=== PATIENT | male | born 1960 | race Caucasian/White ===

== ENCOUNTER 2019-09-02 08:45 | Outpatient (RCR) | payer MEDICAID, SELFPAY ==
[2019-08-18 11:56] LABS: Basophils # 0.1 10^3/uL (0.0-0.1); Basophils % 1.1 %; Eosinophils # 0.3 10^3/uL (0.0-0.8); Eosinophils % 5.2 %; Hematocrit 36.4 % (42.0-52.0); Hemoglobin 12.5 g/dL (11.7-16.6); Lymphocytes # 1.3 10^3/uL (0.8-4.8); Lymphocytes % 20.5 %; Mean Corpuscular HGB Conc 34.3 g/dL (30.0-36.0); Mean Corpuscular Hemoglobin 31.7 pg (28.0-34.0); Mean Corpuscular Volume 92.4 fL (80-94); Monocytes % 15.3 %; Neutrophils # 3.6 10^3/uL (1.8-7.7); Nucleated Red Blood Cells % 0 %; Platelet Count 346 10^3/cmm (130-400); Red Blood Count 3.94 10^6/uL (4.1-5.3); Red Cell Distribution Width 13.8 % (12.1-15.1); White Blood Count 6.3 10^3/uL (4.0-10.0)
[2019-08-18 12:18] LABS: Alanine Aminotransferase 11 U/L (0-41); Albumin Level 3.9 g/dL (3.5-5.2); Alkaline Phosphatase 66 IU/L (40-130); Anion Gap 16.5 (5-19); Aspartate Amino Transferase 13 U/L (0-40); Blood Urea Nitrogen 8 mg/dL (8-23); Calcium 9.7 mg/dL (8.5-10.5); Carbon Dioxide 25 mmol/L (22-29); Chloride 91 mmol/L (98-107); Chol HDL Ratio 3.34 mg/dL (1.0-5.00); Cholesterol 177 mg/dL (0-200); Globulin 3.1 g/dL (1.3-4.6); Glomerular Filtration Rate 137.4 mL/min (90-130); Glucose 114 mg/dL (65-115); HDL Cholesterol 53 mg/dL (60-100); LDL Cholesterol Calculated 108 mg/dL (50-129); LDL HDL Ratio 2.04 RATIO (0.00-3.22); Osmolality Calculated 263 mOsm/kg (285-295); Potassium 4.5 mmol/L (3.5-5.1); Sodium 128 mmol/L (136-145); Total Bilirubin 0.2 mg/dL (0.15-1.2); Triglycerides 78 mg/dL (0-150)
[2019-08-18 12:33] LABS: Vitamin B12 1678 pg/mL (232-1245)
[2019-08-18 14:47] LABS: 25 Hydroxy Vitamin D 45 ng/mL (30-100)
[2019-09-02 08:58] LABS: Basophils # 0.1 10^3/uL (0.0-0.1); Basophils % 0.7 %; Eosinophils # 0.3 10^3/uL (0.0-0.8); Eosinophils % 3.7 %; Hematocrit 35.3 % (42.0-52.0); Hemoglobin 11.9 g/dL (11.7-16.6); Lymphocytes # 0.8 10^3/uL (0.8-4.8); Lymphocytes % 8.6 %; Mean Corpuscular HGB Conc 33.7 g/dL (30.0-36.0); Mean Corpuscular Hemoglobin 31.1 pg (28.0-34.0); Mean Corpuscular Volume 92.2 fL (80-94); Mean Platelet Volume 8.7 fL (7.4-10.4); Monocytes # 1.2 10^3/uL (0.2-0.9); Monocytes % 13.2 %; Neutrophils # 6.5 10^3/uL (1.8-7.7); Neutrophils % 73.3 %; Nucleated Red Blood Cells % 0 %; Platelet Count 349 10^3/cmm (130-400); Red Blood Count 3.83 10^6/uL (4.1-5.3); Red Cell Distribution Width 13.6 % (12.1-15.1); White Blood Count 8.9 10^3/uL (4.0-10.0)
[2019-09-02 09:17] LABS: Estmated Average Glucose 160; Hemoglobin A1C 7.2 % (4.0-6.0)
[2019-09-02 09:20] LABS: Alanine Aminotransferase 9 U/L (0-41); Albumin Level 3.7 g/dL (3.5-5.2); Alkaline Phosphatase 70 IU/L (40-130); Anion Gap 17.4 (5-19); Aspartate Amino Transferase 10 U/L (0-40); Blood Urea Nitrogen 6 mg/dL (8-23); Calcium 9.5 mg/dL (8.5-10.5); Carbon Dioxide 26 mmol/L (22-29); Chloride 93 mmol/L (98-107); Chol HDL Ratio 3.44 mg/dL (1.0-5.00); Cholesterol 155 mg/dL (0-200); Globulin 3.5 g/dL (1.3-4.6); Glomerular Filtration Rate 169.6 mL/min (90-130); Glucose 135 mg/dL (65-115); HDL Cholesterol 45 mg/dL (60-100); LDL Cholesterol Calculated 98 mg/dL (50-129); LDL HDL Ratio 2.18 RATIO (0.00-3.22); Osmolality Calculated 272 mOsm/kg (285-295); Potassium 4.4 mmol/L (3.5-5.1); Sodium 132 mmol/L (136-145); Total Bilirubin 0.3 mg/dL (0.15-1.2); Total Protein 7.2 g/dL (6.6-8.7); Triglycerides 62 mg/dL (0-150)
[2019-09-02 10:05] LABS: Folate Level 8.2 ng/mL (4.5-32.2)
[2019-09-06 08:35] LABS: Vit D 1,25 (Oh)2, Total 25 pg/mL (18-72); Vit D2 1,25 (Oh)2 <8 pg/mL; Vit D3 1,25 (Oh)2 25 pg/mL
[2019-09-07 04:16] LABS: Vitamin B12 > 2000 pg/mL (232-1245)
== END 2019-09-15 23:59 | disposition home or self-care (01) ==
LOC: LAB 08:45
PROVIDERS: Family Provider Internal Medicine; PCP Internal Medicine; Visit Provider Internal Medicine
DX: E11.9 Type 2 diabetes mellitus without complications (principal)
CPT/HCPCS: 80053; 80061; 82306; 82607; 82652; 82746; 83036; 85025

== ENCOUNTER 2019-09-09 10:58 | Emergency (ER) | payer MEDICAID, SELFPAY ==
[2019-09-09 11:03] VITALS: BP 147/79; PULSE 63; RESP 17; TEMP 37.1; O2SAT 100; BMI 21.4
--- NOTE | 2019-09-09 11:24 | ED_ITS ---
HPI - Abdominal Pain General: Chief Complaint: Abdominal Pain Stated Complaint: possible UTI/ fever/ n/v Time Seen by Provider: 09/09/19 11:05 History of Present Illness: HPI narrative: 59-year-old male presents with complaint of bladder infection. He is a partial quadriplegic he had a C-spine fracture 12 years ago while working outside resulted in loss of function of everything below the neck he has partial movement but does have some contractures in the upper extremities not able to accomplish many tasks he has an indwelling suprapubic catheter. He was recently dislodged and currently has a Miranda in place he has a fever at home he also has dysuria and urgency. He still is able to sense things below the neck just not able to move very well. He says the symptoms been going on for 4 days. He has vomited x1 denies any diarrhea. He was supposed to have a colonoscopy and have the suprapubic catheter replaced but due to the recent pandemic this has not been done. He denies any respiratory symptoms. MD elicited complaint: abdominal pain Pertinent past history: past UTI and other (Partial quadriplegia, indwelling Miranda.) Onset (ago): day(s) (4) Pain Consistency: intermittent Location: Suprapubic Quality: cramping and burning Radiation: none Migration to: no migration Exacerbating factors: nothing Relieving factors: nothing Context: other (History of recurrent UTIs, history of indwelling Miranda, history of cervical spine injury resulting in partial paraplegia) Associated Symptoms: Reports chills, dysuria, fever(s), nausea and poor appetite; Denies change in stool character, coffee ground emesis, constipation, diarrhea, dyspepsia, heartburn, hematochezia, hematuria, hematemesis and vomiting Review of Systems Const: Reports: fever and chills ENMT: Denies: throat pain, ear pain, nasal discharge or nasal congestion Card: Denies: chest pain, edema, shortness of breath on exertion or shortness of breath when lying down Resp: Denies: shortness of breath, productive cough or non-productive cough GI: Reports: nausea; Denies: vomiting, vomiting blood, coffee grounds in vomit, heartburn/indigestion, diarrhea, constipation, change in stool character or blood in stool : Reports: painful urination; Denies: blood in urine Skin/Breast: Denies: rash or itching PFSH ED PFSH: Social History Smoking and tobacco status: current every day smoker cigarettes Quit status (tobacco): not considering quitting Second hand smoke exposure: No Smoking risk assessment/counseling performed?: Yes Alcohol intake: never Desire information about alcohol rehabilitation?: No Counseling given: No Desire information about substance/drug rehabilitation?: No Counseling given: No Adopted: No Caregiver/support person: Yes Lives independently: No Household members: caregiver Housing: Manufactured/Mobile home Marital status: Legally Number of children: 5 service: No Current occupational status: disabled History of recent travel: No Current gender identity: Male Physical Exam Const: COMMON NORMALS: average body habitus, oriented x3 and alert GENERAL APPEARANCE: cooperative, comfortable and well developed NUTRITIONAL APPEARANCE: obese ORIENTATION/CONSCIOUSNESS: Yes awake, Yes oriented to person and Yes oriented to place HENMT: COMMON NORMALS: normocephalic, head/scalp atraumatic, EAC's normal, TM's normal bilaterally, external nose normal, moist oral mucous membranes and oropharynx normal HEAD & SCALP: normocephalic and atraumatic NOSE: external nose normal EXTERNAL AUDITORY CANAL: EAC's normal TYMPANIC MEMBRANE: TM's normal bilaterally MOUTH: oral and palatal mucosa normal, lip normal and tongue normal THROAT: posterior oropharynx normal and tonsils normal Eye: COMMON NORMALS: PERRL, EOMs intact bilaterally, conjunctivae normal and no scleral icterus CONJUNCTIVA: Yes conjunctivae normal PUPIL: Yes PERRL Neck/C-Spine: COMMON NORMALS: full ROM, no lymphadenopathy, supple and thyroid normal THYROID: thyroid normal and asymmetrical Lymph: LYMPHATIC: no lymphadenopathy noted Resp: COMMON NORMALS: normal respiratory effort, no retractions, no use of accessory muscles and clear to auscultation bilaterally AUSCULTATION: clear to auscultation bilaterally Cardio: COMMON NORMALS: regular rate and regular rhythm RATE: regular rate RHYTHM: regular rhythm HEART SOUNDS: no murmurs GI: COMMON NORMALS: normal to inspection, nondistended, normoactive bowel sounds, soft to palpation and no hepatosplenomegaly PALPATION: Yes soft and Yes no hepatosplenomegaly : COMMON NORMALS: Yes no CVA tenderness BLADDER/KIDNEY EXAM: Yes no CVA tenderness Back/Pelvis: COMMON NORMALS: no CVA tenderness Extremity: OTHER: Contractures bilaterally of the upper extremities Neuro: COMMON NORMALS: oriented x3 SENSORIUM/ORIENTATION: Yes alert, Yes oriented to person and Yes oriented to place Skin: COMMON NORMALS: no rashes or lesions noted and skin turgor normal GENERAL SKIN EXAM: no rashes or lesions noted and turgor normal Course Vital Signs: Vital signs: Vital Signs Temperature 98.8 F 09/09/19 11:03 Pulse Rate 69 09/09/19 14:17 Respiratory Rate 18 09/09/19 14:17 Blood Pressure 166/81 09/09/19 14:17 Pulse Oximetry 95 09/09/19 14:17 MDM - Abdominal Pain MDM Narrative: Medical decision making narrative: Miranda replaced discharge rosalia e treat for cystitis cultures pending follow-up with his primary care doctor or urologist. Lab Data: Labs: Lab Results 09/09/19 09/09/19 09/09/19 Range/Units 11:43 11:43 12:22 WBC 9.8 (4.0-10.0) 10^3/ uL RBC 3.55 L (4.1-5.3) 10^6/u L Hgb 10.9 L (11.7-16.6) g/dL Hct 31.9 L (42.0-52.0) % MCV 89.9 (80-94) fL MCH 30.7 (28.0-34.0) pg MCHC 34.2 (30.0-36.0) g/dL RDW 13.2 (12.1-15.1) % Plt Count 301 (130-400) 10^3/c mm MPV 8.6 (7.4-10.4) fL Neut % (Auto) 80.4 % Lymph % (Auto) 5.7 % [place] % (Auto) 12.5 % Eos % (Auto) 0.7 % Baso % (Auto) 0.2 % Neut # (Auto) 7.9 H (1.8-7.7) 10^3/u L Lymph # (Auto) 0.6 L (0.8-4.8) 10^3/u L [place] # (Auto) 1.2 H (0.2-0.9) 10^3/u L Eos # (Auto) 0.1 (0.0-0.8) 10^3/u L Baso # (Auto) 0.0 (0.0-0.1) 10^3/u L Nucleated RBC % (a uto) 0 % Nucleated RBCs # 0.0 /100WBC Sodium 123 L (136-145) mmol/L Potassium 4.2 (3.5-5.1) mmol/L Chloride 84 L (98-107) mmol/L Carbon Dioxide 28 (22-29) mmol/L Anion Gap 15.2 (5-19) BUN 10 (8-23) mg/dL Creatinine 0.8 (0.7-1.2) mg/dL GFR Calculation 98.6 (90-130) mL/min Glucose 203 H (65-115) mg/dL Calculated Osmolal ity 258 L (285-295) mOsm/k g Calcium 9.5 (8.5-10.5) mg/dL Total Bilirubin 0.3 (0.15-1.2) mg/dL AST 15 (0-40) U/L ALT 20 (0-41) U/L Alkaline Phosphata se 95 (40-130) IU/L Total Protein 7.3 (6.6-8.7) g/dL Albumin 3.6 (3.5-5.2) g/dL Globulin 3.7 (1.3-4.6) g/dL Urine Color Yellow (Yellow) Urine Appearance Turbid (CLEAR) Urine pH 9 H (5-7) Ur Specific Gravit y 1.010 (1.005-1.030) Urine Protein Neg (Negative) Urine Glucose (UA) Norm (Normal) Urine Ketones Negative (Negative) Urine Blood 3+ H (Negative) Urine Nitrate Positive H (Negative) Urine Bilirubin Neg (NEGATIVE) Prot Sulfosalicyli c Acd Negative (Negative) Urine Urobilinogen Norm (Negative) mg/dL Ur Leukocyte Kaylan ase 2+ H (Negative) Urine RBC 15-25 H (0-2) /hpf Urine WBC 25-40 H (0-5) /hpf Ur Squamous Epith Cells 0-4 H (0-5) Triple Phos Tasha ls 5-10 H /hpf Amorphous Sediment 2+ Urine Bacteria 1+ H (NONE) Discharge Plan Discharge Patient Disposition: Home, Self-Care Clinical Impression: Cystitis Condition: Stable Prescriptions: New Cipro 500 mg tablet 500 mg PO BID Qty: 14 RF: 0 No Action ibuprofen-diphenhydramine cit [Advil PM] 200-38 mg tablet 1 cap PO PRN PRN (Reason: Pain) RF: 0 aspirin [Adult Aspirin Regimen] 81 mg tablet,delayed release (DR/EC) 81 mg PO DAILY RF: 0 baclofen 20 mg tablet 20 mg PO QID RF: 0 bisacodyl 10 mg suppository 10 mg IA PRN PRN (Reason: Constipation) RF: 0 carbamazepine 200 mg tablet 200 mg PO BID RF: 0 cranberry 500 mg capsule 500 mg PO DAILY RF: 0 escitalopram oxalate 10 mg tablet 10 mg PO DAILY RF: 0 gabapentin 100 mg capsule 100 mg PO TID RF: 0 loperamide 2 mg capsule 2 mg PO Q4H RF: 0 melatonin 10 mg capsule 30 mg PO BEDTIME RF: 0 meloxicam 15 mg tablet 15 mg PO DAILY RF: 0 pravastatin 40 mg tablet 40 mg PO DAILY RF: 0 promethazine 25 mg tablet 25 mg PO Q6H PRN (Reason: Nausea) RF: 0 trazodone 50 mg tablet 100 mg PO BEDTIME RF: 0 ascorbic acid (vitamin C) 500 mg capsule 500 mg PO DAILY RF: 0 ergocalciferol (vitamin D2) 400 unit tablet 50,000 unit PO Q7D RF: 0 Discharge Orders: Discharge Order (Routine); Ordered 09/09/19 Ordered By: Panda Garcia Referrals: AKBAR PATEL DO [Primary Care Provider] - Malka Owens MD [Family Provider] - Discharge Date/Time: 09/09/19 15:06 Coding Level of Care Code ED Spiral Tube Winder Helper for Chg Fwd Exam Comprehensive
[2019-09-09 11:34] VITALS: O2SAT 94
[2019-09-09 12:01] LABS: Basophils % 0.2 %; Eosinophils # 0.1 10^3/uL (0.0-0.8); Eosinophils % 0.7 %; Hematocrit 31.9 % (42.0-52.0); Hemoglobin 10.9 g/dL (11.7-16.6); Lymphocytes # 0.6 10^3/uL (0.8-4.8); Lymphocytes % 5.7 %; Mean Corpuscular HGB Conc 34.2 g/dL (30.0-36.0); Mean Corpuscular Hemoglobin 30.7 pg (28.0-34.0); Mean Corpuscular Volume 89.9 fL (80-94); Mean Platelet Volume 8.6 fL (7.4-10.4); Monocytes # 1.2 10^3/uL (0.2-0.9); Monocytes % 12.5 %; Neutrophils # 7.9 10^3/uL (1.8-7.7); Neutrophils % 80.4 %; Nucleated Red Blood Cells % 0 %; Platelet Count 301 10^3/cmm (130-400); Red Blood Count 3.55 10^6/uL (4.1-5.3); Red Cell Distribution Width 13.2 % (12.1-15.1); White Blood Count 9.8 10^3/uL (4.0-10.0)
[2019-09-09 12:24] VITALS: BP 150/75; PULSE 58; RESP 18; O2SAT 99
[2019-09-09 12:31] LABS: Alanine Aminotransferase 20 U/L (0-41); Albumin Level 3.6 g/dL (3.5-5.2); Alkaline Phosphatase 95 IU/L (40-130); Anion Gap 15.2 (5-19); Aspartate Amino Transferase 15 U/L (0-40); Blood Urea Nitrogen 10 mg/dL (8-23); Calcium 9.5 mg/dL (8.5-10.5); Carbon Dioxide 28 mmol/L (22-29); Chloride 84 mmol/L (98-107); Globulin 3.7 g/dL (1.3-4.6); Glomerular Filtration Rate 98.6 mL/min (90-130); Glucose 203 mg/dL (65-115); Osmolality Calculated 258 mOsm/kg (285-295); Potassium 4.2 mmol/L (3.5-5.1); Sodium 123 mmol/L (136-145); Total Bilirubin 0.3 mg/dL (0.15-1.2); Total Protein 7.3 g/dL (6.6-8.7)
[2019-09-09 13:14] LABS: Urine Appearance Turbid (CLEAR); Urine Color Yellow (Yellow); pH Urine 9 (5-7)
[2019-09-09 13:15] LABS: Add Urine Microscopic? YES; Bilirubin Urine Neg (NEGATIVE); Blood Urine 3+ (Negative); Glucose Urine UA Norm (Normal); Ketones Urine Negative (Negative); Leukocyte Esterase Urine 2+ (Negative); Nitrate Urine Positive (Negative); Protein Urine Neg (Negative); Sulfosalicylic Acid Urine Negative (Negative); Urobilinogen Urine Norm (Negative)
[2019-09-09 13:16] LABS: Add Urine Culture? Yes; Amorphous Sediment Urine 2+; Bacteria Urine 1+; RBC Urine 15-25 /hpf (0-2); Squamous Epithelial Cell Urine 0-4 (0-5); WBC Urine 25-40 /hpf (0-5)
[2019-09-09] MEDS: sodium chloride 0.9% 1,000 ML 999 ML IV (13:30)
[2019-09-09 14:17] VITALS: BP 166/81; PULSE 69; RESP 18; O2SAT 95
== END 2019-09-09 15:06 | disposition home or self-care (01) ==
PROVIDERS: Emergency Provider Family Medicine; Family Provider Internal Medicine; PCP Internal Medicine
DX: N30.90 Cystitis, unspecified without hematuria (principal); Z79.82 Long term (current) use of aspirin; F17.210 Nicotine dependence, cigarettes, uncomplicated
CPT/HCPCS: 12345; 36415; 51702; 80053; 81001; 85025; 87040; 87077; 87086; 87186; 96360; 96361; 99283; J7030

== ENCOUNTER 2019-10-04 09:05 | Day surgery (SDC) | payer MEDICAID, SELFPAY ==
[2019-09-30 10:01] VITALS: BMI 21.4
[2019-10-04 09:27] VITALS: BP 154/87; PULSE 58; RESP 18; TEMP 36.8; O2SAT 98
[2019-10-04] MEDS: sodium chloride 0.9% 1,000 ML 30 ML IV (09:58)
--- NOTE | 2019-10-04 10:15 | W.PM.OPSFHP ---
Same Day Surgery H&P Indication for Procedure/HPI DATE OF PROCEDURE: October 04, 2019 CHIEF COMPLAINT/INDICATIONFOR SURGICAL PROCEDURE: FOBT + PREOP DIAGNOSIS: FOBT positive PLANNED PROCEDRUE: Operation Date: 10/04/19 10:10 Proposed Procedures p Colonoscopy 66676 R19.5(Not Applicable) - Blanco Godwin MD Medications/Allergies* Home Medications Medication Instructions Recorded Confirmed Type ascorbic acid (vitamin C) 500 mg 500 mg PO DAILY 05/24/19 10/04/19 History capsule aspirin 81 mg tablet,delayed 81 mg PO DAILY 05/24/19 10/04/19 History release baclofen 20 mg tablet 20 mg PO QID 05/24/19 10/04/19 History bisacodyl 10 mg rectal suppository 10 mg NV PRN PRN 05/24/19 10/04/19 History carbamazepine 200 mg tablet 200 mg PO BID 05/24/19 10/04/19 History cranberry 500 mg capsule 500 mg PO DAILY 05/24/19 10/04/19 History ergocalciferol (vitamin D2) 10 mcg 50,000 unit PO Q7D 05/24/19 10/04/19 History (400 unit) tablet escitalopram oxalate 10 mg tablet 10 mg PO DAILY 05/24/19 10/04/19 History gabapentin 100 mg capsule 100 mg PO TID 05/24/19 10/04/19 History ibuprofen-diphenhydramine citrate 1 cap PO PRN PRN 05/24/19 10/04/19 History 200 mg-38 mg tablet loperamide 2 mg capsule 2 mg PO Q4H 05/24/19 10/04/19 History melatonin 10 mg capsule 30 mg PO BEDTIME 05/24/19 10/04/19 History meloxicam 15 mg tablet 15 mg PO DAILY 05/24/19 10/04/19 History pravastatin 40 mg tablet 40 mg PO DAILY 05/24/19 09/30/19 History promethazine 25 mg tablet 25 mg PO Q6H PRN 05/24/19 10/04/19 History trazodone 50 mg tablet 100 mg PO BEDTIME 05/24/19 10/04/19 History pyridoxine (vitamin B6) [Vitamin 100 mg PO DAILY 09/30/19 10/04/19 History B-6] vitamin E 1,000 unit PO DAILY 09/30/19 10/04/19 History Allergies/Adverse Reactions Allergy/AdvReac Type Severity Reaction Status Date / Time penicillin G Allergy Mild ALGY-Rash Verified 09/30/19 09:57 Current Medications: Generic Name Dose Route Start Last Admin Trade Name Satnam PRN Reason Stop Dose Admin Sodium Chloride 1,000 mls @ 30 mls/hr 10/04/19 09:30 10/04/19 09:58 Sodium Chloride 0.9% IV 10/05/19 09:29 30 mls/hr .Q24H SHANTEL Administration Pertinent History/Comorbid Conditions* Medical History (Updated 09/17/19 @ 00:00 by ) Diabetes mellitus Quadriplegia Surgical History (Updated 07/18/19 @ 13:30 by Blanco Godwin MD) History of appendectomy History of back surgery History of colon resection History of neck surgery History of suprapubic catheter Family History (Updated 05/24/19 @ 09:52 by Crystal Torres LPN) Lung disease Father Brother Cancer Father Mother Brother Denies family history of Diabetes CAD (coronary artery disease) Clotting disorder Dementia Hyperlipidemia Psychiatric illness Chronic kidney disease (CKD) Suicide Anesthesia complication Bleeding disorder Family history of premature coronary artery disease Hypertension Stroke Social History Smoking and tobacco status: current every day smoker cigarettes Quit status (tobacco): not considering quitting Second hand smoke exposure: No Smoking risk assessment/counseling performed?: Yes Alcohol intake: never Desire information about alcohol rehabilitation?: No Counseling given: No Desire information about substance/drug rehabilitation?: No Counseling given: No Adopted: No Caregiver/support person: Yes Lives independently: No Household members: caregiver Housing: Manufactured/Mobile home Marital status: Legally Number of children: 5 service: No Current occupational status: disabled History of recent travel: No Current gender identity: Male Pertinent Exam Findings alert, oriented x 3 and regular rate & rhythm Recommendations Surgery/Procedure today Coding Level of Care Code Acute Home [employer] Service Supervisor for Cj Webster
--- NOTE | 2019-10-04 10:15 | ANES.PREANE2 ---
Pre-Anesthetic Assessment Pre-Anesthetic Assessment: Height/Weight: Height 1.75 m Weight 65.771 kg Temp Pulse Resp BP Pulse Ox 98.2 F 58 L 18 154/87 98 10/04/19 09:27 10/04/19 09:27 10/04/19 09:27 10/04/19 09:27 10/04/19 09:27 Preop Diagnosis: FOBT positive Proposed Procedure: Operation Date: 10/04/19 10:10 Proposed Procedures p Colonoscopy 74653 R19.5(Not Applicable) - Blanco Godwin MD Familial anesthetic complications: None Was Beta Jose taken within 24 hours: N/A Last intake: Intake NPO > 8 hrs Last Liquid Date 10/03/19 Last Solid Date 10/03/19 Social: Social History: Tobacco Exam: Pre-Anes Outpt Exam: alert, oriented x 3, clear to auscultation bilaterally and regular rate & rhythm Airway: Cervical ROM: WNL MP: 4 Dentition: False Pulmonary: Pulmonary: None reported CV/HEM: CV/HEM: None reported : : UTI Hepatic: Hepatic: None reported GI: GI: GERD Metabolic: Metabolic: DM and Hyperlipidemia Musc/skel: Comments: cervical spine fx - quadriplegia w/ UE contractures - takes baclofen Neuropsych: Neuropsych: None reported Anesthetic Plan: ASA status: 3 Anesthesia: MAC Risk of > 500 ml blood loss (7ml/kg in children): No Meds/Allergies Current Medications: Current Medications Generic Name Dose Route Start Last Admin Trade Name Freq PRN Reason Stop Dose Admin Sodium Chloride 1,000 mls @ 30 ml s/hr 10/04/19 09:30 10/04/19 09:58 Sodium Chloride 0.9% IV 10/05/19 09:29 30 mls/hr .Q24H SHANTEL Administration PFSH Anesthesia PFSH: Medical History (Updated 09/26/19 @ 09:53 by Maya Herrera LPN) Diabetes mellitus Quadriplegia Surgical History History of appendectomy History of back surgery History of colon resection History of neck surgery History of suprapubic catheter Family History Father Cancer Lung disease Mother Cancer Brother Cancer Lung disease Denies family history of Diabetes CAD (coronary artery disease) Clotting disorder Dementia Hyperlipidemia Psychiatric illness Chronic kidney disease (CKD) Suicide Anesthesia complication Bleeding disorder Family history of premature coronary artery disease Hypertension Stroke Social History Smoking and tobacco status: current every day smoker cigarettes Quit status (tobacco): not considering quitting Second hand smoke exposure: No Smoking risk assessment/counseling performed?: Yes Alcohol intake: never Desire information about alcohol rehabilitation?: No Counseling given: No Desire information about substance/drug rehabilitation?: No Counseling given: No Adopted: No Caregiver/support person: Yes Lives independently: No Household members: caregiver Housing: Manufactured/Mobile home Marital status: Legally Number of children: 5 service: No Current occupational status: disabled History of recent travel: No Current gender identity: Male Data Anesthesia Cardiac Studies: No Data to Display
[2019-10-04 10:25] LABS: Glucose Point of Care 116 mg/dL (70-110)
[2019-10-04 11:16] VITALS: BP 103/65; PULSE 58; RESP 16; TEMP 36.2
[2019-10-04 11:31] VITALS: BP 158/79; PULSE 54; RESP 16; TEMP 36.3; O2SAT 100
== END 2019-10-04 13:20 | disposition home or self-care (01) ==
PROVIDERS: PCP Internal Medicine; Visit Provider Surgery
PROC: 0DJD8ZZ Inspection of Lower Intestinal Tract, Via Natural or Artificial Opening Endoscopic (ICD-10-PCS; CPT 45378; principal; 2019-10-04 10:05)
DX: R19.5 Other fecal abnormalities (principal); Z53.8 Procedure and treatment not carried out for other reasons; K21.9 Gastro-esophageal reflux disease without esophagitis; E11.9 Type 2 diabetes mellitus without complications; E78.5 Hyperlipidemia, unspecified; F17.210 Nicotine dependence, cigarettes, uncomplicated
CPT/HCPCS: 12345; 36416; 45378; 82962; J2704; J7030

== ENCOUNTER 2019-10-27 16:05 | Observation (INO) | payer MEDICAID, SELFPAY ==
[2019-10-26 14:09] VITALS: BMI 20.7
[2019-10-27] VITALS (14 sets, daily range): BP systolic 162–196; BP diastolic 71–91; PULSE 56–67; RESP 12–19; TEMP 36.2–36.6; O2SAT 99–100
--- NOTE | 2019-10-27 12:40 | P.ANESASSM_ITS ---
Pre-Anesthetic Assessment Pre-Anesthetic Assessment: Height/Weight: Height 1.75 m Weight 63.503 kg Preop Diagnosis: Bladder stones, chronic urinary retention associated with quadriplegia Proposed Procedure: Operation Date: 10/27/19 13:00 Proposed Procedures p Cystolitholapaxy 77221 [id number] G82.50 Z96.0 Z87.448(Not Applicable) - Oni Saucedo MD s Suprapubic Catheter Placement poss percutaneous versus open(Not Applicable) - Oni Saucedo MD Familial anesthetic complications: None Was Beta Jose taken within 24 ella rs: N/A Last intake: Intake Last Liquid Date 10/26/19 Last Liquid Time 20:30 Last Solid Date 10/26/19 Last Solid Time 18:00 Social: Social History: Tobacco and No alcohol Exam: Pre-Anes Outpt Exam: alert, oriented x 3, clear to auscultation bilaterally and regular rate & rhythm Airway: Cervical ROM: WNL MP: 3 Dentition: Full Pulmonary: Pulmonary: None reported CV/HEM: CV/HEM: None reported : : None reported Hepatic: Hepatic: None reported GI: GI: GERD Metabolic: Metabolic: DM and None reported Musc/skel: Comments: quadriplegia [id number] - phrenic nerve ok Neuropsych: Neuropsych: None reported Anesthetic Plan: ASA status: 3 Anesthesia: General Other: watch out for potential dysautonomic hyperreflexia Risk of > 500 ml blood loss (7ml/kg in children): No PFSH Anesthesia PFSH: Medical History (Updated 10/11/19 @ 16:50 by Oni Saucedo MD) Chronic indwelling Miranda catheter Diabetes mellitus Quadriplegia Surgical History History of appendectomy History of back surgery History of colon resection History of neck surgery History of suprapubic catheter Family History (Updated 10/11/19 @ 13:36 by Maya Herrera LPN) Father , at age 49 Cancer Lung disease Mother Cancer bone Brother Cancer Lung disease Denies family history of Diabetes CAD (coronary artery disease) Clotting disorder Dementia Hyperlipidemia Psychiatric illness Chronic kidney disease (CKD) Suicide Anesthesia complication Bleeding disorder Family history of premature coronary artery disease Hypertension Stroke Social History Smoking and tobacco status: current every day smoker cigarettes Quit status (tobacco): not considering quitting Second hand smoke exposure: No Smoking risk assessment/counseling performed?: Yes Alcohol intake: never Desire information about alcohol rehabilitation?: No Counseling given: No Desire information about substance/drug rehabilitation?: No Counseling given: No Adopted: No Caregiver/support person: Yes Lives independently: No Household members: caregiver Housing: Manufactured/Mobile home Marital status: Legally Number of children: 5 service: No Current occupational status: disabled History of recent travel: No Current gender identity: Male Data Anesthesia Cardiac Studies: No Data to Display
[2019-10-27 12:50] LABS: Glucose Point of Care 118 mg/dL (70-110)
--- NOTE | 2019-10-27 12:54 | P.HPUD_ITS ---
Surgery/Procedure H&P Update DATE OF PROCEDURE: October 27, 2019 DATE H&P PERFORMED: 10/11/19 H&P UPDATE INFORMATION: I have reviewed H&P completed within last 30 days, I have examined patient prior to procedure, No changes to prior documentation and H&P is in [facility] [place] on date indicated CHANGES TO PREVIOUS DOCUMENTATION: Reviewed again with him the options for approach to the bladder for suprapubic tube placement. May require open surgery if the bladder does not distend significantly from chronic scarring related to chronic indwelling catheter. PREOP DIAGNOSIS: Bladder stones, chronic urinary retention associated with quadriplegia PLANNED PROCEDURE: Operation Date: 10/27/19 13:00 Proposed Procedures p Cystolitholapaxy 20284 [id number] G82.50 Z96.0 Z87.448(Not Applicable) - Oni Saucedo MD s Suprapubic Catheter Placement poss percutaneous versus open(Not Applicable) - Oni Saucedo MD
[2019-10-27] MEDS: levofloxacin-dextrose 5 % 500 MG/100 ML PREMIX 100 MG IV (13:20)
--- NOTE | 2019-10-27 15:28 | PM.OP ---
Operative Report Date of procedure: October 27, 2019 Pre-op Diagnosis: Bladder stones, chronic urinary retention associated with quadriplegia Post-op diagnosis: same Procedure Done: 1. Cystolitholapaxy >2.5 cm 2. Cystostomy with suprapubic tube placement Specimens removed/disposition: Bladder stones Pathology: Bladder stones Surgeon: Sheryl Anesthesia: General Estimated blood loss: Less than 50 cc Complications: None Condition: stable Disposition: PACU Brief History: Timur is a very pleasant 59-year-old white male chronic quadriplegia with neurogenic bladder and chronic urinary retention. Initially he was managed with a suprapubic tube for years but then at some point lost access and has been utilizing an indwelling urethral catheter with a desire to switch back to a suprapubic catheter. Complicated by having had a bowel obstruction surgery with extension of the incision down to the previous suprapubic tube site and on CT scan what appears to be a small contracted bladder with minimal space between the symphysis pubis and peritoneum. Was known to have multiple bladder stones on the same CT scan and was admitted for cystolitholapaxy and suprapubic tube placement. Percutaneous placement was preferred if it bladder could be distended enough to safely do so percutaneously. If not then he would be opened for tube placement. Procedure: After routine preoperative evaluation examination and obtaining of informed consent he was taken to the operating suite on 10/27/2019 where general anesthesia was administered without difficulty after appropriate timeout was performed, SCDs confirmed to be functioning, preoperative antibiotics administered, beta-tiff protocol confirmed. Positioned in dorsolithotomy position pain careful attention to avoiding pressure points. He did have some significant lower extremity contractures associate with quadriplegia. 21 [place]er cystoscope with 30 degree lens was introduced into the urethral meatus and advanced into the bladder under videoscopy. Multiple stones were identified in the bladder the largest greater than 2.5 cm. A 550 ?m holmium laser fiber was then utilized to fragment all the stones into small enough pieces that were removed with an PlayWith evacuator. Final inspection revealed no additional stones. The bladder was then slowly distended through the cystoscope but could not be easily palpated suprapubically. A spinal needle was passed through the skin near his previous suprapubic site directing toward the bladder but it appeared that the bladder was not distended enough to make that an easy direct pass. For that reason it was then decided to proceed to open cystostomy and suprapubic tube placement. A Pfannenstiel incision was made about 2 fingerbreadths above the symphysis pubis also above his previous site for the suprapubic tube. Incision was taken down to the rectus fascia and then the fascia was incised down to the rectus abdominis muscles. A distal flap was formed down to the symphysis pubis and then the linea alba was from upper and lower flaps. The retrovesical space was entered distally by the rectus abdominis muscles and dissecting into the retrovesical space. The bladder was filled with about 180 cc and was easily palpable. Allis clamps were used to secure the bladder wall at the site of preferred tube placement in the bladder was opened between the clamps. Confirmation of drainage of the fluid was made. Allis clamps were repositioned on the edges of the cystostomy. A puncture incision was then made through his old tract with the right angle from inside out the 20 [place]er catheter was grasped at the distal aspect and pulled through the skin incision and then a second tract was made just below that through the fascia with similar technique of passage. And then the tube was passed into the bladder and the balloon inflated. A pursestring suture was placed around the catheter pain careful attention to avoiding sticking the tube and the suture was tied with 3-0 Vicryl. The wound was then copiously irrigated. Hemostasis was confirmed. The rectus fascia was closed with a running heavy PDS. Several interrupted 3-0 Vicryl sutures were placed in the subcutaneous tissue and then tammy were used after irrigation to close the skin. The suprapubic catheter was secured to the skin with heavy silk sutures x2. Cystoscopy confirmed good positioning of the tube and balloon and then the bladder was drained also from the urethra with a 16 [place] Miranda catheter. Both catheters were confirmed to be functioning and the procedure completed. Tolerated the procedure well without complications and was awakened in the operating room and returned to cover him in stable condition. PLANS: 1. Admit to observation status with anticipation of discharge tomorrow. 2. Maintain new suprapubic tube for least 1 month. Can remove the Miranda catheter after a couple days.
[2019-10-27] MEDS: neomycin-poly-bacitracin oint 28 gm 1 APPLIC TOPICAL (15:30)
[2019-10-27] MEDS: dextrose 5%-ns + KCl 20 20 MEQ/1,000 ML BAG 100 MEQ IV (16:37)
[2019-10-27] MEDS: baclofen 10 mg Tablet 30 MG PO ×2 (17:12→21:59)
[2019-10-27] MEDS: meloxicam 7.5 mg tablet PO (17:12)
[2019-10-27] MEDS: ciprofloxacin 500 mg Tablet PO (17:12)
[2019-10-27] MEDS: carBAMazepine 200 mg Tablet PO (17:12)
[2019-10-27] MEDS: HYDROcodone-acetaminophen 5-325 mg Tablet 1 TAB PO (20:08)
[2019-10-27] MEDS: trazodone 100 mg Tablet PO (21:59)
[2019-10-27] MEDS: gabapentin 100 mg Capsule PO (21:59)
[2019-10-28] VITALS: BP 160/78; PULSE 62; RESP 18; TEMP 36.4; O2SAT 96
[2019-10-28] MEDS: dextrose 5%-ns + KCl 20 20 MEQ/1,000 ML BAG 100 MEQ IV (02:26)
[2019-10-28] MEDS: HYDROcodone-acetaminophen 5-325 mg Tablet 1 TAB PO ×2 (02:30→08:48)
--- NOTE | 2019-10-28 06:39 | PC.NURSE ---
Shift Summary Pt was awake all night. pt stated he was a night owl. pt had c/o of pain in his hamstring and was relieved with oral medications and repositioning. pt had good oral intake and urinary output. pt repositioned every two hours or at request.
--- NOTE | 2019-10-28 07:42 | PM.DCS ---
Discharge Providers Date of Admission: 10/27/19 16:05 Date of Discharge: October 28, 2019 Attending Provider at Admission: Oni Saucedo MD Attending Provider at Discharge: Oni Saucedo MD Primary Care Provider: AKBAR PATEL DO Reason for Visit Reason for Visit: cystolitholapaxy Hospital Course Hospital Course: He was admitted through outpatient surgery for cystolitholapaxy and suprapubic tube placement. He had multiple bladder stones that were fragmented with laser lithotripsy and removed entirely. Localization of the bladder was felt to be too close to the peritoneal reflection and for that reason an open suprapubic tube was placed. Both procedures went very well. He was observed overnight and was felt to be a good candidate for further convalescence at home with usual care. He is quadriplegic and has essentially 24-hour nurses aide help. On the day of discharge the urethral Miranda catheter was left in place and was draining well. The suprapubic tube was plugged. The wound looked healthy. Suprapubic tube was secured with a StatLock to the abdominal wall. We will plan on reevaluating him in about a week for staple removal and removal of urethral catheter in place suprapubic tube to dependent drainage. Physical Exam Const: COMMON NORMALS: no acute distress, alert and well nourished GENERAL APPEARANCE: well kempt and well developed ORIENTATION/CONSCIOUSNESS: not confused Resp: COMMON NORMALS: normal respiratory effort EFFORT & INSPECTION: No labored and No Actively coughing Neuro: SENSORIUM/ORIENTATION: Yes alert Psych: COMMON NORMALS: mental status grossly normal APPEARANCE: Yes grossly normal and Yes well kempt ATTITUDE: Yes calm and Yes engaged Skin: COMMON NORMALS: no rashes or lesions noted and no jaundice GENERAL SKIN EXAM: no rashes or lesions noted Urinary Catheter Management^: Suprapubic: Cath Placed During This Visit: yes Urinary Catheter Date of Insertion: 10/27/19 Urinary Catheter Time of Insertion: 15:03 F: Cath Placed During This Visit: yes, but has since been removed by the nurse Date Urinary Catheter Removed: 10/27/19 Time Urinary Catheter Discontinued: 13:25 Discharge Data Data Completed and Pending: Pending at discharge Category Date Time Status Stone Analysis Ro utine Lab 10/27/19 14:23 Ordered Pathology: Surgic al [PTH] Routine Pth 10/27/19 15:40 Ordered Labs from last 24 hours 10/27/19 12:47 POC Glucose 118 Vitals: Last Vital Signs Temp 97.5 F L 10/28/19 00:00 Pulse 62 10/28/19 00:00 Resp 18 10/28/19 00:00 BP 160/78 10/28/19 00:00 Pulse Ox 96 10/28/19 00:00 Discharge Plan Discharge Patient Disposition: Home, Self-Care Condition: Stable Prescriptions: Continued aspirin [Adult Aspirin Regimen] 81 mg tablet,delayed release (DR/EC) 81 mg PO DAILY RF: 0 bisacodyl 10 mg suppository 10 mg DC PRN PRN (Reason: Constipation) RF: 0 carbamazepine 200 mg tablet 200 mg PO BID RF: 0 cranberry 500 mg capsule 500 mg PO DAILY RF: 0 escitalopram oxalate 10 mg tablet 10 mg PO DAILY RF: 0 gabapentin 100 mg capsule 100 mg PO TID RF: 0 pravastatin 40 mg tablet 40 mg PO DAILY RF: 0 promethazine 25 mg tablet 25 mg PO Q6H PRN (Reason: Nausea) RF: 0 trazodone 50 mg tablet 100 mg PO BEDTIME RF: 0 ascorbic acid (vitamin C) 500 mg capsule 500 mg PO DAILY RF: 0 baclofen 20 mg tablet 30 mg PO QID RF: 0 melatonin 10 mg capsule 5 mg PO .COMPLEX RF: 0 meloxicam 15 mg tablet 7.5 mg PO BID RF: 0 loperamide 2 mg capsule 2 mg PO BID RF: 0 ergocalciferol (vitamin D2) 10 mcg (400 unit) tablet 50,000 unit PO Q7D RF: 0 ondansetron 4 mg tablet,disintegrating 4 mg PO Q8H RF: 0 diphenhydramine HCl [Benadryl] 25 mg capsule 25 mg PO DAILY PRN (Reason: Sleep) RF: 0 diphenhydramine-acetaminophen [Tylenol PM Extra Strength] 25-500 mg tablet 2 tab PO .at bedtime PRN (Reason: Sleep) RF: 0 mecobalamin (vitamin B12) 1,000 mcg tablet,chewable 2,500 mcg PO DAILY RF: 0 leg cramps PO DAILY RF: 0 ciprofloxacin HCl [Cipro] 500 mg tablet 500 mg PO BID Qty: 14 RF: 0 vitamin E 1,000 unit Capsule 1,000 unit PO DAILY RF: 0 pyridoxine (vitamin B6) [Vitamin B-6] 100 mg Tablet 100 mg PO DAILY RF: 0 Discharge Orders: Discharge Order (Routine); Ordered 10/28/19 Ordered By: Oni aSucedo Referrals: Oni Saucedo MD [Physician] - 1 week (Staple removal, removal of urethral catheter, placement of suprapubic tube to dependent drainage.) Discharge Diet: Usual diet Discharge Activity: Resume usual activity Activity Restrictions/Additional Instructions: 1. Suprapubic tube and urethral catheter will be left in until follow-up visit in my office in approximately 1 week for staple removal. 2. Keep the suprapubic tube plugged. 3. If the urethral catheter fails to drain you can unplug the suprapubic tube. Discharge Attestations Time Spent in Discharge Care*: less than 30 min Quality Metrics Clinical Quality Measures During this hospital stay, did patient experience: None Coding Level of Care Code Acute Cemetery Vault Installer for Cj Webster
[2019-10-28 08:00] VITALS: BP 146/66; PULSE 60; RESP 16; TEMP 37; O2SAT 97
--- NOTE | 2019-10-28 09:48 | PC.CHAP ---
Pastoral Care Encounter/Spiritual Assessment Type of Contact [] Declined air crew officer visit [] Patient/Family/Request visit [] Outpatient visit [] Follow-up visit [] Physician referral [] Code/Alert [x] Routine visit [] Staff referral [] Actively dying [] Patient sleeping [] Family support [] [] Out of room [] Palliative care [] [] Receiving care in room [] Pre-surgical visit [] Trauma [] Long length of stay [] ICU visit [] Other: Relational/Emotional Strength [] Patient feels connected with others/family/visitors/staff [] Distress [] Loneliness/isolation [] Abandonment Spirituality of Patient [] Person of Lillie [] Attends Confucianist of their Lillie [x] Believes in Prayer [] Reads Bible or Protestant materials [] There are Spiritual issues to be addressed Infantry Unit Leader Interventions [x] Prayer [] Active listening [] Non-anxious presence [] Spiritual/emotional support [] Crisis/trauma care [] Spiritual counseling [] Bereavement support [] Provided bereavement packet [] Provided Bible/devotional materials [] Provided toy/stuffed animal, coloring book to patient or family member [] Provided Communion [] Anointing/[place] [] Salvation [x] Completed spiritual assessment [] Other: Impact on Illness or Injury [] Angry [] Fearful [] Anxious [] Often cries [] Exhaustion [] Unable to work [] Unable to attend hindu [] Unable to walk/stand [] Unable to read [] Unable to drive [] Unable to eat/drink [] Unable to sleep [] Unable to be with family [] Patient intubated [] Other: Summary Patient preparing to be discharged. Comes from a praying family, and ready to go home. Time spent with patient 10 min
[2019-10-28 10:42] VITALS: BP 146/66; PULSE 60; RESP 16; TEMP 37; O2SAT 97
[2019-11-03 02:25] LABS: Stone Source BLADDER STONE
== END 2019-10-28 10:43 | disposition home or self-care (01) ==
LOC: MEDSURG 16:06
PROVIDERS: Admitting Provider Urology; PCP Internal Medicine; Visit Provider Urology
PROC: 0TCB8ZZ Extirpation of Matter from Bladder, Via Natural or Artificial Opening Endoscopic (ICD-10-PCS; CPT 51705; principal; 2019-10-27 13:00)
PROC: (CPT 51102; 2019-10-27 13:00)
PROC: (CPT 51705; 2019-10-27 13:00)
DX: N21.0 Calculus in bladder (principal); R33.9 Retention of urine, unspecified; G82.50 Quadriplegia, unspecified; K21.9 Gastro-esophageal reflux disease without esophagitis; E11.9 Type 2 diabetes mellitus without complications; F17.210 Nicotine dependence, cigarettes, uncomplicated; Z79.82 Long term (current) use of aspirin
CPT/HCPCS: 51705; 52318; 12345; 36416; 82365; 82962; 88300; G0378; J1956; J2704; J3010; J3490

== ENCOUNTER → 2019-12-06 12:30 | Outpatient (BNVA) | payer MEDICAID, SELFPAY | PROVIDERS: PCP Internal Medicine; Referring Provider Internal Medicine; Visit Provider Specialist | DX: S34.109A Unspecified injury to unspecified level of lumbar spinal cord, initial encounter (principal); G82.50 Quadriplegia, unspecified; G95.9 Disease of spinal cord, unspecified | CPT/HCPCS: 99204 ==

== ENCOUNTER 2019-12-24 13:57 | Inpatient (IN) | payer MEDICAID, SELFPAY ==
[2019-12-24 13:58] VITALS: BMI 21.4
[2019-12-24 14:03] VITALS: BP 147/71; PULSE 94; RESP 18; TEMP 39.6; O2SAT 95
--- NOTE | 2019-12-24 14:15 | XRR_ITS ---
PROCEDURE INFORMATION: Exam: XR Chest, 1 View Exam date and time: 12/24/2019 2:16 PM Age: 59 years old Clinical indication: Fever TECHNIQUE: Imaging protocol: XR of the chest Views: 1 view. COMPARISON: CR Chest 1 [place] [id number] 02/27/2019 9:53 AM FINDINGS: Lungs: There is unchanged hyperinflation with unchanged apical fibrosis and apical pleural thickening. The lungs are hyperinflated but otherwise clear. No lobar consolidation. Pleural space: Unremarkable. No pleural effusion. No pneumothorax. Heart/Mediastinum: Unremarkable. No cardiomegaly. Bones/joints: No acute abnormality. Other findings: The vascularity is within normal limits. XR/XR chest 1V portable [id number] IMPRESSION: No active pulmonary disease. Unchanged apical fibrosis/scarring. Probable underlying COPD.
--- NOTE | 2019-12-24 14:38 | W.ED.FEVER ---
HPI - Fever General: Chief Complaint: Fever Stated Complaint: FEVER / RUNNY NOSE Time Seen by Provider: 12/24/19 14:00 History of Present Illness: HPI Narrative: Patient is a 59-year-old male comes to the ED for fever. Patient has a past medical history of quadriplegia, diabetes and suprapubic catheter. Fever symptoms started today and he said his temperature was 102 this morning. He denies any other symptoms. Denies bladder pain, abdominal pain, shortness of breath, chest pain, diarrhea or constipation. Patient's only complaint besides the fever is a sunburn from being out in the sun yesterday. Associated symptoms: Deny abdominal pain, flank pain, chills, chest pain, diarrhea, dysuria, headache(s), nasal congestion, nausea or vomiting Review of Systems Const: Reports: fever(s); Denies: chills or fatigue Eyes: Denies: change in vision or eye discomfort ENMT: Denies: throat pain, odynophagia, nasal discharge or nasal congestion Card: Denies: chest pain, palpitations, edema, swelling of feet/ankles, dyspnea on exertion or orthopnea Resp: Denies: dyspnea, productive cough or non-productive cough GI: Denies: abdominal pain, nausea, vomiting, diarrhea, constipation or hematochezia : Denies: flank pain, difficulty urinating, dysuria or hematuria Musc: Denies: neck pain, back pain or extremity swelling Skin/Breast: Denies: rash or new lesions Neuro: Denies: headache(s), numbness in extremities or weakness in extremities PFS ED PFSH: Medical History Chronic indwelling Miranda catheter Diabetes mellitus Quadriplegia S/P extracorporeal shock wave therapy Surgical History History of appendectomy History of back surgery History of colon resection History of neck surgery History of suprapubic catheter Open placement October 2019. Family History Father , at age 49 Cancer Lung disease Mother Cancer bone Brother Cancer Lung disease Denies family history of Diabetes CAD (coronary artery disease) Clotting disorder Dementia Hyperlipidemia Psychiatric illness Chronic kidney disease (CKD) Suicide Anesthesia complication Bleeding disorder Family history of premature coronary artery disease Hypertension Stroke Social History Smoking and tobacco status: current every day smoker cigarettes Quit status (tobacco): not considering quitting Alcohol intake: former Former alcohol use details: quit due to medications Marital status: Legally Number of children: 5 History of recent travel: No Current gender identity: Male Physical Exam Const: COMMON NORMALS: no acute distress, patient oriented x3 and alert EXAM LIMITATIONS: physical limitations (Patient is a quadriplegic.) GENERAL APPEARANCE: cooperative HENMT: COMMON NORMALS: normocephalic HEAD & SCALP: normocephalic MOUTH: Normal oral and palatal mucosa present THROAT: posterior oropharynx normal and uvula midline Eye: COMMON NORMALS: Equal, round and reactive pupils present PUPIL: Yes Equal, round and reactive pupils present Neck/C-Spine: COMMON NORMALS: supple GENERAL: Yes normal visual inspection Resp: COMMON NORMALS: normal respiratory effort, No retractions, No use of accessory muscles and clear to auscultation bilaterally AUSCULTATION: clear to auscultation bilaterally Cardio: COMMON NORMALS: regular rate, regular rhythm, S1 normal heart sound present, S2 normal heart sound present, No gallops present (Cardio), No clicks present (Cardio), No murmurs present (Cardio) and Peripheral pulses 2+ throughout RATE: regular rate RHYTHM: regular rhythm HEART SOUNDS: S1 normal heart sound present and S2 normal heart sound present PERIPHERAL PULSES: Peripheral pulses 2+ throughout GI: COMMON NORMALS: Normal to inspection, nondistended, normoactive bowel sounds present, Soft to palpation, non-tender and no masses PALPATION: Yes Soft to palpation : COMMON NORMALS: Yes no CVA tenderness BLADDER/KIDNEY EXAM: Yes no CVA tenderness Back/Pelvis: COMMON NORMALS: no CVA tenderness Extremity: COMMON NORMALS: no pedal edema NARRATIVE EXTREMITY EXAM: Patient is a quadriplegic. Neuro: COMMON NORMALS: patient oriented x3 SENSORIUM/ORIENTATION: Yes alert Skin: NARRATIVE SKIN EXAM: Patient appears to have sunburn on both forearms and face. Erythema that blanches on both right and left forearms and face. GENERAL SKIN EXAM: dry skin Course Vital Signs: Vital signs: Vital Signs Temperature 103.2 F H 12/24/19 14:03 Pulse Rate 84 08/08/20 16:45 Respiratory Rate 14 12/24/19 16:45 Blood Pressure 108/59 12/24/19 16:45 Pulse Oximetry 96 12/24/19 16:45 MDM - Fever MDM Narrative: Medical decision making narrative: I discussed patient's case and lab findings with Dr. Lovell and Care of patient transferred to Dr. Lovell at 5pm. Lab Data: Attestation: I reviewed the patient's lab results. Labs: Lab Results 12/24/19 12/24/19 12/24/19 Range/Units 14:25 14:50 14:50 WBC 12.8 H (4.0-10.0) 10^3/ uL RBC 3.64 L (4.1-5.3) 10^6/u L Hgb 11.2 L (11.7-16.6) g/dL Hct 33.3 L (42.0-52.0) % MCV 91.5 (80-94) fL MCH 30.8 (28.0-34.0) pg MCHC 33.6 (30.0-36.0) g/dL RDW 13.8 (12.1-15.1) % Plt Count 261 (130-400) 10^3/c mm MPV 8.3 (7.4-10.4) fL Neut % (Auto) 90.3 % Lymph % (Auto) 1.7 % [place] % (Auto) 7.3 % Eos % (Auto) 0.0 % Baso % (Auto) 0.2 % Neut # (Auto) 11.59 H (1.8-7.7) 10^3/u L Lymph # (Auto) 0.2 L (0.8-4.8) 10^3/u L [place] # (Auto) 0.9 (0.2-0.9) 10^3/u L Eos # (Auto) 0.0 (0.0-0.8) 10^3/u L Baso # (Auto) 0.0 (0.0-0.1) 10^3/u L Nucleated RBC % (a uto) 0 % Nucleated RBCs # 0.0 /100WBC Sodium 123 L (136-145) mmol/L Potassium 4.7 (3.5-5.1) mmol/L Chloride 88 L (98-107) mmol/L Carbon Dioxide 25 (22-29) mmol/L Anion Gap 14.7 (5-19) BUN 9 (8-23) mg/dL Creatinine 0.8 (0.7-1.2) mg/dL GFR Calculation 98.6 (90-130) mL/min Glucose 155 H (65-115) mg/dL Calculated Osmolal ity 255 L (285-295) mOsm/k g Calcium 9.2 (8.5-10.5) mg/dL Total Bilirubin 0.6 (0.15-1.2) mg/dL AST 20 (0-40) U/L ALT 32 (0-41) U/L Alkaline Phosphata se 90 (40-130) IU/L C-Reactive Protein (0.0-4.9) mg/L Total Protein 7.1 (6.6-8.7) g/dL Albumin 3.8 (3.5-5.2) g/dL Globulin 3.3 (1.3-4.6) g/dL Urine Color Yellow (Yellow) Urine Appearance Hazy A (CLEAR) Urine pH 8 H (5-7) Ur Specific Gravit y 1.010 (1.005-1.030) Urine Protein Neg (Negative) Urine Glucose (UA) Norm (Normal) Urine Ketones Negative (Negative) Urine Blood 2+ H (Negative) Urine Nitrate Positive H (Negative) Urine Bilirubin Neg (NEGATIVE) Prot Sulfosalicyli c Acd Negative (Negative) Urine Urobilinogen Norm (Negative) mg/dL Ur Leukocyte Kaylan ase 2+ H (Negative) Urine RBC 5-10 H (0-2) /hpf Urine WBC 10-15 H (0-5) /hpf Ur Squamous Epith Cells None (0-5) Amorphous Sediment Not Reportable Urine Bacteria 2+ H (NONE) 12/24/19 Range/Units 14:50 WBC (4.0-10.0) 10^3/ uL RBC (4.1-5.3) 10^6/u L Hgb (11.7-16.6) g/dL Hct (42.0-52.0) % MCV (80-94) fL MCH (28.0-34.0) pg MCHC (30.0-36.0) g/dL RDW (12.1-15.1) % Plt Count (130-400) 10^3/c mm MPV (7.4-10.4) fL Neut % (Auto) % Lymph % (Auto) % [place] % (Auto) % Eos % (Auto) % Baso % (Auto) % Neut # (Auto) (1.8-7.7) 10^3/u L Lymph # (Auto) (0.8-4.8) 10^3/u L [place] # (Auto) (0.2-0.9) 10^3/u L Eos # (Auto) (0.0-0.8) 10^3/u L Baso # (Auto) (0.0-0.1) 10^3/u L Nucleated RBC % (a uto) % Nucleated RBCs # /100WBC Sodium (136-145) mmol/L Potassium (3.5-5.1) mmol/L Chloride (98-107) mmol/L Carbon Dioxide (22-29) mmol/L Anion Gap (5-19) BUN (8-23) mg/dL Creatinine (0.7-1.2) mg/dL GFR Calculation (90-130) mL/min Glucose (65-115) mg/dL Calculated Osmolal ity (285-295) mOsm/k g Calcium (8.5-10.5) mg/dL Total Bilirubin (0.15-1.2) mg/dL AST (0-40) U/L ALT (0-41) U/L Alkaline Phosphata se (40-130) IU/L C-Reactive Protein 201.4 H (0.0-4.9) mg/L Total Protein (6.6-8.7) g/dL Albumin (3.5-5.2) g/dL Globulin (1.3-4.6) g/dL Urine Color (Yellow) Urine Appearance (CLEAR) Urine pH (5-7) Ur Specific Gravit y (1.005-1.030) Urine Protein (Negative) Urine Glucose (UA) (Normal) Urine Ketones (Negative) Urine Blood (Negative) Urine Nitrate (Negative) Urine Bilirubin (NEGATIVE) Prot Sulfosalicyli c Acd (Negative) Urine Urobilinogen (Negative) mg/dL Ur Leukocyte Kaylan ase (Negative) Urine RBC (0-2) /hpf Urine WBC (0-5) /hpf Ur Squamous Epith Cells (0-5) Amorphous Sediment Urine Bacteria (NONE) Discharge Plan Discharge Condition: Stable Prescriptions: No Action tizanidine [Zanaflex] 2 mg capsule 2 mg PO TID Qty: 90 RF: 2 aspirin [Adult Aspirin Regimen] 81 mg tablet,delayed release (DR/EC) 81 mg PO DAILY RF: 0 carbamazepine 200 mg tablet 200 mg PO BID RF: 0 cranberry 500 mg capsule 500 mg PO DAILY RF: 0 escitalopram oxalate 10 mg tablet 10 mg PO DAILY RF: 0 gabapentin 100 mg capsule 100 mg PO TID RF: 0 pravastatin 40 mg tablet 40 mg PO DAILY RF: 0 promethazine 25 mg tablet 25 mg PO Q6H PRN (Reason: Nausea) RF: 0 trazodone 50 mg tablet 100 mg PO BEDTIME RF: 0 ascorbic acid (vitamin C) 500 mg capsule 500 mg PO DAILY RF: 0 meloxicam 15 mg tablet 7.5 mg PO BID RF: 0 loperamide 2 mg capsule 2 mg PO BID RF: 0 ergocalciferol (vitamin D2) 10 mcg (400 unit) tablet 50,000 unit PO Q7D RF: 0 baclofen 20 mg tablet 20 mg PO QID RF: 0 melatonin 10 mg capsule 10 mg PO .COMPLEX RF: 0 diphenhydramine-acetaminophen [Tylenol PM Extra Strength] 25-500 mg tablet 2 tab PO .at bedtime PRN (Reason: Sleep) RF: 0 leg cramps 2 mg PO DAILY RF: 0 vitamin E 1,000 unit Capsule 1,000 unit PO DAILY RF: 0 pyridoxine (vitamin B6) [Vitamin B-6] 100 mg Tablet 100 mg PO DAILY RF: 0 clindamycin HCl 300 mg capsule 300 mg PO TID RF: 0 cholecalciferol (vitamin D3) 1,250 mcg (50,000 unit) capsule 1,250 mcg PO Q7D RF: 0 Referrals: AKBAR PATEL DO [Primary Care Provider] - Coding Level of Care Code ED Radiotelephone Technical Operator for Chg Fwd Exam Comprehensive
[2019-12-24 15:05] LABS: Basophils % 0.2 %; Hematocrit 33.3 % (42.0-52.0); Hemoglobin 11.2 g/dL (11.7-16.6); Lymphocytes # 0.2 10^3/uL (0.8-4.8); Lymphocytes % 1.7 %; Mean Corpuscular HGB Conc 33.6 g/dL (30.0-36.0); Mean Corpuscular Hemoglobin 30.8 pg (28.0-34.0); Mean Corpuscular Volume 91.5 fL (80-94); Mean Platelet Volume 8.3 fL (7.4-10.4); Monocytes # 0.9 10^3/uL (0.2-0.9); Monocytes % 7.3 %; Neutrophils # 11.59 10^3/uL (1.8-7.7); Neutrophils % 90.3 %; Nucleated Red Blood Cells % 0 %; Platelet Count 261 10^3/cmm (130-400); Red Blood Count 3.64 10^6/uL (4.1-5.3); Red Cell Distribution Width 13.8 % (12.1-15.1); White Blood Count 12.8 10^3/uL (4.0-10.0)
[2019-12-24] MEDS: acetaminophen 500 mg Tablet 1000 MG PO (15:10)
[2019-12-24 15:11] VITALS: BP 118/68; PULSE 84; RESP 14; O2SAT 95
[2019-12-24 15:19] LABS: Add Urine Culture? Yes; Bacteria Urine 2+; Bilirubin Urine Neg (NEGATIVE); Blood Urine 2+ (Negative); Glucose Urine UA Norm (Normal); Ketones Urine Negative (Negative); Leukocyte Esterase Urine 2+ (Negative); Nitrate Urine Positive (Negative); Protein Urine Neg (Negative); Sulfosalicylic Acid Urine Negative (Negative); Urine Appearance Hazy (CLEAR); Urine Color Yellow (Yellow); Urobilinogen Urine Norm (Negative); pH Urine 8 (5-7)
[2019-12-24 15:30] LABS: Alanine Aminotransferase 32 U/L (0-41); Albumin Level 3.8 g/dL (3.5-5.2); Alkaline Phosphatase 90 IU/L (40-130); Anion Gap 14.7 (5-19); Aspartate Amino Transferase 20 U/L (0-40); Blood Urea Nitrogen 9 mg/dL (8-23); Calcium 9.2 mg/dL (8.5-10.5); Carbon Dioxide 25 mmol/L (22-29); Chloride 88 mmol/L (98-107); Globulin 3.3 g/dL (1.3-4.6); Glomerular Filtration Rate 98.6 mL/min (90-130); Glucose 155 mg/dL (65-115); Osmolality Calculated 255 mOsm/kg (285-295); Potassium 4.7 mmol/L (3.5-5.1); Sodium 123 mmol/L (136-145); Total Bilirubin 0.6 mg/dL (0.15-1.2); Total Protein 7.1 g/dL (6.6-8.7)
[2019-12-24 15:47] LABS: C Reactive Protein 201.4 mg/L (0.0-4.9)
[2019-12-24] MEDS: cefTRIAXone 2,000 MG in sodium chloride 0.9% (plus) 50 ML 100 MG IV (16:40)
[2019-12-24] MEDS: sodium chloride 0.9% 1,000 ML 999 ML IV (16:40)
[2019-12-24 16:45] VITALS: BP 108/59; PULSE 84; RESP 14; O2SAT 96
--- NOTE | 2019-12-24 17:40 | P.HP_ITS ---
Providers/Chief Complaint Admitting Physician: Madyson Burk MD Primary Care Provider: AKBAR PATEL DO Chief Complaint: FEVER / RUNNY NOSE History of Present Illness Timur Valdovinos is a 59 year old male with PMHx noted below presents via ambulance for evaluation of fever, nasal congestion and constipation for the past 4 days. He lives at home with his mother who is his primary caregiver as he is quadriplegic and completely dependent in his ADLs. He has a suprapubic catheter that was placed by Dr. Saucedo in October due to small bladder capacity, catheter was changed on 12/[address] Cerda's instructions should only be changed by him, on a monthly basis. Patient states that he has not noted any decrease in his urinary output, denies any discomfort, hematuria. In addition to the fever, T-max of 102.2 F earlier today, he has had some diaphoresis. He was started on oral clindamycin approximately 1 week ago presumably due to UTI. He is diaphoretic and febrile during my assessment in the ER, with an initial temperature of 103.2F. Work-up so far indicates leukocytosis with a white count of 12.8, normal hemoglobin, hyponatremia with a sodium of 123, normal renal fu nction, blood glucose of 155, CRP of 201. Urinalysis strongly indicative of infection. Chest x-ray is unremarkable. So far he has received a dose of ceftriaxone. Labs reviewed prior urine cultures which have grown pseudomonas aeruginosa, Enterococcus faecalis, and Proteus mirabilis. Based on this I will treat him with Zosyn and ciprofloxacin. He will require admission to the hospital for further treatment of complicated UTI with associated sepsis as evidenced by fever and leukocytosis. Review of Systems Const: Reports: fever(s) and diaphoresis; Denies: chills or change in appetite Eyes: Denies: change in vision ENMT: Reports: dry mouth Card: Denies: chest pain, swelling of feet/ankles or lightheadedness Resp: Denies: dyspnea, productive cough or non-productive cough GI: Reports: heartburn; Denies: nausea, vomiting, hematemesis or hematochezia : Denies: dysuria, oliguria or hematuria Musc: Denies: back pain Skin/Breast: Denies: rash Neuro: Reports: other (quadriplegic); Denies: numbness in extremities Psych: Denies: anxiety Medications/Allergies Home Medications Medication Instructions Recorded Confirmed Last Taken Type ascorbic acid (vitamin C) 500 mg 500 mg PO DAILY 05/24/19 12/24/19 12/24/19 History capsule aspirin 81 mg tablet,delayed 81 mg PO DAILY 05/24/19 12/24/19 12/24/19 History release carbamazepine 200 mg tablet 200 mg PO BID 05/24/19 12/24/19 12/24/19 History cranberry 500 mg capsule 500 mg PO DAILY 05/24/19 12/24/19 12/24/19 History escitalopram oxalate 10 mg tablet 10 mg PO DAILY 05/24/19 12/24/19 12/24/19 History gabapentin 100 mg capsule 100 mg PO TID 05/24/19 12/24/19 12/24/19 History pravastatin 40 mg tablet 40 mg PO DAILY 05/24/19 12/24/19 12/24/19 History promethazine 25 mg tablet 25 mg PO Q6H PRN 05/24/19 12/24/19 12/24/19 History trazodone 50 mg tablet 100 mg PO BEDTIME 05/24/19 12/24/19 12/23/19 History pyridoxine (vitamin B6) [Vitamin 100 mg PO DAILY 09/30/19 12/24/19 12/24/19 History B-6] vitamin E 1,000 unit PO DAILY 09/30/19 12/24/19 12/24/19 History diphenhydramine 25 2 tab PO .at bedtime PRN tab 10/11/19 12/24/19 Unknown History mg-acetaminophen 500 mg tablet ergocalciferol (vitamin D2) 10 mcg 50,000 unit PO Q7D 10/11/19 12/24/19 12/21/19 History (400 unit) tablet loperamide 2 mg capsule 2 mg PO BID cap 10/11/19 12/24/19 10/27/19 08:00 History meloxicam 15 mg tablet 7.5 mg PO BID tab 10/11/19 12/24/19 12/24/19 History baclofen 20 mg tablet 20 mg PO QID tab 12/06/19 12/24/19 12/24/19 History leg cramps 2 mg PO DAILY 12/06/19 12/24/19 12/24/19 History melatonin 10 mg capsule 10 mg PO .COMPLEX cap 12/06/19 12/24/19 12/23/19 History tizanidine 2 mg capsule 2 mg PO TID #90 cap 12/06/19 12/24/19 12/24/19 Rx cholecalciferol (vitamin D3) 1,250 mcg PO Q7D 12/24/19 12/24/19 Unknown History clindamycin HCl 300 mg PO TID 12/24/19 12/24/19 12/24/19 History Allergies Allergy/AdvReac Type Severity Reaction Status Date / Time penicillin G Allergy Mild ALGY-Rash Verified 12/24/19 15:56 PFSH Acute PFSH: Medical History Chronic indwelling Miranda catheter Diabetes mellitus Quadriplegia S/P extracorporeal shock wave therapy Surgical History History of appendectomy History of back surgery History of colon resection History of neck surgery History of suprapubic catheter Open placement October 2019. Family History Father , at age 49 Cancer Lung disease Mother Cancer bone Brother Cancer Lung disease Denies family history of Diabetes CAD (coronary artery disease) Clotting disorder Dementia Hyperlipidemia Psychiatric illness Chronic kidney disease (CKD) Suicide Anesthesia complication Bleeding disorder Family history of premature coronary artery disease Hypertension Stroke Social History (Updated 12/24/19 @ 19:02 by Madyson Burk MD) Smoking and tobacco status: current every day smoker cigarettes Packs smoked per day: 0.5 Quit status (tobacco): not considering quitting Alcohol intake: former Former alcohol use details: quit due to medications Substance/Drug Use: never Household members: other Details: lives with mother Marital status: Legally Number of children: 5 History of recent travel: No Current gender identity: Male Vitals/I&O/Wt Last Vital Signs Temp 103.2 F H 12/24/19 14:03 Pulse 84 12/24/19 16:45 Resp 14 12/24/19 16:45 BP 108/59 12/24/19 16:45 Pulse Ox 96 12/24/19 16:45 Weight last 48 hrs Weight 65.771 kg Physical Exam Const: COMMON NORMALS: no acute distress, patient oriented x3 and alert GENERAL APPEARANCE: cooperative, comfortable, frail appearing and diaphoretic NUTRITIONAL APPEARANCE: thin ORIENTATION/CONSCIOUSNESS: Yes awake HENMT: COMMON NORMALS: normocephalic, atraumatic, hearing grossly normal bilaterally and moist oral mucous membranes HEAD & SCALP: normocephalic and atraumatic TEETH & GINGIVA: Yes edentulous Eye: COMMON NORMALS: Equal, round and reactive pupils present, EOMs intact bilaterally and conjunctivae normal CONJUNCTIVA: Yes conjunctivae normal PUPIL: Yes Equal, round and reactive pupils present Neck/C-Spine: GENERAL: Yes normal visual inspection and Yes trachea midline Resp: COMMON NORMALS: normal respiratory effort, No retractions, No use of accessory muscles and clear to auscultation bilaterally EFFORT & INSPECTION: Yes able to speak in complete sentences, Yes symmetric chest movement and No tachypneic AUSCULTATION: clear to auscultation bilaterally OTHER: -on RA Cardio: COMMON NORMALS: regular rate, regular rhythm, S1 normal heart sound present, S2 normal heart sound present and No murmurs present (Cardio) RATE: regular rate RHYTHM: regular rhythm HEART SOUNDS: S1 normal heart sound present and S2 normal heart sound present GI: COMMON NORMALS: Normal to inspection, nondistended, normoactive bowel sounds present, Soft to palpation and non-tender PALPATION: Yes Soft to palpation : BLADDER/KIDNEY EXAM: Yes catheter in place Catheter type (Male): suprapubic Extremity: NARRATIVE EXTREMITY EXAM: -contracted extremities, non-pitting bilateral ankle edema Neuro: COMMON NORMALS: patient oriented x3 and moves all extremities SENSORIUM/ORIENTATION: Yes alert SPEECH: speech normal GAIT: Yes Other gait observations present (quadriplegic) Psych: COMMON NORMALS: mental status grossly normal, Normal thought process present, cooperative, normal affect and speech normal SPEECH: Yes normal speech THOUGHT PROCESS: Normal thought process present Skin: COMMON NORMALS: no jaundice, no petechiae and no mottling NARRATIVE SKIN EXAM: -seborrheic dermatitis lesions on face, neck, elbows Data : 12/24/19 14:50 12/24/19 14:50 Micro: Microbiology 12/24/19 14:50 Blood Culture - Preliminary Blood SPECIMEN COLLECTED A&P Assessment and plan (1) Complicated UTI (urinary tract infection): -has suprapubic catheter, initially placed by Dr. Saucedo on 10/27/19 due to small capacity bladder and overlying bowel -suprapubic catheter tube changed on 12/05/19; to be changed in [address] Saucedo specifically -monitor urine output -UA strongly indicative of infection -f/u urine and blood cx -associated sepsis as indicated by high grade fever, leukocytosis, noted CRP elevation; check lactic acid and pro-calcitonin -trend WBC -close monitoring of vital signs -telemetry monitoring -grew Proteus mirabilis, Enterococcus faecalis, Pseudomonas aeruginosa on most recent urine cultures so we will cover with ciprofloxacin and Zosyn. Received dose of ceftriaxone in ER -IV fluid hydration Status: Acute (2) Quadriplegia: -strict fall precautions -frequent repositioning, q2h -WC-/bed-bound at baseline -resume pain meds, muscle relaxants -has been following up with Dr. Estrella for consideration of Botox treatments for spasticity Status: Chronic (3) Diabetes mellitus: -NIDDM type II, A1c-7.2 (08/2019) -Accuchecks, hypoglycemia precautions, ISS -consistent carb diet Status: Chronic Qualifiers: Diabetes mellitus type: type 2 Diabetes mellitus lobsterman insulin use: without penitentiary use Diabetes mellitus complication status: without c omplication Qualified Code(s): E11.9 - Type 2 diabetes mellitus without co mplications Additional A&P Information -resume home meds -Dyspepsia; Tums PRN -Hyponatremia; acute on chronic, prior levels have been in the 130s; likely secondary to hypovolemia; on IVF hydration, trend Na -GI ppx with PPI -DVT ppx with Lovenox. SCDs -Dispo: home, lives with mother -Code status: FULL code Attestations Medical Necessity Statement*: Timur Valdovinos's hospital stay will require greater than 2 midnights for treatment of complicated UTI with associated sepsis, on IVF hydration, IV antibiotics. Time Spent in Patient Care: Greater than 35 minutes (>than 50% of time spent in counselling and/or direct pt care on unit) . Coding Level of Care Code Acute Home Teaching Grades 9 Thru 12 Teacher for [facility] Fwd Diagnoses Complicated UTI (urinary tract infection) N39.0 Quadriplegia G82.50 Diabetes mellitus E11.9 Diabetes mellitus type: type 2 Diabetes mellitus penitentiary insulin use: without penitentiary use Diabetes mellitus complication status: without complication
[2019-12-24] MEDS: ondansetron 2 mg/ML SDV 2 mL 4 MG IVP (17:52)
[2019-12-24] MEDS: HYDROcodone-acetaminophen 5-325 mg Tablet 1 TAB PO (17:53)
[2019-12-24 17:56] VITALS: BP 106/63; PULSE 89; RESP 14; TEMP 38.1; O2SAT 98
[2019-12-24] MEDS: calcium carbonate 500 mg Chew Tablet PO (19:36)
[2019-12-24] MEDS: ciprofloxacin 400 MG/200 ML PREMIX 200 MG IV (19:37)
[2019-12-24] MEDS: enoxaparin 40 mg/0.4 mL Syringe SUBCUT (19:37)
[2019-12-24] MEDS: carBAMazepine 200 mg Tablet PO (19:37)
[2019-12-24] MEDS: sodium chloride 0.9% 1,000 ML 100 ML IV (19:38)
[2019-12-24 19:54] VITALS: BP 115/59; PULSE 67; RESP 16; TEMP 37.2; O2SAT 93
[2019-12-24 21:08] LABS: Glucose Point of Care 200 mg/dL (70-110)
[2019-12-24 21:09] VITALS: RESP 18
[2019-12-24] MEDS: morphine 4 mg/mL SDV 1 mL 2 MG IVP (21:09)
--- NOTE | 2019-12-24 21:11 | PC.NURSE ---
Nurse went in to roll patient and torres catheter was found to be unhooked from tube and patient was covered in urine. Bed changed, patient changed and catheter hooked back into the tube. Charge nurse notified of this finding.
[2019-12-24] MEDS: piperacillin-tazobactam 3.375 GM in sodium chloride 0.9% (plus) 50 ML IV (21:13)
[2019-12-24] MEDS: tizanidine 4 mg Tablet 2 MG PO (21:16)
[2019-12-24] MEDS: baclofen 10 mg Tablet 20 MG PO (21:16)
[2019-12-24] MEDS: trazodone 50 mg Tablet 100 MG PO (21:16)
[2019-12-24] MEDS: gabapentin 100 mg Capsule PO (21:17)
[2019-12-24 22:06] LABS: Procalcitonin 0.42 ng/mL (0-0.5)
[2019-12-25] VITALS (7 sets, daily range): BP systolic 104–154; BP diastolic 59–80; PULSE 53–75; RESP 18–22; TEMP 36.7–38.4; O2SAT 93–97
[2019-12-25] MEDS: morphine 4 mg/mL SDV 1 mL 2 MG IVP (01:10)
[2019-12-25] MEDS: acetaminophen 325 mg Tablet 650 MG PO ×2 (01:10→08:57)
[2019-12-25] MEDS: ondansetron 2 mg/ML SDV 2 mL 4 MG IVP (01:16)
[2019-12-25 04:23] LABS: Basophils % 0.1 %; Eosinophils % 0.1 %; Hematocrit 29.2 % (42.0-52.0); Hemoglobin 9.6 g/dL (11.7-16.6); Lymphocytes # 0.3 10^3/uL (0.8-4.8); Lymphocytes % 2.4 %; Mean Corpuscular HGB Conc 32.9 g/dL (30.0-36.0); Mean Corpuscular Hemoglobin 30.8 pg (28.0-34.0); Mean Corpuscular Volume 93.6 fL (80-94); Mean Platelet Volume 8.8 fL (7.4-10.4); Monocytes # 0.9 10^3/uL (0.2-0.9); Monocytes % 8.4 %; Neutrophils # 9.25 10^3/uL (1.8-7.7); Neutrophils % 88.5 %; Nucleated Red Blood Cells % 0 %; Platelet Count 189 10^3/cmm (130-400); Red Blood Count 3.12 10^6/uL (4.1-5.3); Red Cell Distribution Width 14.3 % (12.1-15.1); White Blood Count 10.5 10^3/uL (4.0-10.0)
[2019-12-25] MEDS: sodium chloride 0.9% 1,000 ML 100 ML IV ×2 (04:49→15:54)
[2019-12-25] MEDS: piperacillin-tazobactam 3.375 GM in sodium chloride 0.9% (plus) 50 ML IV ×3 (04:49→21:37)
[2019-12-25 05:04] LABS: Anion Gap 13.1 (5-19); Blood Urea Nitrogen 12 mg/dL (8-23); Calcium 8.7 mg/dL (8.5-10.5); Carbon Dioxide 20 mmol/L (22-29); Chloride 92 mmol/L (98-107); Glomerular Filtration Rate 86.1 mL/min (90-130); Glucose 124 mg/dL (65-115); Osmolality Calculated 250 mOsm/kg (285-295); Potassium 4.1 mmol/L (3.5-5.1); Sodium 121 mmol/L (136-145)
[2019-12-25 07:17] LABS: Glucose Point of Care 155 mg/dL (70-110)
[2019-12-25] MEDS: baclofen 10 mg Tablet 20 MG PO ×4 (09:00→21:38)
[2019-12-25] MEDS: carBAMazepine 200 mg Tablet PO ×2 (09:00→17:20)
[2019-12-25] MEDS: atorvastatin 40 mg Tablet 20 MG PO (09:00)
[2019-12-25] MEDS: escitalopram 10 mg Tablet PO (09:01)
[2019-12-25] MEDS: gabapentin 100 mg Capsule PO ×3 (09:01→21:39)
[2019-12-25] MEDS: tizanidine 4 mg Tablet 2 MG PO ×3 (09:02→21:39)
[2019-12-25] MEDS: pyridoxine 50 mg Tablet 100 MG PO (09:03)
[2019-12-25] MEDS: ascorbic acid 500 mg Tablet PO (09:03)
[2019-12-25] MEDS: aspirin 81 mg EC Tablet PO (09:03)
[2019-12-25 10:37] LABS: Glucose Point of Care 124 mg/dL (70-110)
[2019-12-25] MEDS: HYDROcodone-acetaminophen 5-325 mg Tablet 1 TAB PO (13:52)
--- NOTE | 2019-12-25 14:34 | PM.PN ---
Subjective Subjective: Interval history: Had 1400 mL urine output overnight, febrile overnight with Tmax-101.2 F around midnight, has been afebrile since, otherwise hemodynamically stable. Decreased leukocytosis, noted drop in Hg which is likely dilutional, continued hyponatremia. Urine culture growing 2 types of GNRs, and 1 out of 2 bottles from blood culture positive for gram-negative rods; order repeat set. He inquires about going home today though explained need for continued treatment particularly in light of possible bacteremia, hyponatremia. Medications: Reviewed: Yes Medication Review Details: Active Medications Generic Name Dose Route Start Last Admin Trade Name Freq PRN Reason Stop Dose Admin Acetaminophen 650 mg 12/24/19 18:51 12/25/19 08:57 Tylenol PO 650 mg Q6H PRN Administration Mild/Mod Pain Or Temp >/= 101 Hydrocodone Bitart /Acetaminophen 1 tab 12/24/19 18:51 12/25/19 13:52 [place] 5-325 Mg PO 1 tab Q4H PRN Administration MODERATE TO SEVER E PAIN Ascorbic Acid 500 mg 12/25/19 09:00 12/25/19 09:03 Vitamin C PO 500 mg DAILY SHANTEL Administration Aspirin 81 mg 12/25/19 09:00 12/25/19 09:03 Aspirin Ec PO 81 mg DAILY SHANTEL Administration Atorvastatin Calci um 20 mg 12/25/19 09:00 12/25/19 09:00 Lipitor PO 20 mg DAILY SHANTEL Administration Baclofen 20 mg 12/24/19 21:00 12/25/19 13:29 Lioresal PO 20 mg QID SHANTEL Administration Bisacodyl 10 mg 12/25/19 09:00 12/25/19 09:10 Bisac-Evac IA Not Given DAILY SHANTEL Calcium Carbonate 500 mg 12/24/19 18:51 Tums PO Q4H PRN DYSPEPSI Carbamazepine 200 mg 12/24/19 18:32 12/25/19 09:00 Tegretol PO 200 mg BID SHANTEL Administration Dextrose 25 ml 12/24/19 19:17 D50w IVP ONCE PRN hypoglycemia prot ocol Protocol Dextrose 50 ml 12/24/19 19:17 D50w IVP PRN PRN hypoglycemia prot ocol Protocol Enoxaparin Sodium 40 mg 12/24/19 19:00 12/24/19 19:37 Lovenox SUBCUT 40 mg Q24H SHANTEL Administration Escitalopram Oxala te 10 mg 12/25/19 09:00 12/25/19 09:01 Lexapro PO 10 mg DAILY SHANTEL Administration Gabapentin 100 mg 12/24/19 21:00 12/25/19 09:01 Neurontin PO 100 mg TID SHANTEL Administration Glucagon 1 mg 12/24/19 19:17 Glucagen IM ONCE PRN Adult Acute Hypog lycemia Prot. Protocol Sodium Chloride 1,000 mls @ 100 m ls/hr 12/24/19 19:00 12/25/19 04:49 Sodium Chloride 0.9% IV 100 mls/hr .Q10H SHANTEL Administration Piperacillin Sod/T azobactam 50 mls @ 12.5 mls /hr 12/24/19 19:00 12/25/19 13:29 Sod 3.375 gm/ So dium Chloride IV 12.5 mls/hr Q8H SHANTEL Administration Protocol As Directed Dextrose 500 mls @ 100 mls /hr 12/24/19 19:17 D5w IV ONCE PRN Adult Acute Hypog lycemia Prot Protocol Insulin Aspart 0 unit 12/24/19 21:00 12/25/19 12:09 Novolog SUBCUT Not Given WM&BEDTIME [facility] Protocol Loperamide HCl 2 mg 12/24/19 18:32 Imodium Capsule PO BID PRN DIARRHEA Morphine Sulfate 2 mg 12/24/19 18:51 12/25/19 01:10 Morphine IVP 2 mg Q4H PRN Administration SEVERE PAIN Non-Formulary Medi cation 1,250 mcg 12/24/19 18:32 12/24/19 20:31 Cholecalciferol (Vitamin D3) PO Not Given Q7D [facility] Ondansetron HCl 4 mg 12/24/19 18:51 12/25/19 01:16 Zofran IVP 4 mg Q6H PRN Administration vomiting, or N/V if npo Polyethylene Glyco l 17 gm 12/25/19 09:00 12/25/19 09:03 Miralax PO Not Given DAILY [facility] Pyridoxine HCl 100 mg 12/25/19 09:00 12/25/19 09:03 Vitamin B-6 PO 100 mg DAILY SHANTEL Administration Tizanidine HCl 2 mg 12/24/19 21:00 12/25/19 09:02 Zanaflex PO 2 mg TID SHANTEL Administration Trazodone HCl 100 mg 12/24/19 21:00 12/24/19 21:16 Desyrel PO 100 mg BEDTIME SHANTEL Administration penicillin G Allergy (Mild, Verified 12/24/19 15:56) ALGY-Rash Vitals/I&O/Wt Last Vital Signs Temp 98.3 F 12/25/19 11:36 Pulse 66 12/25/19 11:36 Resp 18 12/25/19 11:36 BP 122/70 12/25/19 11:36 Pulse Ox 95 12/25/19 11:36 12/24/19 12/25/19 12/25/19 22:59 06:59 14:59 Intake Total 1050 / 1050 1448.333 / 2498.333 470 / 470 Output Total 1400 / 1400 900 / 900 Balance 1050 / 1050 48.333 / 1098.333 -430 / -430 Weight last 48 hrs Weight 65.856 kg Weight 65.771 kg Physical Exam Const: COMMON NORMALS: no acute distress, patient oriented x3 and alert GENERAL APPEARANCE: cooperative, comfortable and frail appearing NUTRITIONAL APPEARANCE: thin ORIENTATION/CONSCIOUSNESS: Yes awake HENMT: COMMON NORMALS: normocephalic, atraumatic, hearing grossly normal bilaterally and moist oral mucous membranes HEAD & SCALP: normocephalic and atraumatic TEETH & GINGIVA: Yes edentulous Eye: COMMON NORMALS: Equal, round and reactive pupils present, EOMs intact bilaterally and conjunctivae normal CONJUNCTIVA: Yes conjunctivae normal PUPIL: Yes Equal, round and reactive pupils present Neck/C-Spine: GENERAL: Yes normal visual inspection and Yes trachea midline Resp: COMMON NORMALS: normal respiratory effort, No retractions, No use of accessory muscles and clear to auscultation bilaterally EFFORT & INSPECTION: Yes able to speak in complete sentences, Yes symmetric chest movement and No tachypneic AUSCULTATION: clear to auscultation bilaterally OTHER: -on RA Cardio: COMMON NORMALS: regular rate, regular rhythm, S1 normal heart sound present, S2 normal heart sound present and No murmurs present (Cardio) RATE: regular rate RHYTHM: regular rhythm HEART SOUNDS: S1 normal heart sound present and S2 normal heart sound present GI: COMMON NORMALS: Normal to inspection, nondistended, normoactive bowel sounds present, Soft to palpation and non-tender PALPATION: Yes Soft to palpation : BLADDER/KIDNEY EXAM: Yes catheter in place Extremity: NARRATIVE EXTREMITY EXAM: -contracted extremities, non-pitting bilateral ankle edema Neuro: COMMON NORMALS: patient oriented x3 SENSORIUM/ORIENTATION: Yes alert SPEECH: speech normal GAIT: Yes Other gait observations present (quadriplegic) Psych: COMMON NORMALS: mental status grossly normal, Normal thought process present, cooperative, normal affect and speech normal SPEECH: Yes normal speech THOUGHT PROCESS: Normal thought process present Skin: COMMON NORMALS: no jaundice, no petechiae and no mottling NARRATIVE SKIN EXAM: -seborrheic dermatitis lesions on face, neck, elbows Data : 12/25/19 03:57 12/25/19 03:57 Micro: Microbiology 12/24/19 14:25 Urine Culture - Preliminary Urine,Clean Catch Gram Negative Rods Gram Negative Rods#2 12/24/19 14:50 Blood Culture - Preliminary Blood SPECIMEN COLLECTED A&P Assessment and plan (1) Complicated UTI (urinary tract infection): -has suprapubic catheter, initially placed by Dr. Saucedo on 10/27/19 due to small capacity bladder and overlying bowel -suprapubic catheter tube changed on 12/05/19; to be changed in [address] Saucedo specifically -continue to monitor urine output -UA strongly indicative of infection -urine cx: GNRs, pending ID & sensitivity -f/u blood cx: 1/2 bottles positive for GNRs; repeat set ordered -associated sepsis as indicated by high grade fever, leukocytosis, noted CRP elevation; lactic acid and pro-calcitonin wnl -decreasing leukocytosis, continue to trend WBC -close monitoring of vital signs; afebrile currently, hemodynamically stable -telemetry monitoring -grew Proteus mirabilis, Enterococcus faecalis, Pseudomonas aeruginosa on most recent urine cultures so we will cover with ciprofloxacin and Zosyn. Received dose of ceftriaxone in ER -IV fluid hydration Status: Acute (2) Quadriplegia: -strict fall precautions -frequent repositioning, q2h -WC-/bed-bound at baseline -continue pain meds, muscle relaxants -has been following up with Dr. Estrella for consideration of Botox treatments for spasticity Status: Chronic (3) Diabetes mellitus: -NIDDM type II, A1c-7.2 (08/2019) -Accuchecks, hypoglycemia precautions, ISS -consistent carb diet Status: Chronic Qualifiers: Diabetes mellitus complication status: without complication Diabetes mellitus long chain quiller tender insulin use: without long chain quiller tender use Diabetes mellitus type: type 2 Qualified Code(s): E11.9 - Type 2 diabetes mellitus without complications Additional A&P Information -continue meds -Dyspepsia; Tums PRN -Hyponatremia; acute on chronic, prior levels have been in the 130s; likely secondary to hypovolemia; on IVF hydration, continue to trend Na -Chronic normocytic anemia; baseline Hg is 11-12; drop today likely dilutional, continue to monitor H/H -Gram negative bacteremia; as noted above -GI ppx with PPI -DVT ppx with Lovenox. SCDs -Dispo: home, lives with mother -Code status: FULL code Attestations Medical Necessity Statement*: Patient requires hospitalization for continued treatment of complicated UTI with associated sepsis and bacteremia, hyponatremia, on IV antibiotics, IVF hydration. Time Spent in Patient Care: 16 - 35 minutes (>than 50% of time spent in counselling and/or direct pt care on unit). Coding Level of Care Code Acute [employer] Specialist for [facility] Fwd Exam Comprehensive Diagnoses Complicated UTI (urinary tract infection) N39.0 Quadriplegia G82.50 Diabetes mellitus E11.9 Diabetes mellitus complication status: without complication Diabetes mellitus long chain quiller tender insulin use: without long chain quiller tender use Diabetes mellitus type: type 2
--- NOTE | 2019-12-25 14:38 | ECG_ITS ---
[facility] Test Date: 2019-12-25 Pat Name: Timur Valdovinos Department: Room: 255 Gender: Male Historic Preservationist: : 1960 Requested By: Madyson Burk Order Number: [id number] Matthieu MD: Ana Chaudhry M.D. Measurements Intervals [place] Rate: 57 P: 57 MT: 187 QRS: 21 QRSD: 101 T: 58 QT: 437 QTc: 429 Interpretive Statements SINUS BRADYCARDIA POSSIBLE LEFT VENTRICULAR HYPERTROPHY [VOLTAGE CRITERIA PLUS LAE OR QRS WIDENING] Compared to ECG 02/27/2019 12:34:50 No significant changes Electronically Signed On 12-26-2019 15:51:55 CDT by Ana Chaudhry M.D. [id number]
[2019-12-25 16:23] LABS: Glucose Point of Care 109 mg/dL (70-110)
[2019-12-25] MEDS: ciprofloxacin 500 mg Tablet PO (17:20)
[2019-12-25 21:22] LABS: Glucose Point of Care 138 mg/dL (70-110)
[2019-12-25] MEDS: enoxaparin 40 mg/0.4 mL Syringe SUBCUT (21:38)
[2019-12-25] MEDS: trazodone 50 mg Tablet 100 MG PO (21:38)
[2019-12-26] VITALS: BP 114/64; PULSE 92; RESP 16; TEMP 37.2; O2SAT 90
[2019-12-26] MEDS: acetaminophen 325 mg Tablet 650 MG PO ×3 (01:13→21:30)
[2019-12-26 04:00] VITALS: BP 117/57; PULSE 64; RESP 17; TEMP 37.3; O2SAT 91
[2019-12-26] MEDS: sodium chloride 0.9% 1,000 ML 100 ML IV ×2 (04:07→14:09)
[2019-12-26] MEDS: ondansetron 2 mg/ML SDV 2 mL 4 MG IVP (05:11)
[2019-12-26] MEDS: calcium carbonate 500 mg Chew Tablet PO (05:11)
[2019-12-26] MEDS: piperacillin-tazobactam 3.375 GM in sodium chloride 0.9% (plus) 50 ML IV ×3 (05:11→21:28)
[2019-12-26 05:41] VITALS: BMI 21.4
[2019-12-26 05:54] LABS: Basophils % 0.4 %; Eosinophils # 0.1 10^3/uL (0.0-0.8); Eosinophils % 1.5 %; Hematocrit 26.7 % (42.0-52.0); Lymphocytes # 0.5 10^3/uL (0.8-4.8); Lymphocytes % 7.2 %; Mean Corpuscular HGB Conc 33.7 g/dL (30.0-36.0); Mean Corpuscular Hemoglobin 31.7 pg (28.0-34.0); Mean Platelet Volume 9.4 fL (7.4-10.4); Monocytes # 0.7 10^3/uL (0.2-0.9); Monocytes % 9.1 %; Neutrophils # 5.89 10^3/uL (1.8-7.7); Neutrophils % 81.2 %; Nucleated Red Blood Cells % 0 %; Platelet Count 209 10^3/cmm (130-400); Red Blood Count 2.84 10^6/uL (4.1-5.3); Red Cell Distribution Width 14.5 % (12.1-15.1); White Blood Count 7.3 10^3/uL (4.0-10.0)
[2019-12-26 06:14] LABS: Anion Gap 14.9 (5-19); Blood Urea Nitrogen 10 mg/dL (8-23); Calcium 8.7 mg/dL (8.5-10.5); Carbon Dioxide 20 mmol/L (22-29); Chloride 95 mmol/L (98-107); Glomerular Filtration Rate 98.6 mL/min (90-130); Glucose 83 mg/dL (65-115); Osmolality Calculated 257 mOsm/kg (285-295); Potassium 3.9 mmol/L (3.5-5.1); Sodium 126 mmol/L (136-145)
[2019-12-26 07:48] VITALS: BP 121/58; PULSE 66; RESP 18; TEMP 37.2; O2SAT 92
[2019-12-26] MEDS: atorvastatin 40 mg Tablet 20 MG PO (09:04)
[2019-12-26] MEDS: ciprofloxacin 500 mg Tablet PO ×2 (09:04→18:30)
[2019-12-26] MEDS: pyridoxine 50 mg Tablet 100 MG PO (09:06)
[2019-12-26] MEDS: tizanidine 4 mg Tablet 2 MG PO ×3 (09:06→21:31)
[2019-12-26] MEDS: baclofen 10 mg Tablet 20 MG PO ×4 (09:06→21:31)
[2019-12-26] MEDS: aspirin 81 mg EC Tablet PO (09:06)
[2019-12-26] MEDS: escitalopram 10 mg Tablet PO (09:06)
[2019-12-26] MEDS: gabapentin 100 mg Capsule PO ×3 (09:06→21:30)
[2019-12-26] MEDS: carBAMazepine 200 mg Tablet PO ×2 (09:06→18:30)
[2019-12-26] MEDS: ascorbic acid 500 mg Tablet PO (09:19)
[2019-12-26 11:46] VITALS: BP 118/58; PULSE 68; RESP 18; TEMP 37.2; O2SAT 91
[2019-12-26 12:05] LABS: Glucose Point of Care 110 mg/dL (70-110)
--- NOTE | 2019-12-26 14:49 | P.PN_ITS ---
Subjective Subjective: Interval history: Had 1800 mL urine output overnight, resolved leukocytosis, afebrile, hemodynamically stable, improved sodium to 126. Urine culture in process, so far growing Proteus mirabilis and 2 other types of gram- negative rods, repeat set of blood cultures pending. No apparent distress, disappointed that he can go home today but understands need for continued miki atment pending culture results. Medications: Reviewed: Yes Medication Review Details: Active Medications Generic Name Dose Route Start Last Admin Trade Name Freq PRN Reason Stop Dose Admin Acetaminophen 650 mg 12/24/19 18:51 12/26/19 09:05 Tylenol PO 650 mg Q6H PRN Administration Mild/Mod Pain Or Temp >/= 101 Hydrocodone Bitart /Acetaminophen 1 tab 12/24/19 18:51 12/25/19 13:52 [place] 5-325 Mg PO 1 tab Q4H PRN Administration MODERATE TO SEVER E PAIN Ascorbic Acid 500 mg 12/25/19 09:00 12/26/19 09:19 Vitamin C PO 500 mg DAILY SHANTEL Administration Aspirin 81 mg 12/25/19 09:00 12/26/19 09:06 Aspirin Ec PO 81 mg DAILY SHANTEL Administration Atorvastatin Calci um 20 mg 12/25/19 09:00 12/26/19 09:04 Lipitor PO 20 mg DAILY SHANTEL Administration Baclofen 20 mg 12/24/19 21:00 12/26/19 14:03 Lioresal PO 20 mg QID SHANTEL Administration Bisacodyl 10 mg 12/25/19 09:00 12/26/19 09:07 Bisac-Evac NM Not Given DAILY [facility] Calcium Carbonate 500 mg 12/24/19 18:51 12/26/19 05:11 Tums PO 500 mg Q4H PRN Administration DYSPEPSI Carbamazepine 200 mg 12/24/19 18:32 12/26/19 09:06 Tegretol PO 200 mg BID SHANTEL Administration Ciprofloxacin HCl 500 mg 12/25/19 18:00 12/26/19 09:04 Cipro PO 500 mg BID SHANTEL Administration Protocol Dextrose 25 ml 12/24/19 19:17 D50w IVP ONCE PRN hypoglycemia prot ocol Protocol Dextrose 50 ml 12/24/19 19:17 D50w IVP PRN PRN hypoglycemia prot ocol Protocol Enoxaparin Sodium 40 mg 12/24/19 19:00 12/25/19 21:38 Lovenox SUBCUT 40 mg Q24H SHANTEL Administration Escitalopram Oxala te 10 mg 12/25/19 09:00 12/26/19 09:06 Lexapro PO 10 mg DAILY SHANTEL Administration Gabapentin 100 mg 12/24/19 21:00 12/26/19 09:06 Neurontin PO 100 mg TID SHANTEL Administration Glucagon 1 mg 12/24/19 19:17 Glucagen IM ONCE PRN Adult Acute Hypog lycemia Prot. Protocol Sodium Chloride 1,000 mls @ 100 m ls/hr 12/24/19 19:00 12/26/19 14:09 Sodium Chloride 0.9% IV 100 mls/hr .Q10H SHANTEL Administration Piperacillin Sod/T azobactam 50 mls @ 12.5 mls /hr 12/24/19 19:00 12/26/19 14:03 Sod 3.375 gm/ So dium Chloride IV 12.5 mls/hr Q8H SHANTEL Administration Protocol As Directed Dextrose 500 mls @ 100 mls /hr 12/24/19 19:17 D5w IV ONCE PRN Adult Acute Hypog lycemia Prot Protocol Insulin Aspart 0 unit 12/24/19 21:00 12/26/19 12:42 Novolog SUBCUT Not Given WM&BEDTIME [facility] Protocol Loperamide HCl 2 mg 12/24/19 18:32 Imodium Capsule PO BID PRN DIARRHEA Morphine Sulfate 2 mg 12/24/19 18:51 12/25/19 01:10 Morphine IVP 2 mg Q4H PRN Administration SEVERE PAIN Non-Formulary Medi cation 1,250 mcg 12/24/19 18:32 12/24/19 20:31 Cholecalciferol (Vitamin D3) PO Not Given Q7D [facility] Ondansetron HCl 4 mg 12/24/19 18:51 12/26/19 05:11 Zofran IVP 4 mg Q6H PRN Administration vomiting, or N/V if npo Polyethylene Glyco l 17 gm 12/25/19 09:00 12/26/19 09:07 Miralax PO Not Given DAILY [facility] Pyridoxine HCl 100 mg 12/25/19 09:00 12/26/19 09:06 Vitamin B-6 PO 100 mg DAILY SHANTEL Administration Tizanidine HCl 2 mg 12/24/19 21:00 12/26/19 09:06 Zanaflex PO 2 mg TID SHANTEL Administration Trazodone HCl 100 mg 12/24/19 21:00 12/25/19 21:38 Desyrel PO 100 mg BEDTIME SHANTEL Administration penicillin G Allergy (Mild, Verified 12/24/19 15:56) ALGY-Rash Vitals/I&O/Wt Last Vital Signs Temp 99 F 12/26/19 11:46 Pulse 68 12/26/19 11:46 Resp 18 12/26/19 11:46 BP 118/58 12/26/19 11:46 Pulse Ox 91 12/26/19 11:46 12/25/19 12/26/19 12/26/19 22:59 06:59 14:59 Intake Total 410 / 1880 1050 / 2930 1570 / 1570 Output Total 800 / 1700 1800 / 3500 Balance -390 / 180 -750 / -570 1570 / 1570 Weight last 48 hrs Weight 65.856 kg Weight 65.856 kg Physical Exam Const: COMMON NORMALS: no acute distress, patient oriented x3 and alert GENERAL APPEARANCE: cooperative, comfortable and frail appearing NUTRITIONAL APPEARANCE: thin ORIENTATION/CONSCIOUSNESS: Yes awake HENMT: COMMON NORMALS: normocephalic, atraumatic, hearing grossly normal bilaterally and moist oral mucous membranes HEAD & SCALP: normocephalic and atraumatic TEETH & GINGIVA: Yes edentulous Eye: COMMON NORMALS: Equal, round and reactive pupils present, EOMs intact bilaterally and conjunctivae normal CONJUNCTIVA: Yes conjunctivae normal PUPIL: Yes Equal, round and reactive pupils present Neck/C-Spine: GENERAL: Yes normal visual inspection and Yes trachea midline Resp: COMMON NORMALS: normal respiratory effort, No retractions, No use of accessory muscles and clear to auscultation bilaterally EFFORT & INSPECTION: Yes able to speak in complete sentences, Yes symmetric chest movement and No tachypneic AUSCULTATION: clear to auscultation bilaterally OTHER: -on RA Cardio: COMMON NORMALS: regular rate, regular rhythm, S1 normal heart sound present, S2 normal heart sound present and No murmurs present (Cardio) RATE: regular rate RHYTHM: regular rhythm HEART SOUNDS: S1 normal heart sound present and S2 normal heart sound present GI: COMMON NORMALS: Normal to inspection, nondistended, normoactive bowel sounds present, Soft to palpation and non-tender PALPATION: Yes Soft to palpation : BLADDER/KIDNEY EXAM: Yes catheter in place Catheter type (Male): suprapubic Extremity: NARRATIVE EXTREMITY EXAM: -contracted extremities, non-pitting bilateral ankle edema Neuro: COMMON NORMALS: patient oriented x3 SENSORIUM/ORIENTATION: Yes alert SPEECH: speech normal GAIT: Yes Other gait observations present (quadriplegic) Psych: COMMON NORMALS: mental status grossly normal, Normal thought process present, cooperative, normal affect and speech normal SPEECH: Yes normal speech THOUGHT PROCESS: Normal thought process present Skin: COMMON NORMALS: no jaundice, no petechiae and no mottling NARRATIVE SKIN EXAM: -seborrheic dermatitis lesions on face, neck, elbows Data : 12/26/19 04:37 12/26/19 04:37 Micro: Microbiology 12/24/19 14:25 Urine Culture - Preliminary Urine,Clean Catch Proteus mirabilis Gram Negative Rods#2 12/25/19 16:12 Blood Culture - Preliminary Blood SPECIMEN COLLECTED 12/25/19 16:12 Blood Culture - Preliminary Blood SPECIMEN COLLECTED 12/24/19 14:50 Blood Culture - Preliminary Blood Gram Negative Rods A&P Assessment and plan (1) Complicated UTI (urinary tract infection): -has suprapubic catheter, initially placed by Dr. Saucedo on 10/27/19 due to small capacity bladder and overlying bowel -suprapubic catheter tube changed on 12/05/19; to be changed in [address] Saucedo specifically -continue to monitor urine output -UA strongly indicative of infection -urine cx: Proteus mirabilis, GNRs x 2, pending ID & sensitivity -f/u blood cx: 1/2 bottles positive for GNRs; repeat set pending -associated sepsis as indicated by high grade fever, leukocytosis, noted CRP elevation; lactic acid and pro-calcitonin wnl -Resolved leukocytosis -close monitoring of vital signs; afebrile currently, hemodynamically stable -telemetry monitoring -grew Proteus mirabilis, Enterococcus faecalis, Pseudomonas aeruginosa on most recent urine cultures so we will cover with ciprofloxacin and Zosyn. Received dose of ceftriaxone in ER -IV fluid hydration; encourage oral hydration Status: Acute (2) Quadriplegia: -strict fall precautions -frequent repositioning, q2h -WC-/bed-bound at baseline -continue pain meds, muscle relaxants -has been following up with Dr. Estrella for consideration of Botox treatments for spasticity Status: Chronic (3) Diabetes mellitus: -NIDDM type II, A1c-7.2 (08/2019) -Accuchecks, hypoglycemia precautions, ISS -consistent carb diet Status: Chronic Qualifiers: Diabetes mellitus complication status: without complication Diabetes mellitus long-term insulin use: without intermediate frame tender use Diabetes mellitus type: type 2 Qualified Code(s): E11.9 - Type 2 diabetes mellitus without complications Additional A&P Information -continue meds -Dyspepsia; Tums PRN -Hyponatremia; acute on chronic, prior levels have been in the 130s; likely secondary to hypovolemia; on IVF hydration, continue to trend Na; add salt tablets -Chronic normocytic anemia; baseline Hg is 11-12; noted drop likely dilutional, continue to monitor H/H -Gram negative bacteremia; as noted above -GI ppx with PPI -DVT ppx with Lovenox. SCDs -Dispo: home, lives with mother -Code status: FULL code Attestations Medical Necessity Statement*: Patient requires hospitalization for continued treatment of complicated UTI with associated bacteremia pending urine culture and blood culture results, on IV antibiotics in addition to management of hyponatremia on IV fluid hydration. Time Spent in Patient Care: 16 - 35 minutes (>than 50% of time spent in counselling and/or direct pt care on unit) . 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
[2019-12-26 15:40] VITALS: BP 140/53; PULSE 59; RESP 18; TEMP 36.9; O2SAT 91
[2019-12-26 15:43] LABS: Glucose Point of Care 188 mg/dL (70-110)
[2019-12-26] MEDS: sodium chloride 1 gm Tablet PO (18:30)
[2019-12-26] MEDS: HYDROcodone-acetaminophen 5-325 mg Tablet 1 TAB PO (18:35)
[2019-12-26 19:36] LABS: Glucose Point of Care 117 mg/dL (70-110)
[2019-12-26 20:00] VITALS: BP 135/69; PULSE 68; RESP 16; TEMP 38.2; O2SAT 90
[2019-12-26] MEDS: trazodone 50 mg Tablet 100 MG PO (21:31)
[2019-12-26] MEDS: enoxaparin 40 mg/0.4 mL Syringe SUBCUT (21:33)
[2019-12-27] VITALS: BP 143/70; PULSE 56; RESP 16; TEMP 37; O2SAT 90
[2019-12-27 04:00] VITALS: BP 157/65; PULSE 59; RESP 20; TEMP 37.1; O2SAT 93
[2019-12-27] MEDS: piperacillin-tazobactam 3.375 GM in sodium chloride 0.9% (plus) 50 ML IV (04:34)
[2019-12-27] MEDS: ondansetron 2 mg/ML SDV 2 mL 4 MG IVP (04:34)
[2019-12-27] MEDS: calcium carbonate 500 mg Chew Tablet PO (04:34)
[2019-12-27] MEDS: sodium chloride 0.9% 1,000 ML 100 ML IV (04:35)
[2019-12-27] MEDS: HYDROcodone-acetaminophen 5-325 mg Tablet 1 TAB PO (04:36)
[2019-12-27 05:20] VITALS: BMI 21.4
[2019-12-27 05:52] LABS: Basophils % 0.3 %; Eosinophils # 0.1 10^3/uL (0.0-0.8); Eosinophils % 0.7 %; Hematocrit 29.5 % (42.0-52.0); Hemoglobin 9.7 g/dL (11.7-16.6); Lymphocytes # 0.5 10^3/uL (0.8-4.8); Lymphocytes % 5.3 %; Mean Corpuscular HGB Conc 32.9 g/dL (30.0-36.0); Mean Corpuscular Hemoglobin 31.5 pg (28.0-34.0); Mean Corpuscular Volume 95.8 fL (80-94); Mean Platelet Volume 8.8 fL (7.4-10.4); Monocytes # 0.8 10^3/uL (0.2-0.9); Monocytes % 9.1 %; Neutrophils # 7.23 10^3/uL (1.8-7.7); Nucleated Red Blood Cells % 0 %; Platelet Count 226 10^3/cmm (130-400); Red Blood Count 3.08 10^6/uL (4.1-5.3); Red Cell Distribution Width 14.6 % (12.1-15.1); White Blood Count 8.6 10^3/uL (4.0-10.0)
[2019-12-27 06:01] LABS: Anion Gap 20.8 (5-19); Blood Urea Nitrogen 6 mg/dL (8-23); Carbon Dioxide 17 mmol/L (22-29); Chloride 92 mmol/L (98-107); Glomerular Filtration Rate 137.4 mL/min (90-130); Glucose 106 mg/dL (65-115); Osmolality Calculated 258 mOsm/kg (285-295); Potassium 3.8 mmol/L (3.5-5.1); Sodium 126 mmol/L (136-145)
[2019-12-27 07:36] LABS: Glucose Point of Care 103 mg/dL (70-110)
[2019-12-27 08:00] VITALS: BP 152/73; PULSE 86; RESP 17; TEMP 37.1; O2SAT 93
[2019-12-27] MEDS: sodium chloride 1 gm Tablet PO (08:59)
[2019-12-27] MEDS: acetaminophen 325 mg Tablet 650 MG PO (09:24)
[2019-12-27] MEDS: gabapentin 100 mg Capsule PO (09:24)
[2019-12-27] MEDS: pyridoxine 50 mg Tablet 100 MG PO (09:25)
[2019-12-27] MEDS: atorvastatin 40 mg Tablet 20 MG PO (09:25)
[2019-12-27] MEDS: escitalopram 10 mg Tablet PO (09:25)
[2019-12-27] MEDS: carBAMazepine 200 mg Tablet PO (09:25)
[2019-12-27] MEDS: aspirin 81 mg EC Tablet PO (09:26)
[2019-12-27] MEDS: ciprofloxacin 500 mg Tablet PO (09:26)
[2019-12-27] MEDS: baclofen 10 mg Tablet 20 MG PO ×2 (09:26→13:35)
[2019-12-27] MEDS: tizanidine 4 mg Tablet 2 MG PO (09:26)
[2019-12-27] MEDS: ascorbic acid 500 mg Tablet PO (09:26)
[2019-12-27 11:14] LABS: Glucose Point of Care 140 mg/dL (70-110)
[2019-12-27 11:39] VITALS: BP 138/74; PULSE 56; RESP 17; TEMP 37.1; O2SAT 93
--- NOTE | 2019-12-27 14:35 | PM.DCS ---
Discharge Providers Date of Admission: 12/24/19 17:06 Date of Discharge: December 27, 2019 Attending Provider at Admission: Madyson Burk MD Attending Provider at Discharge: Madyson Burk MD Consults: None Primary Care Provider: AKBAR PATEL DO Diagnoses at Discharge Discharge Diagnosis (1) Complicated UTI (urinary tract infection): Status: Acute Problem details: -has suprapubic catheter, initially placed by Dr. Saucedo on 10/27/19 due to small capacity bladder and overlying bowel -suprapubic catheter tube changed on 12/05/19; to be changed in [address] Saucedo specifically -good urine output -UA strongly indicative of infection -urine cx: Proteus mirabilis, E.coli; sensitivity noted -blood cx: 1/2 bottles positive for GNRs; repeat set prelim negative -associated sepsis as indicated by high grade fever, leukocytosis, noted CRP elevation; lactic acid and pro-calcitonin wnl. -Resolved leukocytosis -close monitoring of vital signs; afebrile currently, hemodynamically stable -telemetry monitoring -grew Proteus mirabilis, Enterococcus faecalis, Pseudomonas aeruginosa on most recent urine cultures so we will cover with ciprofloxacin and Zosyn. Received dose of ceftriaxone in ER -IV fluid hydration; encourage oral hydration (2) Quadriplegia: Status: Chronic Problem details: -strict fall precautions -frequent repositioning, q2h -WC-/bed-bound at baseline -continue pain meds, muscle relaxants -has been following up with Dr. Estrella for consideration of Botox treatments for spasticity (3) Diabetes mellitus: Status: Chronic Problem details: -NIDDM type II, A1c-7.2 (08/2019) -Accuchecks, hypoglycemia precautions, ISS -consistent carb diet Qualifiers: Diabetes mellitus type: type 2 Diabetes mellitus keno terminal operator insulin use: without group home use Diabetes mellitus complication status: without complication Qualified Code(s): E11.9 - Type 2 diabetes mellitus without complications Other Information Additional DC diagnoses/information: -Dyspepsia; Tums PRN -Hyponatremia; acute on chronic, prior levels have been in the 130s; likely secondary to hypovolemia; on IVF hydration, continue to trend Na; on salt tablets -Chronic normocytic anemia; baseline Hg is 11-12; noted drop likely dilutional, continue to monitor H/H -Gram negative bacteremia; as noted above Reason for Visit Reason for Visit: FEVER / RUNNY NOSE Hospital Course Hospital Course: Patient was admitted to the medical surgical floor and started on broad-spectrum IV antibiotics secondary to evidence of complicated UTI with associated sepsis as evidenced by high-grade fever, leukocytosis, CRP elevation. He was also started on IV fluid hydration secondary to noted clinical evidence of dehydration and hyponatremia. Initial set of blood cultures grew gram-negative rods in 1 out of 2 bottles and gram-positive cocci in 1 out of 2 bottles. Repeat set is negative so far. Urine culture has grown E. coli and Proteus mirabilis. Patient had already been on IV Zosyn and oral ciprofloxacin and per sensitivity profile will be discharged on cefuroxime. He is to continue to follow-up with Dr. Saucedo due to suprapubic catheter and required maintenance, as well as follow-up with Dr. Estrella. He will need close follow-up with his primary care provider who will need to continue to monitor his sodium levels. His sodium level is up to 126 today and I have added salt tablets to continue to maintain this. He will likely continue to have some degree of chronic hyponatremia. Patient is a quadriplegic and bed-bound so requires ambulance transportation to return home. He reports feeling well today and would really like to be discharged home. Last low grade temp was around 2000 yesterday, leukocytosis has resolved, he is hemodynamically stable and has consistently been on RA. Discharge Summary: -Patient to follow-up with primary care provider within 1 week -Patient to continue to follow-up with Dr. Saucedo and Dr. Estrella Physical Exam Const: COMMON NORMALS: no acute distress, patient oriented x3 and alert GENERAL APPEARANCE: cooperative, comfortable and frail appearing NUTRITIONAL APPEARANCE: thin ORIENTATION/CONSCIOUSNESS: Yes awake HENMT: COMMON NORMALS: normocephalic, atraumatic, hearing grossly normal bilaterally and moist oral mucous membranes HEAD & SCALP: normocephalic and atraumatic TEETH & GINGIVA: Yes edentulous Eye: COMMON NORMALS: Equal, round and reactive pupils present, EOMs intact bilaterally and conjunctivae normal CONJUNCTIVA: Yes conjunctivae normal PUPIL: Yes Equal, round and reactive pupils present Neck/C-Spine: GENERAL: Yes normal visual inspection and Yes trachea midline Resp: COMMON NORMALS: normal respiratory effort, No retractions, No use of accessory muscles and clear to auscultation bilaterally EFFORT & INSPECTION: Yes able to speak in complete sentences, Yes symmetric chest movement and No tachypneic AUSCULTATION: clear to auscultation bilaterally OTHER: -on RA Cardio: COMMON NORMALS: regular rate, regular rhythm, S1 normal heart sound present, S2 normal heart sound present and No murmurs present (Cardio) RATE: regular rate RHYTHM: regular rhythm HEART SOUNDS: S1 normal heart sound present and S2 normal heart sound present GI: COMMON NORMALS: Normal to inspection, nondistended, normoactive bowel sounds present, Soft to palpation and non-tender PALPATION: Yes Soft to palpation : BLADDER/KIDNEY EXAM: Yes catheter in place Extremity: NARRATIVE EXTREMITY EXAM: -contracted extremities, non-pitting bilateral ankle edema minimal Neuro: COMMON NORMALS: patient oriented x3 SENSORIUM/ORIENTATION: Yes alert SPEECH: speech normal GAIT: Yes Other gait observations present (quadriplegic) Psych: COMMON NORMALS: mental status grossly normal, Normal thought process present, cooperative, normal affect and speech normal SPEECH: Yes normal speech THOUGHT PROCESS: Normal thought process present Skin: COMMON NORMALS: no jaundice, no petechiae and no mottling NARRATIVE SKIN EXAM: -seborrheic dermatitis lesions on face, neck, elbows Discharge Data Data Completed and Pending: Completed Studies During Hospitalization Category Date Time Status XR chest 1V lyndsay ble [id number] Stat Exams 12/24/19 14:15 Completed Pending at discharge Category Date Time Status Blood Culture Sta t Lab 12/24/19 14:50 Results Blood Culture Sta t Lab 12/25/19 16:12 Results Labs from last 24 hours 12/27/19 12/27/19 12/27/19 10:51 06:54 05:30 WBC RBC Hgb Hct MCV MCH MCHC RDW Plt Count MPV Neut % (Auto) Lymph % (Auto) [place] % (Auto) Eos % (Auto) Baso % (Auto) Neut # (Auto) Lymph # (Auto) [place] # (Auto) Eos # (Auto) Baso # (Auto) Nucleated RBC % (a uto) Nucleated RBCs # Sodium 126 L Potassium 3.8 Chloride 92 L Carbon Dioxide 17 L Anion Gap 20.8 H BUN 6 L Creatinine 0.6 L GFR Calculation 137.4 H Glucose 106 POC Glucose 140 103 Calculated Osmolal ity 258 L Calcium 9.0 12/27/19 12/26/19 12/26/19 05:30 19:32 15:38 WBC 8.6 RBC 3.08 L Hgb 9.7 L Hct 29.5 L MCV 95.8 H MCH 31.5 MCHC 32.9 RDW 14.6 Plt Count 226 MPV 8.8 Neut % (Auto) 84.0 Lymph % (Auto) 5.3 [place] % (Auto) 9.1 Eos % (Auto) 0.7 Baso % (Auto) 0.3 Neut # (Auto) 7.23 Lymph # (Auto) 0.5 L [place] # (Auto) 0.8 Eos # (Auto) 0.1 Baso # (Auto) 0.0 Nucleated RBC % (a uto) 0 Nucleated RBCs # 0.0 Sodium Potassium Chloride Carbon Dioxide Anion Gap BUN Creatinine GFR Calculation Glucose POC Glucose 117 188 Calculated Osmolal ity Calcium Vitals: Last Vital Signs Temp 98.8 F 12/27/19 11:39 Pulse 56 L 12/27/19 11:39 Resp 17 12/27/19 11:39 BP 138/74 12/27/19 11:39 Pulse Ox 93 12/27/19 11:39 Discharge Plan Discharge Patient Disposition: Home Condition: Stable Prescriptions: New sodium chloride 1 gram Tablet 1 g PO BID Qty: 60 RF: 0 cefuroxime axetil 500 mg tablet 500 mg PO BID 10 Days Qty: 20 RF: 0 Continued tizanidine [Zanaflex] 2 mg capsule 2 mg PO TID Qty: 90 RF: 2 aspirin [Adult Aspirin Regimen] 81 mg tablet,delayed release (DR/EC) 81 mg PO DAILY RF: 0 carbamazepine 200 mg tablet 200 mg PO BID RF: 0 cranberry 500 mg capsule 500 mg PO DAILY RF: 0 escitalopram oxalate 10 mg tablet 10 mg PO DAILY RF: 0 gabapentin 100 mg capsule 100 mg PO TID RF: 0 pravastatin 40 mg tablet 40 mg PO DAILY RF: 0 promethazine 25 mg tablet 25 mg PO Q6H PRN (Reason: Nausea) RF: 0 trazodone 50 mg tablet 100 mg PO BEDTIME RF: 0 ascorbic acid (vitamin C) 500 mg capsule 500 mg PO DAILY RF: 0 meloxicam 15 mg tablet 7.5 mg PO BID RF: 0 loperamide 2 mg capsule 2 mg PO BID RF: 0 ergocalciferol (vitamin D2) 10 mcg (400 unit) tablet 50,000 unit PO Q7D RF: 0 baclofen 20 mg tablet 20 mg PO QID RF: 0 melatonin 10 mg capsule 10 mg PO .COMPLEX RF: 0 diphenhydramine-acetaminophen [Tylenol PM Extra Strength] 25-500 mg tablet 2 tab PO .at bedtime PRN (Reason: Sleep) RF: 0 leg cramps 2 mg PO DAILY RF: 0 vitamin E 1,000 unit Capsule 1,000 unit PO DAILY RF: 0 pyridoxine (vitamin B6) [Vitamin B-6] 100 mg Tablet 100 mg PO DAILY RF: 0 cholecalciferol (vitamin D3) 1,250 mcg (50,000 unit) capsule 1,250 mcg PO Q7D RF: 0 Discontinued clindamycin HCl 300 mg capsule 300 mg PO TID RF: 0 Discharge Orders: Discharge Order (Routine); Ordered 12/27/19 Ordered By: Madyson Burk Referrals: [facility] [Outside] AKBAR PATEL DO [Primary Care Provider] - 01/10/20 9:00 am (Post hospital discharge follow up) Discharge Diet: Usual diet Discharge Activity: Resume usual activity Patient Instructions: Type 2 Diabetes, Diabetes and Diet, Cefuroxime (By mouth), Electrolyte/Mineral Supplement (By mouth), Urinary Tract Infection in Men (DC) Discharge Attestations Time Spent in Discharge Care*: greater than 30 min Specific Discharge Activities: Specific discharge activities: educating patient, discussing with correctional casework specialist/social workers/dc planners, documenting/other paperwork and evaluating patient/reviewing data Status at Discharge: Cognitive status at discharge: cognitively intact, Behavioral status at discharge: dependent in ADL's, Functional status at discharge: wheelchair bound Overall status at discharge: patient is progressing back to baseline Quality Metrics Clinical Quality Measures During this hospital stay, did patient experience: None Coding Level of Care Code Acute Professor Of Industrial 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
[2019-12-27 16:00] VITALS: BP 181/76; PULSE 72; RESP 18; TEMP 37.1; O2SAT 98
--- NOTE | 2019-12-27 17:09 | PC.NURSE ---
PT WAS UNABLE TO SIGN DISCHARGE PAPERWORK VERBAL CONSENT RECEIVED, ALDO AUGUSTIN WITNESSED VERBAL CONSENT TO DISCHARGE PAPERWORK.
[2019-12-27 17:12] VITALS: BP 181/76; PULSE 72; RESP 18; TEMP 37.1; O2SAT 98
--- NOTE | 2019-12-28 12:15 | PC.RESP ---
Smoking Cessation information sent to patient.
== END 2019-12-27 16:45 | disposition home or self-care (01) | DRG 698 ==
LOC: ER 17:05 → MEDSURG 17:31
PROVIDERS: Physician Assistant; Admitting Provider Family Medicine; PCP Internal Medicine; Visit Provider Family Medicine
DX: T83.518A Infection and inflammatory reaction due to other urinary catheter, initial encounter (principal); A41.9 Sepsis, unspecified organism; G82.50 Quadriplegia, unspecified; E87.1 Hypo-osmolality and hyponatremia; Y73.1 Therapeutic (nonsurgical) and rehabilitative gastroenterology and urology devices associated with adverse incidents; Z93.6 Other artificial openings of urinary tract status; E11.9 Type 2 diabetes mellitus without complications; F17.210 Nicotine dependence, cigarettes, uncomplicated; F10.21 Alcohol dependence, in remission; B95.2 Enterococcus as the cause of diseases classified elsewhere; B96.4 Proteus (mirabilis) (morganii) as the cause of diseases classified elsewhere; B96.5 Pseudomonas (aeruginosa) (mallei) (pseudomallei) as the cause of diseases classified elsewhere; Z79.82 Long term (current) use of aspirin; E86.0 Dehydration
CPT/HCPCS: 12345; 36415; 36416; 71045; 80048; 80053; 81001; 82962; 83605; 84145; 85025; 86140; 87040; 87077; 87086; 87186; 87205; 93005; 96372; 96375; 99282; J0696; J0744; J1650; J1815; J2270; J2405; J2543; J7030

== ENCOUNTER → 2020-01-19 15:21 | Outpatient (BNVA) | payer MEDICAID, SELFPAY | PROVIDERS: PCP Internal Medicine; Visit Provider Specialist | DX: R25.2 Cramp and spasm (principal); G82.50 Quadriplegia, unspecified; G81.14 Spastic hemiplegia affecting left nondominant side; F17.210 Nicotine dependence, cigarettes, uncomplicated | CPT/HCPCS: 64644; 99213; J0585 ==

== ENCOUNTER → 2020-04-03 11:23 | Outpatient (BNVA) | payer MEDICAID, SELFPAY | PROVIDERS: PCP Internal Medicine; Visit Provider Podiatrist Foot & Ankle Surgery | DX: S92.254A Nondisplaced fracture of navicular [scaphoid] of right foot, initial encounter for closed fracture (principal); W23.0XXA Caught, crushed, jammed, or pinched between moving objects, initial encounter | CPT/HCPCS: 73630 ==

== ENCOUNTER → 2020-04-19 14:35 | Outpatient (BNVA) | payer MEDICAID, SELFPAY | PROVIDERS: PCP Internal Medicine; Visit Provider Specialist | DX: G82.50 Quadriplegia, unspecified (principal); G81.10 Spastic hemiplegia affecting unspecified side; G81.14 Spastic hemiplegia affecting left nondominant side; F17.210 Nicotine dependence, cigarettes, uncomplicated | CPT/HCPCS: 64644; 99213; J0585 ==

== ENCOUNTER 2020-05-12 20:46 | Inpatient (IN) | payer MEDICAID, SELFPAY ==
[2020-05-12] VITALS (7 sets, daily range): BP systolic 169–180; BP diastolic 69–81; PULSE 88–94; RESP 18–24; TEMP 39.6; O2SAT 91–96; BMI 21.4
--- NOTE | 2020-05-12 21:08 | XRR_ITS ---
PROCEDURE INFORMATION: Exam: XR Chest, 1 View Exam date and time: 05/12/2020 9:50 PM Age: 60 years old Clinical indication: Fever TECHNIQUE: Imaging protocol: XR of the chest Views: 1 view. COMPARISON: CR XR chest 1V portable [id number] 12/24/2019 2:17 PM FINDINGS: Lungs: Unremarkable. No consolidation. Pleural space: Unremarkable. No pleural effusion. No pneumothorax. Heart/Mediastinum: Unremarkable. No cardiomegaly. Bones/joints: Old right rib fractures. XR/XR chest 1V portable [id number] IMPRESSION: No acute findings.
[2020-05-12] MEDS: ondansetron 2 mg/ML SDV 2 mL 4 MG IVP (21:26)
[2020-05-12 21:40] LABS: Alanine Aminotransferase 11 U/L (0-41); Albumin Level 3.1 g/dL (3.5-5.2); Alkaline Phosphatase 129 IU/L (40-130); Aspartate Amino Transferase 13 U/L (0-40); Blood Urea Nitrogen 7 mg/dL (8-23); Calcium 9.6 mg/dL (8.5-10.5); Carbon Dioxide 24 mmol/L (22-29); Chloride 78 mmol/L (98-107); Globulin 4.2 g/dL (1.3-4.6); Glucose 149 mg/dL (65-115); Lipase 19 U/L (13-60); Magnesium 1.5 mg/dL (1.7-2.3); Osmolality Calculated 241 mOsm/kg (285-295); Total Bilirubin 0.4 mg/dL (0.15-1.2); Total Protein 7.3 g/dL (6.6-8.7)
--- NOTE | 2020-05-12 21:43 | XRR_ITS ---
PROCEDURE INFORMATION: Exam: XR Right Foot Complete Exam date and time: 05/12/2020 10:14 PM Age: 60 years old Clinical indication: Injury or trauma; Other: Laceration; Foot; Right; Without foreign body TECHNIQUE: Imaging protocol: XR Right foot. Views: 3 or more views. COMPARISON: CR XR foot RT min 3V* [id number] 04/03/2020 11:30 AM FINDINGS: Bones/joints: Diffuse demineralization of the bones. Severe degenerative changes in the 1st metatarsophalangeal joint. Degenerative changes of the intertarsal joints with stable lucency in the anterior navicular, most likely an intraosseous cyst. The bones are intact and in normal alignment. Soft tissues: Normal. No foreign body visualized. XR/XR foot RT min 3V* [id number] IMPRESSION: 1. No acute abnormality.
[2020-05-12 21:44] LABS: Anion Gap 17.7 (5-19); Potassium 4.7 mmol/L (3.5-5.1)
--- NOTE | 2020-05-12 21:44 | CTR_ITS ---
PROCEDURE INFORMATION: Exam: CT Abdomen And Pelvis With Contrast Exam date and time: 05/12/2020 10:33 PM Age: 60 years old Clinical indication: Fever and nausea and vomiting; Prior surgery; Surgery date: 6+ months; Surgery type: Appy, colon, back, suprapubic cath; Patient HX: C/O n/v x 1 week now w fever; Additional info: Abdominal pain TECHNIQUE: Imaging protocol: Computed tomography of the abdomen and pelvis with intravenous contrast. Radiation optimization: All CT scans at this facility use at least one of these dose optimization techniques: automated exposure control; mA and/or kV adjustment per patient size (includes targeted exams where dose is matched to clinical indication); or iterative reconstruction. Contrast material: OMNI 300; Contrast volume: 95 ml; Contrast route: INTRAVENOUS (IV); COMPARISON: CT abdomen pelvis wo con [id number] 02/27/2019 1:42 PM RADIATION DOSE METRICS: Total DLP (mGy-cm): 556.06 FINDINGS: Liver: Normal. No mass. Gallbladder and bile ducts: Normal. No calcified stones. No ductal dilation. Pancreas: Normal. No ductal dilation. Spleen: Normal. No splenomegaly. Adrenal glands: Stable 3.2 cm left adrenal adenoma. The right is normal. Kidneys and ureters: Severe right hydronephrosis has developed with renal cortical thinning and mild perinephric stranding. 1.6 cm obstructing calculus in the proximal right ureter. Multiple right renal calculi measuring up to 1.7 cm. Multiple left renal calculi measuring up to 10 mm. No left ureteral calculus or hydronephrosis. Stomach and bowel: Large amount stool in the proximal, transverse, and descending colon with distention. The distal sigmoid colon and rectum are relatively decompressed. The stomach and small bowel are unremarkable. Appendix: The appendix is absent. Intraperitoneal space: Unremarkable. No free air. No significant fluid collection. Vasculature: Unremarkable. No abdominal aortic aneurysm. Lymph nodes: Prominent inguinal lymph nodes are most likely reactive. Urinary bladder: Suprapubic catheter within a decompressed urinary bladder. Reproductive: Unremarkable as visualized. Bones/joints: Unremarkable. No acute fracture. Soft tissues: Unremarkable. CT/CT abdomen pelvis w con* [id number] IMPRESSION: 1. 1.6 cm obstructing calculus in the proximal right ureter with severe right hydronephrosis. Right renal cortical thinning suggests that this is a chronic process but is new since 02/27/2019. Superimposed pyelonephritis cannot be excluded. 2. Bilateral renal calculi. 3. Suprapubic catheter within a decompressed urinary bladder. 4. Large amount of stool in the colon, consistent with constipation. Radiation Dose CTDIVOL = (mGy): DLP = 556.06 (mGy-cm)
[2020-05-12 21:47] LABS: Sodium 115 mmol/L (136-145)
[2020-05-12 21:50] LABS: Basophils % 0.1 %; Hematocrit 23.6 % (42.0-52.0); Lymphocytes # 0.2 10^3/uL (0.8-4.8); Lymphocytes % 1.8 %; Mean Corpuscular HGB Conc 33.9 g/dL (30.0-36.0); Mean Corpuscular Hemoglobin 26.6 pg (28.0-34.0); Mean Corpuscular Volume 78.4 fL (80-94); Mean Platelet Volume 7.9 fL (7.4-10.4); Monocytes % 0.2 %; Neutrophils % 97.6 %; Nucleated Red Blood Cells % 0 %; Platelet Count 386 10^3/cmm (130-400); Red Blood Count 3.01 10^6/uL (4.1-5.3); Red Cell Distribution Width 14.9 % (12.1-15.1); White Blood Count 10.1 10^3/uL (4.0-10.0)
--- NOTE | 2020-05-12 21:59 | W.ED.FEVER ---
HPI - Fever General: Chief Complaint: Fever Stated Complaint: N/V, FEVER Time Seen by Provider: 05/12/20 21:04 Source: patient Mode of arrival: ambulatory Limitations: no limitations History of Present Illness: HPI Narrative: Timur is a 60-year-old male who comes in with report of fever. Is also had nausea and vomiting for the past 3 days. Is a chronic superpubic catheter which appears infected. 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 Patient states his catheter was changed recently. He states his primary problem is that of vomiting. Denies cough or congestion or any respiratory symptoms. States there is nothing makes his symptoms better and nothing makes them worse. Associated symptoms: Reports abdominal pain, chills, nausea and vomiting; Deny flank pain, chest pain, confusion, diarrhea, dysuria, extremity pain or headache(s) Review of Systems Const: Reports: fever(s) and chills; Denies: body aches, fatigue, malaise or diaphoresis Eyes: Denies: change in vision, blurry vision, photophobia, eye discomfort, eye discharge, eye redness or yellow eyes ENMT: Denies: throat pain, odynophagia, hoarseness, swelling of lips/tongue, ear or mastoid pain, ear discharge, change in hearing or nasal discharge Card: Denies: chest pain, palpitations, irregular heart rhythm, edema, lightheadedness, syncope, pre-syncope, dyspnea on exertion or orthopnea Resp: Denies: dyspnea, productive cough, non-productive cough, wheezing, hemoptysis or chest congestion GI: Reports: abdominal pain, nausea and vomiting; Denies: hematemesis, coffee ground emesis, heartburn, diarrhea, constipation, GI cramping, hematochezia or melena : Denies: flank pain, dysuria, urinary frequency, urinary urgency or hematuria Musc: Denies: neck pain, back pain, extremity pain, extremity swelling, joint pain, joint swelling, joint redness, joint warmth or joint stiffness Skin/Breast: Denies: rash, pruritus, erythema, skin pain or skin tenderness Neuro: Denies: headache(s), numbness in extremities, weakness in extremities, sensory changes, lack of coordination, difficulty walking, dizziness, vertigo, confusion, Slurred speech present or seizure-like activity Lane/Lymph: Denies: easy bruising, easy bleeding, petechiae, purpura or enlarged lymph nodes All/Imm: Denies: urticaria, throat swelling, tongue swelling, facial swelling or acute wheezing PFSH ED PFSH: Medical History (Updated 05/13/20 @ 05:43 by Joya Luo) Chronic indwelling Miranda catheter Diabetes mellitus -NIDDM type II, A1c-7.2 (08/2019) -Accuchecks, hypoglycemia precautions, ISS -consistent carb diet Quadriplegia -strict fall precautions -frequent repositioning, q2h -WC-/bed-bound at baseline -continue pain meds, muscle relaxants -has been following up with Dr. Estrella for consideration of Botox treatments for spasticity S/P extracorporeal shock wave therapy Surgical History History of appendectomy History of back surgery History of colon resection History of neck surgery History of suprapubic catheter Open placement October 2019. Family History Father , at age 49 Cancer Lung disease Mother Cancer bone Brother Cancer Lung disease Denies family history of Diabetes CAD (coronary artery disease) Clotting disorder Dementia Hyperlipidemia Psychiatric illness Chronic kidney disease (CKD) Suicide Anesthesia complication Bleeding disorder Family history of premature coronary artery disease Hypertension Stroke Social History Smoking and tobacco status: current every day smoker cigarettes Packs smoked per day: 0.5 Quit status (tobacco): not considering quitting Alcohol intake: former Former alcohol use details: quit due to medications Household members: other Details: lives with mother Marital status: Legally Number of children: 5 History of recent travel: No Physical Exam Const: COMMON NORMALS: no acute distress, patient oriented x3, no limitations and alert GENERAL APPEARANCE: cooperative HENMT: COMMON NORMALS: normocephalic, atraumatic, external ears normal, EAC's normal and Normal external nose present HEAD & SCALP: normal to inspection, normocephalic and atraumatic FACE & SINUS: normal facial exam and face symmetric NOSE: Normal external nose present and Normal nares present EXTERNAL EAR: Yes external ears normal EXTERNAL AUDITORY CANAL: EAC's normal MOUTH: Normal oral and palatal mucosa present, lip normal and tongue normal Eye: COMMON NORMALS: Equal, round and reactive pupils present and conjunctivae normal GENERAL EYE: appearance normal, both eyes and all related structures ALIGNMENT: Yes alignment normal PERIORBITAL: periorbital findings normal EYELID: eyelids normal CONJUNCTIVA: Yes conjunctivae normal SCLERA: sclerae normal PUPIL: Yes Equal, round and reactive pupils present Neck/C-Spine: COMMON NORMALS: full ROM, no lymphadenopathy, supple, no meningeal signs and no JVD GENERAL: Yes normal visual inspection and Yes trachea midline Chest: COMMONS NORMALS: normal inspection of the chest and normal palpation of entire chest wall Resp: COMMON NORMALS: normal respiratory effort, No retractions, No use of accessory muscles and clear to auscultation bilaterally EFFORT & INSPECTION: Yes able to speak in complete sentences and Yes symmetric chest movement AUSCULTATION: clear to auscultation bilaterally, no crackles, no rales, no rhonchi and no wheezes Cardio: COMMON NORMALS: no JVD, regular rate, regular rhythm, S1 normal heart sound present and S2 normal heart sound present RATE: regular rate RHYTHM: regular rhythm HEART SOUNDS: S1 normal heart sound present, S2 normal heart sound present, no click, no gallops, no murmurs and no rubs GI: COMMON NORMALS: Soft to palpation and No hepatosplenomegaly present PALPATION: Yes Soft to palpation, No Tenderness to palpation present (GI), No Guarding due to palpation present (GI), No Rigid due to palpation, Yes No hepatosplenomegaly present, No Hernia present, No Palpable mass present and No Pulsatile mass present : COMMON NORMALS: Yes no CVA tenderness BLADDER/KIDNEY EXAM: Yes no CVA tenderness Back/Pelvis: COMMON NORMALS: no CVA tenderness, thoracic and lumbar spine normal to inspection, no thoracic nor lumbar tenderness and thoraco-lumbar ROM normal Extremity: COMMON NORMALS: normal to inspection, full ROM, capillary refill normal, no joint enlargement, no clubbing, cyanosis or edema and no calf tenderness Neuro: COMMON NORMALS: patient oriented x3 SENSORIUM/ORIENTATION: Yes alert MENINGEAL SIGNS: Yes no meningeal signs Skin: COMMON NORMALS: no rashes or lesions noted, turgor normal, no jaundice, no petechiae and no mottling GENERAL SKIN EXAM: no rashes or lesions noted and turgor normal Course Vital Signs: Vital signs: Vital Signs Temperature 100 F H 12/27/20 00:12 Pulse Rate 77 05/13/20 04:21 Respiratory Rate 16 05/13/20 02:29 Blood Pressure 84/49 05/13/20 02:49 Pulse Oximetry 94 05/13/20 04:21 MDM - Fever MDM Narrative: Medical decision making narrative: Case endorsed to Dr. Saucedo he will take the patient to surgery. Dr. Watson will admit for evaluation and care of his hyponatremia. Lab Data: Attestation: I reviewed the patient's lab results. Labs: Lab Results 05/12/20 05/12/20 05/12/20 Range/Units 21:18 21:18 21:31 WBC Cancelled Corrected WBC Cancelled RBC Cancelled Hgb Cancelled Hct Cancelled MCV Cancelled MCH Cancelled MCHC Cancelled RDW Cancelled Plt Count Cancelled MPV Cancelled Gran % Cancelled Neut % (Auto) Cancelled Lymph % (Auto) Cancelled [place] % (Auto) Cancelled Eos % (Auto) Cancelled Baso % (Auto) Cancelled Neut # (Auto) Cancelled Lymph # (Auto) Cancelled [place] # (Auto) Cancelled Eos # (Auto) Cancelled Baso # (Auto) Cancelled Absolute Gran (aut o) Cancelled Nucleated RBC % (a uto) Cancelled Nucleated RBCs # Cancelled Sodium 115 L* (136-145) mmol/L Potassium 4.7 (3.5-5.1) mmol/L Chloride 78 L (98-107) mmol/L Carbon Dioxide 24 (22-29) mmol/L Anion Gap 17.7 (5-19) BUN 7 L (8-23) mg/dL Creatinine 0.6 L (0.7-1.2) mg/dL GFR Calculation 137.0 H (90-130) mL/min Glucose 149 H (65-115) mg/dL Calculated Osmolal ity 241 L (285-295) mOsm/k g Lactic Acid (0.5-2.2) mmol/L Calcium 9.6 (8.5-10.5) mg/dL Magnesium 1.5 L (1.7-2.3) mg/dL Total Bilirubin 0.4 (0.15-1.2) mg/dL AST 13 (0-40) U/L ALT 11 (0-41) U/L Alkaline Phosphata se 129 (40-130) IU/L Total Protein 7.3 (6.6-8.7) g/dL Albumin 3.1 L (3.5-5.2) g/dL Globulin 4.2 (1.3-4.6) g/dL Lipase 19 (13-60) U/L Urine Color (Yellow) Urine Appearance (CLEAR) Urine pH (5-7) Ur Specific Gravit y (1.005-1.030) Urine Protein (Negative) Urine Glucose (UA) (Normal) Urine Ketones (Negative) Urine Blood (Negative) Urine Nitrate (Negative) Urine Bilirubin (Negative) Urine Urobilinogen (Negative) mg/dL Ur Leukocyte Kaylan ase (Negative) Urine RBC (0-2) /hpf Urine WBC (0-5) /hpf Ur Squamous Epith Cells (0-5) /hpf Amorphous Sediment /hpf Urine Bacteria (NONE) /hpf Hyaline Casts /lpf Influenza Type A A g Negative (Negative) Influenza Type B A g Negative (Negative) SARS-CoV-2 Ag (Rap id) (Negative) 05/12/20 05/12/20 05/12/20 Range/Units 21:31 21:39 21:39 WBC 10.1 H Corrected WBC RBC 3.01 L Hgb 8.0 L Hct 23.6 L MCV 78.4 L MCH 26.6 L MCHC 33.9 RDW 14.9 Plt Count 386 MPV 7.9 Gran % Neut % (Auto) 97.6 Lymph % (Auto) 1.8 [place] % (Auto) 0.2 Eos % (Auto) 0.0 Baso % (Auto) 0.1 Neut # (Auto) 9.90 H Lymph # (Auto) 0.2 L [place] # (Auto) 0.0 L Eos # (Auto) 0.0 Baso # (Auto) 0.0 Absolute Gran (aut o) Nucleated RBC % (a uto) 0 Nucleated RBCs # 0.0 Sodium (136-145) mmol/L Potassium (3.5-5.1) mmol/L Chloride (98-107) mmol/L Carbon Dioxide (22-29) mmol/L Anion Gap (5-19) BUN (8-23) mg/dL Creatinine (0.7-1.2) mg/dL GFR Calculation (90-130) mL/min Glucose (65-115) mg/dL Calculated Osmolal ity (285-295) mOsm/k g Lactic Acid 1.8 (0.5-2.2) mmol/L Calcium (8.5-10.5) mg/dL Magnesium (1.7-2.3) mg/dL Total Bilirubin (0.15-1.2) mg/dL AST (0-40) U/L ALT (0-41) U/L Alkaline Phosphata se (40-130) IU/L Total Protein (6.6-8.7) g/dL Albumin (3.5-5.2) g/dL Globulin (1.3-4.6) g/dL Lipase (13-60) U/L Urine Color (Yellow) Urine Appearance (CLEAR) Urine pH (5-7) Ur Specific Gravit y (1.005-1.030) Urine Protein (Negative) Urine Glucose (UA) (Normal) Urine Ketones (Negative) Urine Blood (Negative) Urine Nitrate (Negative) Urine Bilirubin (Negative) Urine Urobilinogen (Negative) mg/dL Ur Leukocyte Kaylan ase (Negative) Urine RBC (0-2) /hpf Urine WBC (0-5) /hpf Ur Squamous Epith Cells (0-5) /hpf Amorphous Sediment /hpf Urine Bacteria (NONE) /hpf Hyaline Casts /lpf Influenza Type A A g (Negative) Influenza Type B A g (Negative) SARS-CoV-2 Ag (Rap id) Negative (Negative) 05/12/20 Range/Units 23:20 WBC Corrected WBC RBC Hgb Hct MCV MCH MCHC RDW Plt Count MPV Gran % Neut % (Auto) Lymph % (Auto) [place] % (Auto) Eos % (Auto) Baso % (Auto) Neut # (Auto) Lymph # (Auto) [place] # (Auto) Eos # (Auto) Baso # (Auto) Absolute Gran (aut o) Nucleated RBC % (a uto) Nucleated RBCs # Sodium (136-145) mmol/L Potassium (3.5-5.1) mmol/L Chloride (98-107) mmol/L Carbon Dioxide (22-29) mmol/L Anion Gap (5-19) BUN (8-23) mg/dL Creatinine (0.7-1.2) mg/dL GFR Calculation (90-130) mL/min Glucose (65-115) mg/dL Calculated Osmolal ity (285-295) mOsm/k g Lactic Acid (0.5-2.2) mmol/L Calcium (8.5-10.5) mg/dL Magnesium (1.7-2.3) mg/dL Total Bilirubin (0.15-1.2) mg/dL AST (0-40) U/L ALT (0-41) U/L Alkaline Phosphata se (40-130) IU/L Total Protein (6.6-8.7) g/dL Albumin (3.5-5.2) g/dL Globulin (1.3-4.6) g/dL Lipase (13-60) U/L Urine Color Yellow (Yellow) Urine Appearance Turbid (CLEAR) Urine pH 6.5 (5-7) Ur Specific Gravit y 1.005 (1.005-1.030) Urine Protein Trace (Negative) Urine Glucose (UA) Norm (Normal) Urine Ketones Negative (Negative) Urine Blood 3+ H (Negative) Urine Nitrate Negative (Negative) Urine Bilirubin Neg (Negative) Urine Urobilinogen Norm (Negative) mg/dL Ur Leukocyte Kaylan ase 2+ H (Negative) Urine RBC >100 H (0-2) /hpf Urine WBC >100 H (0-5) /hpf Ur Squamous Epith Cells 0-4 H (0-5) /hpf Amorphous Sediment 1+ /hpf Urine Bacteria 3+ H (NONE) /hpf Hyaline Casts 0-4 H /lpf Influenza Type A A g (Negative) Influenza Type B A g (Negative) SARS-CoV-2 Ag (Rap id) (Negative) Imaging Data^: CXR: Attestation: I personally reviewed and interpreted this imaging study as follows: My impression: No acute findings. XR Right Foot: My impression: No acute signs of osteomyelitis CT Abd/Pel: Radiologist's impression: [address] [address] [address] Scan Report Signed Patient: Norberto Valdovinos #: [id number] : 9Acct#:[id number] Age/Sex: 60 / MADM Date: 05/12/20 Loc: ERRoom/Bed: Attending Dr: Ordering Provider/Ordering MD: Joya Luo DO Date of Service: 05/12/20 Procedure(s): CT abdomen pelvis w con* [id number] Accession Number(s): [id number] Report Number: [id number] PROCEDURE INFORMATION: Exam: CT Abdomen And Pelvis With Contrast Exam date and time: 05/12/2020 10:33 PM Age: 60 years old Clinical indication: Fever and nausea and vomiting; Prior surgery; Surgery date: 6+ months; Surgery type: Appy, colon, back, suprapubic cath; Patient HX: C/O n/v x 1 week now w fever; Additional info: Abdominal pain TECHNIQUE: Imaging protocol: Computed tomography of the abdomen and pelvis with intravenous contrast. Radiation optimization: All CT scans at this facility use at least one of these dose optimization techniques: automated exposure control; mA and/or kV adjustment per patient size (includes targeted exams where dose is matched to clinical indication); or iterative reconstruction. Contrast material: OMNI 300; Contrast volume: 95 ml; Contrast route: INTRAVENOUS (IV); COMPARISON: CT abdomen pelvis wo con [id number] 02/27/2019 1:42 PM RADIATION DOSE METRICS: Total DLP (mGy-cm): 556.06 FINDINGS: Liver: Normal. No mass. Gallbladder and bile ducts: Normal. No calcified stones. No ductal dilation. Pancreas: Normal. No ductal dilation. Spleen: Normal. No splenomegaly. Adrenal glands: Stable 3.2 cm left adrenal adenoma. The right is normal. Kidneys and ureters: Severe right hydronephrosis has developed with renal cortical thinning and mild perinephric stranding. 1.6 cm obstructing calculus in the proximal right ureter. Multiple right renal calculi measuring up to 1.7 cm. Multiple left renal calculi measuring up to 10 mm. No left ureteral calculus or hydronephrosis. Stomach and bowel: Large amount stool in the proximal, transverse, and descending colon with distention. The distal sigmoid colon and rectum are relatively decompressed. The stomach and small bowel are unremarkable. Appendix: The appendix is absent. Intraperitoneal space: Unremarkable. No free air. No significant fluid collection. Vasculature: Unremarkable. No abdominal aortic aneurysm. Lymph nodes: Prominent inguinal lymph nodes are most likely reactive. Urinary bladder: Suprapubic catheter within a decompressed urinary bladder. Reproductive: Unremarkable as visualized. Bones/joints: Unremarkable. No acute fracture. Soft tissues: Unremarkable. CT/CT abdomen pelvis w con* [id number] IMPRESSION: 1. 1.6 cm obstructing calculus in the proximal right ureter with severe right hydronephrosis. Right renal cortical thinning suggests that this is a chronic process but is new since 02/27/2019. Superimposed pyelonephritis cannot be excluded. 2. Bilateral renal calculi. 3. Suprapubic catheter within a decompressed urinary bladder. 4. Large amount of stool in the colon, consistent with constipation. Radiation Dose CTDIVOL = (mGy): DLP = 556.06 (mGy-cm) Dictated By:Andres Stokes Signed By:Andres StokesSigned Date/Time:05/12/20 643 DD/ 7702 Discharge Plan Discharge Patient Disposition: Admitted As Inpatient Admit Provider: Oni Saucedo Clinical Impression: Calculus, ureteral, Acute pyelonephritis, Acute hyponatremia Condition: Stable Coding Level of Care Code ED Diagnostics Sales Developer for Chg Fwd Exam Comprehensive
[2020-05-12 22:05] LABS: Lactic Sepsis W/Reflex 1.8 mmol/L (0.5-2.2)
[2020-05-12 22:09] LABS: Influenza A by IFA Negative (Negative); Influenza B by IFA Negative (Negative); SARS Covid-2 Antigen Negative (Negative)
[2020-05-12] MEDS: levofloxacin-dextrose 5 % 750 MG/150 ML PREMIX 150 MG IV (22:19)
[2020-05-12] MEDS: sodium chloride 0.9% 1,000 ML 125 ML IV (22:19)
[2020-05-12] MEDS: iohexol 300 mg/mL 100 mL Btl IV (23:23)
[2020-05-12 23:44] LABS: Bilirubin Urine Neg (Negative); Blood Urine 3+ (Negative); Glucose Urine UA Norm (Normal); Ketones Urine Negative (Negative); Leukocyte Esterase Urine 2+ (Negative); Nitrate Urine Negative (Negative); Protein Urine Trace (Negative); Specific Gravity, Urine 1.005 (1.005-1.030); Urine Appearance Turbid (CLEAR); Urine Color Yellow (Yellow); Urobilinogen Urine Norm (Negative); pH Urine 6.5 (5-7)
[2020-05-12 23:49] LABS: RBC Urine >100 /hpf (0-2); Squamous Epithelial Cell Urine 0-4 /hpf (0-5)
[2020-05-12 23:50] LABS: WBC Urine >100 /hpf (0-5)
[2020-05-12 23:51] LABS: Add Urine Culture? Yes; Amorphous Sediment Urine 1+ /hpf; Bacteria Urine 3+ /hpf; Hyaline Casts Urine 0-4 /lpf
[2020-05-13] VITALS (22 sets, daily range): BP systolic 84–156; BP diastolic 49–82; PULSE 68–88; RESP 12–22; TEMP 36.1–37.7; O2SAT 84–100
[2020-05-13] MEDS: magnesium sulfate premix 2 GM/50 ML PIGGYBACK IV (00:13)
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
--- NOTE | 2020-05-13 01:16 | PM.CONSULT ---
Providers/Reason For Consult Consulting Physican/Specialty*: Urology/Saucedo Reason for Consult*: Urinary tract infection and obstructing right proximal ureteral stone Attending Physician: Hospitalist service Primary Care Provider: Becka Villa DO History of Present Illness History of Present Illness Timur Valdovinos is a 60 year old male quadriplegic well-known to me for history of neurogenic bladder with open placement of suprapubic tube in September of this year for chronic bladder management. He also has been known to have cystolithiasis as well as upper urinary tract stones. CT scan done last year showed right renal calculi that appear to be infection related without evidence of obstruction. Had done well since his suprapubic tube was placed with home health changing the catheter on a routine basis with no reported problems. Presented to the emergency department tonight with complaints of fever nausea and vomiting as well as generalized malaise. Work-up in the emergency department included a CT scan that demonstrated a large right proximal ureteral stone with severe hydroureteronephrosis that appeared to be chronic and new since 2018 when he had his last CT scan. There was significant renal atrophy from obstructive uropathy. No acute findings related to the bladder. Urinalysis was grossly infected. Additional findings included HYPONATREMIA. Patient has been admitted to the hospitalist service and I have been consulted for evaluation. Additional information: Was hospitalized in December 2019 for several days for urinary tract infection. Culture grew Proteus mirabilis and E. coli resistant to Levaquin. Initial antibiotic here was Levaquin with addition of VANCOMYCIN RECOMMENDATIONS: 1. To the operating room emergently for cystoscopy and stent placement on the right side. Consider ureteroscopy if access is difficult because of stone impaction. Given the degree of longstanding hydronephrosis as manifested by severe atrophy of the right kidney there is a reasonable chance that the stone will be difficult to pass with a wire. Review of Systems Const: Reports: fever(s) and chills Eyes: Denies: change in vision or blurry vision ENMT: Denies: throat pain Card: Denies: chest pain or palpitations Resp: Denies: dyspnea or productive cough GI: Reports: abdominal pain (Not lateralizing.), nausea and vomiting : Reports: other (Chronic urinary retention with suprapubic tube.) Musc: Reports: deformity (Severe contractions from quadriplegia) Skin/Breast: Reports: other (Has a right foot anterior wound from recent trauma from wheelchair. ) Neuro: Reports: other (Quadriplegia) Psych: Reports: depression; Denies: memory loss Endo: Denies: flushing Lane/Lymph: Denies: easy bruising or easy bleeding All/Imm: Denies: urticaria or acute wheezing Meds/Allergies Home Medications and Allergies Home Medications Medication Instructions Recorded Confirmed Last Taken Type ascorbic acid (vitamin C) 500 mg 500 mg PO DAILY 05/24/19 04/19/20 12/24/19 History capsule aspirin 81 mg tablet,delayed 81 mg PO DAILY 05/24/19 04/19/20 12/24/19 History release carbamazepine 200 mg tablet 200 mg PO BID 05/24/19 04/19/20 12/24/19 History cranberry 500 mg capsule 500 mg PO DAILY 05/24/19 04/19/20 12/24/19 History escitalopram oxalate 10 mg tablet 10 mg PO DAILY 05/24/19 04/19/20 12/24/19 History gabapentin 100 mg capsule 100 mg PO TID 05/24/19 04/19/20 12/24/19 History pravastatin 40 mg tablet 40 mg PO DAILY 05/24/19 04/19/20 12/24/19 History promethazine 25 mg tablet 25 mg PO Q6H PRN 05/24/19 04/19/20 12/24/19 History trazodone 50 mg tablet 100 mg PO BEDTIME 05/24/19 04/19/20 12/23/19 History pyridoxine (vitamin B6) [Vitamin 100 mg PO DAILY 09/30/19 04/19/20 12/24/19 History B-6] vitamin E 1,000 unit PO DAILY 09/30/19 04/19/20 12/24/19 History diphenhydramine 25 2 tab PO .at bedtime PRN tab 10/11/19 04/19/20 Unknown History mg-acetaminophen 500 mg tablet ergocalciferol (vitamin D2) 10 mcg 50,000 unit PO Q7D 10/11/19 04/19/20 12/21/19 History (400 unit) tablet loperamide 2 mg capsule 2 mg PO BID cap 10/11/19 04/19/20 10/27/19 08:00 History meloxicam 15 mg tablet 7.5 mg PO BID tab 10/11/19 04/19/20 12/24/19 History baclofen 20 mg tablet 20 mg PO QID tab 12/06/19 04/19/20 12/24/19 History leg cramps 2 mg PO DAILY 12/06/19 04/19/20 12/24/19 History melatonin 10 mg capsule 10 mg PO .COMPLEX cap 12/06/19 04/19/20 12/23/19 History cholecalciferol (vitamin D3) 1,250 mcg PO Q7D 12/24/19 04/19/20 Unknown History sodium chloride 1 g PO BID #60 tab 12/27/19 04/19/20 Unknown Rx mupirocin 2 % topical ointment 1 applic TOPICAL BID #30 gm 01/10/20 04/19/20 Unknown Rx tizanidine 2 mg capsule 2 mg PO TID #90 cap 03/21/20 04/19/20 Unknown Rx hydrocodone 5 mg-acetaminophen 325 1 tab PO Q8H PRN 7 Days #21 tab 04/03/20 04/19/20 Unknown Rx mg tablet Allergies Allergy/AdvReac Type Severity Reaction Status Date / Time penicillin G Allergy Mild ALGY-Rash Verified 04/19/20 15:37 Current Medications Current Medications Generic Name Dose Route Start Last Admin Trade Name Freq PRN Reason Stop Dose Admin Sodium Chloride 1,000 mls @ 125 mls/hr 05/12/20 22:00 05/12/20 22:19 Sodium Chloride 0.9% IV 125 mls/hr .Q8H SHANTEL Administration PFSH Acute PFSH: Medical History (Updated 05/13/20 @ 02:48 by Oni Saucedo MD) Chronic indwelling Miranda catheter Diabetes mellitus -NIDDM type II, A1c-7.2 (08/2019) -Accuchecks, hypoglycemia precautions, ISS -consistent carb diet Quadriplegia -strict fall precautions -frequent repositioning, q2h -WC-/bed-bound at baseline -continue pain meds, muscle relaxants -has been following up with Dr. Estrella for consideration of Botox treatments for spasticity S/P extracorporeal shock wave therapy Surgical History History of appendectomy History of back surgery History of colon resection History of neck surgery History of suprapubic catheter Open placement October 2019. Family History Father , at age 49 Cancer Lung disease Mother Cancer bone Brother Cancer Lung disease Denies family history of Diabetes CAD (coronary artery disease) Clotting disorder Dementia Hyperlipidemia Psychiatric illness Chronic kidney disease (CKD) Suicide Anesthesia complication Bleeding disorder Family history of premature coronary artery disease Hypertension Stroke Social History Smoking and tobacco status: current every day smoker cigarettes Packs smoked per day: 0.5 Quit status (tobacco): not considering quitting Alcohol intake: former Former alcohol use details: quit due to medications Household members: other Details: lives with mother Marital status: Legally Number of children: 5 History of recent travel: No Vitals/I&O/Wt Last Vital Signs Temp 100 F H 05/13/20 00:12 Pulse 81 05/13/20 01:00 Resp 16 05/13/20 01:00 BP 99/68 05/13/20 01:00 Pulse Ox 96 05/13/20 01:00 Weight last 48 hrs Weight 145 lb Physical Exam Const: COMMON NORMALS: no acute distress and patient oriented x3 GENERAL APPEARANCE: cooperative and well kempt; not lethargic NUTRITIONAL APPEARANCE: underweight ORIENTATION/CONSCIOUSNESS: Yes awake; not lethargic HENMT: COMMON NORMALS: normocephalic, atraumatic and hearing grossly normal bilaterally HEAD & SCALP: normocephalic and atraumatic Eye: COMMON NORMALS: conjunctivae normal and no scleral icterus CONJUNCTIVA: Yes conjunctivae normal Neck/C-Spine: COMMON NORMALS: no lymphadenopathy Lymph: LYMPHATIC: No no lymphadenopathy noted and No no lymphedema noted Resp: COMMON NORMALS: normal respiratory effort and clear to auscultation bilaterally EFFORT & INSPECTION: No tachypneic and No respiratory distress AUSCULTATION: clear to auscultation bilaterally Cardio: COMMON NORMALS: regular rate and regular rhythm RATE: regular rate RHYTHM: regular rhythm GI: COMMON NORMALS: Soft to palpation PALPATION: Yes Soft to palpation and Yes Tenderness to palpation present (GI) OTHER: Cystostomy site healthy : PENIS: normal penis SCROTUM: No erythematous and No edematous TESTES: No Enlarged testicle(s) present and Yes epididymides normal OTHER: Suprapubic catheter in place. Extremity: COMMON NORMALS: no clubbing, cyanosis or edema NARRATIVE EXTREMITY EXAM: Contractions in all extremities. Neuro: COMMON NORMALS: patient oriented x3 SENSORIUM/ORIENTATION: No lethargic Psych: COMMON NORMALS: mental status grossly normal and cooperative APPEARANCE: Yes well kempt ATTITUDE: Yes engaged Skin: COMMON NORMALS: no jaundice WOUNDS: Yes wounds noted (Right anterior foot) no drainage and not malodorous Urinary Catheter Management^: Miranda: Cath Placed During This Visit: yes Urinary Catheter Date of Insertion: 05/12/20 Urinary Catheter Time of Insertion: 21:09 Suprapubic: Cath Placed During This Visit: yes Urinary Catheter Date of Insertion: 05/12/20 Urinary Catheter Time of Insertion: 21:09 Data Micro: Micro: Microbiology 05/12/20 21:39 Blood Culture - Pr eliminary Blood SPECIMEN COLLE 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 Complicated by evidence of severe UTI with history of multi resistant organisms. Status: Acute (2) Complicated UTI (urinary tract infection): Status: Acute (3) Hydronephrosis of right kidney: Status: Acute (4) Chronic indwelling Miranda catheter: Status: Acute (5) Neurogenic bladder: Status: Acute (6) Right renal stone: Status: Acute Consult Attestations Medical Necessity Statement: Obstructing right proximal ureteral stone with UTI, fever and concern for impending sepsis. 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
--- NOTE | 2020-05-13 01:40 | P.ANESASSM_ITS ---
Pre-Anesthetic Assessment Pre-Anesthetic Assessment: Height/Weight: Height 1.75 m Weight 65.771 kg Temp Pulse Resp BP Pulse Ox 100 F H 81 16 99/68 96 05/13/20 00:12 05/13/20 01:00 05/13/20 01:00 05/13/20 01:00 05/13/20 01:00 Preop Diagnosis: Bladder stones, chronic urinary retention associated with quadriplegia Proposed Procedure: Operation Date: 05/13/20 02:00 Proposed Procedures p Cystoscopy(Not Applicable) - Oni Saucedo MD s Ureteral Stent Placement(Not Applicable) - Oni Saucedo MD Was Beta Jose taken within 24 hours: N/A Last Intake: 18:00 (05/12) Social: Social History: Tobacco and No alcohol Exam: Pre-Anes Outpt Exam: alert, oriented x 3 and regular rate & rhythm Additional Exam Findings (including area of procedure): Rhonchi bilateral Airway: Submandibular: WNL Cervical ROM: WNL MP: 2 Dentition: False Pulmonary: Pulmonary: COPD CV/HEM: CV/HEM: Anemia : : UTI Comments: Suprapubic catheter, chronic stones Hepatic: Hepatic: None reported GI: GI: GERD Metabolic: Metabolic: DM Musc/skel: Comments: Quadraplegia, spasticity Neuropsych: Neuropsych: Deficit Anesthetic Plan: ASA status: 3E Anesthesia: Choice Other: MAC v GETA Risk of > 500 ml blood loss (7ml/kg in children): No Meds/Allergies Current Medications: Current Medications Generic Name Dose Route Start Last Admin Trade Name Freq PRN Reason Stop Dose Admin Sodium Chloride 1,000 mls @ 125 m ls/hr 05/12/20 22:00 05/12/20 22:19 Sodium Chloride 0.9% IV 125 mls/hr .Q8H SHANTEL Administration PFSH Anesthesia PFSH: Medical History (Updated 05/13/20 @ 01:31 by Oni Saucedo MD) Chronic indwelling Miranda catheter Diabetes mellitus -NIDDM type II, A1c-7.2 (08/2019) -Accuchecks, hypoglycemia precautions, ISS -consistent carb diet Quadriplegia -strict fall precautions -frequent repositioning, q2h -WC-/bed-bound at baseline -continue pain meds, muscle relaxants -has been following up with Dr. Sameer for consideration of Botox treatments for spasticity S/P extracorporeal shock wave therapy Surgical History History of appendectomy History of back surgery History of colon resection History of neck surgery History of suprapubic catheter Open placement October 2019. Family History Father , at age 49 Cancer Lung disease Mother Cancer bone Brother Cancer Lung disease Denies family history of Diabetes CAD (coronary artery disease) Clotting disorder Dementia Hyperlipidemia Psychiatric illness Chronic kidney disease (CKD) Suicide Anesthesia complication Bleeding disorder Family history of premature coronary artery disease Hypertension Stroke Social History Smoking and tobacco status: current every day smoker cigarettes Packs smoked per day: 0.5 Quit status (tobacco): not considering quitting Alcohol intake: former Former alcohol use details: quit due to medications Household members: other Details: lives with mother Marital status: Legally Number of children: 5 History of recent travel: No Data Anesthesia CBC & Chem 7: 05/12/20 21:39 05/12/20 21:18 Other Labs: Laboratory Results - last 48 hr 05/12/20 05/12/20 05/12/20 21:18 21:18 21:31 WBC Cancelled Corrected WBC Cancelled RBC Cancelled Hgb Cancelled Hct Cancelled MCV Cancelled MCH Cancelled MCHC Cancelled RDW Cancelled Plt Count Cancelled MPV Cancelled Gran % Cancelled Neut % (Auto) Cancelled Lymph % (Auto) Cancelled [place] % (Auto) Cancelled Eos % (Auto) Cancelled Baso % (Auto) Cancelled Neut # (Auto) Cancelled Lymph # (Auto) Cancelled [place] # (Auto) Cancelled Eos # (Auto) Cancelled Baso # (Auto) Cancelled Absolute Gran (auto) Cancelled Nucleated RBC % (auto) Cancelled Nucleated RBCs # Cancelled Sodium 115 L* Potassium 4.7 Chloride 78 L Carbon Dioxide 24 Anion Gap 17.7 BUN 7 L Creatinine 0.6 L GFR Calculation 137.0 H Glucose 149 H Calculated Osmolality 241 L Lactic Acid Calcium 9.6 Magnesium 1.5 L Total Bilirubin 0.4 AST 13 ALT 11 Alkaline Phosphatase 129 Total Protein 7.3 Albumin 3.1 L Globulin 4.2 Lipase 19 Urine Color Urine Appearance Urine pH Ur Specific [place] Urine Protein Urine Glucose (UA) Urine Ketones Urine Blood Urine Nitrate Urine Bilirubin Urine Urobilinogen Ur Leukocyte Esterase Urine RBC Urine WBC Ur Squamous Epith Cells Amorphous Sediment Urine Bacteria Hyaline Casts Influenza Type A Ag Negative Influenza Type B Ag Negative SARS-CoV-2 Ag (Rapid) 05/12/20 05/12/20 05/12/20 21:31 21:39 21:39 WBC 10.1 H Corrected WBC RBC 3.01 L Hgb 8.0 L Hct 23.6 L MCV 78.4 L MCH 26.6 L MCHC 33.9 RDW 14.9 Plt Count 386 MPV 7.9 Gran % Neut % (Auto) 97.6 Lymph % (Auto) 1.8 [place] % (Auto) 0.2 Eos % (Auto) 0.0 Baso % (Auto) 0.1 Neut # (Auto) 9.90 H Lymph # (Auto) 0.2 L [place] # (Auto) 0.0 L Eos # (Auto) 0.0 Baso # (Auto) 0.0 Absolute Gran (auto) Nucleated RBC % (auto) 0 Nucleated RBCs # 0.0 Sodium Potassium Chloride Carbon Dioxide Anion Gap BUN Creatinine GFR Calculation Glucose Calculated Osmolality Lactic Acid 1.8 Calcium Magnesium Total Bilirubin AST ALT Alkaline Phosphatase Total Protein Albumin Globulin Lipase Urine Color Urine Appearance Urine pH Ur Specific [place] Urine Protein Urine Glucose (UA) Urine Ketones Urine Blood Urine Nitrate Urine Bilirubin Urine Urobilinogen Ur Leukocyte Esterase Urine RBC Urine WBC Ur Squamous Epith Cells Amorphous Sediment Urine Bacteria Hyaline Casts Influenza Type A Ag Influenza Type B Ag SARS-CoV-2 Ag (Rapid) Negative 05/12/20 23:20 WBC Corrected WBC RBC Hgb Hct MCV MCH MCHC RDW Plt Count MPV Gran % Neut % (Auto) Lymph % (Auto) [place] % (Auto) Eos % (Auto) Baso % (Auto) Neut # (Auto) Lymph # (Auto) [place] # (Auto) Eos # (Auto) Baso # (Auto) Absolute Gran (auto) Nucleated RBC % (auto) Nucleated RBCs # Sodium Potassium Chloride Carbon Dioxide Anion Gap BUN Creatinine GFR Calculation Glucose Calculated Osmolality Lactic Acid Calcium Magnesium Total Bilirubin AST ALT Alkaline Phosphatase Total Protein Albumin Globulin Lipase Urine Color Yellow Urine Appearance Turbid Urine pH 6.5 Ur Specific [place] 1.005 Urine Protein Trace Urine Glucose (UA) Norm Urine Ketones Negative Urine Blood 3+ H Urine Nitrate Negative Urine Bilirubin Neg Urine Urobilinogen Norm Ur Leukocyte Esterase 2+ H Urine RBC >100 H Urine WBC >100 H Ur Squamous Epith Cells 0-4 H Amorphous Sediment 1+ Urine Bacteria 3+ H Hyaline Casts 0-4 H Influenza Type A Ag Influenza Type B Ag SARS-CoV-2 Ag (Rapid) Micro: Microbiology 05/12/20 21:39 Blood Culture - Preliminary Blood SPECIMEN COLLECTED Cardiac Studies: No Data to Display
--- NOTE | 2020-05-13 01:46 | SC_ITS ---
WS: [id number] A limited AP C-arm image of the right abdomen is submitted for evaluation. There appears to be a righ t renal stent in place. A guidewire is noted in the stent. There are several radiographic contrast co llections in the right abdomen. Exact location is undetermined. The right kidney itself is difficult to visualize. No obvious contrast can be identified in the proximal right ureter.
[2020-05-13] MEDS: sodium chloride 0.9% 1,000 ML 30 ML IV (01:50)
--- NOTE | 2020-05-13 02:01 | PM.OP ---
Operative Report Date of procedure: May 13, 2020 Pre-op Diagnosis: Right proximal ureteral stone with obstruction and urinary tract infection Post-op diagnosis: same Procedure Done: Cystoscopy, RIGHT ureteral stent placement Surgeon: Sheryl Anesthesia: MAC Estimated blood loss: Minimal Condition: stable Disposition: ICU Brief History: Timur is a 60-year-old white male quadriplegic who has neurogenic bladder with urinary retention and chronic indwelling Miranda catheter. Known history of stones likely infection related. Presented to the emergency department with fever of 103, malaise, and CT scan demonstrating a large right proximal ureteral stone with severe obstructive changes that appear to be chronic with severe renal atrophy new since 2019 CT scan. Because of the concern for potential sepsis related to complicated urinary tract infection with obstruction it was recommended that he go to the operating room emergently for cystoscopy right ureteral stent placement. CT scan findings make it likely that the stone has been there for a extended period of time increasing the risk of impaction making routine ureteral stent placement difficult or impossible and therefore if that occurs antegrade drainage via percutaneous nephrostomy with interventional radiology where available. Procedure: After emergent evaluation examination and obtaining of informed consent he was taken to the operating suite on 05/13/2020 where general anesthesia was administered without difficulty. Appropriate timeout was performed, SCDs confirmed to be functioning, preoperative antibiotics administered, beta-tiff protocol confirmed. Prepped and draped in the usual sterile fashion in dorsolithotomy position paying careful attention to avoiding pressure points. 21 Tajik cystoscope with 30 degree lens was introduced to the urethral meatus and advanced into the bladder under videoscopy. Suprapubic tube was confirmed to be in appropriate position. Right ureteral orifice was identified and a flexible tip guidewire was advanced up the right ureter.
[2020-05-13] MEDS: iohexol 300 mg/mL 50 mL Btl XX (02:41)
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
--- NOTE | 2020-05-13 03:10 | PM.PACU ---
PACU note PACU note: Pt admitted to ICU for recovery in stable condition with VSS and good respiratory effort Post-Anesthesia Exam: awake and vital signs stable Disposition: admitted (ICU)
[2020-05-13] MEDS: sodium chloride 0.9% 1,000 ML 75 ML IV (03:24)
[2020-05-13] MEDS: aztreonam 2,000 MG in sodium chloride 0.9% (plus) 100 ML 200 MG IV (04:05)
[2020-05-13] MEDS: lidocaine 2% viscous 15 ML, aluminum-mag hydrox-simethicon 30 ML, sucralfate oral liq 1 GM PO (04:15)
[2020-05-13 04:16] LABS: Basophils % 0.1 %; Eosinophils % 0.1 %; Hemoglobin 7.1 g/dL (11.7-16.6); Lymphocytes # 0.2 10^3/uL (0.8-4.8); Lymphocytes % 0.9 %; Mean Corpuscular HGB Conc 33.8 g/dL (30.0-36.0); Mean Corpuscular Hemoglobin 26.7 pg (28.0-34.0); Mean Corpuscular Volume 78.9 fL (80-94); Monocytes # 0.8 10^3/uL (0.2-0.9); Monocytes % 4.2 %; Neutrophils # 17.78 10^3/uL (1.8-7.7); Neutrophils % 94.1 %; Nucleated Red Blood Cells % 0 %; Platelet Count 317 10^3/cmm (130-400); Red Blood Count 2.66 10^6/uL (4.1-5.3); Red Cell Distribution Width 14.9 % (12.1-15.1); White Blood Count 18.9 10^3/uL (4.0-10.0)
[2020-05-13 04:36] LABS: Anion Gap 12.9 (5-19); Blood Urea Nitrogen 8 mg/dL (8-23); Calcium 8.5 mg/dL (8.5-10.5); Carbon Dioxide 24 mmol/L (22-29); Chloride 83 mmol/L (98-107); Glomerular Filtration Rate 114.6 mL/min (90-130); Glucose 174 mg/dL (65-115); Osmolality Calculated 245 mOsm/kg (285-295); Potassium 3.9 mmol/L (3.5-5.1)
[2020-05-13 04:51] LABS: Sodium 116 mmol/L (136-145)
[2020-05-13] MEDS: vancomycin 1,500 MG/300 ML PIGGYBACK 150 MG IV ×2 (05:39→17:10)
[2020-05-13] MEDS: sodium chloride 1 gm Tablet PO ×2 (05:51→17:10)
--- NOTE | 2020-05-13 08:00 | P.CONIM_ITS ---
Providers/Reason For Consult Consulting Physican/Specialty*: mikey ji md / telenephrology Reason for Consult*: acute on chronic hyponatremia Attending Physician: Alexis Hyde MD Primary Care Provider: Becka Villa DO History of Present Illness History of Present Illness Timur Valdovinos is a 60 year old male s/p rt ureter stent for pyelonphritis and rt hydroureter- nephrosis. Pt has h/o quadrapalegia, bacteremia, uti, suprapubic catheter. Pt presented w/ fevers, chills, and uti.- given vanco/ azacatam and ureteral stent- now w/ pus- white urine in suprapubic catheter. na was 115- now 116 and renal asked to see pt. pt has h/o hyponatremia since August 2019- na approx 128-132, dropped in december 2019- 121- 126 Review of Systems General: Reports: 10 or more systems reviewed and unremarkable except in HPI and below Narrative: weak, drinks lots of fluids, nausea, emesis, weak, fevrs, chills, urinary complaints in suprapubic catheter. quadrapalegic Meds/Allergies Home Medications and Allergies Home Medications Medication Instructions Recorded Confirmed Last Taken Type ascorbic acid (vitamin C) 500 mg 500 mg PO DAILY 05/24/19 04/19/20 12/24/19 History capsule aspirin 81 mg tablet,delayed 81 mg PO DAILY 05/24/19 04/19/20 12/24/19 History release carbamazepine 200 mg tablet 200 mg PO BID 05/24/19 04/19/20 12/24/19 History cranberry 500 mg capsule 500 mg PO DAILY 05/24/19 04/19/20 12/24/19 History escitalopram oxalate 10 mg tablet 10 mg PO DAILY 05/24/19 04/19/20 12/24/19 History gabapentin 100 mg capsule 100 mg PO TID 05/24/19 04/19/20 12/24/19 History pravastatin 40 mg tablet 40 mg PO DAILY 05/24/19 04/19/20 12/24/19 History promethazine 25 mg tablet 25 mg PO Q6H PRN 05/24/19 04/19/20 12/24/19 History trazodone 50 mg tablet 100 mg PO BEDTIME 05/24/19 04/19/20 12/23/19 History pyridoxine (vitamin B6) [Vitamin 100 mg PO DAILY 09/30/19 04/19/20 12/24/19 History B-6] vitamin E 1,000 unit PO DAILY 09/30/19 04/19/20 12/24/19 History diphenhydramine 25 2 tab PO .at bedtime PRN tab 10/11/19 04/19/20 Unknown History mg-acetaminophen 500 mg tablet ergocalciferol (vitamin D2) 10 mcg 50,000 unit PO Q7D 10/11/19 04/19/20 12/21/19 History (400 unit) tablet loperamide 2 mg capsule 2 mg PO BID cap 10/11/19 04/19/20 10/27/19 08:00 History meloxicam 15 mg tablet 7.5 mg PO BID tab 10/11/19 04/19/20 12/24/19 History baclofen 20 mg tablet 20 mg PO QID tab 12/06/19 04/19/20 12/24/19 History leg cramps 2 mg PO DAILY 12/06/19 04/19/20 12/24/19 History melatonin 10 mg capsule 10 mg PO .COMPLEX cap 12/06/19 04/19/20 12/23/19 History cholecalciferol (vitamin D3) 1,250 mcg PO Q7D 12/24/19 04/19/20 Unknown History sodium chloride 1 g PO BID #60 tab 12/27/19 04/19/20 Unknown Rx mupirocin 2 % topical ointment 1 applic TOPICAL BID #30 gm 01/10/20 04/19/20 Unknown Rx tizanidine 2 mg capsule 2 mg PO TID #90 cap 03/21/20 04/19/20 Unknown Rx hydrocodone 5 mg-acetaminophen 325 1 tab PO Q8H PRN 7 Days #21 tab 04/03/20 04/19/20 Unknown Rx mg tablet Allergies Allergy/AdvReac Type Severity Reaction Status Date / Time penicillin G Allergy Mild ALGY-Rash Verified 04/19/20 15:37 Current Medications Current Medications Generic Name Dose Route Start Last Admin Trade Name Freq PRN Reason Stop Dose Admin Sodium Chloride 1,000 mls @ 75 mls/hr 05/13/20 03:24 05/13/20 04:35 Sodium Chloride 0.9% IV 75 mls/hr .[id number] SHANTEL Infusion Vancomycin/PEG/NADA/Lysine/Water 1,500 mg in 300 mls @ 150 mls/hr 05/13/20 05:00 05/13/20 05:39 Vancocin IV 150 mls/hr Q12H SHANTEL Administration Sodium Chloride 1 gm 05/13/20 05:27 05/13/20 05:51 Sodium Chloride 1 Gm Tablet PO 1 gm BID SHANTEL Administration PFSH Acute PFSH: Medical History (Updated 05/13/20 @ 05:43 by Joya Luo) Chronic indwelling Miranda catheter Diabetes mellitus -NIDDM type II, A1c-7.2 (08/2019) -Accuchecks, hypoglycemia precautions, ISS -consistent carb diet Quadriplegia -strict fall precautions -frequent repositioning, q2h -WC-/bed-bound at baseline -continue pain meds, muscle relaxants -has been following up with Dr. Estrella for consideration of Botox treatments for spasticity S/P extracorporeal shock wave therapy Surgical History History of appendectomy History of back surgery History of colon resection History of neck surgery History of suprapubic catheter Open placement October 2019. Family History Father , at age 49 Cancer Lung disease Mother Cancer bone Brother Cancer Lung disease Denies family history of Diabetes CAD (coronary artery disease) Clotting disorder Dementia Hyperlipidemia Psychiatric illness Chronic kidney disease (CKD) Suicide Anesthesia complication Bleeding disorder Family history of premature coronary artery disease Hypertension Stroke Social History Smoking and tobacco status: current every day smoker cigarettes Packs smoked per day: 0.5 Quit status (tobacco): not considering quitting Alcohol intake: former Former alcohol use details: quit due to medications Household members: other Details: lives with mother Marital status: Legally Number of children: 5 History of recent travel: No Vitals/I&O/Wt Last Vital Signs Temp 100 F H 05/13/20 00:12 Pulse 77 05/13/20 04:21 Resp 16 05/13/20 02:29 BP 84/49 05/13/20 02:49 Pulse Ox 94 05/13/20 04:21 05/12/20 05/13/20 05/13/20 22:59 06:59 14:59 Intake Total 100 / 100 451.25 / 551.25 Output Total 850 / 850 Balance 100 / 100 -398.75 / -298.75 Weight last 48 hrs Weight 65.771 kg Physical Exam Narrative: EXAM NARRATIVE: comfortable in bed, NARD- BP low, still low grade temops heent- nc/at, eomi, anicteric neck no jvp lung cta b/l heart-reg abd soft, nt, nd, +BS + suprapubic cath w/ pus- white urine ext no edema neuro- a,a, ox 2+, quadrapalegic Urinary Catheter Management^: Miranda: Cath Placed During This Visit: yes Urinary Catheter Date of Insertion: 05/12/20 Urinary Catheter Time of Insertion: 21:09 Suprapubic: Cath Placed During This Visit: yes Reason for Continuing Indwelling Catheter: Accurate Measurement of Urinary Output in Critically Ill Patients Urinary Catheter Date of Insertion: 05/12/20 Urinary Catheter Time of Insertion: 21:09 Data Micro: Micro: Microbiology 05/12/20 21:39 Blood Culture - Pr eliminary Blood SPECIMEN COLLEC HEATHER A&P Additional A&P Information 1. s/p cysto and rt ureteral stent placement 2. hyponatemia- check tsh, am cortisol level. ur electriolytes -monitor chem7 q 6 hrs- try to get to 121 by tomorrow -pt drinks a lot of water- limit -psych meds can cause thirst and SIADH -on nacl tabs and 75 ml/ hr ns ivf -on salt tabs 3. meds reviewed 4. replace mag if under 2 5. UTI/ pyelonephritis- send stone for analysis- if we have it. if not will need a stone eval as outpt Consult Attestations Medical Necessity Statement: hyponatremia, uti, - per hospitalist Time Spent in Patient Care: 16 - 35 minutes Coding Level of Care Code Acute Bone Plant Supervisor for Cj Webster
[2020-05-13] MEDS: morphine 4 mg/mL SDV 1 mL 1 MG IVP (08:10)
[2020-05-13] MEDS: ondansetron 2 mg/ML SDV 2 mL 4 MG IVP (08:29)
[2020-05-13 08:48] LABS: Cortisol Random 28.68 ug/mL (2.47-19.5)
[2020-05-13 09:03] LABS: Alanine Aminotransferase 10 U/L (0-41); Albumin Level 2.6 g/dL (3.5-5.2); Alkaline Phosphatase 108 IU/L (40-130); Aspartate Amino Transferase 15 U/L (0-40); Blood Urea Nitrogen 8 mg/dL (8-23); Calcium 8.4 mg/dL (8.5-10.5); Carbon Dioxide 23 mmol/L (22-29); Chloride 86 mmol/L (98-107); Globulin 3.5 g/dL (1.3-4.6); Glomerular Filtration Rate 98.3 mL/min (90-130); Glucose 125 mg/dL (65-115); Magnesium 1.9 mg/dL (1.7-2.3); Osmolality Calculated 250 mOsm/kg (285-295); Sodium 120 mmol/L (136-145); Thyroid Stimulating Hormone 1.31 uIU/mL (0.27-4.20); Total Bilirubin 0.3 mg/dL (0.15-1.2); Total Protein 6.1 g/dL (6.6-8.7); Uric Acid 2.4 mg/dL (3.4-7.0)
[2020-05-13] MEDS: pantoprazole DR 40 mg Tablet PO (09:20)
[2020-05-13] MEDS: gabapentin 100 mg Capsule PO ×3 (09:20→21:37)
[2020-05-13] MEDS: escitalopram 10 mg Tablet PO (09:21)
[2020-05-13] MEDS: tizanidine 4 mg Tablet 2 MG PO ×3 (09:21→21:37)
[2020-05-13] MEDS: carBAMazepine 200 mg Tablet PO ×2 (09:21→17:28)
[2020-05-13] MEDS: baclofen 10 mg Tablet 20 MG PO ×4 (09:21→21:37)
[2020-05-13 10:10] LABS: Potassium, Radom Urine 19 mmol/L; Urine Creatinine 27 mg/dL (39-259); Urine Random Sodium 33 mmol/L
[2020-05-13 10:13] LABS: Urine Random Chloride 18 mmol/L
--- NOTE | 2020-05-13 10:32 | ANE.PACU2 ---
Inpatient post-anesthesia follow up: Airway intact: Yes Vital signs: Temperature 100 F Pulse Rate [Monito r] 89 Pulse Rate 77 Respiratory Rate 16 Blood Pressure [Ri ght Arm] 172/77 Blood Pressure 84/49 Pulse Oximetry 94 Oxygen Delivery Me thod [ Room Air Current Rate & Del jones] Oxygen Delivery Me thod Room Air Oxygen Flow Rate 6 Fraction of Inspir ed Oxygen Hydration adequate: Yes Nausea and vomiting: No Pain level: 1 Mental status: Baseline
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
[2020-05-13] MEDS: sodium chloride 0.9% (100 ml) 100 ML (12:39)
--- NOTE | 2020-05-13 12:41 | PC.NURSE ---
pt request that scds off taken off ... prbc started at this time
[2020-05-13 12:58] LABS: Sodium 121 mmol/L (136-145)
[2020-05-13 14:22] LABS: Ferritin 139 ng/mL (30-400); Iron 7 ug/dL (59-158)
[2020-05-13 14:36] LABS: Vitamin B12 904 pg/mL (232-1245)
--- NOTE | 2020-05-13 15:35 | PM.PN ---
Subjective Subjective: Interval history: Postop check, urology: Temperature max has been 100 degrees preoperatively and since surgery has been afebrile. Vital signs are stable otherwise. He states that he feels better . Catheter still draining purulent urine. No downturn in hemodynamic status since surgery. Reviewed intraoperative findings with the patient. Discussed perioperative expectations and more definitive planning after antibiotic therapy. We will consider ESWL/laser lithotripsy after he recovers from the infectious complication. Vitals/I&O/Wt Last Vital Signs Temp 98 F 05/13/20 12:50 Pulse 82 05/13/20 12:50 Resp 22 H 05/13/20 12:50 BP 122/54 05/13/20 12:50 Pulse Ox 94 05/13/20 04:21 05/13/20 05/13/20 05/13/20 06:59 14:59 22:59 Intake Total 451.25 / 551.25 300 / 300 Output Total 850 / 850 850 / 850 Balance -398.75 / -298.75 -550 / -550 Weight last 48 hrs Weight 145 lb Physical Exam Narrative: EXAM NARRATIVE: Alert and oriented no acute distress Baseline quadriplegia with chronic extremity contractures. Unlabored respiration Suprapubic tube working well. Still draining cloudy purulent fluid. No additional changes. Urinary Catheter Management^: Miranda: Cath Placed During This Visit: yes Urinary Catheter Date of Insertion: 05/12/20 Urinary Catheter Time of Insertion: 21:09 Suprapubic: Cath Placed During This Visit: yes Reason for Continuing Indwelling Catheter: Accurate Measurement of Urinary Output in Critically Ill Patients Urinary Catheter Date of Insertion: 05/12/20 Urinary Catheter Time of Insertion: 21:09 Data : 05/13/20 04:05 05/13/20 12:15 Micro: Microbiology 05/13/20 12:15 Blood Culture - Preliminary Blood SPECIMEN COLLECTED 05/12/20 21:39 Blood Culture - Preliminary Blood SPECIMEN COLLECTED A&P Assessment and plan (1) Sepsis: Status: Acute (2) Pyelonephritis: Pyonephrosis identified intraoperatively. Continue indwelling ureteral stent, IV antibiotics. Status: Acute (3) Right ureteral calculus: Status post emergency stenting with effective drainage of upper urinary tract. Obstruction relieved with ureteral stent. We will plan on treating the stones more definitively after infectious picture has cleared Complicated by multiple stones. Status: Acute (4) Chronic indwelling Miranda catheter: Status: Acute (5) Pyonephrosis: Status: Acute Attestations Medical Necessity Statement*: Sepsis, obstructive pyelonephritis, pyonephrosis. 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
[2020-05-13] MEDS: aztreonam 1,000 MG in sodium chloride 0.9% (plus) 50 ML 100 MG IV (16:14)
[2020-05-13 17:23] LABS: Sodium 123 mmol/L (136-145)
[2020-05-13 17:44] LABS: Glucose Point of Care 99 mg/dL (70-110)
[2020-05-13 20:22] LABS: Sodium 121 mmol/L (136-145)
[2020-05-13] MEDS: ibuprofen 200 mg Tablet 400 MG PO (23:06)
[2020-05-13] MEDS: diphenhydrAMINE 50 mg Capsule PO (23:06)
[2020-05-13 23:32] LABS: Glucose Point of Care 103 mg/dL (70-110)
[2020-05-14] VITALS (53 sets, daily range): BP systolic 127–217; BP diastolic 58–130; PULSE 60–118; RESP 8–38; TEMP 36.6–38.1; O2SAT 78–98
[2020-05-14 00:42] LABS: Sodium 121 mmol/L (136-145)
[2020-05-14] MEDS: sodium chloride 0.9% 1,000 ML 75 ML IV ×2 (00:42→18:49)
[2020-05-14] MEDS: aztreonam 1,000 MG in sodium chloride 0.9% (plus) 50 ML 100 MG IV ×2 (04:04→19:11)
[2020-05-14] MEDS: vancomycin 1,500 MG/300 ML PIGGYBACK 150 MG IV (05:23)
--- NOTE | 2020-05-14 07:00 | XR_ITS ---
WS: [id number] Exam: XR chest 1V portable [id number] Date/Time of Exam: 05/14/2020 7:00 AM Reason For Exam: sob Comparison 05/12/2020. The lungs are hyperinflated and clear. Unremarkable cardiomediastinal structures. Fibrous scarring in the bilateral upper lobes with bilateral apical pleural thickening. Bony structures are intact. No c hange. XR/XR chest 1V portable [id number] IMPRESSION: 1. Pulmonary hyperinflation with chronic pulmonary parenchymal and pleural narvaez ges. 2. No acute process.
--- NOTE | 2020-05-14 07:00 | PM.PN ---
Subjective Subjective: Interval history: feels better. no n/v/f/c/el/d/itching.. is urinating Medications: Reviewed: Yes Medication Review Details: Current Medications Baclofen (Baclofen 10 Mg Tablet) 20 mg PO QID [facility] Last Admin: 05/13/20 21:37 Dose: 20 mg Documented by: Carbamazepine (Carbamazepine 200 Mg Tablet) 200 mg PO BID [facility] Last Admin: 05/13/20 17:28 Dose: 200 mg Documented by: Dextrose (Dextrose 50% Syringe 50 Ml) 25 ml IVP ONCE PRN; Protocol PRN Reason: hypoglycemia protocol Dextrose (Dextrose 50% Syringe 50 Ml) 50 ml IVP PRN PRN; Protocol PRN Reason: hypoglycemia protocol Diphenhydramine HCl (Diphenhydramine 50 Mg Capsule) 50 mg PO BEDTIME PRN PRN Reason: SLEEP Last Admin: 05/13/20 23:06 Dose: 50 mg Documented by: Escitalopram Oxalate (Escitalopram 10 Mg Tablet) 10 mg PO DAILY [facility] Last Admin: 05/13/20 09:21 Dose: 10 mg Documented by: Gabapentin (Gabapentin 100 Mg Capsule) 100 mg PO TID [facility] Last Admin: 05/13/20 21:37 Dose: 100 mg Documented by: Glucagon (Glucagon 1 Mg/Ml Inj 1 Ml) 1 mg IM ONCE PRN; Protocol PRN Reason: Adult Acute Hypoglycemia Prot. Sodium Chloride (Sodium Chloride 0.9%) 1,000 mls @ 75 mls/hr IV .[id number] [facility] Last Admin: 05/14/20 00:42 Dose: 75 mls/hr Documented by: Vancomycin/PEG/NADA/Lysine/Water (Vancocin) 1,500 mg in 300 mls @ 150 mls/hr IV Q12H [facility] Last Admin: 05/14/20 05:23 Dose: 150 mls/hr Documented by: Imipenem/Cilastatin Sodium 500 (mg/ Sodium Chloride) 100 mls @ 200 mls/hr IV Q6H [facility]; Protocol Last Infusion: 05/14/20 02:57 Dose: Infused Documented by: Dextrose (D5w) 500 mls @ 100 mls/hr IV ONCE PRN; Protocol PRN Reason: Adult Acute Hypoglycemia Prot Aztreonam 1,000 mg/ Sodium (Chloride) 50 mls @ 100 mls/hr IV Q12H [facility]; Protocol Last Infusion: 05/14/20 04:34 Dose: Infused Documented by: Ibuprofen (Ibuprofen 200 Mg Tablet) 400 mg PO BEDTIME PRN PRN Reason: SLEEP Last Admin: 05/13/20 23:06 Dose: 400 mg Documented by: Morphine Sulfate (Morphine 4 Mg/Ml Sdv 1 Ml) 1 mg IVP Q4H PRN PRN Reason: SEVERE PAIN Last Admin: 05/13/20 08:10 Dose: 1 mg Documented by: Ondansetron HCl (Ondansetron 2 Mg/Ml Sdv 2 Ml) 4 mg IVP Q4H PRN PRN Reason: NAUSEA AND VOMITING Last Admin: 05/13/20 08:29 Dose: 4 mg Documented by: Pantoprazole Sodium (Pantoprazole Dr 40 Mg Tablet) 40 mg PO DAILY [facility] Last Admin: 05/13/20 09:20 Dose: 40 mg Documented by: Sodium Chloride (Sodium Chloride 1 Gm Tablet) 1 gm PO BID [facility] Last Admin: 05/13/20 17:10 Dose: 1 gm Documented by: Tizanidine HCl (Tizanidine 4 Mg Tablet) 2 mg PO TID [facility] Last Admin: 05/13/20 21:37 Dose: 2 mg Documented by: Vitals/I&O/Wt Last Vital Signs Temp 98.7 F 05/13/20 19:00 Pulse 71 05/14/20 06:00 Resp 14 05/14/20 06:00 BP 161/71 05/14/20 06:00 Pulse Ox 89 L 05/14/20 06:00 05/13/20 05/14/20 05/14/20 22:59 06:59 14:59 Intake Total 1848.75 / 2448.75 150 / 2598.75 Output Total 800 / 1650 Balance 1048.75 / 798.75 150 / 948.75 Weight last 48 hrs Weight 65.771 kg Physical Exam Narrative: EXAM NARRATIVE: comfortable in bed, NARD- BP now high, fevers resolved. hypoxemic heent- nc/at, eomi, anicteric neck no jvp lung cta b/l heart-reg abd soft, nt, nd, +BS + suprapubic cath w/ pus- white urine ext no edema neuro- a,a, ox 2+, quadrapalegic Urinary Catheter Management^: Miranda: Cath Placed During This Visit: yes Urinary Catheter Date of Insertion: 05/12/20 Urinary Catheter Time of Insertion: 21:09 Suprapubic: Cath Placed During This Visit: yes Reason for Continuing Indwelling Catheter: Accurate Measurement of Urinary Output in Critically Ill Patients Urinary Catheter Date of Insertion: 05/12/20 Urinary Catheter Time of Insertion: 21:09 Data : 05/13/20 04:05 05/13/20 23:24 Micro: Microbiology 05/12/20 21:39 Blood Culture - Preliminary Blood NEGATIVE TO DATE 05/13/20 12:15 Blood Culture - Preliminary Blood SPECIMEN COLLECTED A&P Additional A&P Information 1. s/p cysto and rt ureteral stent placement 2. hyponatemia- likely prerenal. 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 -ur electriolytes noted- cont ns ivf and monitor chemistries q 8 hrs -monitor chem7 q 6 hrs- try to get to 121 by tomorrow -pt drinks a lot of water- limit -psych meds can cause thirst and SIADH -on nacl tabs and 75 ml/ hr ns ivf -d/c salt tabs -low uric acid 3. meds reviewed 4. replace mag if under 2 5. UTI/ pyelonephritis- appreciate urology- will get definitive treatment when infectious process improves 6. anemia- hgb down to 7.1 Attestations Medical Necessity Statement*: uti, pyelonephritis, hyponatremia Time Spent in Patient Care: 16 - 35 minutes Coding Level of Care Code Acute Nurse Technician for [facility]
[2020-05-14 08:25] LABS: Basophils # 0.1 10^3/uL (0.0-0.1); Basophils % 0.4 %; Eosinophils # 0.2 10^3/uL (0.0-0.8); Eosinophils % 1.3 %; Hematocrit 24.4 % (42.0-52.0); Hemoglobin 8.2 g/dL (11.7-16.6); Lymphocytes # 0.4 10^3/uL (0.8-4.8); Lymphocytes % 3.5 %; Mean Corpuscular HGB Conc 33.6 g/dL (30.0-36.0); Mean Corpuscular Hemoglobin 27.3 pg (28.0-34.0); Mean Corpuscular Volume 81.3 fL (80-94); Mean Platelet Volume 8.2 fL (7.4-10.4); Monocytes # 0.9 10^3/uL (0.2-0.9); Monocytes % 8.1 %; Neutrophils # 9.71 10^3/uL (1.8-7.7); Neutrophils % 86.2 %; Nucleated Red Blood Cells % 0 %; Platelet Count 338 10^3/cmm (130-400); Red Cell Distribution Width 15.3 % (12.1-15.1); White Blood Count 11.3 10^3/uL (4.0-10.0)
[2020-05-14 08:46] LABS: Glucose Point of Care 86 mg/dL (70-110)
[2020-05-14 08:50] LABS: Lactate (Lactic Acid level) 0.6 mmol/L (0.5-2.2)
[2020-05-14 08:53] LABS: Vancomycin Trough 55.7 ug/mL (10-15)
[2020-05-14 08:57] LABS: Procalcitonin 6.41 ng/mL (0-0.5)
[2020-05-14 08:59] LABS: INR 1.24 (0.8-1.2)
--- NOTE | 2020-05-14 09:07 | PC.NURSE ---
vanc. trough drawn after a 0400 dose. will redraw before 4 pm dose. fed pt. cream of wheat. no choking, but note audible rattles. pt. states its phlegm draining down, not food causing rattles. Its stuck in back of my throat. good cough effort did not become productive.
[2020-05-14 09:09] LABS: Alanine Aminotransferase 11 U/L (0-41); Albumin Level 2.7 g/dL (3.5-5.2); Alkaline Phosphatase 121 IU/L (40-130); Anion Gap 18.9 (5-19); Aspartate Amino Transferase 18 U/L (0-40); Blood Urea Nitrogen 12 mg/dL (8-23); C Reactive Protein 239.4 mg/L (0.0-4.9); Calcium 8.4 mg/dL (8.5-10.5); Carbon Dioxide 19 mmol/L (22-29); Chloride 90 mmol/L (98-107); Globulin 3.3 g/dL (1.3-4.6); Glomerular Filtration Rate 114.6 mL/min (90-130); Glucose 73 mg/dL (65-115); Magnesium 1.8 mg/dL (1.7-2.3); Osmolality Calculated 256 mOsm/kg (285-295); Phosphorus 2.5 mg/dL (2.5-4.5); Potassium 3.9 mmol/L (3.5-5.1); Sodium 124 mmol/L (136-145); Total Bilirubin 0.3 mg/dL (0.15-1.2)
[2020-05-14 09:10] LABS: Cortisol Random 29.19 ug/mL (2.47-19.5)
[2020-05-14] MEDS: tizanidine 4 mg Tablet 2 MG PO ×2 (09:34→23:48)
[2020-05-14] MEDS: baclofen 10 mg Tablet 20 MG PO ×4 (09:34→20:50)
[2020-05-14] MEDS: gabapentin 100 mg Capsule PO ×2 (09:34→20:52)
[2020-05-14] MEDS: escitalopram 10 mg Tablet PO (09:34)
--- NOTE | 2020-05-14 09:36 | PC.CHAP ---
Pastoral Care Encounter/Spiritual Assessment Type of Contact [] Declined major account manager visit [] Patient/Family/Request visit [] Outpatient visit [] Follow-up visit [] Physician referral [] Code/Alert [] Routine visit [] Staff referral [] Actively dying [] Patient sleeping [] Family support [] [] Out of room [] Palliative care [] [] Receiving care in room [] Pre-surgical visit [] Trauma [] Long length of stay [x] ICU visit [] Other: Relational/Emotional Strength [] Patient feels connected with others/family/visitors/staff [] Distress [] Loneliness/isolation [] Abandonment Spirituality of Patient [] Person of Lillie [] Attends Synagogue of their Lillie [] Believes in Prayer [] Reads Bible or Caodaism materials [] There are Spiritual issues to be addressed Client Care Manager Interventions [x] Prayer [] Active listening [] Non-anxious presence [] Spiritual/emotional support [] Crisis/trauma care [] Spiritual counseling [] Bereavement support [] Provided bereavement packet [] Provided Bible/devotional materials [] Provided toy/stuffed animal, coloring book to patient or family member [] Provided Communion [] Anointing/[place] [] Salvation [x] Completed spiritual assessment [] Other: Impact on Illness or Injury [] Angry [] Fearful [] Anxious [] Often cries [] Exhaustion [] Unable to work [] Unable to attend jewish [] Unable to walk/stand [] Unable to read [] Unable to drive [] Unable to eat/drink [] Unable to sleep [] Unable to be with family [] Patient intubated [] Other: Summary Time spent with patient
[2020-05-14] MEDS: carBAMazepine 200 mg Tablet PO ×2 (10:07→19:02)
[2020-05-14] MEDS: pantoprazole DR 40 mg Tablet PO (10:09)
--- NOTE | 2020-05-14 11:17 | PC.NURSE ---
10:00 moist rattle conts. pt. states he takes mucinex at home. repositioned to left.
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
--- NOTE | 2020-05-14 11:19 | PC.NURSE ---
1030: call light on. 02 off sat 81 02 replaced c/o not being able to breathe. moist upper airway rattles.
[2020-05-14] MEDS: guaiFENesin 600 mg Tablet PO ×2 (11:56→18:50)
--- NOTE | 2020-05-14 14:59 | PC.NURSE ---
c/o more of shortness of breath this afternoon and late morning. req. o2 be changed to mask because he couldnt breathe thru his nose. coughing more after mucinex
--- NOTE | 2020-05-14 16:58 | PC.RESP ---
Smoking Cessation information sent to patient.
--- NOTE | 2020-05-14 17:02 | PC.PT ---
PT reviewed chart and had discussion about pt's needs. Pt presents supine in bed. Pt stated he is currently at baseline and declined further skilled PT intervention. Time in: 16:18 Time out: 16:20
[2020-05-14 17:15] LABS: Anion Gap 18.8 (5-19); Blood Urea Nitrogen 11 mg/dL (8-23); Calcium 8.4 mg/dL (8.5-10.5); Carbon Dioxide 17 mmol/L (22-29); Chloride 90 mmol/L (98-107); Glomerular Filtration Rate 114.6 mL/min (90-130); Glucose 104 mg/dL (65-115); Magnesium 1.6 mg/dL (1.7-2.3); Osmolality Calculated 254 mOsm/kg (285-295); Potassium 3.8 mmol/L (3.5-5.1); Sodium 122 mmol/L (136-145)
[2020-05-14 17:45] LABS: Glucose Point of Care 159 mg/dL (70-110)
[2020-05-14 17:59] LABS: Vancomycin Trough 26.1 ug/mL (10-15)
--- NOTE | 2020-05-14 18:34 | PC.NURSE ---
0700. recd with supra pubic catheter in place
[2020-05-14 19:01] LABS: Glucose Point of Care 116 mg/dL (70-110)
--- NOTE | 2020-05-14 19:24 | PC.NURSE ---
dr. hinson notified of 122 sodium.
[2020-05-14] MEDS: ondansetron 2 mg/ML SDV 2 mL 4 MG IVP (22:29)
[2020-05-14] MEDS: morphine 4 mg/mL SDV 1 mL 1 MG IVP (22:41)
--- NOTE | 2020-05-14 22:47 | XR_ITS ---
WS: [id number] Exam: XR chest 1V portable [id number] Date/Time of Exam: 05/14/2020 10:58 PM Reason For Exam: hypoxia, dyspnea Comparison 05/14/2020 at 0443 hours Diffuse interstitial infiltrate has developed in the left lung since the previous study. There is als o new airspace infiltrate in the right upper lobe. Cardiomediastinal structures are unremarkable for technique. No pleural effusions or pneumothorax. Monitoring leads superimpose the chest. XR/XR chest 1V portable [id number] IMPRESSION: 1. Development of bilateral pneumonia since prior study.
--- NOTE | 2020-05-14 22:53 | PC.NURSE ---
2219 O2 sat dropped into the 70's C/O sob, dry heaved x1 C/O nausea, O2 increased to 10L oxy mask 2224, PRN Zofran administered 2227, BP 190/92 C/O back pain PRN Morphine administered 2227. 2229 BP 217/[address] Stahl x2. 0 placed on NRB 15L O2 sat 75%, placed on Bipap per RT 100% fio2 O2 sat 89-90, patient refused Bipap, placed on HHF NC per RT 91% Fio2 o2 sat 92% at this time, lungs diminished and coarse at this time, Dr. Stahl ordered Stat CXR 2246. BP currently 174/113 2300
[2020-05-14 22:54] LABS: Glucose Point of Care 165 mg/dL (70-110)
[2020-05-15] VITALS (47 sets, daily range): BP systolic 100–157; BP diastolic 62–96; PULSE 63–102; RESP 10–21; TEMP 37.3–37.4; O2SAT 91–100
--- NOTE | 2020-05-15 00:18 | PC.NURSE ---
patient reports multiple times not wanting to keep HHFNC in, patient educated each time of importance that NC stays in to maintain oxygenation
[2020-05-15] MEDS: vancomycin 1,000 MG in sodium chloride 0.9% 250 ML 250 MG IV ×2 (02:25→13:30)
[2020-05-15] MEDS: morphine 4 mg/mL SDV 1 mL 1 MG IVP ×4 (04:19→20:20)
[2020-05-15] MEDS: aztreonam 1,000 MG in sodium chloride 0.9% (plus) 50 ML 100 MG IV ×2 (04:26→15:59)
[2020-05-15] MEDS: sodium chloride 0.9% 1,000 ML 75 ML IV (05:16)
[2020-05-15 05:54] LABS: Basophils % 0.3 %; Eosinophils % 0.1 %; Hematocrit 24.7 % (42.0-52.0); Hemoglobin 8.4 g/dL (11.7-16.6); Lymphocytes # 0.5 10^3/uL (0.8-4.8); Lymphocytes % 3.9 %; Mean Corpuscular Hemoglobin 27.4 pg (28.0-34.0); Mean Corpuscular Volume 80.5 fL (80-94); Mean Platelet Volume 8.6 fL (7.4-10.4); Monocytes # 1.2 10^3/uL (0.2-0.9); Monocytes % 9.4 %; Neutrophils # 11.29 10^3/uL (1.8-7.7); Neutrophils % 85.5 %; Nucleated Red Blood Cells % 0 %; Platelet Count 314 10^3/cmm (130-400); Red Blood Count 3.07 10^6/uL (4.1-5.3); Red Cell Distribution Width 15.6 % (12.1-15.1); White Blood Count 13.2 10^3/uL (4.0-10.0)
[2020-05-15 06:12] LABS: Anion Gap 18.5 (5-19); Blood Urea Nitrogen 9 mg/dL (8-23); Calcium 7.9 mg/dL (8.5-10.5); Carbon Dioxide 16 mmol/L (22-29); Chloride 91 mmol/L (98-107); Glomerular Filtration Rate 114.6 mL/min (90-130); Glucose 135 mg/dL (65-115); Osmolality Calculated 255 mOsm/kg (285-295); Potassium 3.5 mmol/L (3.5-5.1); Sodium 122 mmol/L (136-145)
[2020-05-15 06:22] LABS: Alanine Aminotransferase 11 U/L (0-41); Albumin Level 2.5 g/dL (3.5-5.2); Alkaline Phosphatase 134 IU/L (40-130); Anion Gap 20.6 (5-19); Aspartate Amino Transferase 21 U/L (0-40); Blood Urea Nitrogen 9 mg/dL (8-23); C Reactive Protein 209.7 mg/L (0.0-4.9); Calcium 7.9 mg/dL (8.5-10.5); Carbon Dioxide 16 mmol/L (22-29); Chloride 92 mmol/L (98-107); Globulin 3.6 g/dL (1.3-4.6); Glomerular Filtration Rate 114.6 mL/min (90-130); Glucose 137 mg/dL (65-115); Magnesium 1.6 mg/dL (1.7-2.3); Osmolality Calculated 261 mOsm/kg (285-295); Potassium 3.6 mmol/L (3.5-5.1); Procalcitonin 2.67 ng/mL (0-0.5); Sodium 125 mmol/L (136-145); Total Bilirubin 0.4 mg/dL (0.15-1.2); Total Protein 6.1 g/dL (6.6-8.7)
[2020-05-15 06:23] LABS: Lactate (Lactic Acid level) 1.2 mmol/L (0.5-2.2)
[2020-05-15 06:33] LABS: Phosphorus 2.6 mg/dL (2.5-4.5)
[2020-05-15] MEDS: FUROsemide 10 mg/mL SDV 2mL 20 MG IVP (07:23)
[2020-05-15 07:32] LABS: Glucose Point of Care 156 mg/dL (70-110)
--- NOTE | 2020-05-15 07:44 | XR_ITS ---
WS: [id number] Exam: XR chest 1V portable [id number] Date/Time of Exam: 05/15/2020 8:09 AM Reason For Exam: sob Comparison 05/14/2020. Diffuse infiltrate in the left lung unchanged. Worsening infiltrates noted in the right upper lobe an d now the right lower lobe. The lungs remain fully expanded. Normal cardiomediastinal structures and bony elements. Bilateral apical pleural thickening. XR/XR chest 1V portable [id number] IMPRESSION: 1. Bilateral pulmonary infiltrates. Infiltrates on the right have increased sin ce previous exam. No other change.
--- NOTE | 2020-05-15 08:02 | P.PN_ITS ---
Subjective Subjective: Interval history: overnight had episode of SOB and v tach 15 beats and spontaneously converted back. not wearing o2 well- less sob Medications: Reviewed: Yes Medication Review Details: Current Medications Albuterol/Ipratropium (Ipratropium-Albuterol 4 Gm Mdi) 1 puff INHALATION QID.RESPIRATORY SHANTEL Baclofen (Baclofen 10 Mg Tablet) 20 mg PO QID [facility] Last Admin: 05/14/20 20:50 Dose: 20 mg Documented by: Carbamazepine (Carbamazepine 200 Mg Tablet) 200 mg PO BID [facility] Last Admin: 05/14/20 19:02 Dose: 200 mg Documented by: Dextrose (Dextrose 50% Syringe 50 Ml) 25 ml IVP ONCE PRN; Protocol PRN Reason: hypoglycemia protocol Dextrose (Dextrose 50% Syringe 50 Ml) 50 ml IVP PRN PRN; Protocol PRN Reason: hypoglycemia protocol Diphenhydramine HCl (Diphenhydramine 50 Mg Capsule) 50 mg PO BEDTIME PRN PRN Reason: SLEEP Last Admin: 05/13/20 23:06 Dose: 50 mg Documented by: Escitalopram Oxalate (Escitalopram 10 Mg Tablet) 10 mg PO DAILY [facility] Last Admin: 05/14/20 09:34 Dose: 10 mg Documented by: Gabapentin (Gabapentin 100 Mg Capsule) 100 mg PO TID [facility] Last Admin: 05/14/20 20:52 Dose: 100 mg Documented by: Glucagon (Glucagon 1 Mg/Ml Inj 1 Ml) 1 mg IM ONCE PRN; Protocol PRN Reason: Adult Acute Hypoglycemia Prot. Guaifenesin (Guaifenesin 600 Mg Tablet) 600 mg PO BID [facility] Last Admin: 05/14/20 18:50 Dose: 600 mg Documented by: Imipenem/Cilastatin Sodium 500 (mg/ Sodium Chloride) 100 mls @ 200 mls/hr IV Q6H SHANTEL; Protocol Last Admin: 05/15/20 03:19 Dose: 200 mls/hr Documented by: Dextrose (D5w) 500 mls @ 100 mls/hr IV ONCE PRN; Protocol PRN Reason: Adult Acute Hypoglycemia Prot Aztreonam 1,000 mg/ Sodium (Chloride) 50 mls @ 100 mls/hr IV Q12H SHANTEL; Protocol Last Admin: 05/15/20 04:26 Dose: 100 mls/hr Documented by: Vancomycin HCl 1,000 mg/ (Sodium Chloride) 250 mls @ 250 mls/hr IV Q12H SHANTEL Last Admin: 05/15/20 02:25 Dose: 250 mls/hr Documented by: Ibuprofen (Ibuprofen 200 Mg Tablet) 400 mg PO BEDTIME PRN PRN Reason: SLEEP Last Admin: 05/13/20 23:06 Dose: 400 mg Documented by: Morphine Sulfate (Morphine 4 Mg/Ml Sdv 1 Ml) 1 mg IVP Q4H PRN PRN Reason: SEVERE PAIN Last Admin: 05/15/20 04:19 Dose: 1 mg Documented by: Ondansetron HCl (Ondansetron 2 Mg/Ml Sdv 2 Ml) 4 mg IVP Q4H PRN PRN Reason: NAUSEA AND VOMITING Last Admin: 05/14/20 22:29 Dose: 4 mg Documented by: Pantoprazole Sodium (Pantoprazole Dr 40 Mg Tablet) 40 mg PO DAILY [facility] Last Admin: 05/14/20 10:09 Dose: 40 mg Documented by: Tizanidine HCl (Tizanidine 4 Mg Tablet) 2 mg PO TID [facility] Last Admin: 05/14/20 23:48 Dose: 2 mg Documented by: Vitals/I&O/Wt Last Vital Signs Temp 100.6 F H 05/14/20 18:41 Pulse 82 05/15/20 07:35 Resp 15 05/15/20 07:00 BP 151/96 05/15/20 07:00 Pulse Ox 97 05/15/20 07:00 05/14/20 05/15/20 05/15/20 22:59 06:59 14:59 Intake Total 430 / 1830 900 / 2730 Output Total 1050 / 1050 1050 / 2100 Balance -620 / 780 -150 / 630 Physical Exam Narrative: EXAM NARRATIVE: fever curve improving, but still w/ low grade temp 100.6f mild SOB in bed, NARD- BP now high, hypoxemic heent- nc/at, eomi, anicteric neck no jvp lung cta b/l heart-reg abd soft, nt, nd, +BS + suprapubic cath w/ pus- white urine ext 1+ leg edema neuro- a,a, ox 2+, quadrapalegic Urinary Catheter Management^: Miranda: Cath Placed During This Visit: yes Urinary Catheter Date of Insertion: 05/12/20 Urinary Catheter Time of Insertion: 21:09 Suprapubic: Cath Placed During This Visit: yes Reason for Continuing Indwelling Catheter: Accurate Measurement of Urinary Output in Critically Ill Patients Urinary Catheter Date of Insertion: 05/12/20 Urinary Catheter Time of Insertion: 21:09 Data : 05/15/20 04:41 05/15/20 04:41 Micro: Microbiology 05/13/20 12:15 Blood Culture - Preliminary Blood NEGATIVE TO DATE 05/12/20 21:39 Blood Culture - Preliminary Blood 05/12/20 23:20 Urine Culture - Preliminary Urine Suprapubic Gram Negative Rods A&P Additional A&P Information 1. s/p cysto and rt ureteral stent placement -still w/ low grade temps ur cx 50-60,000 g neg rods 1/2 blood cx gram neg and gram + . cont vanco and aztroneam -keep vanco trough under 19 -leukocytosis 2. hyponatemia- likely prerenal. 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 high 2 x- 29 and 28- not adrenal insufficiency -ur electriolytes noted- cont ns ivf and monitor chemistries q 8 hrs -monitor chem7 q bid -as sob- d/c ivf, give lasix and salt tabs -pt drinks a lot of water- limit -psych meds can cause thirst and SIADH -low uric acid 3. meds reviewed 4. replace mag if under 2 5. UTI/ pyelonephritis- appreciate urology- will get definitive treatment when infectious process improves 6. anemia- hgb 8.4 per medicine 7. met acidosis- na bicarb pills Attestations Medical Necessity Statement*: uti, hyponatremia, v tach- now nsr, hypoxemia Time Spent in Patient Care: Greater than 35 minutes Coding Level of Care Code Acute Medical Technologist Clinical for g Eleanor
[2020-05-15 09:36] LABS: ABG PCO2 30.2 mmHg (35-45); ABG PH Result 7.42 (7.35-7.45); Arterial Blood Gas Hematocrit 29.3 % (42-52); Blood Gas Allen Test Pos; Blood Gas Operator Identificat GD; Blood Gas Sample Site Radial, right; Blood Gas Sample Type Arterial; HCO3 ABG 19.7 mmol/L (22-26)
[2020-05-15] MEDS: gabapentin 100 mg Capsule PO ×3 (09:50→20:17)
[2020-05-15] MEDS: escitalopram 10 mg Tablet PO (09:50)
[2020-05-15] MEDS: pantoprazole DR 40 mg Tablet PO (09:50)
[2020-05-15] MEDS: carBAMazepine 200 mg Tablet PO ×2 (09:50→17:49)
[2020-05-15] MEDS: baclofen 10 mg Tablet 20 MG PO ×4 (09:50→20:18)
[2020-05-15] MEDS: guaiFENesin 600 mg Tablet PO ×2 (09:50→17:49)
[2020-05-15] MEDS: tizanidine 4 mg Tablet 2 MG PO ×3 (09:50→20:20)
[2020-05-15] MEDS: sodium bicarbonate 650 mg Tablet PO ×3 (09:50→20:19)
[2020-05-15 11:08] LABS: Glucose Point of Care 144 mg/dL (70-110)
--- NOTE | 2020-05-15 12:47 | P.PN_ITS ---
Subjective Subjective: Interval history: He feels that he is continuing to improve. Apparently did have a run of V. tach last night that spontaneously resolved and he had some shortness of breath during that time but overall his strength is returning. No spiking temperatures. White count today is up somewhat to 13.2. No change in physical exam. Urine is still somewhat cloudy. If he has progressive infectious picture with elevating white count, spiking temps or other signs of infection may need reimaging. He is at risk for forming a renal abscess but given the degree of drainage that has had I think that that is probably not a high chance. Close observation Vitals/I&O/Wt Last Vital Signs Temp 99.3 F 05/15/20 11:00 Pulse 71 05/15/20 12:02 Resp 18 05/15/20 12:02 BP 143/82 05/15/20 09:00 Pulse Ox 99 05/15/20 12:02 05/14/20 05/15/20 05/15/20 22:59 06:59 14:59 Intake Total 430 / 1830 1000 / 2830 Output Total 1050 / 1050 1050 / 2100 1949 Balance -620 / 780 -50 / 730 -1949 Physical Exam Const: COMMON NORMALS: no acute distress; negative for healthy appearing EXAM LIMITATIONS: no altered mental status GENERAL APPEARANCE: cooperative Resp: EFFORT & INSPECTION: No tachypneic and No respiratory distress : OTHER: Miranda catheter in place. Urinary Catheter Management^: Miranda: Cath Placed During This Visit: yes Urinary Catheter Date of Insertion: 05/12/20 Urinary Catheter Time of Insertion: 21:09 Suprapubic: Cath Placed During This Visit: yes Reason for Continuing Indwelling Catheter: Accurate Measurement of Urinary Output in Critically Ill Patients Urinary Catheter Date of Insertion: 05/12/20 Urinary Catheter Time of Insertion: 21:09 Data : 05/15/20 04:41 05/15/20 04:41 Micro: Microbiology 05/12/20 21:39 Blood Culture - Preliminary Blood Gram Negative Rods 05/15/20 10:48 Blood Culture - Preliminary Blood SPECIMEN COLLECTED 05/15/20 10:48 Blood Culture - Preliminary Blood SPECIMEN COLLECTED 05/12/20 23:20 Urine Culture - Final Urine Suprapubic Escherichia coli 05/13/20 12:15 Blood Culture - Preliminary Blood NEGATIVE TO DATE A&P Assessment and plan (1) Pyonephrosis: Status post drainage. Still with elevated white blood cell count. Status: Acute (2) Acute pyelonephritis: Status: Acute (3) Right ureteral calculus: We will treat after infection has cleared. Status: Acute (4) Neurogenic bladder: Managed with chronic indwelling suprapubic tube. 

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
[2020-05-15 16:12] LABS: Glucose Point of Care 157 mg/dL (70-110)
[2020-05-15 17:34] LABS: Anion Gap 14.1 (5-19); Blood Urea Nitrogen 9 mg/dL (8-23); Carbon Dioxide 22 mmol/L (22-29); Chloride 91 mmol/L (98-107); Glucose 145 mg/dL (65-115); Osmolality Calculated 259 mOsm/kg (285-295); Potassium 3.1 mmol/L (3.5-5.1); Sodium 124 mmol/L (136-145)
[2020-05-15 17:36] LABS: Oxygen Device NC
--- NOTE | 2020-05-15 20:49 | PC.NURSE ---
Primaxin rescheduled due to last day shift dose not completing until 2001
[2020-05-16] VITALS (33 sets, daily range): BP systolic 94–177; BP diastolic 55–101; PULSE 63–93; RESP 10–23; TEMP 36.8–38.3; O2SAT 93–100
[2020-05-16] MEDS: morphine 4 mg/mL SDV 1 mL 1 MG IVP ×4 (00:45→21:35)
[2020-05-16] MEDS: diphenhydrAMINE 50 mg Capsule PO (01:45)
[2020-05-16] MEDS: vancomycin 1,000 MG in sodium chloride 0.9% 250 ML 250 MG IV ×2 (01:45→14:22)
[2020-05-16 04:17] LABS: Basophils % 0.5 %; Eosinophils # 0.1 10^3/uL (0.0-0.8); Eosinophils % 1.5 %; Hematocrit 24.5 % (42.0-52.0); Hemoglobin 8.2 g/dL (11.7-16.6); Lymphocytes # 0.7 10^3/uL (0.8-4.8); Lymphocytes % 7.9 %; Mean Corpuscular HGB Conc 33.5 g/dL (30.0-36.0); Mean Corpuscular Hemoglobin 26.5 pg (28.0-34.0); Mean Corpuscular Volume 79.3 fL (80-94); Mean Platelet Volume 8.7 fL (7.4-10.4); Monocytes # 0.9 10^3/uL (0.2-0.9); Monocytes % 10.5 %; Neutrophils # 6.76 10^3/uL (1.8-7.7); Neutrophils % 78.7 %; Nucleated Red Blood Cells % 0 %; Platelet Count 308 10^3/cmm (130-400); Red Blood Count 3.09 10^6/uL (4.1-5.3); Red Cell Distribution Width 15.8 % (12.1-15.1); White Blood Count 8.6 10^3/uL (4.0-10.0)
[2020-05-16] MEDS: aztreonam 1,000 MG in sodium chloride 0.9% (plus) 50 ML 100 MG IV ×2 (04:22→16:37)
[2020-05-16 04:49] LABS: ABG PCO2 37.3 mmHg (35-45); ABG PH Result 7.43 (7.35-7.45); Arterial Blood Gas Hematocrit 27.1 % (42-52); Base Excess ABG 0.2 mmol/L (-2.0-2.0); Blood Gas Allen Test Pos; Blood Gas Operator Identificat CAK; Blood Gas Sample Site Radial, right; Blood Gas Sample Type Arterial; HCO3 ABG 24.5 mmol/L (22-26); Oxygen Device HAG; PO2 ABG 97.5 mmHg (80.0-100.0)
[2020-05-16 04:52] LABS: Alanine Aminotransferase 8 U/L (0-41); Albumin Level 2.3 g/dL (3.5-5.2); Alkaline Phosphatase 105 IU/L (40-130); Anion Gap 16.1 (5-19); Aspartate Amino Transferase 12 U/L (0-40); Blood Urea Nitrogen 8 mg/dL (8-23); Carbon Dioxide 22 mmol/L (22-29); Chloride 91 mmol/L (98-107); Globulin 3.7 g/dL (1.3-4.6); Glucose 109 mg/dL (65-115); Magnesium 1.7 mg/dL (1.7-2.3); Osmolality Calculated 261 mOsm/kg (285-295); Potassium 3.1 mmol/L (3.5-5.1); Sodium 126 mmol/L (136-145); Total Bilirubin 0.4 mg/dL (0.15-1.2)
[2020-05-16 04:53] LABS: NT Pro B Type Natriuretic Pept 7694 pg/mL (0-125); Procalcitonin 1.55 ng/mL (0-0.5)
[2020-05-16 05:05] LABS: Creatine Phosphokinase 42 U/L (39-308)
--- NOTE | 2020-05-16 07:00 | XR_ITS ---
WS: [id number] Exam: XR chest 1V portable [id number] Date/Time of Exam: 05/16/2020 7:00 AM Reason For Exam: sob Comparison 05/15/2020. Bilateral pulmonary infiltrates noted without change. The lungs are fully inflated. Unremarkable card iomediastinal structures and bony elements. No pleural effusions. Monitoring leads superimpose the ch est. XR/XR chest 1V portable 01101 IMPRESSION: 1. Bilateral pulmonary infiltrates unchanged since previous exam.
--- NOTE | 2020-05-16 07:23 | P.PN_ITS ---
Subjective Subjective: Interval history: feels better. fevers improving. no n/v/f/cp/el/d Medications: Reviewed: Yes Medication Review Details: Current Medications Albuterol/Ipratropium (Ipratropium-Albuterol 4 Gm Mdi) 1 puff INHALATION QID.RESPIRATORY SHANTEL Last Admin: 05/15/20 15:49 Dose: 1 puff Documented by: Baclofen (Baclofen 10 Mg Tablet) 20 mg PO QID [facility] Last Admin: 05/15/20 20:18 Dose: 20 mg Documented by: Carbamazepine (Carbamazepine 200 Mg Tablet) 200 mg PO BID [facility] Last Admin: 05/15/20 17:49 Dose: 200 mg Documented by: Dextrose (Dextrose 50% Syringe 50 Ml) 25 ml IVP ONCE PRN; Protocol PRN Reason: hypoglycemia protocol Dextrose (Dextrose 50% Syringe 50 Ml) 50 ml IVP PRN PRN; Protocol PRN Reason: hypoglycemia protocol Diphenhydramine HCl (Diphenhydramine 50 Mg Capsule) 50 mg PO BEDTIME PRN PRN Reason: SLEEP Last Admin: 05/16/20 01:45 Dose: 50 mg Documented by: Escitalopram Oxalate (Escitalopram 10 Mg Tablet) 10 mg PO DAILY [facility] Last Admin: 05/15/20 09:50 Dose: 10 mg Documented by: Gabapentin (Gabapentin 100 Mg Capsule) 100 mg PO TID [facility] Last Admin: 05/15/20 20:17 Dose: 100 mg Documented by: Glucagon (Glucagon 1 Mg/Ml Inj 1 Ml) 1 mg IM ONCE PRN; Protocol PRN Reason: Adult Acute Hypoglycemia Prot. Guaifenesin (Guaifenesin 600 Mg Tablet) 600 mg PO BID [facility] Last Admin: 05/15/20 17:49 Dose: 600 mg Documented by: Imipenem/Cilastatin Sodium 500 (mg/ Sodium Chloride) 100 mls @ 200 mls/hr IV Q6H SHANTEL; Protocol Last Infusion: 05/16/20 05:51 Dose: Infused Documented by: Dextrose (D5w) 500 mls @ 100 mls/hr IV ONCE PRN; Protocol PRN Reason: Adult Acute Hypoglycemia Prot Aztreonam 1,000 mg/ Sodium (Chloride) 50 mls @ 100 mls/hr IV Q12H [facility]; Protocol Last Admin: 05/16/20 04:22 Dose: 100 mls/hr Documented by: Vancomycin HCl 1,000 mg/ (Sodium Chloride) 250 mls @ 250 mls/hr IV Q12H [facility] Last Infusion: 05/16/20 04:33 Dose: Infused Documented by: Ibuprofen (Ibuprofen 200 Mg Tablet) 400 mg PO BEDTIME PRN PRN Reason: SLEEP Last Admin: 05/13/20 23:06 Dose: 400 mg Documented by: Morphine Sulfate (Morphine 4 Mg/Ml Sdv 1 Ml) 1 mg IVP Q4H PRN PRN Reason: SEVERE PAIN Last Admin: 05/16/20 00:45 Dose: 1 mg Documented by: Ondansetron HCl (Ondansetron 2 Mg/Ml Sdv 2 Ml) 4 mg IVP Q4H PRN PRN Reason: NAUSEA AND VOMITING Last Admin: 05/14/20 22:29 Dose: 4 mg Documented by: Pantoprazole Sodium (Pantoprazole Dr 40 Mg Tablet) 40 mg PO DAILY [facility] Last Admin: 05/15/20 09:50 Dose: 40 mg Documented by: Sodium Bicarbonate (Sodium Bicarbonate 650 Mg Tablet) 650 mg PO TID [facility] Last Admin: 05/15/20 20:19 Dose: 650 mg Documented by: Tizanidine HCl (Tizanidine 4 Mg Tablet) 2 mg PO TID [facility] Last Admin: 05/15/20 20:20 Dose: 2 mg Documented by: Vitals/I&O/Wt Last Vital Signs Temp 99.2 F 05/15/20 20:00 Pulse 78 05/16/20 06:10 Resp 18 05/16/20 06:10 BP 139/85 05/16/20 06:00 Pulse Ox 98 05/16/20 06:10 05/15/20 05/16/20 05/16/20 22:59 06:59 14:59 Intake Total 150 / 500 350 / 850 Output Total 500 / 2450 475 / 2925 Balance -350 / -1950 -125 / -5 Physical Exam Narrative: EXAM NARRATIVE: fever curve improving, comfortable in bed, NARD- BP stable heent- nc/at, eomi, anicteric neck no jvp lung cta b/l heart-reg abd soft, nt, nd, +BS + suprapubic cath w/ clean urine ext decb/l leg edema neuro- a,a, ox 2+, quadrapalegic Urinary Catheter Management^: Miranda: Cath Placed During This Visit: yes Urinary Catheter Date of Insertion: 05/12/20 Urinary Catheter Time of Insertion: 21:09 Suprapubic: Cath Placed During This Visit: yes Reason for Continuing Indwelling Catheter: Accurate Measurement of Urinary Output in Critically Ill Patients Urinary Catheter Date of Insertion: 05/12/20 Urinary Catheter Time of Insertion: 21:09 Data : 05/16/20 03:40 05/16/20 03:40 Micro: Microbiology 05/12/20 21:39 Blood Culture - Preliminary Blood Gram Negative Rods 05/15/20 10:48 Blood Culture - Preliminary Blood SPECIMEN COLLECTED 05/15/20 10:48 Blood Culture - Preliminary Blood SPECIMEN COLLECTED 05/12/20 23:20 Urine Culture - Final Urine Suprapubic Escherichia coli A&P Additional A&P Information 1. s/p cysto and rt ureteral stent placement -still w/ low grade temps ur cx -e.coli, and proteus blood cx achromobacter xylosoxidans and e faecalis - cont vanco and aztroneam -keep vanco trough under 19 -leukocytosis -sepsis secondary to obstructive pyelonephritis, Status post cystoscopy and right retrograde pyelogram, purulent material, right ureteral stent placement On broad-spectrum antibiotics vancomycin, aztreonam, primaxin - Dr. Saucedo appreciated- will need surgery when infection improved 2. hyponatemia- likely prerenal. 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 high 2 x- 29 and 28- not adrenal insufficiency -ur electriolytes noted- cont ns ivf and monitor chemistries q 8 hrs -monitor chem7 q bid -cont salt tabs -pt drinks a lot of water- limit -psych meds can cause thirst and SIADH -low uric acid 3. give k-phis andmagnesium 4. anemia- hgb 8.2 per medicine 7. 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
--- NOTE | 2020-05-16 08:06 | PC.NURSE ---
dr. thomas at bedside. verbal order to discontinue accu checks.
--- NOTE | 2020-05-16 08:30 | PC.NURSE ---
patient sat up to eat breakfast. nurse assisted patient to eat. he ate about 25% and drank his orange juice. patient then requested to be turned to his left side. patient states that he is comfortable with call light in reach.
[2020-05-16] MEDS: tizanidine 4 mg Tablet 2 MG PO ×3 (08:38→21:13)
[2020-05-16] MEDS: carBAMazepine 200 mg Tablet PO ×2 (08:38→17:13)
[2020-05-16] MEDS: escitalopram 10 mg Tablet PO (08:38)
[2020-05-16] MEDS: guaiFENesin 600 mg Tablet PO ×2 (08:38→17:13)
[2020-05-16] MEDS: pantoprazole DR 40 mg Tablet PO (08:38)
[2020-05-16] MEDS: sodium bicarbonate 650 mg Tablet PO ×3 (08:38→21:13)
[2020-05-16] MEDS: gabapentin 100 mg Capsule PO ×3 (08:39→21:13)
[2020-05-16] MEDS: baclofen 10 mg Tablet 20 MG PO ×4 (09:27→21:13)
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
[2020-05-16 14:15] LABS: Vancomycin Trough 19.3 ug/mL (10-15)
--- NOTE | 2020-05-16 16:29 | PC.NURSE ---
patient has been turned when requested throughout the shift. patient refused to be turned Q1h or Q2h but has turned when he was uncomfortable. patient did not eat much lunch or breakfast due to Just not being hungry call light within reach.
[2020-05-16] MEDS: ondansetron 2 mg/ML SDV 2 mL 4 MG IVP (21:17)
[2020-05-17] VITALS (36 sets, daily range): BP systolic 82–175; BP diastolic 44–92; PULSE 58–87; RESP 10–22; TEMP 36.6–38.1; O2SAT 91–100
[2020-05-17] MEDS: vancomycin 1,000 MG in sodium chloride 0.9% 250 ML 250 MG IV ×2 (00:30→15:04)
[2020-05-17] MEDS: acetaminophen 325 mg Tablet 650 MG PO ×2 (00:30→06:40)
--- NOTE | 2020-05-17 02:53 | PC.NURSE ---
ASSUMING CARE Patient resting in bed watching tv. Patient on heated high flow at 35% and oxygen at 99%. Patient alert and oriented and has no complaints of pain at this time but is requesting to be repositioned. Heel protectors placed on patient due to redness on heels.
--- NOTE | 2020-05-17 02:58 | PC.NURSE ---
HHFNC-NC Patient transitioned from HHFNC at 35% to nasal cannula. Patients oxygen saturations have been upper 90s since unless oxygen falls off patients face, then he decreases to mid 90s.
[2020-05-17 04:50] LABS: Basophils % 0.5 %; Eosinophils # 0.1 10^3/uL (0.0-0.8); Eosinophils % 0.9 %; Hematocrit 23.1 % (42.0-52.0); Hemoglobin 7.9 g/dL (11.7-16.6); Lymphocytes # 0.4 10^3/uL (0.8-4.8); Lymphocytes % 7.4 %; Mean Corpuscular HGB Conc 34.2 g/dL (30.0-36.0); Mean Corpuscular Hemoglobin 26.5 pg (28.0-34.0); Mean Corpuscular Volume 77.5 fL (80-94); Mean Platelet Volume 8.9 fL (7.4-10.4); Monocytes # 0.6 10^3/uL (0.2-0.9); Monocytes % 10.8 %; Neutrophils # 4.49 10^3/uL (1.8-7.7); Neutrophils % 79.2 %; Nucleated Red Blood Cells % 0 %; Platelet Count 297 10^3/cmm (130-400); Red Blood Count 2.98 10^6/uL (4.1-5.3); Red Cell Distribution Width 15.7 % (12.1-15.1); White Blood Count 5.7 10^3/uL (4.0-10.0)
[2020-05-17 05:15] LABS: INR 1.16 (0.8-1.2)
[2020-05-17 05:29] LABS: Alanine Aminotransferase 9 U/L (0-41); Albumin Level 2.4 g/dL (3.5-5.2); Alkaline Phosphatase 117 IU/L (40-130); Anion Gap 11.1 (5-19); Aspartate Amino Transferase 14 U/L (0-40); Blood Urea Nitrogen 6 mg/dL (8-23); C Reactive Protein 183.6 mg/L (0.0-4.9); Calcium 8.1 mg/dL (8.5-10.5); Carbon Dioxide 27 mmol/L (22-29); Chloride 88 mmol/L (98-107); Creatinine Clr Calc Pharmacy 150.8207; Globulin 3.3 g/dL (1.3-4.6); Glucose 136 mg/dL (65-115); Magnesium 1.6 mg/dL (1.7-2.3); Osmolality Calculated 256 mOsm/kg (285-295); Potassium 3.1 mmol/L (3.5-5.1); Sodium 123 mmol/L (136-145); Total Bilirubin 0.4 mg/dL (0.15-1.2); Total Protein 5.7 g/dL (6.6-8.7)
[2020-05-17 05:34] LABS: NT Pro B Type Natriuretic Pept 8550 pg/mL (0-125); Procalcitonin 0.85 ng/mL (0-0.5)
[2020-05-17] MEDS: aztreonam 1,000 MG in sodium chloride 0.9% (plus) 50 ML 100 MG IV ×2 (05:42→16:36)
[2020-05-17 05:45] LABS: Creatine Phosphokinase 28 U/L (39-308)
--- NOTE | 2020-05-17 06:20 | PC.NURSE ---
SHIFT SUMMARY Patient has been on 6L nasal cannula this shift. Patient has had minor complaints of pain. Highest temperature at 100.9. Tylenol and morphine given twice. 1150 mL urine output this shift. 2 dressings on right anterior foot and right heel changed and new optifoams placed. Suprapubic catheter cleaned and new drain sponges placed. Patient stated that he has had a good night and has been laughing and joking with the nurse.
[2020-05-17] MEDS: morphine 4 mg/mL SDV 1 mL 1 MG IVP ×3 (06:40→21:09)
--- NOTE | 2020-05-17 07:00 | XR_ITS ---
WS: [id number] Exam: XR chest 1V portable [id number] Date/Time of Exam: 05/17/2020 7:00 AM Reason For Exam: sob Comparison 05/16/2020. Bilateral pulmonary infiltrates are unchanged. The lungs are hyperinflated. No pneumothorax. No pleur al effusion. Cardiomediastinal structures are unremarkable for technique. Monitoring leads superimpos e the chest. XR/XR chest 1V portable [id number] IMPRESSION: 1. Bilateral pulmonary infiltrates showing no significant change.
--- NOTE | 2020-05-17 07:17 | P.PN_ITS ---
Subjective Subjective: Interval history: spiking temps. k and na are low. pt dtates he feels fine. denies complaints Medications: Reviewed: Yes Medication Review Details: Current Medications Acetaminophen (Acetaminophen 325 Mg Tablet) 650 mg PO Q6H PRN PRN Reason: FEVER >100.4 Last Admin: 05/17/20 06:40 Dose: 650 mg Documented by: Albuterol/Ipratropium (Ipratropium-Albuterol 4 Gm Mdi) 1 puff INHALATION QID.RESPIRATORY [facility] Last Admin: 05/16/20 19:46 Dose: 1 puff Documented by: Baclofen (Baclofen 10 Mg Tablet) 20 mg PO QID [facility] Last Admin: 05/16/20 21:13 Dose: 20 mg Documented by: Carbamazepine (Carbamazepine 200 Mg Tablet) 200 mg PO BID [facility] Last Admin: 05/16/20 17:13 Dose: 200 mg Documented by: Dextrose (Dextrose 50% Syringe 50 Ml) 25 ml IVP ONCE PRN; Protocol PRN Reason: hypoglycemia protocol Dextrose (Dextrose 50% Syringe 50 Ml) 50 ml IVP PRN PRN; Protocol PRN Reason: hypoglycemia protocol Diphenhydramine HCl (Diphenhydramine 50 Mg Capsule) 50 mg PO BEDTIME PRN PRN Reason: SLEEP Last Admin: 05/16/20 01:45 Dose: 50 mg Documented by: Escitalopram Oxalate (Escitalopram 10 Mg Tablet) 10 mg PO DAILY [facility] Last Admin: 05/16/20 08:38 Dose: 10 mg Documented by: Gabapentin (Gabapentin 100 Mg Capsule) 100 mg PO TID [facility] Last Admin: 05/16/20 21:13 Dose: 100 mg Documented by: Glucagon (Glucagon 1 Mg/Ml Inj 1 Ml) 1 mg IM ONCE PRN; Protocol PRN Reason: Adult Acute Hypoglycemia Prot. Guaifenesin (Guaifenesin 600 Mg Tablet) 600 mg PO BID [facility] Last Admin: 05/16/20 17:13 Dose: 600 mg Documented by: Imipenem/Cilastatin Sodium 500 (mg/ Sodium Chloride) 100 mls @ 200 mls/hr IV Q6H [facility]; Protocol Last Infusion: 05/17/20 05:42 Dose: Infused Documented by: Dextrose (D5w) 500 mls @ 100 mls/hr IV ONCE PRN; Protocol PRN Reason: Adult Acute Hypoglycemia Prot Aztreonam 1,000 mg/ Sodium (Chloride) 50 mls @ 100 mls/hr IV Q12H [facility]; Protocol Last Infusion: 05/17/20 06:12 Dose: Infused Documented by: Vancomycin HCl 1,000 mg/ (Sodium Chloride) 250 mls @ 250 mls/hr IV Q12H [facility] Last Infusion: 05/17/20 01:30 Dose: Infused Documented by: Magnesium Sulfate 1 gm/ Sodium (Chloride) 52 mls @ 104 mls/hr IV ONCE ONE Stop: 05/17/20 07:59 Sodium Chloride (Sodium Chloride 0.9%) 1,000 mls @ 100 mls/hr IV .Q10H [facility] Ibuprofen (Ibuprofen 200 Mg Tablet) 400 mg PO BEDTIME PRN PRN Reason: SLEEP Last Admin: 05/13/20 23:06 Dose: 400 mg Documented by: Morphine Sulfate (Morphine 4 Mg/Ml Sdv 1 Ml) 1 mg IVP Q4H PRN PRN Reason: SEVERE PAIN Last Admin: 05/17/20 06:40 Dose: 1 mg Documented by: Ondansetron HCl (Ondansetron 2 Mg/Ml Sdv 2 Ml) 4 mg IVP Q4H PRN PRN Reason: NAUSEA AND VOMITING Last Admin: 05/16/20 21:17 Dose: 4 mg Documented by: Pantoprazole Sodium (Pantoprazole Dr 40 Mg Tablet) 40 mg PO DAILY [facility] Last Admin: 05/16/20 08:38 Dose: 40 mg Documented by: Potassium Chloride (Potassium Chloride Er 20 Meq Tablet) 40 meq PO Q4H.RESPIRATORY [facility] Stop: 05/17/20 08:01 Tizanidine HCl (Tizanidine 4 Mg Tablet) 2 mg PO TID [facility] Last Admin: 05/16/20 21:13 Dose: 2 mg Documented by: Vitals/I&O/Wt Last Vital Signs Temp 100.5 F H 05/17/20 05:49 Pulse 86 05/17/20 06:00 Resp 14 05/17/20 06:40 BP 174/91 05/17/20 05:00 Pulse Ox 97 05/17/20 06:40 05/16/20 05/17/20 05/17/20 22:59 06:59 14:59 Intake Total 1740 / 2477 640 / 3117 Output Total 1750 / 1750 400 / 2150 Balance - 240 / 967 Weight last 48 hrs Weight 63.276 kg Physical Exam Narrative: EXAM NARRATIVE: continues to spoke temps comfortable in bed, NARD- BP stable heent- nc/at, eomi, anicteric neck no jvp lung cta b/l heart-reg abd soft, nt, nd, +BS + suprapubic cath w/ sedimen in urine ext -no leg edema neuro- a,a, ox 2+, quadrapalegic Urinary Catheter Management^: Miranda: Cath Placed During This Visit: yes Urinary Catheter Date of Insertion: 05/12/20 Urinary Catheter Time of Insertion: 21:09 Suprapubic: Cath Placed During This Visit: yes Reason for Continuing Indwelling Catheter: Chronic Indwelling Urinary Catheter on Admission Urinary Catheter Date of Insertion: 05/12/20 Urinary Catheter Time of Insertion: 21:09 Data : 05/17/20 03:54 05/17/20 03:54 Micro: Microbiology 05/12/20 21:39 Blood Culture - Preliminary Blood Proteus mirabilis 05/15/20 10:48 Blood Culture - Preliminary Blood NEGATIVE TO DATE 05/15/20 10:48 Blood Culture - Preliminary Blood NEGATIVE TO DATE A&P Additional A&P Information 1. s/p cysto and rt ureteral stent placement -still w/ low grade temps ur cx -e.coli, and proteus blood cx achromobacter xylosoxidans and e faecalis - cont vanco and aztroneam -keep vanco trough under 19 -leukocytosis -sepsis secondary to obstructive pyelonephritis, Status post cystoscopy and right retrograde pyelogram, purulent material, right ureteral stent placement On broad-spectrum antibiotics vancomycin, aztreonam, primaxin - Dr. Saucedo appreciated- with persistent temps- consider more defenitive syrgery sooner 2. hyponatemia- likely prerenal. 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 high 2 x- 29 and 28- not adrenal insufficiency -ur electriolytes noted- cont ns ivf and monitor chemistries q 8 hrs -monitor chem7 q bid -cont salt tabs -pt drinks a lot of water- limit -psych meds can cause thirst and SIADH -low uric acid 3. give k-phos and magnesium 4. anemia- hgb 7.9 per medicine 7. met acidosis- improved- d/c na bicarb pills Attestations Medical Necessity Statement*: fevrs, pyelonephritis, hyponatremia, hypokalemia Time Spent in Patient Care: 16 - 35 minutes Coding Level of Care Code Acute Die Maintenance for C[facility]
--- NOTE | 2020-05-17 07:29 | PC.NURSE ---
PHYSICIAN NOTIFIED Dr. Stahl notified of imbalanced electrolytes and increased BP, no new orders at this time. Dr. Garcia called via telenephrology and put in orders for potassium, magnesium, NS at 100 mL/hour, vanc trough, and gave orders to call him with results to day shift nurse.
--- NOTE | 2020-05-17 08:08 | CT_ITS ---
WS: [id number] CTA OF THE CHEST WITH PULMONARY EMBOLISM PROTOCOL TECHNIQUE: High-resolution contrast enhanced CTA of the chest with coronal and sagittal reformatted i mages with pulmonary embolism protocol. MIP images are also reviewed. CLINICAL INFORMATION: shortness of breath COMPARISON: None. DLP: 653.[address] scans at [facility] use at least one of these dose optimization techniques: automat ed exposure control; mA and/or kV adjustment per patient size (includes targeted exams where dose is matched to clinical indication); or iterative reconstruction. FINDINGS: Proximal main pulmonary arteries are normal. Segmental and subsegmental pulmonary arteries are normal . No evidence of pulmonary embolus. No filling defects. Moderate to advanced chronic emphysematous changes. Small bilateral pleural effusions right greater t weathers left. Compressive atelectasis in the right greater than left lung base. Hazy groundglass infiltra arsen with interstitial thickening in the perihilar regions and right greater than left upper lobe. Rec ommend correlation for pneumonitis. Partially visualized right ureteral stent. Adrenal glands are normal. Partially visualized left adren al lesion measuring 2.[address]/CT angio chest PE protcl [id number] IMPRESSION: 1. No evidence of pulmonary embolus. 2. Small right greater than left pleural effusions with bibasilar atelectasis in the lung bases. 3. Hazy ground glass infiltrates with interstitial thickening involving the pe rihilar regions and right greater than left upper lobe. Recommend correlation f or Covid 19 pneumonitis. 4. Small pericardial effusion.
--- NOTE | 2020-05-17 08:08 | USCV_ITS ---
Timur Valdovinos Age: 60 Gender: M : 1960 Exam Date: 05/17/2020 09:01 Ordering Phys: Alexis Hyde MD Technologist: Rupali Rodríguez [place] [facility] [place]: [place] HISTORY: FEVER PROCEDURES: Venous duplex imaging was performed in bilateral lower extremities. The following venous structures were evaluated: common femoral vein, profunda vein, proximal portion of the greater saphenous vein, superficial femoral vein, and the popliteal vein. In addition, the posterior tibial veins were evaluated. In addition, the posterior tibial and peroneal trunk were evaluated. FINDINGS: No evidence of DVT seen in any vessel visualized at this time. CONCLUSIONS No evidence of right lower extremity DVT. No evidence of left lower extremity DVT. Viktor Chavez MD (Electronically Signed) Final Date: 17 May 2020 14:23 S
--- NOTE | 2020-05-17 08:11 | US_ITS ---
WS: [id number] ULTRASOUND RENAL TECHNIQUE: Ultrasound examination of both kidneys. CLINICAL INFORMATION: stent placement, recurrent fevrs COMPARISON: None. FINDINGS: Limited examination due to bowel gas. RIGHT: Right kidney hydronephrosis has essentially resolved compared to the prior studies. Bilateral renal c alculi. Echogenic lesion mid right kidney measuring 2.0 x 3.3 x 2.1 cm suspicious for angiomyolipoma. This has a solid appearance with vascularity. Recommend interval follow-up with CT or MRI. This was not definitely visualized on prior CT abdomen pelvis. Echogenicity: Normal. Cortical thickness: 1.0 cm; Normal. Hydronephrosis: None. Perinephric fluid: None. Right kidney measures: 9.7 cm x 5.0 cm x 3.8 cm. LEFT: Left kidney is normal in size and appearance. Echogenicity: Normal. Cortical thickness: 1.9 cm; Normal. Hydronephrosis: None. Perinephric fluid: None. Left kidney measures: 11.3 cm x 4.8 cm x 4.1 cm. Normal visualized aorta. Bladder not visualized. US/US renal BI* [id number] IMPRESSION:Limited examination due to bowel gas. 1. No hydronephrosis in either kidney.Right kidney hydronephrosis has essentia lly resolved compared to the prior CT. 2. Miranda catheter. 3. Echogenic solid lesion mid pole right kidney described above suspicious for angiomyolipoma. Recommend interval follow-up with CT or MRI after stent remova l for confirmation.
[2020-05-17] MEDS: potassium chloride ER 20 mEq Tablet 40 MEQ PO ×2 (08:35→13:33)
[2020-05-17] MEDS: sodium chloride 0.9% 1,000 ML 100 ML IV ×2 (08:36→21:03)
[2020-05-17] MEDS: baclofen 10 mg Tablet 20 MG PO ×4 (08:38→21:04)
[2020-05-17] MEDS: carBAMazepine 200 mg Tablet PO ×2 (08:38→17:21)
[2020-05-17] MEDS: escitalopram 10 mg Tablet PO (08:38)
[2020-05-17] MEDS: phosphorus 250 mg Tablet PO ×4 (08:39→21:04)
[2020-05-17] MEDS: gabapentin 100 mg Capsule PO ×3 (08:39→21:04)
[2020-05-17] MEDS: guaiFENesin 600 mg Tablet PO ×2 (08:39→17:21)
[2020-05-17] MEDS: pantoprazole DR 40 mg Tablet PO ×2 (08:39→17:21)
[2020-05-17] MEDS: tizanidine 4 mg Tablet 2 MG PO ×3 (08:39→21:08)
[2020-05-17] MEDS: iohexol 350 mg/mL 100 mL Btl IV (10:18)
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
--- NOTE | 2020-05-17 11:25 | P.PN_ITS ---
Subjective Subjective: Interval history: Urology follow-up: Doing well. He feels stronger with more energy. Still spiking low-grade temperatures. Good response to Tylenol. No chills. Catheter working well. Urine has cleared substantially. Reviewed with him the importance of sequencing treatment with antibiotics first until resolution of the action and follow-up with stone treatment. I also reviewed with him that I will be out of town until the today. At this point I do not think there is any other urologic intervention is required he is at risk of having upper urinary tract further infectious complications such as abscess but clinically that does not appear to be the case. Progression of infectious concerns would require repeat imaging and drainage if occured. I will plan on seeing him back the week of the further evaluation and probable scheduling ESWL versus endoscopy. Recommendations: 1. Maintain Vitals/I&O/Wt Last Vital Signs Temp 99.9 F H 05/17/20 07:00 Pulse 58 L 05/17/20 11:00 Resp 12 05/17/20 11:00 BP 96/56 05/17/20 11:00 Pulse Ox 96 05/17/20 11:00 05/16/20 05/17/20 05/17/20 22:59 06:59 14:59 Intake Total 1740 / 2477 640 / 3117 300 / 300 Output Total 1750 / 1750 400 / 2150 Balance -7 240 / 967 300 / 300 Weight last 48 hrs Weight 139 lb 8 oz Physical Exam Const: COMMON NORMALS: no acute distress and patient oriented x3 GENERAL APPEARANCE: frail appearing Resp: EFFORT & INSPECTION: No tachypneic and No respiratory distress GI: COMMON NORMALS: Soft to palpation and no masses PALPATION: Yes Soft to palpation : BLADDER/KIDNEY EXAM: Yes catheter in place Catheter type (Male): suprapubic Neuro: COMMON NORMALS: patient oriented x3 OTHER: Quadriplegia with severe contractions Psych: COMMON NORMALS: mental status grossly normal and cooperative THOUGHT CONTENT: Yes Normal thought content present Urinary Catheter Management^: Miranda: Cath Placed During This Visit: yes Urinary Catheter Date of Insertion: 05/12/20 Urinary Catheter Time of Insertion: 21:09 Suprapubic: Cath Placed During This Visit: yes Reason for Continuing Indwelling Catheter: Chronic Indwelling Urinary Catheter on Admission Urinary Catheter Date of Insertion: 05/12/20 Urinary Catheter Time of Insertion: 21:09 Data : 05/17/20 03:54 05/17/20 03:54 Micro: Microbiology 05/12/20 21:39 Blood Culture - Preliminary Blood Proteus mirabilis 05/15/20 10:48 Blood Culture - Preliminary Blood NEGATIVE TO DATE 05/15/20 10:48 Blood Culture - Preliminary Blood NEGATIVE TO DATE A&P Assessment and plan (1) Pyonephrosis: Significant clinical improvement over the last 2 days. Normalization of white count. Continue IV antibiotics and discharged on oral antibiotics to continue through definitive treatment of the stones. He will need an extended course due to the foreign body aspect of this infection complicating the risks. Status: Acute (2) Acute pyelonephritis: Status: Acute (3) Right ureteral calculus: We will treat after infection has cleared. Status: Acute (4) Neurogenic bladder: Managed with chronic indwelling suprapubic tube. 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
[2020-05-17] MEDS: sucralfate 1 gm Tablet PO ×3 (12:35→21:04)
[2020-05-17 13:44] LABS: Blood Urea Nitrogen 6 mg/dL (8-23); Calcium 8.3 mg/dL (8.5-10.5); Carbon Dioxide 25 mmol/L (22-29); Chloride 87 mmol/L (98-107); Glomerular Filtration Rate 218.7 mL/min (90-130); Glucose 107 mg/dL (65-115); Osmolality Calculated 252 mOsm/kg (285-295); Sodium 122 mmol/L (136-145)
[2020-05-17 13:50] LABS: Vancomycin Trough 16.8 ug/mL (10-15)
[2020-05-17 13:53] LABS: Anion Gap 13.7 (5-19); Potassium 3.7 mmol/L (3.5-5.1)
[2020-05-17] MEDS: ondansetron 2 mg/ML SDV 2 mL 4 MG IVP (14:23)
[2020-05-17] MEDS: sodium chloride 3% 500 ML 50 ML IV (15:05)
[2020-05-17 20:52] LABS: Anion Gap 11.1 (5-19); Blood Urea Nitrogen 7 mg/dL (8-23); Calcium 7.6 mg/dL (8.5-10.5); Carbon Dioxide 25 mmol/L (22-29); Chloride 94 mmol/L (98-107); Glomerular Filtration Rate 218.7 mL/min (90-130); Glucose 189 mg/dL (65-115); Osmolality Calculated 265 mOsm/kg (285-295); Potassium 4.1 mmol/L (3.5-5.1); Sodium 126 mmol/L (136-145)
[2020-05-18] VITALS (44 sets, daily range): BP systolic 89–177; BP diastolic 47–110; PULSE 58–94; RESP 8–22; TEMP 36.8–37.1; O2SAT 89–100
[2020-05-18] MEDS: sodium chloride 0.9% 250 ML IV (01:26)
[2020-05-18] MEDS: vancomycin 1,000 MG in sodium chloride 0.9% 250 ML 250 MG IV (01:36)
[2020-05-18] MEDS: aztreonam 1,000 MG in sodium chloride 0.9% (plus) 50 ML 100 MG IV (03:38)
[2020-05-18 03:39] LABS: Basophils % 0.4 %; Eosinophils % 0.7 %; Hematocrit 26.4 % (42.0-52.0); Hemoglobin 8.6 g/dL (11.7-16.6); Lymphocytes # 0.4 10^3/uL (0.8-4.8); Lymphocytes % 7.7 %; Mean Corpuscular HGB Conc 32.6 g/dL (30.0-36.0); Mean Corpuscular Volume 82.8 fL (80-94); Mean Platelet Volume 9.5 fL (7.4-10.4); Monocytes # 0.5 10^3/uL (0.2-0.9); Monocytes % 9.3 %; Neutrophils # 4.41 10^3/uL (1.8-7.7); Neutrophils % 80.6 %; Nucleated Red Blood Cells % 0 %; Platelet Count 220 10^3/cmm (130-400); Red Blood Count 3.19 10^6/uL (4.1-5.3); Red Cell Distribution Width 16.1 % (12.1-15.1); White Blood Count 5.5 10^3/uL (4.0-10.0)
[2020-05-18 03:52] LABS: INR 1.17 (0.8-1.2)
[2020-05-18 04:12] LABS: Albumin Level 2.1 g/dL (3.5-5.2); Alkaline Phosphatase 104 IU/L (40-130); Blood Urea Nitrogen 7 mg/dL (8-23); C Reactive Protein 157.2 mg/L (0.0-4.9); Calcium 7.8 mg/dL (8.5-10.5); Carbon Dioxide 24 mmol/L (22-29); Chloride 92 mmol/L (98-107); Globulin 3.5 g/dL (1.3-4.6); Glomerular Filtration Rate 218.7 mL/min (90-130); Glucose 120 mg/dL (65-115); Magnesium 1.7 mg/dL (1.7-2.3); Osmolality Calculated 257 mOsm/kg (285-295); Phosphorus 2.7 mg/dL (2.5-4.5); Sodium 124 mmol/L (136-145); Total Bilirubin 0.6 mg/dL (0.15-1.2); Total Protein 5.6 g/dL (6.6-8.7)
[2020-05-18 04:16] LABS: NT Pro B Type Natriuretic Pept 6028 pg/mL (0-125); Procalcitonin 1.03 ng/mL (0-0.5)
[2020-05-18 04:18] LABS: Lactate (Lactic Acid level) 0.9 mmol/L (0.5-2.2)
[2020-05-18 04:22] LABS: ABG PCO2 39.9 mmHg (35-45); ABG PH Result 7.43 (7.35-7.45); Arterial Blood Gas Hematocrit 26.9 % (42-52); Base Excess ABG 2.2 mmol/L (-2.0-2.0); Blood Gas Allen Test Pos; Blood Gas Operator Identificat HARKR; Blood Gas Sample Site Radial, right; Blood Gas Sample Type Arterial; HCO3 ABG 26.6 mmol/L (22-26); Oxygen Device NC; PO2 ABG 55.9 mmHg (80.0-100.0)
[2020-05-18 04:28] LABS: Creatine Phosphokinase 21 U/L (39-308)
[2020-05-18 04:35] LABS: Alanine Aminotransferase 10 U/L (0-41); Anion Gap 12.4 (5-19); Aspartate Amino Transferase 19 U/L (0-40); Potassium 4.4 mmol/L (3.5-5.1)
[2020-05-18] MEDS: sucralfate 1 gm Tablet PO ×4 (08:13→20:43)
--- NOTE | 2020-05-18 09:06 | USCV_ITS ---
Timur Valdovinos Age: 60 Gender: M : 1960 Exam Date: 05/18/2020 09:27 Ordering Phys: Alexis Hyde MD Technologist: Dominga Salgado Exam Location: [facility] [place] Indication: CHF BP: 180 / 95 HR: 85 Rhythm: Sinus Technical Quality: Adequate MEASUREMENTS (Male / Female) Normal Values 2D ECHO LV Diastolic Diameter PLAX 4.4 cm 4.2 - 5.9 / 3.9 - 5.3 cm LV Systolic Diameter PLAX 3.2 cm LV Chamber Size 2.6 cm IVS Diastolic Thickness 1.2 cm 0.6 - 1.0 / 0.6 - 0.9 cm IVS Systolic Thickness 1.3 cm LVPW Diastolic Thickness 1.8 cm 0.6 - 1.0 / 0.6 - 0.9 cm LVPW Systolic Thickness 2.2 cm RV Chamber Size 1.9 cm LVOT Diameter 2.0 cm LV Ejection Fraction 2D Teich 51.5 % LV Ejection Fraction MOD 2C 24.4 % LV Ejection Fraction 2C AL 22.9 % LA Diameter 3.7 cm LA Width 2.3 cm LA Height 4.2 cm RA Width 2.9 cm RA Height 3.4 cm Aorta at Sinotubular Diameter 2.5 cm M-MODE LV Diastolic Diameter MM 5.3 cm 4.2 - 5.9 / 3.9 - 5.3 cm LV Systolic Diameter MM 3.9 cm LV Ejection Fraction MM Teich 49.7 % IVS Diastolic Thickness MM 0.8 cm 0.6 - 1.0 / 0.6 - 0.9 cm IVS Systolic Thickness MM 0.9 cm LVPW Diastolic Thickness MM 0.9 cm 0.6 - 1.0 / 0.6 - 0.9 cm LVPW Systolic Thickness MM 1.1 cm Aortic Annulus Diameter 3.2 cm LA Ao Ratio MM 1.3 MV E Point Septal Separation 1.1 cm DOPPLER AV Peak Velocity 173.0 cm/s LVOT Peak Velocity 137.0 cm/s AV Area Cont Eq vti 2.6 cm squared AV Area Cont Eq pk 2.6 cm squared MV Area PHT 6.5 cm squared Mitral E to A Ratio 1.2 MV E' Velocity 63.5 cm/s Mitral E to MV E' Ratio 11.2 Mitral E to LV E' Lateral Ratio 11.6 Mitral E to LV E' Septal Ratio 11.0 TR Peak Velocity 348.9 cm/s TR Peak Gradient 48.7 mmHg TR Mean Velocity 229.6 cm/s TR Mean Gradient 24.3 mmHg TR Velocity Time Integral 101.4 cm TV Peak E Velocity 64.0 cm/s Right Atrial Pressure 3.0 mmHg Pulmonary Artery Systolic Pressu 51.7 mmHg PV Peak Velocity 74.0 cm/s RV Acceleration Time 0.1 s RV Ejection Time 0.3 s RV AcT/ET 0.4 FINDINGS Left Ventricle Normal left ventricular size. LV systolic function is mildly reduced with EF of 45 to 50%. Mild hypokinesis of anteroseptal, inferoseptal and anterior wall is noted.. Diastolic function is normal. Right Ventricle The right ventricle is normal in size and function. Right Atrium The right atrium is normal in size. Left Atrium The left atrium is normal in size. Mitral Valve Structurally normal mitral valve without significant stenosis or prolapse. There is mild mitral regurgitation. Aortic Valve Structurally normal aortic valve without significant sclerosis or stenosis. There is mild aortic regurgitation. Tricuspid Valve Structurally normal tricuspid valve without significant stenosis. There is mild tricuspid regurgitation. RVSP is 50 to 55 mmHg. This is consistent with moderate pulmonary hypertension. Pulmonic Valve Structurally normal pulmonic valve without significant stenosis. There is no pulmonic regurgitation. Pericardium Normal pericardium without effusion. Aorta Normal ascending aorta dimension. CONCLUSIONS LV systolic function is borderline reduced with EF of 45 to 50%. Diastolic function is normal. There is mild mitral regurgitation. There is mild aortic regurgitation. Mild tricuspid regurgitation is noted. Moderate pulmonary hypertension is present. No comparison studies are available. Haseeb Kapadia MD (Electronically Signed) Final Date: 18 May 2020 16:36 S
[2020-05-18] MEDS: ondansetron 2 mg/ML SDV 2 mL 4 MG IVP (09:17)
[2020-05-18] MEDS: guaiFENesin 600 mg Tablet PO ×2 (09:18→17:37)
[2020-05-18] MEDS: tizanidine 4 mg Tablet 2 MG PO ×3 (09:18→20:44)
[2020-05-18] MEDS: phosphorus 250 mg Tablet PO ×4 (09:18→20:44)
[2020-05-18] MEDS: escitalopram 10 mg Tablet PO (09:18)
[2020-05-18] MEDS: pantoprazole DR 40 mg Tablet PO ×2 (09:18→17:38)
[2020-05-18] MEDS: amlodipine 10 mg Tablet PO (09:19)
[2020-05-18] MEDS: carBAMazepine 200 mg Tablet PO ×2 (09:19→17:51)
[2020-05-18] MEDS: gabapentin 100 mg Capsule PO ×3 (09:19→20:43)
[2020-05-18] MEDS: spironolactone 25 mg Tablet 12.5 MG PO (09:20)
[2020-05-18] MEDS: baclofen 10 mg Tablet 20 MG PO ×4 (09:20→20:43)
--- NOTE | 2020-05-18 10:30 | PC.NURSE ---
Nephrology holds IVF.
--- NOTE | 2020-05-18 11:46 | PM.PN ---
Subjective Subjective: Interval history: No new issues today. He actually feels quite well. He denies abdominal pain, denies fevers and chills. Denies extremity edema, shortness of breath or other high-volume associated symptoms. Vitals/I&O/Wt Last Vital Signs Temp 99.0 F 05/17/20 17:27 Pulse 85 05/18/20 11:00 Resp 16 05/18/20 11:00 BP 160/88 05/18/20 11:00 Pulse Ox 92 05/18/20 11:00 05/17/20 05/18/20 05/18/20 22:59 06:59 14:59 Intake Total 2843.333 / 3643.333 750 / 4393.333 710.833 / 710.833 Output Total 1200 / 1200 800 / 800 Balance 1643.333 / 2443.333 750 / 3193.333 -89.167 / -89.167 Weight last 48 hrs Weight 63.276 kg Physical Exam Narrative: EXAM NARRATIVE: Constitutional: Awake, conversant, jovial HEENT: Wet mucosa, no jvp, non icteric Lungs: Bilaterally clear without discernible wheeze or rales in all lung zones CVS: S1 S2, no murmurs Abdo: Soft, BS ok Ext 4: Minimal edema, peripheral perfusion with no cyanosis Neurological: Grossly non-focal Urinary Catheter Management^: Miranda: Cath Placed During This Visit: yes Urinary Catheter Date of Insertion: 05/12/20 Urinary Catheter Time of Insertion: 21:09 Suprapubic: Cath Placed During This Visit: yes Reason for Continuing Indwelling Catheter: Acute Urinary Retention or Obstruction Urinary Catheter Date of Insertion: 05/12/20 Urinary Catheter Time of Insertion: 21:09 Data : 05/18/20 03:05 05/18/20 03:05 Micro: Microbiology 05/17/20 11:30 Blood Culture - Preliminary Blood NEGATIVE TO DATE 05/17/20 11:30 Blood Culture - Preliminary Blood NEGATIVE TO DATE 05/17/20 12:35 Urine Culture - Preliminary Urine Suprapubic Bacterial Antigens - Final 05/12/20 21:39 Blood Culture - Preliminary Blood Proteus mirabilis A&P Additional A&P Information 1. Euvolemic Hyponatremia - low urine Sp Gr and dilute chemistry more consistent with high water, low solute picture - Some evidence of mild hypervolemia; will DC salt tabs and ivf - defer diuretics for now - am labs - sodium in mid 120 range can be associated with falling and dysequilibrium ie it is quite safe as he not mobile - fluid restrict to < 1.5L - oral intake of protein is encouraged 2. Pyelonephritis - s/p ureteric stent exchange - on combo Abx 3. 

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
[2020-05-18 14:58] LABS: Quest SARS-CoV-2 RNA DETECTED (NOT DETECTED)
[2020-05-18] MEDS: cefepime 1,000 MG in sodium chloride 0.9% (plus) 50 ML 100 MG IV (16:33)
[2020-05-18] MEDS: remdesivir 200 MG in sodium chloride 0.9% (100 ml) 100 ML 100 MG IV (17:37)
[2020-05-18] MEDS: dexamethasone 4 mg/mL INJ 6 MG IVP (17:38)
[2020-05-18] MEDS: morphine 4 mg/mL SDV 1 mL 1 MG IVP (20:41)
[2020-05-18] MEDS: diphenhydrAMINE 50 mg Capsule PO (20:43)
--- NOTE | 2020-05-18 21:56 | PC.NURSE ---
Received report from off going nurse. Pt's plan of care reviewed. Pt resting in bed watching tv. Respirations are even and unlabored. No s/sx of distress noted. Pt c/o pain in his bilateral lower legs. Pt rates pain 6/7 out of 10. Pt has prn pain medication for pain management. Pt denies any other pains or concerns at this time. Bed in lowest and locked position, call light within reach, x's 3 rails up. Bed alarm on. Will continue to monitor pt.
[2020-05-19] VITALS (46 sets, daily range): BP systolic 103–158; BP diastolic 54–83; PULSE 56–82; RESP 4–25; TEMP 36.4–36.6; O2SAT 92–100
[2020-05-19] MEDS: cefepime 1,000 MG in sodium chloride 0.9% (plus) 50 ML 100 MG IV ×2 (03:29→16:05)
[2020-05-19 03:34] LABS: Hematocrit 24.7 % (42.0-52.0); Hemoglobin 8.5 g/dL (11.7-16.6); Lymphocytes # 0.4 10^3/uL (0.8-4.8); Lymphocytes % 16.9 %; Mean Corpuscular HGB Conc 34.4 g/dL (30.0-36.0); Mean Corpuscular Hemoglobin 26.8 pg (28.0-34.0); Mean Corpuscular Volume 77.9 fL (80-94); Mean Platelet Volume 9.5 fL (7.4-10.4); Monocytes # 0.3 10^3/uL (0.2-0.9); Monocytes % 11.9 %; Neutrophils # 1.61 10^3/uL (1.8-7.7); Neutrophils % 68.2 %; Nucleated Red Blood Cells % 0 %; Platelet Count 273 10^3/cmm (130-400); Red Blood Count 3.17 10^6/uL (4.1-5.3); Red Cell Distribution Width 15.9 % (12.1-15.1); White Blood Count 2.4 10^3/uL (4.0-10.0)
[2020-05-19 04:16] LABS: INR 1.18 (0.8-1.2)
[2020-05-19 04:27] LABS: Lactate (Lactic Acid level) 0.8 mmol/L (0.5-2.2)
[2020-05-19 04:37] LABS: Alanine Aminotransferase 8 U/L (0-41); Albumin Level 2.2 g/dL (3.5-5.2); Alkaline Phosphatase 101 IU/L (40-130); Anion Gap 10.5 (5-19); Aspartate Amino Transferase 12 U/L (0-40); Blood Urea Nitrogen 7 mg/dL (8-23); C Reactive Protein 131.3 mg/L (0.0-4.9); Calcium 8.2 mg/dL (8.5-10.5); Carbon Dioxide 30 mmol/L (22-29); Chloride 88 mmol/L (98-107); Globulin 3.2 g/dL (1.3-4.6); Glomerular Filtration Rate 218.7 mL/min (90-130); Glucose 132 mg/dL (65-115); Magnesium 1.7 mg/dL (1.7-2.3); Osmolality Calculated 260 mOsm/kg (285-295); Phosphorus 3.4 mg/dL (2.5-4.5); Potassium 3.5 mmol/L (3.5-5.1); Sodium 125 mmol/L (136-145); Total Bilirubin 0.2 mg/dL (0.15-1.2); Total Protein 5.4 g/dL (6.6-8.7)
[2020-05-19] MEDS: morphine 4 mg/mL SDV 1 mL 1 MG IVP (04:45)
[2020-05-19 04:51] LABS: NT Pro B Type Natriuretic Pept 9295 pg/mL (0-125); Procalcitonin 0.67 ng/mL (0-0.5)
--- NOTE | 2020-05-19 07:00 | XRR_ITS ---
PROCEDURE INFORMATION: Exam: XR Chest, 1 View Exam date and time: 05/19/2020 5:58 AM Age: 60 years old Clinical indication: Shortness of breath; Patient HX: SOB. Covid + TECHNIQUE: Imaging protocol: XR of the chest Views: 1 view. COMPARISON: CR XR chest 1V portable [id number] 05/17/2020 8:08 AM FINDINGS: Lungs: Extensive bilateral interstitial pulmonary infiltrates are present especially in the upper lobes. These infiltrates have worsened when compared to the previous study from 05/17/2020. Pleural space: Unremarkable. No pleural effusion. No pneumothorax. Heart/Mediastinum: Unremarkable. No cardiomegaly. Bones/joints: Unremarkable. XR/XR chest 1V portable [id number] IMPRESSION: Diffuse bilateral interstitial pulmonary infiltrates especially in the upper lobes which have become more prominent than previous study.
[2020-05-19] MEDS: guaiFENesin 600 mg Tablet PO ×2 (08:31→17:49)
[2020-05-19] MEDS: potassium chloride ER 20 mEq Tablet 40 MEQ PO (08:31)
[2020-05-19] MEDS: aspirin 81 mg EC Tablet PO (08:31)
[2020-05-19] MEDS: pyridoxine 50 mg Tablet 100 MG PO (08:32)
[2020-05-19] MEDS: ascorbic acid 500 mg Tablet PO (08:32)
[2020-05-19] MEDS: FUROsemide 10 mg/mL SDV 4mL 40 MG IVP (08:32)
[2020-05-19] MEDS: amlodipine 10 mg Tablet PO (08:32)
[2020-05-19] MEDS: pantoprazole DR 40 mg Tablet PO ×2 (08:32→17:49)
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
--- NOTE | 2020-05-19 11:50 | P.PN_ITS ---
Subjective Subjective: Interval history: Transferred to Covid unit noted. He actually feels quite well, denying fever, chills, cough, sputum production. No more pain in his right lower back. Eating and drinking normally. Medications: Reviewed: Yes Medication Review Details: Current Medications Acetaminophen (Acetaminophen 325 Mg Tablet) 650 mg PO Q6H PRN PRN Reason: FEVER >100.4 Last Admin: 05/17/20 06:40 Dose: 650 mg Documented by: Albuterol/Ipratropium (Ipratropium-Albuterol 4 Gm Mdi) 1 puff INHALATION QID.RESPIRATORY [facility] Last Admin: 05/16/20 19:46 Dose: 1 puff Documented by: Baclofen (Baclofen 10 Mg Tablet) 20 mg PO QID [facility] Last Admin: 05/16/20 21:13 Dose: 20 mg Documented by: Carbamazepine (Carbamazepine 200 Mg Tablet) 200 mg PO BID [facility] Last Admin: 05/16/20 17:13 Dose: 200 mg Documented by: Dextrose (Dextrose 50% Syringe 50 Ml) 25 ml IVP ONCE PRN; Protocol PRN Reason: hypoglycemia protocol Dextrose (Dextrose 50% Syringe 50 Ml) 50 ml IVP PRN PRN; Protocol PRN Reason: hypoglycemia protocol Diphenhydramine HCl (Diphenhydramine 50 Mg Capsule) 50 mg PO BEDTIME PRN PRN Reason: SLEEP Last Admin: 05/16/20 01:45 Dose: 50 mg Documented by: Escitalopram Oxalate (Escitalopram 10 Mg Tablet) 10 mg PO DAILY [facility] Last Admin: 05/16/20 08:38 Dose: 10 mg Documented by: Gabapentin (Gabapentin 100 Mg Capsule) 100 mg PO TID [facility] Last Admin: 05/16/20 21:13 Dose: 100 mg Documented by: Glucagon (Glucagon 1 Mg/Ml Inj 1 Ml) 1 mg IM ONCE PRN; Protocol PRN Reason: Adult Acute Hypoglycemia Prot. Guaifenesin (Guaifenesin 600 Mg Tablet) 600 mg PO BID [facility] Last Admin: 05/16/20 17:13 Dose: 600 mg Documented by: Imipenem/Cilastatin Sodium 500 (mg/ Sodium Chloride) 100 mls @ 200 mls/hr IV Q6H [facility]; Protocol Last Infusion: 05/17/20 05:42 Dose: Infused Documented by: Dextrose (D5w) 500 mls @ 100 mls/hr IV ONCE PRN; Protocol PRN Reason: Adult Acute Hypoglycemia Prot Aztreonam 1,000 mg/ Sodium (Chloride) 50 mls @ 100 mls/hr IV Q12H [facility]; Protocol Last Infusion: 05/17/20 06:12 Dose: Infused Documented by: Vancomycin HCl 1,000 mg/ (Sodium Chloride) 250 mls @ 250 mls/hr IV Q12H [facility] Last Infusion: 05/17/20 01:30 Dose: Infused Documented by: Magnesium Sulfate 1 gm/ Sodium (Chloride) 52 mls @ 104 mls/hr IV ONCE ONE Stop: 05/17/20 07:59 Sodium Chloride (Sodium Chloride 0.9%) 1,000 mls @ 100 mls/hr IV .Q10H [facility] Ibuprofen (Ibuprofen 200 Mg Tablet) 400 mg PO BEDTIME PRN PRN Reason: SLEEP Last Admin: 05/13/20 23:06 Dose: 400 mg Documented by: Morphine Sulfate (Morphine 4 Mg/Ml Sdv 1 Ml) 1 mg IVP Q4H PRN PRN Reason: SEVERE PAIN Last Admin: 05/17/20 06:40 Dose: 1 mg Documented by: Ondansetron HCl (Ondansetron 2 Mg/Ml Sdv 2 Ml) 4 mg IVP Q4H PRN PRN Reason: NAUSEA AND VOMITING Last Admin: 05/16/20 21:17 Dose: 4 mg Documented by: Pantoprazole Sodium (Pantoprazole Dr 40 Mg Tablet) 40 mg PO DAILY [facility] Last Admin: 05/16/20 08:38 Dose: 40 mg Documented by: Potassium Chloride (Potassium Chloride Er 20 Meq Tablet) 40 meq PO Q4H.RESPIRATORY [facility] Stop: 05/17/20 08:01 Tizanidine HCl (Tizanidine 4 Mg Tablet) 2 mg PO TID [facility] Last Admin: 05/16/20 21:13 Dose: 2 mg Documented by: Vitals/I&O/Wt Last Vital Signs Temp 97.9 F 05/19/20 07:00 Pulse 67 05/19/20 11:36 Resp 16 05/19/20 11:36 BP 158/80 05/19/20 08:00 Pulse Ox 97 05/19/20 11:36 05/18/20 05/19/20 05/19/20 22:59 06:59 14:59 Intake Total 830 / 1660.833 300 / 1960.833 Output Total 575 / 2225 3300 / 3300 Balance 255 / -564.167 300 / -264.167 -3300 / -3300 Physical Exam Narrative: EXAM NARRATIVE: Constitutional: Awake, conversant, jovial HEENT: Wet mucosa, no jvp, non icteric Lungs: Bilaterally clear without discernible wheeze or rales in all lung zones CVS: S1 S2, no murmurs Abdo: Soft, BS ok Ext 4: Minimal edema, peripheral perfusion with no cyanosis Neurological: Grossly non-focal Urinary Catheter Management^: Miranda: Cath Placed During This Visit: yes Urinary Catheter Date of Insertion: 05/12/20 Urinary Catheter Time of Insertion: 21:09 Suprapubic: Cath Placed During This Visit: yes Reason for Continuing Indwelling Catheter: Chronic Indwelling Urinary Catheter on Admission Urinary Catheter Date of Insertion: 05/12/20 Urinary Catheter Time of Insertion: 21:09 Data : 05/19/20 03:00 05/19/20 03:00 Micro: Microbiology 05/18/20 08:16 Gram Stain - Final Sputum - Expectorated Sputum Sputum Culture - Preliminary 05/12/20 21:39 Blood Culture - Final Blood Proteus mirabilis 05/17/20 12:35 Urine Culture - Final Urine Suprapubic Bacterial Antigens - Final 05/13/20 12:15 Blood Culture - Final Blood NO GROWTH AFTER 5 DAYS 05/17/20 11:30 Blood Culture - Preliminary Blood NEGATIVE TO DATE 05/17/20 11:30 Blood Culture - Preliminary Blood NEGATIVE TO DATE A&P Additional A&P Information 1. Euvolemic Hyponatremia - low urine Sp Gr and dilute chemistry more consistent with high water, low solute picture - Some evidence of mild hypervolemia; will DC salt tabs and ivf - lasix given today - am labs - sodium in mid 120 range can be associated with falling and dysequilibrium ie it is quite safe as he not mobile - fluid restrict to < 1.5L - oral intake of protein is encouraged 2. Pyelonephritis - s/p ureteric stent exchange - on combo Abx 3. Hemodynamics - Bp coming down; DC ivf and salt tabs - meds titrated 4. Covid pneumonitis Thank you for consultation, it is a pleasure to follow these cases with you Exam and interview performed with aid of bedside RN using telemedicine Time spent 20 min inc > 50% of time in face to face counseling Abhinav Rodriguez MD [facility] Renal [facility], [place] [phone] Attestations Medical Necessity Statement*: eval for hyponatremia Coding Level of Care Code Acute Development Mechanic for [facility]
[2020-05-19] MEDS: folic acid 1 mg Tablet PO (11:57)
[2020-05-19] MEDS: cyanocobalamin 1,000 mcg Tablet 1000 MCG PO (11:57)
[2020-05-19] MEDS: thiamine 100 mg Tablet PO (11:57)
[2020-05-19] MEDS: sucralfate 1 gm Tablet PO ×2 (11:59→21:26)
[2020-05-19] MEDS: gabapentin 100 mg Capsule PO ×3 (11:59→21:25)
[2020-05-19] MEDS: spironolactone 25 mg Tablet 12.5 MG PO (11:59)
[2020-05-19] MEDS: tizanidine 4 mg Tablet 2 MG PO ×3 (12:00→21:26)
[2020-05-19] MEDS: carBAMazepine 200 mg Tablet PO ×2 (12:01→17:50)
[2020-05-19] MEDS: escitalopram 10 mg Tablet PO (12:01)
[2020-05-19] MEDS: baclofen 10 mg Tablet 20 MG PO ×3 (12:01→21:26)
[2020-05-19] MEDS: phosphorus 250 mg Tablet PO ×3 (12:01→21:26)
[2020-05-19] MEDS: HYDROcodone-acetaminophen 5-325 mg Tablet 1 TAB PO (16:06)
[2020-05-19] MEDS: dexamethasone 4 mg/mL INJ 6 MG IVP (17:49)
[2020-05-19] MEDS: remdesivir 100 MG in sodium chloride 0.9% (100 ml) 100 ML IV (17:57)
[2020-05-20] VITALS (15 sets, daily range): BP systolic 122–159; BP diastolic 65–90; PULSE 51–78; RESP 16–20; TEMP 36.4–37; O2SAT 93–100
[2020-05-20] MEDS: cefepime 1,000 MG in sodium chloride 0.9% (plus) 50 ML 100 MG IV ×2 (02:13→16:29)
[2020-05-20 02:54] LABS: Basophils % 0.4 %; Hematocrit 28.7 % (42.0-52.0); Hemoglobin 9.9 g/dL (11.7-16.6); Lymphocytes # 0.5 10^3/uL (0.8-4.8); Lymphocytes % 19.2 %; Mean Corpuscular HGB Conc 34.5 g/dL (30.0-36.0); Mean Corpuscular Hemoglobin 26.9 pg (28.0-34.0); Mean Platelet Volume 9.5 fL (7.4-10.4); Monocytes # 0.3 10^3/uL (0.2-0.9); Monocytes % 12.9 %; Neutrophils # 1.64 10^3/uL (1.8-7.7); Neutrophils % 64.4 %; Nucleated Red Blood Cells % 0 %; Platelet Count 304 10^3/cmm (130-400); Red Blood Count 3.68 10^6/uL (4.1-5.3); Red Cell Distribution Width 16.2 % (12.1-15.1); White Blood Count 2.6 10^3/uL (4.0-10.0)
[2020-05-20 03:01] LABS: INR 1.18 (0.8-1.2)
[2020-05-20 03:09] LABS: Lactate (Lactic Acid level) 0.8 mmol/L (0.5-2.2)
[2020-05-20 03:15] LABS: NT Pro B Type Natriuretic Pept 3746 pg/mL (0-125); Procalcitonin 0.45 ng/mL (0-0.5)
[2020-05-20 03:26] LABS: Alanine Aminotransferase 9 U/L (0-41); Albumin Level 2.6 g/dL (3.5-5.2); Alkaline Phosphatase 111 IU/L (40-130); Anion Gap 12.4 (5-19); Aspartate Amino Transferase 20 U/L (0-40); Blood Urea Nitrogen 11 mg/dL (8-23); C Reactive Protein 106.5 mg/L (0.0-4.9); Calcium 8.4 mg/dL (8.5-10.5); Carbon Dioxide 31 mmol/L (22-29); Chloride 87 mmol/L (98-107); Globulin 3.5 g/dL (1.3-4.6); Glomerular Filtration Rate 114.6 mL/min (90-130); Glucose 163 mg/dL (65-115); Magnesium 1.6 mg/dL (1.7-2.3); Osmolality Calculated 267 mOsm/kg (285-295); Phosphorus 3.3 mg/dL (2.5-4.5); Potassium 3.4 mmol/L (3.5-5.1); Sodium 127 mmol/L (136-145); Total Bilirubin 0.2 mg/dL (0.15-1.2); Total Protein 6.1 g/dL (6.6-8.7)
[2020-05-20] MEDS: sucralfate 1 gm Tablet PO ×4 (06:35→23:03)
--- NOTE | 2020-05-20 07:00 | XRR_ITS ---
PROCEDURE INFORMATION: Exam: XR Chest, 1 View Exam date and time: 05/19/2020 11:59 PM Age: 60 years old Clinical indication: Dyspnea; Additional info: SOB TECHNIQUE: Imaging protocol: XR of the chest Views: 1 view. COMPARISON: CR XR chest 1V portable [id number] 05/19/2020 5:41 AM FINDINGS: Lungs: There are diffuse bilateral interstitial pulmonary infiltrates most prominently in the upper lobes. These infiltrates have improved in decreased in prominence when compared to the previous chest x-ray from 05/19/2020. No new pulmonary consolidation is seen. Pleural space: Unremarkable. No pleural effusion. No pneumothorax. Heart/Mediastinum: Unremarkable. No cardiomegaly. Bones/joints: Unremarkable. XR/XR chest 1V portable [id number] IMPRESSION: Bilateral interstitial pulmonary infiltrates have improved.
--- NOTE | 2020-05-20 08:04 | PM.PN ---
Subjective Subjective: Interval history: feels better. no n/v/f/cp/el. dec sob. less o2 use Medications: Reviewed: Yes Medication Review Details: Current Medications Acetaminophen (Acetaminophen 325 Mg Tablet) 650 mg PO Q6H PRN PRN Reason: FEVER >100.4 Last Admin: 05/17/20 06:40 Dose: 650 mg Documented by: Hydrocodone Bitart/Acetaminophen (Hydrocodone-Acetaminophen 5-325 Mg Tablet) 1 tab PO Q8H PRN PRN Reason: pain Last Admin: 05/19/20 16:06 Dose: 1 tab Documented by: Albuterol/Ipratropium (Ipratropium-Albuterol 4 Gm Mdi) 1 puff INHALATION QID.RESPIRATORY [facility] Last Admin: 05/19/20 22:15 Dose: Not Given Documented by: Amlodipine Besylate (Amlodipine 10 Mg Tablet) 10 mg PO DAILY [facility] Last Admin: 05/19/20 08:32 Dose: 10 mg Documented by: Ascorbic Acid (Ascorbic Acid 500 Mg Tablet) 500 mg PO DAILY@09 [facility] Last Admin: 05/19/20 08:32 Dose: 500 mg Documented by: Aspirin (Aspirin 81 Mg Ec Tablet) 81 mg PO DAILY@09 [facility] Last Admin: 05/19/20 08:31 Dose: 81 mg Documented by: Baclofen (Baclofen 10 Mg Tablet) 20 mg PO QID [facility] Last Admin: 05/19/20 21:26 Dose: 20 mg Documented by: Carbamazepine (Carbamazepine 200 Mg Tablet) 200 mg PO BID [facility] Last Admin: 05/19/20 17:50 Dose: 200 mg Documented by: Cyanocobalamin (Cyanocobalamin 1,000 Mcg Tablet) 1,000 mcg PO DAILY [facility] Last Admin: 05/19/20 11:57 Dose: 1,000 mcg Documented by: Dexamethasone (Dexamethasone 4 Mg/Ml Inj) 6 mg IVP Q24H [facility] Last Admin: 05/19/20 17:49 Dose: 6 mg Documented by: Dextrose (Dextrose 50% Syringe 50 Ml) 25 ml IVP ONCE PRN; Protocol PRN Reason: hypoglycemia protocol Dextrose (Dextrose 50% Syringe 50 Ml) 50 ml IVP PRN PRN; Protocol PRN Reason: hypoglycemia protocol Diphenhydramine HCl (Diphenhydramine 50 Mg Capsule) 50 mg PO BEDTIME PRN PRN Reason: SLEEP Last Admin: 05/18/20 20:43 Dose: 50 mg Documented by: Escitalopram Oxalate (Escitalopram 10 Mg Tablet) 10 mg PO DAILY [facility] Last Admin: 05/19/20 12:01 Dose: 10 mg Documented by: Folic Acid (Folic Acid 1 Mg Tablet) 1 mg PO DAILY [facility] Last Admin: 05/19/20 11:57 Dose: 1 mg Documented by: Gabapentin (Gabapentin 100 Mg Capsule) 100 mg PO TID [facility] Last Admin: 05/19/20 21:25 Dose: 100 mg Documented by: Glucagon (Glucagon 1 Mg/Ml Inj 1 Ml) 1 mg IM ONCE PRN; Protocol PRN Reason: Adult Acute Hypoglycemia Prot. Guaifenesin (Guaifenesin 600 Mg Tablet) 600 mg PO BID [facility] Last Admin: 05/19/20 17:49 Dose: 600 mg Documented by: Dextrose (D5w) 500 mls @ 100 mls/hr IV ONCE PRN; Protocol PRN Reason: Adult Acute Hypoglycemia Prot Cefepime HCl 1,000 mg/ Sodium (Chloride) 50 mls @ 100 mls/hr IV Q12H [facility]; Protocol Last Admin: 05/20/20 02:13 Dose: 100 mls/hr Documented by: Remdesivir 100 mg/ Sodium (Chloride) 100 mls @ 100 mls/hr IV Q24H [facility] Stop: 05/22/20 18:59 Last Admin: 05/19/20 17:57 Dose: 100 mls/hr Documented by: Ibuprofen (Ibuprofen 200 Mg Tablet) 400 mg PO BEDTIME PRN PRN Reason: SLEEP Last Admin: 05/13/20 23:06 Dose: 400 mg Documented by: Labetalol HCl (Labetalol 5 Mg/Ml Sdv 20ml) 10 mg IVP Q4H PRN PRN Reason: FOR SBP>180 or DBP>100 hold if HR<60 Morphine Sulfate (Morphine 4 Mg/Ml Sdv 1 Ml) 1 mg IVP Q4H PRN PRN Reason: SEVERE PAIN Last Admin: 05/19/20 04:45 Dose: 1 mg Documented by: Non-Formulary Medication (Melatonin) 15 mg PO BEDTIME@22 [facility] Last Admin: 05/19/20 21:22 Dose: Not Given Documented by: Ondansetron HCl (Ondansetron 2 Mg/Ml Sdv 2 Ml) 4 mg IVP Q4H PRN PRN Reason: NAUSEA AND VOMITING Last Admin: 05/18/20 09:17 Dose: 4 mg Documented by: Pantoprazole Sodium (Pantoprazole Dr 40 Mg Tablet) 40 mg PO BID [facility] Last Admin: 05/19/20 17:49 Dose: 40 mg Documented by: Potassium Phosphate (Phosphorus 250 Mg Tablet) 250 mg PO QID [facility] Last Admin: 05/19/20 21:26 Dose: 250 mg Documented by: Pyridoxine HCl (Pyridoxine 50 Mg Tablet) 100 mg PO DAILY@09 [facility] Last Admin: 05/19/20 08:32 Dose: 100 mg Documented by: Fluticasone/Salmeterol (Fluticasone-Salmeterol 100-50 Diskus) 1 puff INHALATION BID.RESPIRATORY [facility] Last Admin: 05/19/20 22:15 Dose: Not Given Documented by: Spironolactone (Spironolactone 25 Mg Tablet) 12.5 mg PO DAILY [facility] Last Admin: 05/19/20 11:59 Dose: 12.5 mg Documented by: Sucralfate (Sucralfate 1 Gm Tablet) 1 gm PO AC&BEDTIME [facility] Last Admin: 05/20/20 06:35 Dose: 1 gm Documented by: Thiamine Mononitrate (Thiamine 100 Mg Tablet) 100 mg PO DAILY [facility] Last Admin: 05/19/20 11:57 Dose: 100 mg Documented by: Tizanidine HCl (Tizanidine 4 Mg Tablet) 2 mg PO TID [facility] Last Admin: 05/19/20 21:26 Dose: 2 mg Documented by: Vitals/I&O/Wt Last Vital Signs Temp 98.3 F 05/20/20 04:00 Pulse 51 L 05/20/20 06:00 Resp 17 05/20/20 04:00 BP 141/65 05/20/20 04:00 Pulse Ox 93 05/20/20 04:00 05/19/20 05/20/20 05/20/20 22:59 06:59 14:59 Intake Total 290 / 530 300 / 830 Output Total 1200 / 4500 900 / 5400 Balance -910 / -3970 -600 / -4570 Weight last 48 hrs Weight 60.192 kg Physical Exam Narrative: EXAM NARRATIVE: afebrile comfortable in bed, NARD- BP stable heent- nc/at, eomi, anicteric neck no jvp lung cta b/l heart-reg abd soft, nt, nd, +BS + suprapubic cath w/ sedimen in urine ext -no leg edema neuro- a,a, ox 3, quadrapalegic Urinary Catheter Management^: Miranda: Cath Placed During This Visit: yes Urinary Catheter Date of Insertion: 05/12/20 Urinary Catheter Time of Insertion: 21:09 Suprapubic: Cath Placed During This Visit: yes Reason for Continuing Indwelling Catheter: Chronic Indwelling Urinary Catheter on Admission Urinary Catheter Date of Insertion: 05/12/20 Urinary Catheter Time of Insertion: 21:09 Data : 05/20/20 02:46 05/20/20 02:46 Micro: Microbiology 05/18/20 08:16 Gram Stain - Final Sputum - Expectorated Sputum Sputum Culture - Preliminary 05/12/20 21:39 Blood Culture - Final Blood Proteus mirabilis 05/17/20 12:35 Urine Culture - Final Urine Suprapubic Bacterial Antigens - Final A&P Additional A&P Information 1. Euvolemic Hyponatremia - na improved w/ lasix and off ivf -cont salt tabs 2. Pyelonephritis - s/p ureteric stent exchange - on combo Abx 3. Covid pneumonitis and PNA 4. wbc decreasing 5. replace k and mag- low from improving kathryn and lasix 6. bnp improved 7. replace vit d monitor electrokytes Exam and interview performed with aid of bedside RN using telemedicine Time spent 30 min inc > 50% of time in face to face counseling Attestations Medical Necessity Statement*: hyponatremia, pna, covid, pyelonephritis Time Spent in Patient Care: 16 - 35 minutes Coding Level of Care Code Acute Quality Improvement Specialist for [facility]
[2020-05-20] MEDS: cyanocobalamin 1,000 mcg Tablet 1000 MCG PO (09:08)
[2020-05-20] MEDS: thiamine 100 mg Tablet PO (09:08)
[2020-05-20] MEDS: phosphorus 250 mg Tablet PO ×4 (09:08→23:03)
[2020-05-20] MEDS: carBAMazepine 200 mg Tablet PO ×2 (09:08→18:17)
[2020-05-20] MEDS: spironolactone 25 mg Tablet 12.5 MG PO (09:08)
[2020-05-20] MEDS: ascorbic acid 500 mg Tablet PO (09:09)
[2020-05-20] MEDS: escitalopram 10 mg Tablet PO (09:09)
[2020-05-20] MEDS: gabapentin 100 mg Capsule PO ×3 (09:09→23:03)
[2020-05-20] MEDS: aspirin 81 mg EC Tablet PO (09:09)
[2020-05-20] MEDS: folic acid 1 mg Tablet PO (09:09)
[2020-05-20] MEDS: baclofen 10 mg Tablet 20 MG PO ×4 (09:09→23:03)
[2020-05-20] MEDS: guaiFENesin 600 mg Tablet PO ×2 (09:09→18:17)
[2020-05-20] MEDS: tizanidine 4 mg Tablet 2 MG PO ×3 (09:10→23:03)
[2020-05-20] MEDS: pantoprazole DR 40 mg Tablet PO ×2 (09:10→18:17)
[2020-05-20] MEDS: sodium chloride 1 gm Tablet PO ×2 (09:18→18:17)
[2020-05-20] MEDS: magnesium oxide 400 mg tablet PO ×2 (09:18→18:17)
[2020-05-20] MEDS: potassium chloride ER 20 mEq Tablet 40 MEQ PO (09:19)
[2020-05-20] MEDS: amlodipine 5 mg Tablet PO (09:19)
[2020-05-20] MEDS: pyridoxine 50 mg Tablet 100 MG PO (09:23)
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
[2020-05-20] MEDS: remdesivir 100 MG in sodium chloride 0.9% (100 ml) 100 ML IV (18:17)
[2020-05-20] MEDS: dexamethasone 4 mg/mL INJ 6 MG IVP (18:17)
[2020-05-20] MEDS: HYDROcodone-acetaminophen 5-325 mg Tablet 1 TAB PO (23:05)
[2020-05-21] VITALS (11 sets, daily range): BP systolic 127–177; BP diastolic 78–89; PULSE 64–79; RESP 16–18; TEMP 36.4–36.8; O2SAT 92–96
[2020-05-21] MEDS: cefepime 1,000 MG in sodium chloride 0.9% (plus) 50 ML 100 MG IV (03:29)
[2020-05-21 05:44] LABS: Eosinophils % 0.4 %; Hematocrit 29.6 % (42.0-52.0); Hemoglobin 9.9 g/dL (11.7-16.6); Lymphocytes # 0.7 10^3/uL (0.8-4.8); Lymphocytes % 30.7 %; Mean Corpuscular HGB Conc 33.4 g/dL (30.0-36.0); Mean Corpuscular Hemoglobin 26.8 pg (28.0-34.0); Mean Corpuscular Volume 80.2 fL (80-94); Monocytes # 0.3 10^3/uL (0.2-0.9); Monocytes % 12.7 %; Neutrophils # 1.17 10^3/uL (1.8-7.7); Neutrophils % 51.4 %; Nucleated Red Blood Cells % 0 %; Platelet Count 331 10^3/cmm (130-400); Red Blood Count 3.69 10^6/uL (4.1-5.3); Red Cell Distribution Width 17.2 % (12.1-15.1); White Blood Count 2.3 10^3/uL (4.0-10.0)
[2020-05-21 05:49] LABS: INR 1.07 (0.8-1.2)
[2020-05-21 05:53] LABS: Lactate (Lactic Acid level) 0.7 mmol/L (0.5-2.2)
[2020-05-21 07:22] LABS: Alanine Aminotransferase 12 U/L (0-41); Albumin Level 2.6 g/dL (3.5-5.2); Alkaline Phosphatase 106 IU/L (40-130); Blood Urea Nitrogen 10 mg/dL (8-23); C Reactive Protein 69.6 mg/L (0.0-4.9); Calcium 8.2 mg/dL (8.5-10.5); Carbon Dioxide 27 mmol/L (22-29); Chloride 89 mmol/L (98-107); Globulin 3.6 g/dL (1.3-4.6); Glucose 153 mg/dL (65-115); Magnesium 1.7 mg/dL (1.7-2.3); NT Pro B Type Natriuretic Pept 4151 pg/mL (0-125); Osmolality Calculated 268 mOsm/kg (285-295); Phosphorus 3.2 mg/dL (2.5-4.5); Sodium 128 mmol/L (136-145); Total Bilirubin 0.2 mg/dL (0.15-1.2); Total Protein 6.2 g/dL (6.6-8.7)
[2020-05-21 07:23] LABS: Anion Gap 16.5 (5-19); Aspartate Amino Transferase 25 U/L (0-40); Potassium 4.5 mmol/L (3.5-5.1)
[2020-05-21 07:49] LABS: Procalcitonin 0.26 ng/mL (0-0.5)
--- NOTE | 2020-05-21 08:35 | PM.PN ---
Subjective Subjective: Interval history: feels well. no n/v/f/c/el/d/sob. eating Medications: Reviewed: Yes Medication Review Details: Current Medications Acetaminophen (Acetaminophen 325 Mg Tablet) 650 mg PO Q6H PRN PRN Reason: FEVER >100.4 Last Admin: 05/17/20 06:40 Dose: 650 mg Documented by: Hydrocodone Bitart/Acetaminophen (Hydrocodone-Acetaminophen 5-325 Mg Tablet) 1 tab PO Q8H PRN PRN Reason: pain Last Admin: 05/20/20 23:05 Dose: 1 tab Documented by: Albuterol/Ipratropium (Ipratropium-Albuterol 4 Gm Mdi) 1 puff INHALATION QID.RESPIRATORY [facility] Last Admin: 05/21/20 09:01 Dose: 1 puff Documented by: Amlodipine Besylate (Amlodipine 5 Mg Tablet) 5 mg PO DAILY [facility] Last Admin: 05/20/20 09:19 Dose: 5 mg Documented by: Ascorbic Acid (Ascorbic Acid 500 Mg Tablet) 500 mg PO DAILY@09 [facility] Last Admin: 05/20/20 09:09 Dose: 500 mg Documented by: Aspirin (Aspirin 81 Mg Ec Tablet) 81 mg PO DAILY@09 [facility] Last Admin: 05/20/20 09:09 Dose: 81 mg Documented by: Baclofen (Baclofen 10 Mg Tablet) 20 mg PO QID [facility] Last Admin: 05/20/20 23:03 Dose: 20 mg Documented by: Carbamazepine (Carbamazepine 200 Mg Tablet) 200 mg PO BID [facility] Last Admin: 05/20/20 18:17 Dose: 200 mg Documented by: Cyanocobalamin (Cyanocobalamin 1,000 Mcg Tablet) 1,000 mcg PO DAILY [facility] Last Admin: 05/20/20 09:08 Dose: 1,000 mcg Documented by: Dexamethasone (Dexamethasone 4 Mg/Ml Inj) 6 mg IVP Q24H [facility] Last Admin: 05/20/20 18:17 Dose: 6 mg Documented by: Dextrose (Dextrose 50% Syringe 50 Ml) 25 ml IVP ONCE PRN; Protocol PRN Reason: hypoglycemia protocol Dextrose (Dextrose 50% Syringe 50 Ml) 50 ml IVP PRN PRN; Protocol PRN Reason: hypoglycemia protocol Diphenhydramine HCl (Diphenhydramine 50 Mg Capsule) 50 mg PO BEDTIME PRN PRN Reason: SLEEP Last Admin: 05/18/20 20:43 Dose: 50 mg Documented by: Escitalopram Oxalate (Escitalopram 10 Mg Tablet) 10 mg PO DAILY [facility] Last Admin: 05/20/20 09:09 Dose: 10 mg Documented by: Folic Acid (Folic Acid 1 Mg Tablet) 1 mg PO DAILY [facility] Last Admin: 05/20/20 09:09 Dose: 1 mg Documented by: Gabapentin (Gabapentin 100 Mg Capsule) 100 mg PO TID [facility] Last Admin: 05/20/20 23:03 Dose: 100 mg Documented by: Glucagon (Glucagon 1 Mg/Ml Inj 1 Ml) 1 mg IM ONCE PRN; Protocol PRN Reason: Adult Acute Hypoglycemia Prot. Guaifenesin (Guaifenesin 600 Mg Tablet) 600 mg PO BID [facility] Last Admin: 05/20/20 18:17 Dose: 600 mg Documented by: Dextrose (D5w) 500 mls @ 100 mls/hr IV ONCE PRN; Protocol PRN Reason: Adult Acute Hypoglycemia Prot Cefepime HCl 1,000 mg/ Sodium (Chloride) 50 mls @ 100 mls/hr IV Q12H [facility]; Protocol Last Admin: 05/21/20 03:29 Dose: 100 mls/hr Documented by: Remdesivir 100 mg/ Sodium (Chloride) 100 mls @ 100 mls/hr IV Q24H [facility] Stop: 05/22/20 18:59 Last Admin: 05/20/20 18:17 Dose: 100 mls/hr Documented by: Ibuprofen (Ibuprofen 200 Mg Tablet) 400 mg PO BEDTIME PRN PRN Reason: SLEEP Last Admin: 05/13/20 23:06 Dose: 400 mg Documented by: Labetalol HCl (Labetalol 5 Mg/Ml Sdv 20ml) 10 mg IVP Q4H PRN PRN Reason: FOR SBP>180 or DBP>100 hold if HR<60 Magnesium Oxide (Magnesium Oxide 400 Mg Tablet) 400 mg PO BID [facility] Last Admin: 05/20/20 18:17 Dose: 400 mg Documented by: Non-Formulary Medication (Melatonin) 15 mg PO BEDTIME@22 [facility] Last Admin: 05/20/20 23:08 Dose: Not Given Documented by: Ondansetron HCl (Ondansetron 2 Mg/Ml Sdv 2 Ml) 4 mg IVP Q4H PRN PRN Reason: NAUSEA AND VOMITING Last Admin: 05/18/20 09:17 Dose: 4 mg Documented by: Pantoprazole Sodium (Pantoprazole Dr 40 Mg Tablet) 40 mg PO BID [facility] Last Admin: 05/20/20 18:17 Dose: 40 mg Documented by: Potassium Phosphate (Phosphorus 250 Mg Tablet) 250 mg PO QID [facility] Last Admin: 05/20/20 23:03 Dose: 250 mg Documented by: Pyridoxine HCl (Pyridoxine 50 Mg Tablet) 100 mg PO DAILY@09 [facility] Last Admin: 05/20/20 09:23 Dose: 100 mg Documented by: Fluticasone/Salmeterol (Fluticasone-Salmeterol 100-50 Diskus) 1 puff INHALATION BID.RESPIRATORY [facility] Last Admin: 05/21/20 09:01 Dose: 1 puff Documented by: Sodium Chloride (Sodium Chloride 1 Gm Tablet) 1 gm PO BID [facility] Last Admin: 05/20/20 18:17 Dose: 1 gm Documented by: Spironolactone (Spironolactone 25 Mg Tablet) 12.5 mg PO DAILY [facility] Last Admin: 05/20/20 09:08 Dose: 12.5 mg Documented by: Sucralfate (Sucralfate 1 Gm Tablet) 1 gm PO AC&BEDTIME [facility] Last Admin: 05/21/20 06:32 Dose: Not Given Documented by: Thiamine Mononitrate (Thiamine 100 Mg Tablet) 100 mg PO DAILY [facility] Last Admin: 05/20/20 09:08 Dose: 100 mg Documented by: Tizanidine HCl (Tizanidine 4 Mg Tablet) 2 mg PO TID [facility] Last Admin: 05/20/20 23:03 Dose: 2 mg Documented by: Vitals/I&O/Wt Last Vital Signs Temp 97.6 F 05/21/20 07:10 Pulse 67 05/21/20 07:10 Resp 18 05/21/20 07:10 BP 177/89 05/21/20 07:10 Pulse Ox 96 05/21/20 07:10 05/20/20 05/21/20 05/21/20 22:59 06:59 14:59 Intake Total 1250 / 1730 Output Total 0 / 0 1000 / 1000 Balance 1250 / 1730 -1000 / 730 Weight last 48 hrs Weight 60.192 kg Physical Exam Narrative: EXAM NARRATIVE: afebrile BP elevated comfortable in bed, NARD- BP stable heent- nc/at, eomi, anicteric neck no jvp lung cta b/l heart-reg abd soft, nt, nd, +BS + suprapubic cath w/ sedimen in urine ext -no leg edema neuro- a,a, ox 3, quadrapalegic Urinary Catheter Management^: Miranda: Cath Placed During This Visit: yes Urinary Catheter Date of Insertion: 05/12/20 Urinary Catheter Time of Insertion: 21:09 Suprapubic: Cath Placed During This Visit: yes Reason for Continuing Indwelling Catheter: Chronic Indwelling Urinary Catheter on Admission Urinary Catheter Date of Insertion: 05/12/20 Urinary Catheter Time of Insertion: 21:09 Data : 05/21/20 05:21 05/21/20 05:21 Micro: Microbiology 05/15/20 10:48 Blood Culture - Final Blood NO GROWTH AFTER 5 DAYS 05/15/20 10:48 Blood Culture - Final Blood NO GROWTH AFTER 5 DAYS 05/18/20 08:16 Gram Stain - Final Sputum - Expectorated Sputum Sputum Culture - Final A&P Additional A&P Information 1. Euvolemic Hyponatremia - na improved w/ lasix and off ivf -cont salt tabs may need to hold aldactone. however has CHF 2. Pyelonephritis - s/p ureteric stent exchange - on combo Abx -will need further f/u- Q angiomyolipoma 3. Covid pneumonitis and PNA 4. wbc decreasing 5. d/c kphos as improved 6. bnp remains 4151 -systolic chf on aldactone, add ARB -monitor magnesium 7. replace vit d 8. 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
[2020-05-21] MEDS: folic acid 1 mg Tablet PO (08:57)
[2020-05-21] MEDS: tizanidine 4 mg Tablet 2 MG PO (08:58)
[2020-05-21] MEDS: spironolactone 25 mg Tablet 12.5 MG PO (08:59)
[2020-05-21] MEDS: aspirin 81 mg EC Tablet PO (09:01)
[2020-05-21] MEDS: cyanocobalamin 1,000 mcg Tablet 1000 MCG PO (09:01)
[2020-05-21] MEDS: pantoprazole DR 40 mg Tablet PO (09:02)
[2020-05-21] MEDS: magnesium oxide 400 mg tablet PO (09:02)
[2020-05-21] MEDS: sodium chloride 1 gm Tablet PO (09:02)
[2020-05-21] MEDS: carBAMazepine 200 mg Tablet PO (09:02)
[2020-05-21] MEDS: phosphorus 250 mg Tablet PO (09:02)
[2020-05-21] MEDS: escitalopram 10 mg Tablet PO (09:02)
[2020-05-21] MEDS: pyridoxine 50 mg Tablet 100 MG PO (09:03)
[2020-05-21] MEDS: gabapentin 100 mg Capsule PO (09:03)
[2020-05-21] MEDS: ascorbic acid 500 mg Tablet PO (09:03)
[2020-05-21] MEDS: amlodipine 5 mg Tablet PO (09:03)
[2020-05-21] MEDS: baclofen 10 mg Tablet 20 MG PO ×2 (09:03→13:51)
[2020-05-21] MEDS: thiamine 100 mg Tablet PO (09:03)
[2020-05-21] MEDS: guaiFENesin 600 mg Tablet PO (09:03)
--- NOTE | 2020-05-21 10:51 | PC.NURSE ---
Per Dr Hyde, patient will be discharged home today. Car Scrubber notified SS that patient will need stretcher and no oxygen when discharged to go home. Waiting on discharge order
--- NOTE | 2020-05-21 10:53 | PC.NURSE ---
Changed patient's pharmacy to [facility] because patient is a COVID patient and any discharge medications will be delivered to patient prior to discharge.
--- NOTE | 2020-05-21 10:57 | PC.NURSE ---
Notified pharmacy that carafate in pyxis is out of stock.
[2020-05-21] MEDS: losartan 50 mg Tablet 25 MG PO (10:59)
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
--- NOTE | 2020-05-21 12:09 | PC.NURSE ---
Called [facility] and requested patient's discharge meds be sent to floor.
--- NOTE | 2020-05-21 12:40 | PC.NURSE ---
updated patient's mother that patient is being discharged today
[2020-05-21] MEDS: sucralfate 1 gm Tablet PO (13:52)
--- NOTE | 2020-05-21 15:07 | PC.NURSE ---
patient given discharge instructions and verbalized understanding of instructions. patient's home meds delivered to patient. patient transported home via gurney by Non emergent transport.
== END 2020-05-21 15:20 | disposition home or self-care (01) | DRG 853 ==
LOC: ER 21:42 → OPS 05-13 01:08 → ICU 05-13 05:42 → MEDSURG 05-19 20:26
PROVIDERS: Internal Medicine; Internal Medicine Nephrology; Admitting Provider Urology; Emergency Provider Emergency Medicine; Family Provider Family Medicine; PCP Internal Medicine; Visit Provider Family Medicine
PROC: 0TJB8ZZ Inspection of Bladder, Via Natural or Artificial Opening Endoscopic (ICD-10-PCS; CPT 52000; principal; 2020-05-13 02:00)
PROC: 0T768DZ Dilation of Right Ureter with Intraluminal Device, Via Natural or Artificial Opening Endoscopic (ICD-10-PCS; CPT 50605; 2020-05-13 02:00)
DX: A41.9 Sepsis, unspecified organism (principal); U07.1 COVID-19; J12.89 Other viral pneumonia; J69.0 Pneumonitis due to inhalation of food and vomit; G82.50 Quadriplegia, unspecified; J96.01 Acute respiratory failure with hypoxia; T83.518A Infection and inflammatory reaction due to other urinary catheter, initial encounter; N11.1 Chronic obstructive pyelonephritis; E87.1 Hypo-osmolality and hyponatremia; E87.2 Acidosis; Z88.0 Allergy status to penicillin; Z96.0 Presence of urogenital implants; E11.9 Type 2 diabetes mellitus without complications; Z87.442 Personal history of urinary calculi; Z90.49 Acquired absence of other specified parts of digestive tract; F17.210 Nicotine dependence, cigarettes, uncomplicated; F10.21 Alcohol dependence, in remission; Y73.1 Therapeutic (nonsurgical) and rehabilitative gastroenterology and urology devices associated with adverse incidents; B96.4 Proteus (mirabilis) (morganii) as the cause of diseases classified elsewhere; B96.20 Unspecified Escherichia coli [E. coli] as the cause of diseases classified elsewhere; D64.9 Anemia, unspecified; K21.9 Gastro-esophageal reflux disease without esophagitis; E55.9 Vitamin D deficiency, unspecified; N31.9 Neuromuscular dysfunction of bladder, unspecified
CPT/HCPCS: 12345; 36415; 36416; 36430; 36600; 51702; 71045; 71275; 73630; 74177; 76000; 76770; 80048; 80053; 80202; 81001; 82436; 82533; 82550; 82570; 82607; 82728; 82746; 82803; 82962; 83540; 83605; 83690; 83735; 83880; 84100; 84133; 84145; 84295; 84300; 84443; 84550; 85025; 85610; 86140; 86403; 86850; 86900; 86920; 87040; 87070; 87077; 87086; 87186; 87205; 87426; 87635; 87804; 92610; 93306; 93970; 94640; 94660; 97165; 99283; C2625; J0131; J0692; J0743; J1100; J1940; J1956; J2250; J2270; J2405; J3370; J3475; J3490; J3535; J7030; J7050; J7131; P9016; P9040; Q0163; Q3014; Q9967

== ENCOUNTER 2020-06-11 10:40 | Day surgery (SDC) | payer MEDICAID, SELFPAY ==
[2020-06-08 14:43] VITALS: BMI 19.9
[2020-06-11] VITALS (7 sets, daily range): BP systolic 137–185; BP diastolic 74–89; PULSE 65–79; RESP 12–18; TEMP 36.1–36.5; O2SAT 96–100
--- NOTE | 2020-06-11 10:45 | XR_ITS ---
WS: [id number] ABDOMEN KUB CLINICAL INFORMATION: Renal/ureteral calculi. COMPARISON: May 13, 2020, CT May 12, 2020 FINDINGS: Right ureteral stent in good position. Dense right renal calculi partially obscured by colon. Largest calculus measures 2.5 cm unchanged since recent CT. Calculi projected over the proximal right ureter al stent. No calculi along the mid or distal ureteral stent. Left renal parenchymal calculi not well visualized. XR/XR KUB [id number] Impression: 1. Right ureteral stent in good position. 2. Right renal parenchymal calculi partially obscured by colon. Largest calcul us measures 2.5 CM. 3. Calculi projected over the right ureteral stent appear similar to the prior CT.
--- NOTE | 2020-06-11 12:01 | W.PM.OPSUD ---
Surgery/Procedure H&P Update DATE OF PROCEDURE: June 11, 2020 DATE H&P PERFORMED: 06/01/20 H&P UPDATE INFORMATION: I have reviewed H&P completed within last 30 days, I have examined patient prior to procedure, No changes to prior documentation and H&P is in [facility] EMR on date indicated PREOP DIAGNOSIS: Right renal and ureteral calculi PLANNED PROCEDURE: Operation Date: 06/11/20 12:05 Proposed Procedures p Cystoscopy 85930 [id number] 44249 N20.1(Not Applicable) - Oni Saucedo MD s Retrograde Pyelogram(Right) - MD broderick Castellanos Ureteroscopy(Not Applicable) - MD broderick Castellanos Laser Lithotripsy(Not Applicable) - MD broderick Castellanos Ureteral Stent Exchange(Not Applicable) - MD broderick Castellanos ESWL(Not Applicable) - Oni Saucedo MD
[2020-06-11] MEDS: sodium chloride 0.9% 1,000 ML 30 ML IV (12:16)
--- NOTE | 2020-06-11 12:52 | ANES.PREANE2 ---
Pre-Anesthetic Assessment Pre-Anesthetic Assessment: Height/Weight: Height 1.75 m Weight 61.235 kg Temp Pulse Resp BP Pulse Ox 97.0 F L 79 18 171/74 98 06/11/20 11:48 06/11/20 11:48 06/11/20 11:48 06/11/20 11:48 06/11/20 11:48 Preop Diagnosis: Right renal and ureteral calculi Proposed Procedure: Operation Date: 06/11/20 12:05 Proposed Procedures p Cystoscopy 14495 [id number] 47676 N20.1(Not Applicable) - Oni Saucedo MD s Retrograde Pyelogram(Right) - MD broderick Castellanos Ureteroscopy(Not Applicable) - MD broderick Castellanos Laser Lithotripsy(Not Applicable) - MD broderick Castellanos Ureteral Stent Exchange(Not Applicable) - MD broderick Castellanos ESWL(Not Applicable) - Oni Saucedo MD Was Beta Jose taken within 24 hours: N/A Last intake: Intake Last Liquid Date 06/10/20 Last Liquid Time 23:00 Last Solid Date 06/10/20 Last Solid Time 17:00 Social: Social History: Tobacco and No alcohol Exam: Pre-Anes Outpt Exam: alert, oriented x 3 and regular rate & rhythm Additional Exam Findings (including area of procedure): decreased BS Airway: Submandibular: WNL Cervical ROM: Other (limited) MP: 2 Additional comments: poor dentition Pulmonary: Pulmonary: COPD CV/HEM: CV/HEM: Anemia and HTN GI: GI: GERD Musc/skel: Comments: Quadraplegia Anesthetic Plan: ASA status: 3 Anesthesia: General Risk of > 500 ml blood loss (7ml/kg in children): No Meds/Allergies Current Medications: Current Medications Generic Name Dose Route Start Last Admin Trade Name Freq PRN Reason Stop Dose Admin Sodium Chloride 1,000 mls @ 30 ml s/hr 06/11/20 10:45 06/11/20 12:16 Sodium Chloride 0.9% IV 06/12/20 10:44 30 mls/hr .Q24H SHANTEL Administration PFSH Anesthesia PFSH: Medical History (Updated 06/02/20 @ 09:01 by Oni Saucedo MD) Chronic indwelling Miranda catheter Diabetes mellitus -NIDDM type II, A1c-7.2 (08/2019) -Accuchecks, hypoglycemia precautions, ISS -consistent carb diet Quadriplegia -strict fall precautions -frequent repositioning, q2h -WC-/bed-bound at baseline -continue pain meds, muscle relaxants -has been following up with Dr. Estrella for consideration of Botox treatments for spasticity Right renal stone Surgical History (Updated 06/02/20 @ 09:01 by Oni Saucedo MD) History of appendectomy History of back surgery History of colon resection History of neck surgery History of suprapubic catheter Open placement October 2019. S/P extracorporeal shock wave therapy Family History Father , at age 49 Cancer Lung disease Mother Cancer bone Brother Cancer Lung disease Denies family history of Diabetes CAD (coronary artery disease) Clotting disorder Dementia Hyperlipidemia Psychiatric illness Chronic kidney disease (CKD) Suicide Anesthesia complication Bleeding disorder Family history of premature coronary artery disease Hypertension Stroke Social History Smoking and tobacco status: current every day smoker cigarettes Packs smoked per day: 0.5 Quit status (tobacco): not considering quitting Alcohol intake: former Former alcohol use details: quit due to medications Household members: other Details: lives with mother Marital status: Legally Number of children: 5 History of recent travel: No Data Anesthesia Cardiac Studies: No Data to Display
[2020-06-11] MEDS: cefTRIAXone 1,000 MG in sodium chloride 0.9% (plus) 50 ML 100 MG IV (14:21)
[2020-06-11] MEDS: iohexol 300 mg/mL 50 mL Btl (OR ONLY) XX (14:49)
--- NOTE | 2020-06-11 15:30 | PM.OP ---
Operative Report Date of procedure: June 11, 2020 Pre-op Diagnosis: Right renal and ureteral calculi Post-op diagnosis: same Procedure Done: 1. Cystoscopy, RIGHT: stent removal, ureteroscopy, laser, stent 2. Extracorporeal shockwave lithotripsy to multiple right renal calculi (renal pelvis and calyceal stones) Surgeon: Sheryl Anesthesia: General Estimated blood loss: <50 cc Urine output: Not measured Complications: None Findings: 1. Large right proximal ureteral stone was completely fragmented with laser lithotripsy via ureteroscopy. 2. Multiple fragments of the renal pelvic stones were treated also with laser lithotripsy. 3. Concurrent ESWL was performed to the more proximal renal pelvic and calyceal stones. Good change was noted on all the stones treated. Total of 2500 shocks were administered. Not all the stones were treated. Condition: stable Disposition: PACU Brief History: Timur is a 60-year-old white male quadriplegic with neurogenic bladder managed with chronic suprapubic tube. Recently had a emergency stent placement for obstructive pyelonephritis and was found to have multiple partial staghorn calculi in the right kidney. He recovered well after stent placement and antibiotic therapy and is back now for attempted definitive therapy with combination of ureteroscopy laser lithotripsy and ESWL. We reviewed alternatives including percutaneous approaches. Procedure: After routine preoperative evaluation examination and obtaining of informed consent he was taken to the operating suite on 06/11/2020 where general anesthesia was administered without difficulty after appropriate timeout was performed,SCDs confirmed to be functioning, preoperative antibiotics administered, beta-tiff protocol confirmed. Prepped and draped in usual sterile fashion in dorsolithotomy position paying careful attention to avoiding pressure points. 21 Sinhala cystoscope with 30 degree lens was introduced into the urethral meatus and advanced into the bladder under videoscopy. The suprapubic tube was found to be in the expected position with no encrustation in the stent as well. A flexible tip guidewire was then advanced next to the stent up the right ureter curling an area of the upper pole calyx. The stent was then grasped with grasping forceps and withdrawn to the meatus where a second guidewire was then passed through the stent easily up into the upper pole calyx and the stent was removed. A 38 cm ureteral access sheath was then advanced over the working wire (the other wire was secured to the drapes as a safety wire) into position just below the right UPJ stone. The offset semirigid ureteroscope was then advanced without difficulty through the sheath and the stone was fragmented with a 365 ?m holmium laser fiber and a small pieces that were flushed through the scope with a irrigating syringe. Scope was withdrawn several times to allow further fluid irrigation out of the collecting system which also allowed collection of some of the fragments. While the UPJ stone was being treated with laser lithotripsy the ESWL was focused with the shock head positioned posteriorly on the more proximal renal pelvic stone and calyceal stones. A total of 2500 shocks were administered beginning at an intensity of 1 advanced an intensity of 4 with several minute pause after approximately 300 shocks. Good change was noted for the stones treated. Not all stones in the calyceal system were. The scope was then utilized to flush a large amount of the fragments out that were sand size. Visualization was not complete due to bloody urine. When it became impossible to clearly identify the landmarks because of the cloudiness of the urine it was decided to remove the scope and sheath and backloaded the cystoscope over the safety guidewire and a 7 Sinhala by 28 cm double-pigtail stent was advanced over the guidewire through the cystoscope into appropriate position as confirmed via fluoroscopy and cystoscopy. The suprapubic tube was confirmed to be functioning. ESWL was completed. He tolerated procedure well without complications and was awakened in the operating room and returned to recovery in stable condition.
--- NOTE | 2020-06-11 16:37 | ANE.PACU2 ---
Inpatient post-anesthesia follow up: Airway intact: Yes Vital signs: Temperature 97.7 F Pulse Rate 75 Respiratory Rate 12 Blood Pressure 185/89 Pulse Oximetry 100 Oxygen Delivery Me thod Room Air Oxygen Flow Rate 6 Fraction of Inspir ed Oxygen Hydration adequate: Yes Nausea and vomiting: No Pain level: 1 Mental status: Baseline
[2020-06-17 05:08] LABS: Stone Source KIDNEY
== END 2020-06-11 16:43 | disposition home or self-care (01) ==
PROVIDERS: PCP Internal Medicine; Visit Provider Urology
PROC: 0TJB8ZZ Inspection of Bladder, Via Natural or Artificial Opening Endoscopic (ICD-10-PCS; CPT 52000; principal; 2020-06-11 12:05)
PROC: (CPT 74420; 2020-06-11 12:05)
PROC: 0TJ98ZZ Inspection of Ureter, Via Natural or Artificial Opening Endoscopic (ICD-10-PCS; CPT 52351; 2020-06-11 12:05)
PROC: (CPT 50590; 2020-06-11 12:05)
PROC: (CPT 50590; 2020-06-11 12:05)
PROC: (CPT 50590; 2020-06-11 12:05)
DX: N20.2 Calculus of kidney with calculus of ureter (principal); J44.9 Chronic obstructive pulmonary disease, unspecified; I10 Essential (primary) hypertension; K21.9 Gastro-esophageal reflux disease without esophagitis; G82.50 Quadriplegia, unspecified; E11.9 Type 2 diabetes mellitus without complications; F17.210 Nicotine dependence, cigarettes, uncomplicated; Z79.82 Long term (current) use of aspirin
CPT/HCPCS: 50590; 52356; 12345; 74018; 82365; 88300; C2625; J0696; J2250; J2704; J3010; J3490; J7030

== ENCOUNTER 2020-06-26 11:26 | Outpatient (CLI) | payer MEDICAID, SELFPAY ==
--- NOTE | 2020-06-26 11:35 | XRR_ITS ---
PROCEDURE INFORMATION: Exam: XR Abdomen, 1 View Exam date and time: 06/26/2020 12:11 PM Age: 60 years old Clinical indication: Condition or disease; Kidney or ureter condition; Calculus (stone) in kidney TECHNIQUE: Imaging protocol: XR of the abdomen. Views: Frontal supine view of the abdomen. 1 View. COMPARISON: RI XR KUB [id number] 06/11/2020 11:14 AM FINDINGS: Tubes, catheters and devices: A suprapubic urinary catheter is present. A right ureteral stent projects in satisfactory position. Gastrointestinal tract: Normal. No bowel dilation. Organs: The kidneys are obscured by prominent stool in the colon. Multiple calcifications project on the right kidney and also along the proximal aspect of the right ureteral stent. These have not significantly changed since the previous radiograph. Bones/joints: Unremarkable. XR/XR KUB [id number] IMPRESSION: 1. Satisfactory position of the right ureteral stent and suprapubic urinary catheter. 2. Stable appearance of right renal calcifications 3. Prominent amount of stool consistent with constipation.
== END 2020-06-26 11:27 | disposition home or self-care (01) ==
PROVIDERS: PCP Internal Medicine; Visit Provider Urology
DX: N20.0 Calculus of kidney (principal); Z96.0 Presence of urogenital implants; K59.00 Constipation, unspecified
CPT/HCPCS: 74018

== ENCOUNTER → 2020-07-12 14:38 | Outpatient (BNVA) | payer MEDICAID, SELFPAY | PROVIDERS: PCP Internal Medicine; Visit Provider Specialist | DX: G81.14 Spastic hemiplegia affecting left nondominant side (principal); G82.50 Quadriplegia, unspecified; F17.210 Nicotine dependence, cigarettes, uncomplicated | CPT/HCPCS: 64644; J0585 ==

== ENCOUNTER 2020-07-16 10:52 | Day surgery (SDC) | payer MEDICAID, SELFPAY ==
--- NOTE | 2019-07-17 13:31 | SCC_ITS ---
Procedure Done: 1. Cystoscopy with removal of right ureteral stent 2. Right flexible ureteroscopy with laser lithotripsy 3. Right ureteral stent replacement 54.7 seconds of fluoroscopic guidance, for a cumulative dose of 6.25 mGy, was provided to Dr. Saucedo by the radiology department. C-arm images of the abdomen were saved for the patient's permanent record. [facility]
[2020-07-13 13:44] VITALS: BMI 19.9
[2020-07-16] VITALS (7 sets, daily range): BP systolic 141–162; BP diastolic 73–86; PULSE 62–80; RESP 16–20; TEMP 36.1–37; O2SAT 70–100
--- NOTE | 2020-07-16 11:00 | XRR_ITS ---
PROCEDURE INFORMATION: Exam: XR Abdomen Exam date and time: 07/16/2020 11:17 AM Age: 60 years old Clinical indication: Screening exam; Other: Preop laser lithotripsy TECHNIQUE: Imaging protocol: XR of the abdomen. Views: Frontal supine view of the abdomen. 1 View. COMPARISON: CR XR KUB [id number] 06/26/2020 12:00 PM FINDINGS: Tubes, catheters and devices: Right double-J catheter. Suprapubic bladder catheter. Gastrointestinal tract: Colonic dilatation and copious stool. Organs: Obscuration of the renal fossa by bowel gas and stool, limiting evaluation of suspected urolithiasis. Vasculature: Vascular calcification. Bones/joints: Osteopenia and degenerative change. XR/XR KUB [id number] IMPRESSION: 1. Colonic dilatation and copious stool. 2. Obscuration of the renal fossa by bowel gas and stool, limiting evaluation of suspected urolithiasis.
--- NOTE | 2020-07-16 12:39 | ANES.PREANE2 ---
Pre-Anesthetic Assessment Pre-Anesthetic Assessment: Height/Weight: Height 1.75 m Weight 61.235 kg Temp Pulse Resp BP Pulse Ox 98.6 F 62 16 162/74 98 07/16/20 12:10 07/16/20 12:10 07/16/20 12:10 07/16/20 12:10 07/16/20 12:10 Preop Diagnosis: Residual right renal calculi Fragments Proposed Procedure: Operation Date: 07/16/20 13:30 Proposed Procedures p Cystoscopy(Not Applicable) - Oni Saucedo MD s Retrograde Pyelogram(Right) - MD broderick Castellanos Ureteroscopy(Not Applicable) - MD broderick Castellanos Laser Lithotripsy(Not Applicable) - MD broderick Castellanos Ureteral Stent Exchange(Not Applicable) - MD broderick Castellanos poss ESWL(Not Applicable) - Oni Saucedo MD Familial anesthetic complications: None Last intake: NPO > 8 hrs Social: Social History: Tobacco and No alcohol Exam: Pre-Anes Outpt Exam: alert, oriented x 3, clear to auscultation bilaterally and regular rate & rhythm Airway: Cervical ROM: WNL MP: 3 Dentition: False Pulmonary: Pulmonary: COPD Comments: hx covid 19 CV/HEM: CV/HEM: HTN Comments: EF 50%, mild Mitral valve regurge GI: GI: GERD Metabolic: Metabolic: DM Neuropsych: Comments: 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 Estrella for consideration of Botox treatments for spasticity Right renal stone Surgical History History of appendectomy History of back surgery History of colon resection History of neck surgery History of suprapubic catheter Open placement October 2019. S/P extracorporeal shock wave therapy Family History Father , at age 49 Cancer Lung disease Mother Cancer bone Brother Cancer Lung disease Denies family history of Diabetes CAD (coronary artery disease) Clotting disorder Dementia Hyperlipidemia Psychiatric illness Chronic kidney disease (CKD) Suicide Anesthesia complication Bleeding disorder Family history of premature coronary artery disease Hypertension Stroke Social History Smoking and tobacco status: current every day smoker cigarettes Packs smoked per day: 0.5 Quit status (tobacco): not considering quitting Alcohol intake: former Former alcohol use details: quit due to medications Household members: other Details: lives with mother Marital status: Legally Number of children: 5 History of recent travel: No Data Anesthesia Cardiac Studies: No Data to Display
[2020-07-16 13:03] LABS: Glucose Point of Care 85 mg/dL (70-110)
[2020-07-16] MEDS: sodium chloride 0.9% 1,000 ML 30 ML IV (13:17)
--- NOTE | 2020-07-16 13:29 | P.HPUD_ITS ---
Surgery/Procedure H&P Update DATE OF PROCEDURE: July 16, 2020 DATE H&P PERFORMED: 07/12/20 H&P UPDATE INFORMATION: I have reviewed H&P completed within last 30 days, I have examined patient prior to procedure, No changes to prior documentation and H&P is in [facility] [place] EMR on date indicated PREOP DIAGNOSIS: Residual right renal calculi Fragments PLANNED PROCEDURE: Operation Date: 07/16/20 13:30 Proposed Procedures p Cystoscopy(Not Applicable) - MD broderick Castellanos Retrograde Pyelogram(Right) - MD broderick Castellanos Ureteroscopy(Not Applicable) - MD broderick Castellanos Laser Lithotripsy(Not Applicable) - MD broderick Castellanos Ureteral Stent Exchange(Not Applicable) - MD broderick Castellanos poss ESWL(Not Applicable) - Oni Saucedo MD
--- NOTE | 2020-07-16 13:31 | PM.OP ---
Operative Report Date of procedure: July 16, 2020 Pre-op Diagnosis: Residual right renal calculi Fragments Post-op diagnosis: same Procedure Done: 1. Cystoscopy with removal of right ureteral stent 2. Right flexible ureteroscopy with laser lithotripsy 3. Right ureteral stent replacement Specimens removed/disposition: Stone fragments Pathology: Stone fragments Surgeon: Sheryl Anesthesia: General Estimated blood loss: Minimal Urine output: Not measured Complications: None Findings: Kidney was easily accessible with flexible ureteroscopy. There was some matrix type material and multiple moderate size stones that were then treated with laser lithotripsy with 365 thulium superpulse laser fiber. An Olympus 2.2 Cameroonian X catch basket was utilized to remove a large portion of the fragments. This revealed a few more moderate size stones that were then fragmented as well. 7 Cameroonian by 28 cm double-pigtail stent left indwelling Condition: stable Disposition: PACU Brief History: Timur is a very pleasant 60-year-old white male with a history of quadriplegia and subsequent neurogenic bladder managed long-term with SP tube. He has had complicated history of stones with infection related stones in the right kidney and at least one presentation with obstructive pyelonephritis requiring emergency stenting. Since recovering from the pyelonephritis he has been treated with ESWL and ureteroscopy with partial clearance of the large stone burden. He is back now for retreatment via endoscopy due to the difficulty seeing the stones Procedure: After routine preoperative evaluation examination and obtaining of informed consent he was taken to the operating suite on 07/16/2020 where general anesthesia was administered without difficulty after appropriate timeout was performed, SCDs confirmed to be functioning, preoperative antibiotics administered, beta-tiff protocol confirmed. Prepped and draped in the usual sterile fashion in dorsolithotomy position paying careful attention to avoiding pressure points. 21 Cameroonian cystoscope with 30 degree lens was introduced into the urethral meatus and advanced into the bladder to videoscopy. Flexible tip guidewire was then advanced up the right ureter next to the stent and the stent was removed under fluoroscopic guidance. The proximal end uncurled without difficulty. A second guidewire was then passed through the ureteral stent up the right ureter next to the other wire and then the stent was removed. Flexible ureteroscope was then passed over the guidewire up the right ureter. In the renal pelvis carefully inspected demonstrating multiple stones that were then treated with 365 ?m thulium superpulse laser. It was decided to place the sheath help facilitate drainage and visualization. The scope was removed and a ureteral access sheath measuring 38 cm were then advanced over the new wire into appropriate position just below the UPJ. The flexible ureteroscope was then advanced up the right ureter and a 2.2 Cameroonian Olympus X catch basket was utilized to remove a large portion of the fragments. Reinspection showed a few stones that needed to be further fragmented and this was performed with the same laser. Multiple other passes of the basket were used to clear out the bulk of the remaining fragments. I could not see any residual fragments that should not easily pass. The scope was removed under direct vision with no obvious fragments of any consequence in the ureter. The cystoscope was then backloaded over the safety wire which had been secured to the drapes at the beginning of the procedure and a 7 Cameroonian by 28 cm double-pigtail stent was advanced over the guidewire through the cystoscope into appropriate position as confirmed via fluoroscopy and cystoscopy. The suprapubic tube was confirmed to be functioning at the completion of the procedure. Tolerated procedure well without complications and was awakened in the operating room and returned to the care of in stable condition. PLANS: 1. Discharge from outpatient surgery today 2. Follow-up the last week of July for reevaluation.
--- NOTE | 2020-07-16 13:43 | SC_ITS ---
WS: [id number] C-ARM RADIOGRAPHS ABDOMEN; 3 IMAGES HISTORY: SURGERY COMPARISON: None available. Intraoperative imaging during RIGHT ureteral stent manipulation. SC/C-arm FL for Urology IMPRESSION: Intraoperative imaging during RIGHT ureteral stent manipulation.
--- NOTE | 2020-07-16 16:07 | SUR.PHASEII ---
patient came back to ops with IV in right hand. It was changed from right foot to right hand while in OR.
--- NOTE | 2020-07-16 17:38 | SUR.PHASEII ---
Patient waited from 1630 until 1738 for [facility].
--- NOTE | 2020-07-16 18:08 | ANE.PACU2 ---
Inpatient post-anesthesia follow up: Airway intact: Yes Vital signs: Temperature 97.5 F Pulse Rate 70 Respiratory Rate 18 Blood Pressure 141/86 Pulse Oximetry 70 Oxygen Delivery Me thod Room Air Oxygen Flow Rate 8 Fraction of Inspir ed Oxygen Hydration adequate: Yes Nausea and vomiting: No Pain level: 3 Mental status: Baseline
[2020-07-19 23:22] LABS: Stone Source RIGHT RENAL CALCULI
== END 2020-07-16 17:39 | disposition home or self-care (01) ==
PROVIDERS: PCP Internal Medicine; Visit Provider Urology
PROC: 0TJB8ZZ Inspection of Bladder, Via Natural or Artificial Opening Endoscopic (ICD-10-PCS; CPT 52000; principal; 2020-07-16 13:30)
PROC: (CPT 74420; 2020-07-16 13:30)
PROC: 0TJ98ZZ Inspection of Ureter, Via Natural or Artificial Opening Endoscopic (ICD-10-PCS; CPT 52351; 2020-07-16 13:30)
PROC: (CPT 52356; 2020-07-16 13:30)
PROC: (CPT 52356; 2020-07-16 13:30)
DX: N20.0 Calculus of kidney (principal); E11.9 Type 2 diabetes mellitus without complications; G82.50 Quadriplegia, unspecified; F17.210 Nicotine dependence, cigarettes, uncomplicated; Z79.82 Long term (current) use of aspirin
CPT/HCPCS: 52356; 36416; 74018; 76000; 82365; 82962; 88300; C2625; J2405; J2704; J3010; J3490; J7030

== ENCOUNTER 2020-07-20 10:24 | Outpatient (CLI) | payer MEDICAID, SELFPAY ==
[2020-07-20 10:47] LABS: Basophils # 0.1 10^3/uL (0.0-0.1); Basophils % 1.6 %; Eosinophils # 0.2 10^3/uL (0.0-0.8); Eosinophils % 5.3 %; Hematocrit 32.8 % (42.0-52.0); Lymphocytes # 1.4 10^3/uL (0.8-4.8); Lymphocytes % 36.7 %; Mean Corpuscular HGB Conc 33.5 g/dL (30.0-36.0); Mean Corpuscular Hemoglobin 30.6 pg (28.0-34.0); Mean Corpuscular Volume 91.1 fL (80-94); Mean Platelet Volume 9.1 fL (7.4-10.4); Monocytes # 0.7 10^3/uL (0.2-0.9); Monocytes % 17.4 %; Neutrophils # 1.46 10^3/uL (1.8-7.7); Neutrophils % 38.5 %; Nucleated Red Blood Cells % 0 %; Platelet Count 282 10^3/cmm (130-400); Red Cell Distribution Width 18.8 % (12.1-15.1); White Blood Count 3.8 10^3/uL (4.0-10.0)
[2020-07-20 11:12] LABS: Estmated Average Glucose 111; Hemoglobin A1C 5.5 % (4.0-6.0)
[2020-07-20 11:15] LABS: Alanine Aminotransferase 7 U/L (0-41); Albumin Level 3.2 g/dL (3.5-5.2); Alkaline Phosphatase 68 IU/L (40-130); Aspartate Amino Transferase 9 U/L (0-40); Blood Urea Nitrogen 6 mg/dL (8-23); Carbon Dioxide 28 mmol/L (22-29); Chloride 100 mmol/L (98-107); Chol HDL Ratio 2.95 mg/dL (1.0-5.00); Cholesterol 165 mg/dL (0-200); Globulin 3.2 g/dL (1.3-4.6); Glucose 77 mg/dL (65-115); HDL Cholesterol 56 mg/dL (60-100); LDL Cholesterol Calculated 97 mg/dL (50-129); LDL HDL Ratio 1.73 RATIO (0.00-3.22); Osmolality Calculated 274 mOsm/kg (285-295); Sodium 134 mmol/L (136-145); Thyroid Stimulating Hormone 1.02 uIU/mL (0.27-4.20); Total Bilirubin 0.2 mg/dL (0.15-1.2); Total Protein 6.4 g/dL (6.6-8.7); Triglycerides 62 mg/dL (0-150)
[2020-07-20 11:38] LABS: Free T4 Free Thyroxine 0.97 ng/dL (0.82-1.77)
== END 2020-07-20 10:25 | disposition home or self-care (01) ==
PROVIDERS: PCP Internal Medicine; Visit Provider Internal Medicine
DX: E11.9 Type 2 diabetes mellitus without complications (principal); R53.83 Other fatigue
CPT/HCPCS: 80053; 80061; 83036; 84439; 84443; 85025

== ENCOUNTER 2020-08-13 10:05 | Outpatient (CLI) | payer MEDICAID, SELFPAY ==
--- NOTE | 2020-08-13 10:00 | XRR_ITS ---
PROCEDURE INFORMATION: Exam: XR Abdomen Exam date and time: 08/13/2020 10:18 AM Age: 60 years old Clinical indication: Condition or disease; Kidney or ureter condition; Calculus (stone) in kidney; Additional info: N20.0 - calculus of kidney TECHNIQUE: Imaging protocol: XR of the abdomen. Views: Frontal supine view of the abdomen. 1 View. COMPARISON: CR XR KUB [id number] 07/16/2020 11:11 AM FINDINGS: Tubes, catheters and devices: Right-sided double-J stent is in satisfactory position. A suprapubic catheter is again seen projecting over the pelvis. Gastrointestinal tract: There is a moderate amount of stool, suggestive of constipation. Organs: No clear evidence of kidney stone. No clear evidence of kidney stone. The right kidney shadow is obscured by bowel contents. Bones/joints: Unremarkable. XR/XR KUB [id number] IMPRESSION: No clear evidence of kidney stone.
== END 2020-08-13 10:06 | disposition home or self-care (01) ==
PROVIDERS: PCP Internal Medicine; Visit Provider Urology
DX: N20.0 Calculus of kidney (principal)
CPT/HCPCS: 74018; 87635

== ENCOUNTER 2020-08-20 09:53 | Day surgery (SDC) | payer MEDICAID, SELFPAY ==
[2020-08-17 14:29] VITALS: BMI 19.9
[2020-08-20 12:46] LABS: Glucose Point of Care 91 mg/dL (70-110)
[2020-08-20 12:51] VITALS: BP 166/89; PULSE 68; RESP 18; TEMP 37; O2SAT 99
[2020-08-20] MEDS: sodium chloride 0.9% 1,000 ML 30 ML IV (12:53)
--- NOTE | 2020-08-20 16:46 | W.PM.OPSUD ---
Surgery/Procedure H&P Update DATE OF PROCEDURE: August 20, 2020 DATE H&P PERFORMED: 08/13/20 H&P UPDATE INFORMATION: I have reviewed H&P completed within last 30 days, I have examined patient prior to procedure, No changes to prior documentation and H&P is in [facility] [place] [facility] EMR on date indicated PREOP DIAGNOSIS: Retained ureteral stent PLANNED PROCEDURE: Operation Date: 08/20/20 15:00 Proposed Procedures p Cystoscopy 02666 [id number] N20.0(Not Applicable) - Oni Saucedo MD s Ureteral Stent Removal(Right) - Oni Saucedo MD s poss Retrograde Pyelogram(Not Applicable) - Oni Saucedo MD
--- NOTE | 2020-08-20 17:00 | P.ANESASSM_ITS ---
Pre-Anesthetic Assessment Pre-Anesthetic Assessment: Height/Weight: Height 1.75 m Weight 61.235 kg Temp Pulse Resp BP Pulse Ox 98.6 F 68 18 166/89 99 08/20/20 12:51 08/20/20 12:51 08/20/20 12:51 08/20/20 12:51 08/20/20 12:51 Preop Diagnosis: Retained ureteral stent Proposed Procedure: Operation Date: 08/20/20 15:00 Proposed Procedures p Cystoscopy 26208 88706 N20.0(Not Applicable) - MD broderick Castellanos Ureteral Stent Removal(Right) - Oni Saucedo MD s poss Retrograde Pyelogram(Not Applicable) - Oni Saucedo MD Was Beta Jose taken within 24 hours: N/A Was Clonidine taken within 24 hours: N/A Last intake: Intake Last Liquid Date 08/20/20 Last Liquid Time 09:00 Last Solid Date 08/18/20 Last Solid Time 19:00 Last Intake: 23:00 Social: Social History: Tobacco and No alcohol Packs per day: 1ppd Pack years: 44 Exam: Pre-Anes Outpt Exam: alert, oriented x 3, clear to auscultation bilaterally and regular rate & rhythm Airway: Submandibular: WNL Cervical ROM: WNL MP: 2 Dentition: Full Pulmonary: Pulmonary: COPD CV/HEM: CV/HEM: HTN and NM : : UTI Hepatic: Hepatic: None reported GI: GI: GERD Metabolic: Metabolic: DM Musc/skel: Comments: pt with c3-5. pt with quadraplegic Neuropsych: Neuropsych: Seizure Anesthetic Plan: ASA status: 3 Anesthesia: MAC Risk of > 500 ml blood loss (7ml/kg in children): No Meds/Allergies Current Medications: Current Medications Generic Name Dose Route Start Last Admin Trade Name Freq PRN Reason Stop Dose Admin Sodium Chloride 1,000 mls @ 30 ml s/hr 08/20/20 11:00 08/20/20 12:53 Sodium Chloride 0.9% IV 08/21/20 10:59 30 mls/hr .Q24H SHANTEL Administration PFSH Anesthesia 2 PFSH: Medical History Chronic indwelling Miranda catheter Diabetes mellitus -NIDDM type II, A1c-7.2 (08/2019) -Accuchecks, hypoglycemia precautions, ISS -consistent carb diet Quadriplegia -strict fall precautions -frequent repositioning, q2h -WC-/bed-bound at baseline -continue pain meds, muscle relaxants -has been following up with Dr. Estrella for consideration of Botox treatments for spasticity Right renal stone Surgical History History of appendectomy History of back surgery History of colon resection History of neck surgery History of suprapubic catheter Open placement October 2019. S/P extracorporeal shock wave therapy Family History Father , at age 49 Cancer Lung disease Mother Cancer bone Brother Cancer Lung disease Denies family history of Diabetes CAD (coronary artery disease) Clotting disorder Dementia Hyperlipidemia Psychiatric illness Chronic kidney disease (CKD) Suicide Anesthesia complication Bleeding disorder Family history of premature coronary artery disease Hypertension Stroke Social History Smoking and tobacco status: current every day smoker cigarettes Packs smoked per day: 0.5 Quit status (tobacco): not considering quitting Alcohol intake: former Former alcohol use details: quit due to medications Household members: other Details: lives with mother Marital status: Legally Number of children: 5 History of recent travel: No Data Anesthesia Other Labs: Laboratory Results - last 48 hr 08/20/20 12:45 POC Glucose 91 Cardiac Studies: No Data to Display
[2020-08-20] MEDS: levofloxacin-dextrose 5 % 500 MG/100 ML PREMIX 100 MG IV (17:05)
[2020-08-20] MEDS: iohexol 300 mg/mL 50 mL Btl XX (17:25)
--- NOTE | 2020-08-20 17:27 | PM.OP ---
Operative Report Date of procedure: August 20, 2020 Pre-op Diagnosis: Retained ureteral stent Post-op diagnosis: same Post-op Findings: Stent removed without difficulty. No evidence of residual stones on retrograde ureteropyelogram Procedure Done: 1. Cystoscopy with removal of right ureteral stent 2. Right retrograde ureteropyelogram Implants: None Specimens removed/disposition: Stent Surgeon: Sheryl Anesthesia: MAC Estimated blood loss: None Urine output: Not measured Complications: None Findings: Stent was nonencrusted. Easily removed. Retrograde showed no residual stones Condition: stable Disposition: PACU Brief History: Timur is a very pleasant 60-year-old white male quadriplegic with a complex history of stones requiring combination of endoscopy laser lithotripsy with ESWL for stone eradication. Has have a history that is suspicious for autonomic dysreflexia. For that reason he is admitted today to the hospital for outpatient stent removal and retrograde. Procedure: After routine preoperative evaluation examination and obtaining of informed consent he was taken to the operating suite on 08/20/2020 where MAC was administered. Prepped and draped in usual sterile fashion in dorsolithotomy position paying careful attention to avoiding pressure points. 21 Luxembourgish cystoscope with 30 degree lens was introduced to urethra meatus and advanced into the bladder to videoscopy. The urethra showed a mid urethral stricture that was bypassable with a 21 Luxembourgish scope. The suprapubic tube was in good position. The stent showed no evidence of encrustation. The suprapubic tube was then clamped which allowed filling of the bladder. A flexible tip guidewire was then advanced up the right ureter next to the stent. The stent was then removed with grasping forceps without difficulty with easy uncurling of the proximal end. The ureteral orifice was carefully inspected there was no bleeding. The guidewire was then removed and a RIGHT retrograde ureteropyelogram was performed: Contrast was injected showing good filling of the right ureteral lumen and pyelocalyceal system with no obvious filling defects. There was good drainage after removal of the cone-tip catheter. The bladder was drained and the procedure was completed. Suprapubic tube was unclamped. Tolerated the procedure well without complications and was awakened in the operating room and returned to the recovery in stable condition. PLANS: 1. Anticipate discharge from outpatient surgery 2. Follow-up in about 3 months with a KUB first
[2020-08-20 17:29] VITALS: BP 86/52; PULSE 64; RESP 16; TEMP 36.2; O2SAT 98
[2020-08-20 17:35] VITALS: BP 92/62; PULSE 63; RESP 15; O2SAT 99
[2020-08-20 17:40] VITALS: BP 90/57; PULSE 63; RESP 12; TEMP 36.4; O2SAT 99
[2020-08-20 17:47] VITALS: BP 101/98; PULSE 68; RESP 18; TEMP 36.4; O2SAT 99
[2020-08-20 17:56] VITALS: BP 141/80; PULSE 63; RESP 18; TEMP 36.4; O2SAT 99
--- NOTE | 2020-08-20 18:14 | ANE.PACU2 ---
Inpatient post-anesthesia follow up: Airway intact: Yes Vital signs: Temperature 97.6 F Pulse Rate 63 Respiratory Rate 18 Blood Pressure 141/80 Pulse Oximetry 99 Oxygen Delivery Me thod Room Air Oxygen Flow Rate 8 Fraction of Inspir ed Oxygen Hydration adequate: Yes Nausea and vomiting: No Pain level: 3 Mental status: Baseline
== END 2020-08-20 18:27 | disposition home or self-care (01) ==
PROVIDERS: PCP Internal Medicine; Visit Provider Urology
PROC: 0TJB8ZZ Inspection of Bladder, Via Natural or Artificial Opening Endoscopic (ICD-10-PCS; CPT 52000; principal; 2020-08-20 15:00)
PROC: (CPT 52310; 2020-08-20 15:00)
PROC: (CPT 74420; 2020-08-20 15:00)
DX: N20.0 Calculus of kidney (principal); F17.210 Nicotine dependence, cigarettes, uncomplicated; J44.9 Chronic obstructive pulmonary disease, unspecified; I10 Essential (primary) hypertension; I25.2 Old myocardial infarction; K21.9 Gastro-esophageal reflux disease without esophagitis; E11.9 Type 2 diabetes mellitus without complications; G82.50 Quadriplegia, unspecified
CPT/HCPCS: 52310; 36416; 82962; 96365; J1956; J3010; J7030; Q9967

== ENCOUNTER → 2020-10-18 10:39 | Outpatient (BNVA) | payer MEDICAID, SELFPAY | PROVIDERS: PCP Internal Medicine; Visit Provider Specialist | DX: G82.50 Quadriplegia, unspecified (principal); G81.14 Spastic hemiplegia affecting left nondominant side; F17.210 Nicotine dependence, cigarettes, uncomplicated | CPT/HCPCS: 99213 ==

== ENCOUNTER 2020-12-03 09:40 | Outpatient (CLI) | payer MEDICAID, SELFPAY ==
--- NOTE | 2020-12-03 10:00 | XRR_ITS ---
PROCEDURE INFORMATION: Exam: XR Abdomen Exam date and time: 12/03/2020 10:00 AM Age: 60 years old Clinical indication: Condition or disease; Kidney or ureter condition; Calculus (stone) in kidney; Prior surgery; Surgery type: Appendectomy; Additional info: Renal stone TECHNIQUE: Imaging protocol: XR of the abdomen. Views: Frontal supine view of the abdomen. 1 View. COMPARISON: CR XR KUB [id number] 08/13/2020 10:20 AM FINDINGS: Tubes, catheters and devices: In the interim, the right-sided double-J stent has been removed. Gastrointestinal tract: Normal. No bowel dilation. Organs: No clear evidence of kidney stone. Bones/joints: Unremarkable. XR/XR KUB [id number] IMPRESSION: No discrete renal calculus identified.
== END 2020-12-03 09:41 | disposition home or self-care (01) ==
LOC: RAD 09:43
PROVIDERS: PCP Internal Medicine; Visit Provider Urology
DX: N20.0 Calculus of kidney (principal)
CPT/HCPCS: 74018

== ENCOUNTER 2021-04-20 15:47 | Inpatient (IN) | payer MEDICAID, SELFPAY ==
--- NOTE | 2021-04-20 15:49 | W.ED.NAVMDI ---
HPI - Nausea/Vomiting/Diarrhea General: Stated complaint: N/V Time Seen by Provider: 04/20/21 15:49 [facility], [facility] ED PFSH: Medical History Chronic indwelling Miranda catheter Diabetes mellitus -NIDDM type II, A1c-7.2 (08/2019) -Accuchecks, hypoglycemia precautions, ISS -consistent carb diet Quadriplegia -strict fall precautions -frequent repositioning, q2h -WC-/bed-bound at baseline -continue pain meds, muscle relaxants -has been following up with Dr. Estrella for consideration of Botox treatments for spasticity Right renal stone Surgical History History of appendectomy History of back surgery History of colon resection History of neck surgery History of suprapubic catheter Open placement October 2019. S/P extracorporeal shock wave therapy Family History Father , at age 49 Cancer Lung disease Mother Cancer bone Brother Cancer Lung disease Denies family history of Diabetes CAD (coronary artery disease) Clotting disorder Dementia Hyperlipidemia Psychiatric illness Chronic kidney disease (CKD) Suicide Anesthesia complication Bleeding disorder Family history of premature coronary artery disease Hypertension Stroke Social History Smoking and tobacco status: current every day smoker cigarettes Packs smoked per day: 0.5 Quit status (tobacco): not considering quitting Alcohol intake: former Former alcohol use details: quit due to medications Household members: other Details: lives with mother Marital status: Legally Number of children: 5 History of recent travel: No Discharge Plan Discharge Prescriptions: No Action aspirin [Adult Aspirin Regimen] 81 mg tablet,delayed release (DR/EC) 81 mg PO DAILY@09 RF: 0 Hold Instructions: Resume on 06/18/20. carbamazepine 200 mg tablet 200 mg PO BID@ RF: 0 escitalopram oxalate 10 mg tablet 10 mg PO DAILY@ RF: 0 gabapentin 100 mg capsule 100 mg PO TID@ RF: 0 promethazine 25 mg tablet 25 mg PO Q6H PRN (Reason: Nausea) RF: 0 trazodone 50 mg tablet 100 mg PO BEDTIME@2199 RF: 0 ascorbic acid (vitamin C) 500 mg capsule 500 mg PO DAILY@09 RF: 0 ergocalciferol (vitamin D2) 10 mcg (400 unit) tablet 50,000 unit PO Q7D RF: 0 baclofen 20 mg tablet 20 mg PO QID PRN (Reason: Pain) RF: 0 melatonin 10 mg capsule 30 mg PO BEDTIME@22 RF: 0 tizanidine 2 mg tablet 6 mg PO Q6H Qty: 360 RF: 5 ketoconazole 2 % shampoo 1 applic topical .3 x weekly Qty: 120 RF: 3 triamcinolone acetonide 0.1 % ointment 1 applic topical BID Qty: 453.6 RF: 1 clobetasol 0.05 % ointment 1 applic topical BID 14 Days Qty: 60 RF: 3 hydrocortisone 2.5 % ointment 1 applic topical BID PRN (Reason: skin irritation) Qty: 453.6 RF: 0 mometasone 0.1 % solution 1 applic topical DAILY Qty: 60 RF: 3 pantoprazole 40 mg tablet,delayed release (DR/EC) 20 mg PO DAILY RF: 0 Renacidin 1,980.6 mg-59.4 mg-980.4mg/30mL solution 30 ml irrigation TID Qty: 900 RF: 12 vitamin E 1,000 unit Capsule 1,000 unit PO DAILY@09 RF: 0 albuterol sulfate 90 mcg/actuation aero powdr breath act w/sensor 1 inh inhalation Q6H PRN (Reason: shortness of breath or wheezing) Qty: 1 RF: 0 Coding Level of Care Code ED Bulk Sealer Operator for Brooklyng Eleanor
[2021-04-20 15:54] VITALS: BP 181/77; PULSE 54; RESP 17; TEMP 36.6; O2SAT 100; BMI 20.7
[2021-04-20 16:06] VITALS: BP 165/91; PULSE 54; RESP 17; O2SAT 100
--- NOTE | 2021-04-20 16:16 | CTR_ITS ---
PROCEDURE INFORMATION: Exam: CT Head Without Contrast Exam date and time: 04/20/2021 4:16 PM Age: 60 years old Clinical indication: Patient HX: C/O dizziness x 1 week TECHNIQUE: Imaging protocol: Computed tomography of the head without contrast. Total images: 211 Radiation optimization: All CT scans at this facility use at least one of these dose optimization techniques: automated exposure control; mA and/or kV adjustment per patient size (includes targeted exams where dose is matched to clinical indication); or iterative reconstruction. COMPARISON: No relevant prior studies available. RADIATION DOSE METRICS: Total DLP (mGy-cm): 870.16 FINDINGS: Brain: No evidence of active or acute intracranial pathologic process, hemorrhage, or trauma. No visible evidence of diffuse cerebral edema or generalized demyelination. No hyperdense MCA or insular ribbon sign. No mass effect. No midline shift. Cerebral ventricles: No ventriculomegaly. Paranasal sinuses: Visualized sinuses are unremarkable. No fluid levels. Mastoid air cells: Visualized mastoid air cells are well aerated. Bones/joints: Unremarkable. No acute fracture. Soft tissues: Unremarkable. CT/CT head wo con* [id number] IMPRESSION: No evidence of active or acute intracranial pathologic process, hemorrhage, or trauma. Radiation Dose CTDIVOL = (mGy): DLP = 870.16 (mGy-cm)
--- NOTE | 2021-04-20 16:16 | CTR_ITS ---
PROCEDURE INFORMATION: Exam: CT Angiography Head With Contrast, Arteriography Exam date and time: 04/20/2021 4:16 PM Age: 60 years old Clinical indication: Dizziness and giddiness and visual disturbance; Other visual defect; Prior surgery; Surgery date: 6+ months; Surgery type: C-sp; Patient HX: Traumatic quad C/O dizziness and blurred vision TECHNIQUE: Imaging protocol: Computed tomography angiography of the head with contrast. Exam focused on the arteries. 3D rendering (Not supervised by radiologist): MIP and/or 3D reconstructed images were created by the technologist. Total images: 804 Radiation optimization: All CT scans at this facility use at least one of these dose optimization techniques: automated exposure control; mA and/or kV adjustment per patient size (includes targeted exams where dose is matched to clinical indication); or iterative reconstruction. Contrast material: OMNI 350; Contrast volume: 95 ml; Contrast route: INTRAVENOUS (IV); COMPARISON: CT head wo con* [id number] 04/20/2021 6:24 PM RADIATION DOSE METRICS: Total DLP (mGy-cm): 1340.76 FINDINGS: ANTERIOR CIRCULATION: Right internal carotid artery: Cerebral arteriosclerosis of the internal carotid artery terminus. Intracranial segment is patent with no hemodynamically significant stenosis. No aneurysm. Right middle cerebral artery: Unremarkable. No occlusion or significant stenosis. No aneurysm. Right anterior cerebral artery: Unremarkable. No occlusion or significant stenosis. No aneurysm. Left internal carotid artery: Cerebral arteriosclerosis of the internal carotid artery terminus. Intracranial segment is patent with no significant hemodynamically significant stenosis. No aneurysm. Left middle cerebral artery: Unremarkable. No occlusion or significant stenosis. No aneurysm. Left anterior cerebral artery: Unremarkable. No occlusion or significant stenosis. No aneurysm. POSTERIOR CIRCULATION: Right vertebral artery: Unremarkable. No occlusion or significant stenosis. No aneurysm. Left vertebral artery: Unremarkable. No occlusion or significant stenosis. No aneurysm. Basilar artery: Unremarkable. No occlusion or significant stenosis. No aneurysm. Right posterior cerebral artery: Unremarkable. No occlusion or significant stenosis. No aneurysm. Left posterior cerebral artery: Unremarkable. No occlusion or significant stenosis. No aneurysm. PROCEDURE INFORMATION: Exam: CT Angiography Neck With Contrast Exam date and time: 04/20/2021 4:16 PM Age: 60 years old Clinical indication: Dizziness and giddiness and visual disturbance; Other visual defect; Prior surgery; Surgery date: 6+ months; Surgery type: C-sp; Patient HX: Traumatic quad C/O dizziness and blurred vision TECHNIQUE: Imaging protocol: Computed tomography angiography of the neck with contrast. 3D rendering (Not supervised by radiologist): MIP and/or 3D reconstructed images were created by the technologist. Radiation optimization: All CT scans at this facility use at least one of these dose optimization techniques: automated exposure control; mA and/or kV adjustment per patient size (includes targeted exams where dose is matched to clinical indication); or iterative reconstruction. Contrast material: OMNI 350; Contrast volume: 95 ml; Contrast route: INTRAVENOUS (IV); COMPARISON: CT head wo con* [id number] 04/20/2021 6:24 PM RADIATION DOSE METRICS: Total DLP (mGy-cm): 1340.76 FINDINGS: Right common carotid artery: [id number] atheromatous plaquing at the common carotid artery bulb. No resulting hemodynamically significant stenosis. No dissection or occlusion. Right internal carotid artery: No hemodynamically significant stenosis of the extracranial segment. No dissection or occlusion. Right external carotid artery: Approximately 60% stenosis at the ostium without occlusion. Left common carotid artery: Mild thin soft atheromatous plaquing of the common carotid artery body. No hemodynamically significant stenosis. No dissection or occlusion. Left internal carotid artery: Minimal atheromatous plaquing. No hemodynamically significant stenosis of the extracranial segment. No dissection or occlusion. Left external carotid artery: No occlusion or hemodynamically significant stenosis of the origin. Right vertebral artery: No stenosis. No dissection or occlusion. Left vertebral artery: No stenosis. No dissection or occlusion. Soft tissues: Unremarkable. No significant soft tissue swelling. Bones/joints: No visible acute osseous abnormality. Marked scoliotic curvature. Previous fusion of C3 and C4 with anterior compression plate and screw fixation device. CT/CT angio headneck* [id number] IMPRESSION: 1. Cerebral arteriosclerosis of the internal carotid artery terminus bilaterally. 2. No occlusion or hemodynamically significant stenosis. IMPRESSION: 1. Approximately 60% stenosis at the ostium of the right external carotid artery without occlusion. 2. No hemodynamically significant stenosis of the remaining vessels. REFERENCES: NASCET CRITERIA. The degree of internal carotid artery stenosis is based on NASCET criteria. Normal is no stenosis. Mild is less than 50% stenosis. Moderate is 50-69% stenosis. Severe is 70% to 99% stenosis. Total occlusion is no detectable patent lumen. Radiation Dose CTDIVOL = (mGy): DLP = 1340.76~1340.76 (mGy-cm)
--- NOTE | 2021-04-20 16:16 | CTR_ITS ---
PROCEDURE INFORMATION: Exam: CT Abdomen And Pelvis Without Contrast Exam date and time: 04/20/2021 4:16 PM Age: 60 years old Clinical indication: Abdominal pain; Generalized; Prior surgery; Surgery date: 6+ months; Surgery type: Colon, back, appy; Patient HX: Traumatic quad C/O constipation and abd discomfort; Additional info: Constipation, abd pain TECHNIQUE: Imaging protocol: Computed tomography of the abdomen and pelvis without contrast. Radiation optimization: All CT scans at this facility use at least one of these dose optimization techniques: automated exposure control; mA and/or kV adjustment per patient size (includes targeted exams where dose is matched to clinical indication); or iterative reconstruction. COMPARISON: CT abdomen pelvis w con* [id number] 05/12/2020 11:01 PM RADIATION DOSE METRICS: Total DLP (mGy-cm): 875.63 FINDINGS: Tubes, catheters and devices: Suprapubic catheter is present with unremarkable position. Liver: Normal. No mass. Gallbladder and bile ducts: Normal. No calcified stones. No ductal dilation. Pancreas: Normal. No ductal dilation. Spleen: Normal. No splenomegaly. Adrenal glands: Circumscribed heterogeneous predominantly low attenuation left adrenal gland mass measures 3.1 cm x 3 cm which is identical sized to comparison. Unremarkable right adrenal gland. Kidneys and ureters: Severe right kidney cortical atrophy. Multiple bilateral nonobstructing renal stones. Negative for hydronephrosis. Stomach and bowel: Massive fecal volume in the large bowel. The colon is dilated up to about 7 cm. No inflammatory bowel wall thickening identified. No significant dilation of small bowel loops. Negative for bowel pneumatosis. Appendix: No evidence of appendicitis. Intraperitoneal space: Unremarkable. No free air. No significant fluid collection. Vasculature: There is scattered atherosclerosis. Negative for abdominal aortic aneurysm. Lymph nodes: Unremarkable. No enlarged lymph nodes. Urinary bladder: Bladder is decompressed. Reproductive: Mild severity prostatomegaly. Bones/joints: Diffuse osseous demineralization. No acute fractures. Unremarkable lumbar spine alignment. Soft tissues: Abdominal wall soft tissues are unremarkable. CT/CT abdomen pelvis wo con [id number] IMPRESSION: 1. Constipation. 2. Negative for acute abdominopelvic pathology. 3. Stable left adrenal gland mass. No dedicated follow-up recommended. 4. Bilateral nonobstructive nephrolithiasis. Severely atrophic right kidney parenchyma. COMMENTS: Consistent with the [employer]'s Incidental Findings Committee white paper (J Am Chuckie Radiol 2017): For any incidental adrenal lesion greater than 1 cm but less than 4 cm classified in this report as benign, likely benign, or containing fat (including classification as an adenoma or myelolipoma), no follow-up imaging is recommended per consensus recommendations based on imaging criteria. Further lab evaluation could be pursued if warranted based on clinical findings. Radiation Dose CTDIVOL = (mGy): DLP = 875.63 (mGy-cm)
--- NOTE | 2021-04-20 16:16 | XRR_ITS ---
PROCEDURE INFORMATION: Exam: XR Chest Exam date and time: 04/20/2021 4:16 PM Age: 60 years old Clinical indication: Other: Dizzy; Additional info: Dizziness, HTN TECHNIQUE: Imaging protocol: XR of the chest. Views: 1 view. COMPARISON: CR XR chest 1V portable [id number] 05/20/2020 5:37 AM FINDINGS: Lungs: Emphysematous lung changes. Mildly hyperinflated appearance. There is patchy upper lobe opacification slightly more conspicuous on the right than the left. Accounting for differences in radiographic technique, there is no definitive change from comparison. Pleural spaces: Unremarkable. No pleural effusion. No pneumothorax. Heart/Mediastinum: Unremarkable. No cardiomegaly. Bones/joints: Unremarkable. XR/XR chest 1V portable [id number] IMPRESSION: 1. No focal acute airspace disease process identified. 2. Probable interstitial scarring in the upper lobes more conspicuous on right than left. Radiation Dose CTDIVOL = (mGy): DLP = (mGy-cm)
--- NOTE | 2021-04-20 16:18 | ECG_ITS ---
[facility] Test Date: 2021-04-20 Pat Name: Timur Valdovinos Department: Room: Gender: Male Medical Dir: : 1960 Requested By: Brent Rasmussen Order Number: [id number] Matthieu MD: Haseeb Kapadia M.D. Measurements Intervals [place] Rate: 56 P: 76 AK: 215 QRS: 52 QRSD: 114 T: 65 QT: 444 QTc: 429 Interpretive Statements SINUS BRADYCARDIA WITH FIRST DEGREE AV BLOCK MODERATE INTRAVENTRICULAR CONDUCTION DELAY [110+ ms QRS DURATION] ST DEPRESSION, CONSIDER SUBENDOCARDIAL INJURY [0.1+ mV ST DEPRESSION] Compared to ECG 12/25/2019 15:26:38 First degree AV block now present Intraventricular conduction delay now present ST (T wave) deviation now present Electronically Signed On 04-22-2021 17:13:20 ELECTRIC DRILL OPERATOR by Haseeb Kapadia M.D. [email or web address]
[2021-04-20 19:27] LABS: Basophils % 0.6 %; Eosinophils # 0.1 10^3/uL (0.0-0.8); Eosinophils % 1.1 %; Hematocrit 39.9 % (42.0-52.0); Hemoglobin 14.2 g/dL (11.7-16.6); Lymphocytes # 0.8 10^3/uL (0.8-4.8); Lymphocytes % 17.1 %; Mean Corpuscular HGB Conc 35.6 g/dL (30.0-36.0); Mean Corpuscular Hemoglobin 32.1 pg (28.0-34.0); Mean Corpuscular Volume 90.1 fl (80-94); Mean Platelet Volume 8.5 fL (7.4-10.4); Monocytes # 0.4 10^3/uL (0.2-0.9); Monocytes % 9.3 %; Neutrophils # 3.36 10^3/uL (1.8-7.7); Neutrophils % 70.6 %; Nucleated Red Blood Cells % 0 %; Platelet Count 371 10^3/cmm (130-400); Red Blood Count 4.43 10^6/uL (4.1-5.3); Red Cell Distribution Width 12.6 % (12.1-15.1); White Blood Count 4.8 10^3/uL (4.0-10.0)
[2021-04-20] MEDS: sodium chloride 0.9% 1,000 ML 999 ML IV (19:36)
[2021-04-20] MEDS: ondansetron 2 mg/ML SDV 2 mL 4 MG IVP (19:37)
[2021-04-20 19:39] VITALS: PULSE 60; O2SAT 100
[2021-04-20 19:56] LABS: Alanine Aminotransferase 21 U/L (0-41); Albumin Level 4.2 g/dL (3.5-5.2); Alkaline Phosphatase 80 IU/L (40-130); Aspartate Amino Transferase 22 U/L (0-40); Blood Urea Nitrogen 7 mg/dL (8-23); Calcium 8.6 mg/dL (8.5-10.5); Carbon Dioxide 26 mmol/L (22-29); Chloride 83 mmol/L (98-107); Globulin 3.4 g/dL (1.3-4.6); Glucose 97 mg/dL (65-115); Osmolality Calculated 246 mOsm/kg (285-295); Total Bilirubin 0.2 mg/dL (0.15-1.2); Total Protein 7.6 g/dL (6.6-8.7)
[2021-04-20 19:58] LABS: Creatinine Clr Calc Pharmacy 148.8299
[2021-04-20 19:59] LABS: Anion Gap 14.9 (5-19); Potassium 4.9 mmol/L (3.5-5.1)
[2021-04-20 20:00] LABS: Sodium 119 mmol/L (136-145)
[2021-04-20] MEDS: iohexol 350 mg/mL 100 mL Btl IV (20:31)
--- NOTE | 2021-04-20 21:32 | W.ED.NAVMDI ---
HPI - Nausea/Vomiting/Diarrhea General: Chief complaint: Nausea/Vomiting/Diarrhea Stated complaint: N/V Time Seen by Provider: 04/20/21 15:49 History of Present Illness: HPI Narrative: Mr. 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 Symptom onset was approximately 1 week ago. He describes episodes of fuzzy and double vision associated with a spinning sensation. Symptoms are worse with movement and vision is improved with closing 1 eye. He denies associated headache. Today he had a few episodes of nausea and vomiting which was nonbilious and nonbloody which brought him to the emergency department. Overall the intensity of symptoms is moderate. The course has been worsening. Supplemental history provided by family reports some constipation as well though the patient did not specifically endorse this. No other specific changes in health, exacerbating, or relieving factors identified. Review of Systems General: Reports: 10 or more systems reviewed and unremarkable except in HPI and below PFSH ED PFSH: Medical History (Updated 04/23/21 @ 00:01 by ) Chronic indwelling Miranda catheter COVID-05 June 2020 Diabetes mellitus -NIDDM type II, A1c-7.2 (08/2019) -Accuchecks, hypoglycemia precautions, ISS -consistent carb diet Quadriplegia -strict fall precautions -frequent repositioning, q2h -WC-/bed-bound at baseline -continue pain meds, muscle relaxants -has been following up with Dr. 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 S/P extracorporeal shock wave therapy Family History Father , at age 49 Cancer Lung disease Mother Cancer bone Brother Cancer Lung disease Denies family history of Diabetes CAD (coronary artery disease) Clotting disorder Dementia Hyperlipidemia Psychiatric illness Chronic kidney disease (CKD) Suicide Anesthesia complication Bleeding disorder Family history of premature coronary artery disease Hypertension Stroke Social History Smoking and tobacco status: current every day smoker cigarettes Packs smoked per day: 0.5 Quit status (tobacco): not considering quitting Alcohol intake: former Former alcohol use details: quit due to medications Household members: other Details: lives with mother Marital status: Legally Number of children: 5 History of recent travel: No Physical Exam Narrative: EXAM NARRATIVE: GENERAL/CONSTITUTIONAL -mildly ill-appearing. Baseline spastic quadriplegia Eyes - PERRL, no conjunctival injection ENMT - Atraumatic external nose and ears. Moist mucous membranes NECK - supple. trachea midline CARDIOVASCULAR - regular rate and rhythm. Peripheral pulses 2+ and equal RESPIRATORY - clear to auscultation bilaterally. No retractions or accessory muscle use. ABDOMEN/GI - mild generalized tenderness without evidence of peritonitis. MSK - Extremities without obvious deformity or tenderness to palpation SKIN - Warm, Dry NEURO - alert and appropriately oriented. Baseline spastic quadriplegia. Cranial nerves II through XII intact. Mild right beating nystagmus on far lateral gaze though not consistently. Course ED course: - Patient was seen and evaluated by me at bedside - Patient placed on cardiac monitors, IV access obtained - Initial evaluation notable for exam as noted above. Nontoxic. Description of symptoms is somewhat more consistent with peripheral cause of dizziness however definitely challenging exam given baseline. - Labs notable for no leukocytosis. Metabolic panel notable for fairly marked hyponatremia, patient does have a history of chronic hyponatremia however this is lower than expected. Renal function preserved. TSH normal. - Imaging notable for no acute intracranial finding to explain the patient's symptoms. CT abdomen and pelvis notable for constipation. - IV fluids changed to drip for slow correction rate - Upon serial reexamination after treatment the patient was mildly improved. - Based on patient history, evaluation, labs, and imaging as interpreted the most likely cause of the patient's condition is symptomatic hyponatremia - The results of ED evaluation were discussed with the patient including plan for admission due to requirement for level of care not available if discharged to prevent significant worsening/deterioration. - Hospitalist service contacted and agreed admit the patient. - Patient was admitted without further deterioration or significant events. Vital Signs: Vital signs: Vital Signs Temperature 98.3 F 04/22/21 15:31 Pulse Rate 61 04/22/21 15:31 Respiratory Rate 17 04/22/21 15:31 Blood Pressure 141/64 04/22/21 15:31 Pulse Oximetry 94 04/22/21 15:31 MDM - Nausea/Vomiting/Diarrhea Medical Records: Attestation: I reviewed the patient's medical records. Lab Data: Attestation: I reviewed the patient's lab results. Labs: Lab Results 04/20/21 04/20/21 19:18 19:18 WBC 4.8 10^3/uL 10^3/ uL (4.0-10.0) RBC 4.43 10^6/uL 10^6 /uL (4.1-5.3) Hgb 14.2 g/dL g/dL (11.7-16.6) Hct 39.9 % L % (42.0-52.0) MCV 90.1 fl fl (80-94) MCH 32.1 pg pg (28.0-34.0) MCHC 35.6 g/dL g/dL (30.0-36.0) RDW 12.6 % % (12.1-15.1) Plt Count 371 10^3/cmm 10^3 /cmm (130-400) MPV 8.5 fL fL (7.4-10.4) Neut % (Auto) 70.6 % % Lymph % (Auto) 17.1 % % Riley % (Auto) 9.3 % % Eos % (Auto) 1.1 % % Baso % (Auto) 0.6 % % Neut # (Auto) 3.36 10^3/uL 10^3 /uL (1.8-7.7) Lymph # (Auto) 0.8 10^3/uL 10^3/ uL (0.8-4.8) Riley # (Auto) 0.4 10^3/uL 10^3/ uL (0.2-0.9) Eos # (Auto) 0.1 10^3/uL 10^3/ uL (0.0-0.8) Baso # (Auto) 0.0 10^3/uL 10^3/ uL (0.0-0.1) Nucleated RBC % (a uto) 0 % % Nucleated RBCs # 0.0 /100WBC /100W BC Sodium 119 mmol/L L* mmo l/L (136-145) Potassium 4.9 mmol/L mmol/L (3.5-5.1) Chloride 83 mmol/L L mmol/ L (98-107) Carbon Dioxide 26 mmol/L mmol/L (22-29) Anion Gap 14.9 (5-19) BUN 7 mg/dL L mg/dL (8-23) Creatinine 0.5 mg/dL L mg/dL (0.7-1.2) GFR Calculation 169.0 mL/min H mL /min (90-130) Glucose 97 mg/dL mg/dL (65-115) Calculated Osmolal ity 246 mOsm/kg L mOs m/kg (285-295) Calcium 8.6 mg/dL mg/dL (8.5-10.5) Total Bilirubin 0.2 mg/dL mg/dL (0.15-1.2) AST 22 U/L U/L (0-40) ALT 21 U/L U/L (0-41) Alkaline Phosphata se 80 IU/L IU/L (40-130) Total Protein 7.6 g/dL g/dL (6.6-8.7) Albumin 4.2 g/dL g/dL (3.5-5.2) Globulin 3.4 g/dL g/dL (1.3-4.6) TSH 0.80 uIU/mL uIU/m L (0.27-4.20) EKG Data^: EKG 1: Attestation: I personally reviewed and interpreted this EKG as follows: EKG interpretation date: 04/20/21 EKG interpretation time: 16:35 Interpretation: Twelve-lead EKG shows a regular rhythm at a rate of 56. KS interval 215, QRS duration 114, QTc 429. Normal axis. Interpretation: Sinus bradycardia. First-degree AV block. Unable to evaluate lead I, aVR, and lead to due to baseline. Possible nonspecific ST segment abnormalities. Discharge Plan Discharge Admit Provider: Christiana Lopez Clinical Impression: Hyponatremia, Spastic hemiplegia, dominant side, Spastic hemiplegia affecting left nondominant side, Dizziness Condition: Stable Discharge Orders: Discharge Order (Routine); Ordered 04/22/21 Ordered By: Catina Marmolejo Discharge Diet: Regular Coding Level of Care Code ED Roll Plugger Machine Operator for Chg Fwamina
[2021-04-20 22:35] VITALS: BP 149/83; PULSE 58; RESP 18; O2SAT 97
[2021-04-20 23:24] VITALS: BMI 18.1
[2021-04-20 23:28] VITALS: BP 159/79; PULSE 59; RESP 17; TEMP 36.6; O2SAT 100
[2021-04-21 04:00] VITALS: BP 149/67; PULSE 59; RESP 17; TEMP 36.7; O2SAT 96
--- NOTE | 2021-04-21 05:13 | P.HP_ITS ---
Providers/Chief Complaint Admitting Physician: Christiana Lopez MD Primary Care Provider: Puja Mohamud DO Chief Complaint: N/V History of Present Illness Timur Valdovinos is a 60 year old male with a past medical history of spastic quadriplegia, chronic suprapubic catheter, nephrolithiasis including staghorn calculi on the right side, recurrent complicated urinary tract infection present ing today with chief complains of dizziness that has been going on for the past 1 week. Patient denies any episodes of loss of consciousness, no new motor deficits noticed by the patient. Describes a sensation is that of head spinning. CT head and CTA are negative for any acute intracranial events. He does have a history of chronic longstanding hyponatremia with intermittent acute worsening. Today his sodium was noted to be at 119. Has mild headache. Denies any recent fever chills etc. Review of Systems General: Reports: 10 or more systems reviewed and unremarkable except in HPI and below Const: Denies: fever(s), chills or body aches Eyes: Denies: change in vision, blurry vision or photophobia ENMT: Reports: hoarseness; Denies: throat pain, enlarged tonsils, odynophagia or nasal congestion Card: Denies: chest pain, palpitations, irregular heart rhythm, edema, swelling of feet/ankles, lightheadedness, pre-syncope, dyspnea on exertion or orthopnea Resp: Denies: dyspnea, productive cough, non-productive cough, wheezing, stridor, pain on inspiration, change in phlegm color, hemoptysis or chest congestion GI: Denies: abdominal pain, nausea, vomiting, hematemesis, coffee ground emesis, dysphagia, heartburn, diarrhea, constipation, GI cramping, change in stool character, hematochezia or melena : Denies: flank pain, dysuria, urinary frequency, urinary urgency, urinary hesitancy or hematuria Musc: Denies: neck pain, back pain, extremity pain, joint swelling, joint warmth or deformity Neuro: Denies: headache(s), numbness in extremities, weakness in extremities, sensory changes, difficulty walking, frequent falls, dizziness, vertigo, behavioral changes, Slurred speech present or seizure-like activity Psych: Denies: anxiety, depression, suicidal ideation or homicidal ideation Endo: Denies: polyuria, polydipsia, tired all the time, cold intolerance or hot flashes Lane/Lymph: Denies: easy bruising or easy bleeding Medications/Allergies Home Medications Medication Instructions Recorded Confirmed Last Taken Type ascorbic acid (vitamin C) 500 mg 500 mg PO DAILY@05/24/19 12/27/20 07/16/20 08:00 History capsule aspirin 81 mg tablet,delayed 81 mg PO DAILY@05/24/19 12/27/20 07/02/20 History release carbamazepine 200 mg tablet 200 mg PO BID@05/24/19 12/27/20 07/16/20 07:00 History escitalopram oxalate 10 mg tablet 10 mg PO DAILY@05/24/19 12/27/20 07/16/20 07:00 History gabapentin 100 mg capsule 100 mg PO TID@05/24/19 12/27/20 07/16/20 07:00 History promethazine 25 mg tablet 25 mg PO Q6H PRN 05/24/19 12/27/20 07/15/20 21:00 History trazodone 50 mg tablet 100 mg PO BEDTIME@2200 05/24/19 12/27/20 07/15/20 21:00 History vitamin E 1,000 unit PO DAILY@09/30/19 12/27/20 07/16/20 07:00 History ergocalciferol (vitamin D2) 10 mcg 50,000 unit PO Q7D 10/11/19 12/27/20 07/16/20 07:00 History (400 unit) tablet baclofen 20 mg tablet 20 mg PO QID PRN tab 12/06/19 12/27/20 07/16/20 07:00 History albuterol sulfate 1 inh INHALATION Q6H PRN #1 ea 05/21/20 12/27/20 06/13/20 Rx melatonin 10 mg capsule 30 mg PO BEDTIME@22 cap 06/01/20 12/27/20 07/15/20 21:00 History pantoprazole 40 mg tablet,delayed 20 mg PO DAILY tab 06/01/20 12/27/20 07/16/20 07:00 History release tizanidine 2 mg tablet 6 mg PO Q6H #360 tab 10/18/20 12/27/20 Unknown Rx citric ac 1980.6 mg-glucono 59.4 30 ml IRRIGATION TID #900 ml 12/03/20 12/27/20 Unknown Rx mg-mag carb 980.4 mg/30 mL irrig.soln clobetasol 0.05 % topical ointment 1 applic TOPICAL BID 14 Days #60 g 12/27/20 12/27/20 Unknown Rx hydrocortisone 2.5 % topical 1 applic TOPICAL BID PRN #453.6 g 12/27/20 12/27/20 Unknown Rx ointment ketoconazole 2 % shampoo 1 applic TOPICAL .3 x weekly #120 12/27/20 12/27/20 Unknown Rx ml mometasone 0.1 % topical solution 1 applic TOPICAL DAILY #60 ml 12/27/20 12/27/20 Unknown Rx triamcinolone acetonide 0.1 % 1 applic TOPICAL BID #453.6 g 12/27/20 12/27/20 Unknown Rx topical ointment Allergies Allergy/AdvReac Type Severity Reaction Status Date / Time penicillin G Allergy Mild ALGY-Rash Verified 04/20/21 15:49 amoxicillin Allergy ALGY-Anaphy Verified 04/20/21 15:51 laxis PFSH Acute PFSH: Medical History (Updated 04/21/21 @ 05:17 by Christiana Lopez MD) Chronic indwelling Miranda catheter COVID-05 June 2020 Diabetes mellitus -NIDDM type II, A1c-7.2 (08/2019) -Accuchecks, hypoglycemia precautions, ISS -consistent carb diet Quadriplegia -strict fall precautions -frequent repositioning, q2h -WC-/bed-bound at baseline -continue pain meds, muscle relaxants -has been following up with Dr. Estrella for consideration of Botox treatments for spasticity Right renal stone Surgical History History of appendectomy History of back surgery History of colon resection History of neck surgery History of suprapubic catheter Open placement October 2019. S/P extracorporeal shock wave therapy Family History Father , at age 49 Cancer Lung disease Mother Cancer bone Brother Cancer Lung disease Denies family history of Diabetes CAD (coronary artery disease) Clotting disorder Dementia Hyperlipidemia Psychiatric illness Chronic kidney disease (CKD) Suicide Anesthesia complication Bleeding disorder Family history of premature coronary artery disease Hypertension Stroke Social History Smoking and tobacco status: current every day smoker cigarettes Packs smoked per day: 0.5 Quit status (tobacco): not considering quitting Alcohol intake: former Former alcohol use details: quit due to medications Household members: other Details: lives with mother Marital status: Legally Number of children: 5 History of recent travel: No Vitals/I&O/Wt Last Vital Signs Temp 98.1 F 04/21/21 04:00 Pulse 59 L 04/21/21 04:00 Resp 17 04/21/21 04:00 BP 149/67 04/21/21 04:00 Pulse Ox 96 04/21/21 04:00 04/20/21 04/20/21 04/21/21 14:59 22:59 06:59 Intake Total 200 / 200 Output Total 2074 / 2074 Balance 200 / 200 -2075 / -1875 Weight last 48 hrs Weight 55.905 kg Weight 63.503 kg Physical Exam Narrative: EXAM NARRATIVE: General: No acute distress, AO x3 HEENT: PERRLA, pupils bilaterally equal and reactive, pallors not present Chest: Normal vesicular breath sounds, no added sounds, equal good air entry bilaterally CVS: S1-S2 regular, no murmurs, no tachycardia, no gallops, no rubs Abdomen: Soft, nontender, no organomegaly, SPC+ Neuro: baseline quadriplegia with contracture Data : 04/20/21 19:18 04/20/21 19:18 A&P Assessment and plan (1) Hyponatremia: Symptomatic acute on chronic hyponatremia. When last checked sodium was at 134. CT head negative for any acute intracranial events. TSH within normal range. Check urine lites Patient is currently on normal saline started in the emergency room. Check repeat sodium at [address] of the abdomen and pelvis today without overt signs of infection, incidentally noted atrophic right kidney. Kidney function normal at 0.5 today. Currently no overt signs of pyelonephritis. Holding SSRIs for now as may contribute to hyponatremia. Additionally holding tizanidine in case contributing to dizziness. 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 History of recurrent urinary tract infections. No complaints of fever curren tly. CT abdomen without obstructive pyelonephritis. Attestations Medical Necessity Statement*: Anticipate greater than 2 midnight admission for evaluation and correction of acute on chronic hyponatremia. 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
[2021-04-21] MEDS: enoxaparin 40 mg/0.4 mL Syringe SUBCUT (05:48)
[2021-04-21] MEDS: baclofen 10 mg Tablet PO ×2 (05:48→14:18)
[2021-04-21] MEDS: acetaminophen 325 mg Tablet 650 MG PO ×2 (05:48→14:17)
[2021-04-21 06:56] LABS: Alanine Aminotransferase 19 U/L (0-41); Albumin Level 3.7 g/dL (3.5-5.2); Alkaline Phosphatase 67 IU/L (40-130); Aspartate Amino Transferase 19 U/L (0-40); Blood Urea Nitrogen 8 mg/dL (8-23); Calcium 8.5 mg/dL (8.5-10.5); Carbon Dioxide 22 mmol/L (22-29); Chloride 91 mmol/L (98-107); Globulin 2.7 g/dL (1.3-4.6); Glucose 77 mg/dL (65-115); Osmolality Calculated 259 mOsm/kg (285-295); Sodium 126 mmol/L (136-145); Total Bilirubin 0.2 mg/dL (0.15-1.2); Total Protein 6.4 g/dL (6.6-8.7)
[2021-04-21 08:00] VITALS: BP 150/67; PULSE 76; RESP 16; TEMP 36.6; O2SAT 99
[2021-04-21] MEDS: gabapentin 100 mg Capsule PO ×2 (08:32→18:39)
[2021-04-21] MEDS: pantoprazole DR 40 mg Tablet PO (08:32)
[2021-04-21] MEDS: carBAMazepine 200 mg Tablet PO ×2 (08:32→18:39)
[2021-04-21] MEDS: aspirin 81 mg EC Tablet PO (08:35)
[2021-04-21 11:56] VITALS: BP 156/80; PULSE 65; RESP 15; TEMP 36.8; O2SAT 96
--- NOTE | 2021-04-21 12:35 | PM.MISC ---
Miscellaneous Note Note: Patient presented with chief complaint of dizziness lightheadedness while resting in bed Has chronic indwelling catheter Constipated History of hyponatremia In the ER fluids were given today sodium 126 patient is not complaining of lightheadedness today I have requested enema bowel regimen senna S and milk of magnesia Patient is comfortable laying in bed EOMI, PERRLA Upper extremity contractures No new focal deficit as per the mother He is awake and alert talking very pleasant and cooperative Abdomen soft slightly hard on palpation no signs of peritonitis Bilateral breath sounds without adventitious rhonchi or crackles Muscle mass loss Clinically looks dehydrated Acute on chronic hyponatremia Discontinue fluids, watch him off fluids for next 24 hours, sodium today 126 His lightheadedness most likely is related to hyponatremia CTA head and neck unremarkable For constipation he will get aggressive bowel regimen and enema today last bowel movement about 2 days ago As per the mother he eats for bagels in the morning with peanut butter and then he eats supper, no recent nausea, vomiting, fever Plan to discharge him tomorrow if lightheadedness is improved, he does have chronic hyponatremia, sodium seems to be around baseline
[2021-04-21 13:31] LABS: Potassium, Radom Urine 23 mmol/L; Urine Random Chloride 81 mmol/L; Urine Random Sodium 88 mmol/L
[2021-04-21 16:21] VITALS: BP 136/75; PULSE 63; RESP 16; TEMP 36.7; O2SAT 98
[2021-04-21 20:00] VITALS: BP 181/84; PULSE 63; RESP 17; TEMP 36.6; O2SAT 96
[2021-04-21 21:40] VITALS: PULSE 60; RESP 16; O2SAT 97
[2021-04-22] VITALS (7 sets, daily range): BP systolic 141–159; BP diastolic 64–78; PULSE 58–62; RESP 17–18; TEMP 36.5–36.9; O2SAT 94–97
[2021-04-22 03:10] LABS: Basophils % 0.6 %; Eosinophils # 0.1 10^3/uL (0.0-0.8); Eosinophils % 1.4 %; Hematocrit 36.2 % (42.0-52.0); Hemoglobin 12.3 g/dL (11.7-16.6); Lymphocytes # 1.1 10^3/uL (0.8-4.8); Lymphocytes % 14.9 %; Mean Corpuscular Hemoglobin 31.7 pg (28.0-34.0); Mean Corpuscular Volume 93.3 fl (80-94); Mean Platelet Volume 8.3 fL (7.4-10.4); Monocytes % 14.5 %; Neutrophils # 4.89 10^3/uL (1.8-7.7); Nucleated Red Blood Cells % 0 %; Platelet Count 312 10^3/cmm (130-400); Red Blood Count 3.88 10^6/uL (4.1-5.3); Red Cell Distribution Width 13.4 % (12.1-15.1); White Blood Count 7.2 10^3/uL (4.0-10.0)
[2021-04-22 03:35] LABS: Anion Gap 16.3 (5-19); Blood Urea Nitrogen 11 mg/dL (8-23); Calcium 8.8 mg/dL (8.5-10.5); Carbon Dioxide 23 mmol/L (22-29); Chloride 97 mmol/L (98-107); Glucose 79 mg/dL (65-115); Osmolality Calculated 272 mOsm/kg (285-295); Potassium 4.3 mmol/L (3.5-5.1); Sodium 132 mmol/L (136-145)
--- NOTE | 2021-04-22 07:00 | PM.DCS ---
Discharge Providers Date of Admission: 04/20/21 22:07 Date of Discharge: April 22, 2021 Attending Provider at Admission: Christiana Lopez MD Attending Provider at Discharge: Catina Marmolejo MD Primary Care Provider: Puja Mohamud DO Diagnoses at Discharge Discharge Diagnosis (1) Hyponatremia: Status: Acute Reason for Visit Reason for Visit: N/V Discharge Data Data Completed and Pending: Completed Studies During Hospitalization Category Date Time Status CT abdomen pelvis wo con [id number] Urge nt Cat Scan 04/20/21 16:[address] angio headneck * [id number] Urge nt Cat Scan 04/20/21 16:[address] head wo con* 7 0450 Urgent Cat Scan 04/20/21 16:16 Completed XR chest 1V lyndsay ble [id number] Urgent Exams 04/20/21 16:16 Completed Labs from last 24 hours 04/22/21 04/22/21 04/21/21 03:00 03:00 11:12 WBC 7.2 RBC 3.88 L Hgb 12.3 Hct 36.2 L MCV 93.3 MCH 31.7 MCHC 34.0 RDW 13.4 Plt Count 312 MPV 8.3 Neut % (Auto) 68.0 Lymph % (Auto) 14.9 [place] % (Auto) 14.5 Eos % (Auto) 1.4 Baso % (Auto) 0.6 Neut # (Auto) 4.89 Lymph # (Auto) 1.1 [place] # (Auto) 1.0 H Eos # (Auto) 0.1 Baso # (Auto) 0.0 Nucleated RBC % (a uto) 0 Nucleated RBCs # 0.0 Sodium 132 L Potassium 4.3 Chloride 97 L Carbon Dioxide 23 Anion Gap 16.3 BUN 11 Creatinine 0.6 L GFR Calculation 137.0 H Glucose 79 Calculated Osmolal ity 272 L Calcium 8.8 Ur Random Sodium 88 Ur Random Potassiu m 23 Ur Random Chloride 81 Vitals: Last Vital Signs Temp 97.7 F 04/22/21 04:00 Pulse 60 04/22/21 04:00 Resp 17 04/22/21 04:00 BP 159/78 04/22/21 04:00 Pulse Ox 94 04/22/21 04:00 Discharge Plan Discharge Patient Disposition: Home Condition: Stable Prescriptions: New sennosides-docusate sodium [Senna-S] 8.6-50 mg tablet 1 tab-cap PO BID Qty: 30 RF: 2 polyethylene glycol 3350 [Miralax] 17 gram powder in packet 17 g PO DAILY PRN (Reason: constipation) 4 Days RF: 1 Continued aspirin [Adult Aspirin Regimen] 81 mg tablet,delayed release (DR/EC) 81 mg PO DAILY@09 RF: 0 Hold Instructions: Resume on 06/18/20. carbamazepine 200 mg tablet 200 mg PO BID@ RF: 0 escitalopram oxalate 10 mg tablet 10 mg PO DAILY@ RF: 0 gabapentin 100 mg capsule 100 mg PO TID@,, RF: 0 promethazine 25 mg tablet 25 mg PO Q6H PRN (Reason: Nausea) RF: 0 ascorbic acid (vitamin C) 500 mg capsule 500 mg PO DAILY@09 RF: 0 ergocalciferol (vitamin D2) 10 mcg (400 unit) tablet 50,000 unit PO Q7D RF: 0 baclofen 20 mg tablet 20 mg PO QID PRN (Reason: Pain) RF: 0 melatonin 10 mg capsule 30 mg PO BEDTIME@ RF: 0 tizanidine 2 mg tablet 6 mg PO Q6H Qty: 360 RF: 5 ketoconazole 2 % shampoo 1 applic topical .3 x weekly Qty: 120 RF: 3 triamcinolone acetonide 0.1 % ointment 1 applic topical BID Qty: 453.6 RF: 1 clobetasol 0.05 % ointment 1 applic topical BID 14 Days Qty: 60 RF: 3 hydrocortisone 2.5 % ointment 1 applic topical BID PRN (Reason: skin irritation) Qty: 453.6 RF: 0 mometasone 0.1 % solution 1 applic topical DAILY Qty: 60 RF: 3 pantoprazole 40 mg tablet,delayed release (DR/EC) 20 mg PO DAILY RF: 0 Renacidin 1,980.6 mg-59.4 mg-980.4mg/30mL solution 30 ml irrigation TID Qty: 900 RF: 12 vitamin E 1,000 unit Capsule 1,000 unit PO DAILY@09 RF: 0 albuterol sulfate 90 mcg/actuation aero powdr breath act w/sensor 1 inh inhalation Q6H PRN (Reason: shortness of breath or wheezing) Qty: 1 RF: 0 meloxicam 7.5 mg tablet 7.5 mg PO BID RF: 0 Discharge Orders: Discharge Order (Routine); Ordered 04/22/21 Ordered By: Catina Marmolejo Referrals: Puja Mohamud DO [Primary Care Provider] - 2 weeks Discharge Diet: Regular Patient Instructions: Opioid Safety Discharge Attestations Status at Discharge: Cognitive status at discharge: cognitively intact, Behavioral status at discharge: dependent in ADL's, Coding Level of Care Code Acute [facility] note Diagnoses Hyponatremia E87.1
--- NOTE | 2021-04-22 07:34 | PM.DCS ---
Discharge Providers Date of Admission: 04/20/21 22:07 Date of Discharge: April 22, 2021 Attending Provider at Admission: Christiana Lopez MD Attending Provider at Discharge: Catina Marmolejo MD Primary Care Provider: Puja Mohamud DO Diagnoses at Discharge Discharge Diagnosis (1) Hyponatremia: Status: Acute Reason for Visit Reason for Visit: N/V Hospital Course Hospital Course History of Present Illness by Dr. Lopez Timur Valdovinos is a 60 year old male with a past medical history of spastic quadriplegia, chronic suprapubic catheter, nephrolithiasis including staghorn calculi on the right side, recurrent complicated urinary tract infection presenting today with chief complains of dizziness that has been going on for the past 1 week. Patient denies any episodes of loss of consciousness, no new motor deficits noticed by the patient. Describes a sensation is that of head spinning. CT head and CTA are negative for any acute intracranial events. He does have a history of chronic longstanding hyponatremia with intermittent acute worsening. Today his sodium was noted to be at 119. Has mild headache. Denies any recent fever chills etc. Hospital course Patient was admitted for evaluation and management of lightheadedness while laying supine. On arrival in the ER his sodium was found to be 119 he was given fluids in the ER which improved his sodium 126 next day, he did not get any fluids afterwards, his sodium cheli to 132 after 48 hours without use of any IV fluids. CT abdomen pelvis did show constipation without impaction. He was given enema aggressive bowel regimen including senna S and MiraLAX. He had 1 bowel movement. His last bowel movement was 48 hours before his arrival to the ER. He does have chronic hyponatremia. 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 On previous admissions he was given salt tablets which improved his sodium. I am reluctant to add salt tablets as his sodium has improved with regular diet, patient is well aware that he can use salt liberally at home. We will discharge him on bowel regimen. Physical Exam Narrative: EXAM NARRATIVE: Bedridden patient Very cooperative and pleasant during evaluation On room air No acute restaurant distress Abdomen soft, bowel sounds present Extremity contractures Chronic indwelling catheter Nonfocal neuro exam Discharge Data Data Completed and Pending: Completed Studies During Hospitalization Category Date Time Status CT abdomen pelvis wo con [id number] Urge nt Cat Scan 04/20/21 16:[address] angio headneck * [id number] Urge nt Cat Scan 04/20/21 16:[address] head wo con* 7 7920 Urgent Cat Scan 04/20/21 16:16 Completed XR chest 1V lyndsay ble [id number] Urgent Exams 04/20/21 16:16 Completed Labs from last 24 hours 04/22/21 04/22/21 04/21/21 03:00 03:00 11:12 WBC 7.2 RBC 3.88 L Hgb 12.3 Hct 36.2 L MCV 93.3 MCH 31.7 MCHC 34.0 RDW 13.4 Plt Count 312 MPV 8.3 Neut % (Auto) 68.0 Lymph % (Auto) 14.9 [place] % (Auto) 14.5 Eos % (Auto) 1.4 Baso % (Auto) 0.6 Neut # (Auto) 4.89 Lymph # (Auto) 1.1 [place] # (Auto) 1.0 H Eos # (Auto) 0.1 Baso # (Auto) 0.0 Nucleated RBC % (a uto) 0 Nucleated RBCs # 0.0 Sodium 132 L Potassium 4.3 Chloride 97 L Carbon Dioxide 23 Anion Gap 16.3 BUN 11 Creatinine 0.6 L GFR Calculation 137.0 H Glucose 79 Calculated Osmolal ity 272 L Calcium 8.8 Ur Random Sodium 88 Ur Random Potassiu m 23 Ur Random Chloride 81 Vitals: Last Vital Signs Temp 97.7 F 04/22/21 04:00 Pulse 60 04/22/21 04:00 Resp 17 04/22/21 04:00 BP 159/78 04/22/21 04:00 Pulse Ox 94 04/22/21 04:00 Discharge Plan Discharge Patient Disposition: Home Condition: Stable Prescriptions: New Senna-S 8.6-50 mg tablet 1 tab-cap PO BID Qty: 30 RF: 2 Miralax 17 gram powder in packet 17 g PO DAILY PRN (Reason: constipation) 4 Days RF: 1 Continued aspirin [Adult Aspirin Regimen] 81 mg tablet,delayed release (DR/EC) 81 mg PO DAILY@09 RF: 0 Hold Instructions: Resume on 06/18/20. carbamazepine 200 mg tablet 200 mg PO BID@ RF: 0 escitalopram oxalate 10 mg tablet 10 mg PO DAILY@22 RF: 0 gabapentin 100 mg capsule 100 mg PO TID@,, RF: 0 promethazine 25 mg tablet 25 mg PO Q6H PRN (Reason: Nausea) RF: 0 ascorbic acid (vitamin C) 500 mg capsule 500 mg PO DAILY@09 RF: 0 ergocalciferol (vitamin D2) 10 mcg (400 unit) tablet 50,000 unit PO Q7D RF: 0 baclofen 20 mg tablet 20 mg PO QID PRN (Reason: Pain) RF: 0 melatonin 10 mg capsule 30 mg PO BEDTIME@22 RF: 0 tizanidine 2 mg tablet 6 mg PO Q6H Qty: 360 RF: 5 ketoconazole 2 % shampoo 1 applic topical .3 x weekly Qty: 120 RF: 3 triamcinolone acetonide 0.1 % ointment 1 applic topical BID Qty: 453.6 RF: 1 clobetasol 0.05 % ointment 1 applic topical BID 14 Days Qty: 60 RF: 3 hydrocortisone 2.5 % ointment 1 applic topical BID PRN (Reason: skin irritation) Qty: 453.6 RF: 0 mometasone 0.1 % solution 1 applic topical DAILY Qty: 60 RF: 3 pantoprazole 40 mg tablet,delayed release (DR/EC) 20 mg PO DAILY RF: 0 Renacidin 1,980.6 mg-59.4 mg-980.4mg/30mL solution 30 ml irrigation TID Qty: 900 RF: 12 vitamin E 1,000 unit Capsule 1,000 unit PO DAILY@09 RF: 0 albuterol sulfate 90 mcg/actuation aero powdr breath act w/sensor 1 inh inhalation Q6H PRN (Reason: shortness of breath or wheezing) Qty: 1 RF: 0 meloxicam 7.5 mg tablet 7.5 mg PO BID RF: 0 Discharge Orders: Discharge Order (Routine); Ordered 04/22/21 Ordered By: Catina Marmolejo Other Ambulatory Orders: Basic Metabolic Panel (Routine) Timeframe: 3 Days Facility: [facility] - Location: Lab - Main Lab Ordered By: Catina Marmolejo Referrals: Puja Mohamud DO [Primary Care Provider] - 04/24/21 2:45 pm (We've got you set to see Dr. Mohamud this Thursday at 2:00pm at [facility]. Please check in at 1:45.) Discharge Diet: Regular Patient Instructions: Polyethylene Glycol 3350 (By mouth) (MiraLAX, Healthylax..., Senna (By mouth) (Sen, Senna-lax), Hyponatremia (DC), Dizziness (ED), Opioid Safety Discharge Attestations Time Spent in Discharge Care*: less than 30 min Status at Discharge: Cognitive status at discharge: cognitively intact, Behavioral status at discharge: dependent in ADL's, Quality Metrics Clinical Quality Measures During this hospital stay, did patient experience: None Coding Level of Care Code Acute [facility] note Diagnoses Hyponatremia E87.1
[2021-04-22] MEDS: sennosides-docusate Tablet 2 TAB PO (07:48)
[2021-04-22] MEDS: baclofen 10 mg Tablet PO (07:48)
[2021-04-22] MEDS: gabapentin 100 mg Capsule PO (07:49)
[2021-04-22] MEDS: carBAMazepine 200 mg Tablet PO (07:49)
[2021-04-22] MEDS: pantoprazole DR 40 mg Tablet PO (07:49)
[2021-04-22] MEDS: aspirin 81 mg EC Tablet PO (07:49)
--- NOTE | 2021-04-22 10:08 | PC.CHAP ---
Pastoral Care Encounter/Spiritual Assessment Type of Contact [] Declined social and human services assistant visit [] Patient/Family/Request visit [] Outpatient visit [] Follow-up visit [] Physician referral [] Code/Alert [x] Routine visit [] Staff referral [] Actively dying [] Patient sleeping [] Family support [] [] Out of room [] Palliative care [] [] Receiving care in room [] Pre-surgical visit [] Trauma [] Long length of stay [] ICU visit [] Other: Relational/Emotional Strength [] Patient feels connected with others/family/visitors/staff [] Distress [] Loneliness/isolation [] Abandonment Spirituality of Patient x[] Person of Lillie [] Attends Hindu of their Lillie [x] Believes in Prayer [] Reads Bible or Adventist materials [] There are Spiritual issues to be addressed 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 Interventions x[] Prayer [x] Active listening [] Non-anxious presence [] Spiritual/emotional support [] Crisis/trauma care [] Spiritual counseling [] Bereavement support [] Provided bereavement packet [] Provided Bible/devotional materials [] Provided toy/stuffed animal, coloring book to patient or family member [] Provided Communion [] Anointing/[place] [] Salvation [x] Completed spiritual assessment [] Other: Impact on Illness or Injury [] Angry [] Fearful [] Anxious [] Often cries [] Exhaustion [] Unable to work [] Unable to attend baptist [] Unable to walk/stand [] Unable to read [] Unable to drive [] Unable to eat/drink [] Unable to sleep [] Unable to be with family [] Patient intubated [] Other: Summary Time spent with patient 10 min
--- NOTE | 2021-04-22 11:26 | PC.NURSE ---
Discharge paperwork discussed with patient. Patient unable to physically sign, but verbalized understanding of discharge paperwork. Nurse and witness, Janae, signed discharge paperwork.
--- NOTE | 2021-04-22 12:49 | PM.PN ---
Subjective Subjective: Interval history: Seen this morning. No acute events overnight. Labs reviewed. Sodium 132 today. Patient states he would like to go home and in no complaints except that he has a little bit of thigh pain for which she is requesting from [employer] cream. He uses that at home as well. He lives at home with his mother and is ready to leave. Vitals/I&O/Wt Last Vital Signs Temp 98.4 F 04/22/21 11:23 Pulse 62 04/22/21 11:23 Resp 17 04/22/21 11:23 BP 158/78 04/22/21 11:23 Pulse Ox 95 04/22/21 11:23 04/21/21 04/22/21 04/22/21 22:59 06:59 14:59 Intake Total 340 / 700 480 / 480 Output Total 1050 / 1050 600 / 1650 Balance -710 / -350 -600 / -950 480 / 480 Weight last 48 hrs Weight 55.905 kg Weight 63.503 kg Physical Exam Narrative: EXAM NARRATIVE: Bedridden patient Very cooperative and pleasant during evaluation On room air No acute restaurant distress Abdomen soft, bowel sounds present Extremity contractures Chronic indwelling catheter Nonfocal neuro exam Data : 04/22/21 03:00 04/22/21 03:00 A&P Assessment and plan (1) Hyponatremia: Status: Acute (2) Chronic indwelling Miranda catheter: Status: Acute (3) Neurogenic bladder: Status: Acute Additional A&P Information Patient was admitted for hyponatremia which is acute on chronic. His baseline sodium is around 124 126. He was started on normal saline in the ER. CT abdomen pelvis did not show any overt signs of infection, incidentally noted atrophic right kidney. Creatinine normal at admission. No signs of pyelonephritis. SSRI were held as they may contribute to hyponatremia. Additionally tizanidine was held as well. He is on carbamazepine and gabapentin at home. Sodium did improve to 134 today. For constipation he has been given MiraLAX and docusate senna. He is ready to go home today. He states his lightheadedness is resolved and he feels really well. He will be discharged back to home with repeat BMP prescription in a couple of days and follow-up with his primary care physician. Patient is agreeable to the plan. Please see discharge summary done by Dr. Stahl this morning. Attestations Medical Necessity Statement*: Discharge today. Please see discharge summary by Dr. Stahl Coding Level of Care Code Acute Military Education Coordinator for Chg Fwd Diagnoses Hyponatremia E87.1 Chronic indwelling Miranda catheter Z96.0 Neurogenic bladder N31.9
--- NOTE | 2021-04-22 16:42 | PM.DCS ---
Discharge Providers Date of Admission: 04/20/21 22:07 Date of Discharge: April 23, 2021 Attending Provider at Admission: Christiana Lopez MD Attending Provider at Discharge: Catina Marmolejo MD Primary Care Provider: Puja Mohamud DO Diagnoses at Discharge Discharge Diagnosis (1) Hyponatremia: Status: Resolved (2) Chronic indwelling Miranda catheter: Status: Acute (3) Neurogenic bladder: Status: Acute Reason for Visit Reason for Visit: N/V Hospital Course Hospital Course History of Present Illness by Dr. Jessica Nietojamshid Valdovinos is a 60 year old male with a past medical history of spastic quadriplegia, chronic suprapubic catheter, nephrolithiasis including staghorn calculi on the right side, recurrent complicated urinary tract infection presenting today with chief complains of dizziness that has been going on for the past 1 week. Patient denies any episodes of loss of consciousness, no new motor deficits noticed by the patient. Describes a sensation is that of head spinning. CT head and CTA are negative for any acute intracranial events. He does have a history of chronic longstanding hyponatremia with intermittent acute worsening. Today his sodium was noted to be at 119. Has mild headache. Denies any recent fever chills etc. Hospital course Patient was admitted for evaluation and management of lightheadedness while laying supine. On arrival in the ER his sodium was found to be 119 he was given fluids in the ER which improved his sodium 126 next day, he did not get any fluids afterwards, his sodium cheli to 132 after 48 hours without use of any IV fluids. CT abdomen pelvis did show constipation without impaction. He was given enema aggressive bowel regimen including senna S and MiraLAX. He had 1 bowel movement. His last bowel movement was 48 hours before his arrival to the ER. He does have chronic hyponatremia. On review of records, previously he was evaluated by access clinician, his hyponatremia is related to high water and low solute intake. On previous admissions he was given salt tablets which improved his sodium. I am reluctant to add salt tablets as his sodium has improved with regular diet, patient is well aware that he can use salt liberally at home. We will discharge him on bowel regimen. Physical Exam Narrative: EXAM NARRATIVE: EXAM NARRATIVE: Bedridden patient Very cooperative and pleasant during evaluation On room air No acute restaurant distress Abdomen soft, bowel sounds present Extremity contractures Chronic indwelling catheter Nonfocal neuro exam Discharge Data Data Completed and Pending: Completed Studies During Hospitalization Category Date Time Status CT abdomen pelvis wo con [id number] Urge nt Cat Scan 04/20/21 16:[address] angio headneck * [id number] Urge nt Cat Scan 04/20/21 16:[address] head wo con* [id number] Urgent Cat Scan 04/20/21 16:16 Completed XR chest 1V lyndsay ble 12030 Urgent Exams 04/20/21 16:16 Completed Vitals: Last Vital Signs Temp 98.3 F 04/22/21 15:31 Pulse 61 04/22/21 15:31 Resp 17 04/22/21 15:31 BP 141/64 04/22/21 15:31 Pulse Ox 94 04/22/21 15:31 Discharge Plan Discharge Patient Disposition: Home Condition: Stable Prescriptions: New Senna-S 8.6-50 mg tablet 1 tab-cap PO BID Qty: 30 RF: 2 Miralax 17 gram powder in packet 17 g PO DAILY PRN (Reason: constipation) 4 Days RF: 1 Continued aspirin [Adult Aspirin Regimen] 81 mg tablet,delayed release (DR/EC) 81 mg PO DAILY@09 RF: 0 Hold Instructions: Resume on 06/18/20. carbamazepine 200 mg tablet 200 mg PO BID@ RF: 0 gabapentin 100 mg capsule 100 mg PO TID@,, RF: 0 promethazine 25 mg tablet 25 mg PO Q6H PRN (Reason: Nausea) RF: 0 ascorbic acid (vitamin C) 500 mg capsule 500 mg PO DAILY@09 RF: 0 ergocalciferol (vitamin D2) 10 mcg (400 unit) tablet 50,000 unit PO Q7D RF: 0 baclofen 20 mg tablet 20 mg PO QID PRN (Reason: Pain) RF: 0 melatonin 10 mg capsule 30 mg PO BEDTIME@22 RF: 0 tizanidine 2 mg tablet 6 mg PO Q6H Qty: 360 RF: 5 ketoconazole 2 % shampoo 1 applic topical .3 x weekly Qty: 120 RF: 3 triamcinolone acetonide 0.1 % ointment 1 applic topical BID Qty: 453.6 RF: 1 clobetasol 0.05 % ointment 1 applic topical BID 14 Days Qty: 60 RF: 3 hydrocortisone 2.5 % ointment 1 applic topical BID PRN (Reason: skin irritation) Qty: 453.6 RF: 0 mometasone 0.1 % solution 1 applic topical DAILY Qty: 60 RF: 3 pantoprazole 40 mg tablet,delayed release (DR/EC) 20 mg PO DAILY RF: 0 Renacidin 1,980.6 mg-59.4 mg-980.4mg/30mL solution 30 ml irrigation TID Qty: 900 RF: 12 vitamin E 1,000 unit Capsule 1,000 unit PO DAILY@09 RF: 0 albuterol sulfate 90 mcg/actuation aero powdr breath act w/sensor 1 inh inhalation Q6H PRN (Reason: shortness of breath or wheezing) Qty: 1 RF: 0 meloxicam 7.5 mg tablet 7.5 mg PO BID RF: 0 Held escitalopram oxalate 10 mg tablet 10 mg PO DAILY@22 RF: 0 Hold Instructions: see pcp before resuming Discharge Orders: Discharge Order (Routine); Ordered 04/22/21 Ordered By: Catina Marmolejo Other Ambulatory Orders: Basic Metabolic Panel (Routine) Timeframe: 3 Days Facility: [facility] - Location: Lab - Main Lab Ordered By: Catina Marmolejo Referrals: Puja Mohamud DO [Primary Care Provider] - 04/24/21 2:45 pm (We've got you set to see Dr. Mohamud this Thursday at 2:00pm at [facility]. Please check in at 1:45.) Discharge Diet: Regular Patient Instructions: Polyethylene Glycol 3350 (By mouth) (MiraLAX, Healthylax..., Senna (By mouth) (Sen, Senna-lax), Hyponatremia (DC), Dizziness (ED), Opioid Safety Discharge Attestations Time Spent in Discharge Care*: less than 30 min Status at Discharge: Cognitive status at discharge: cognitively intact, Behavioral status at discharge: dependent in ADL's, Quality Metrics Clinical Quality Measures During this hospital stay, did patient experience: None Coding Level of Care Code Acute Chg FW DC note Diagnoses Hyponatremia E87.1 Chronic indwelling Miranda catheter Z96.0 Neurogenic bladder N31.9
== END 2021-04-22 15:32 | disposition home or self-care (01) | DRG 640 ==
LOC: ER 21:30 → MEDSURG 22:09
PROVIDERS: Internal Medicine; Admitting Provider Student in an Organized Health Care Education/Training Program; Emergency Provider Emergency Medicine; PCP Family Medicine; Visit Provider Internal Medicine
DX: E87.1 Hypo-osmolality and hyponatremia (principal); G82.50 Quadriplegia, unspecified; Z86.16 Personal history of COVID-19; Z96.0 Presence of urogenital implants; Z87.442 Personal history of urinary calculi; Z87.440 Personal history of urinary (tract) infections; E11.9 Type 2 diabetes mellitus without complications; F17.210 Nicotine dependence, cigarettes, uncomplicated; K59.00 Constipation, unspecified; Z79.82 Long term (current) use of aspirin; N31.9 Neuromuscular dysfunction of bladder, unspecified
CPT/HCPCS: 36415; 70450; 70496; 70498; 71045; 74176; 80048; 80053; 82436; 84133; 84300; 84443; 85025; 93005; 96361; 96374; 99285; J1650; J2405; J7030; Q9967

== ENCOUNTER 2021-06-17 13:15 | Outpatient (CLI) | payer MEDICAID, SELFPAY ==
--- NOTE | 2021-06-17 13:00 | XR_ITS ---
WS: [id number] XR KUB [id number] REASON FOR EXAM: RIGHT RENAL STONE FINDINGS: Large amount of stool in the colon overlies the renal contours. Multiple calculi are seen overlying the left kidney, congruent with the CT scan of 04/20/2021. There a ppear to be more calculi in the left kidney than on the previous KUB examination of 12/03/2020. A group of calculi is seen overlying the right renal outline, congruent with the previous CT scan of 04/20/2021. No definite calculi are identified in the urinary tract within the pelvis. XR/XR KUB [id number] IMPRESSION: Bilateral renal calculi which probably are unchanged compared to the CT scan of the abdomen of 04/20/2021 but difficult to evaluate due to the large amount of overlying stool. No definite urinary tract calculi distally.
== END 2021-06-17 13:16 | disposition home or self-care (01) ==
LOC: RAD 13:19
PROVIDERS: PCP Family Medicine; Visit Provider Urology
DX: N20.0 Calculus of kidney (principal)
CPT/HCPCS: 74018

== ENCOUNTER 2021-06-21 21:07 | Inpatient (IN) | payer MEDICAID, SELFPAY ==
--- NOTE | 2021-06-21 21:16 | XRR_ITS ---
PROCEDURE INFORMATION: Exam: XR Chest Exam date and time: 06/21/2021 9:16 PM Age: 61 years old Clinical indication: Patient HX: N/v with diaphoresis. Patient non verbal. No further history. ; Additional info: Chest pain TECHNIQUE: Imaging protocol: XR of the chest. Views: 1 view. COMPARISON: CR XR chest 1V portable [id number] 04/20/2021 5:21 PM FINDINGS: Lungs: There is bilateral apical subpleural scarring which is similar to the prior. There is no consolidation. Pleural spaces: There is no pleural effusion or pneumothorax. Heart/Mediastinum: Cardiomediastinal contours are unremarkable. Bones/joints: Bones are unremarkable. XR/XR chest 1V portable [id number] IMPRESSION: No acute findings.
--- NOTE | 2021-06-21 21:17 | ECG_ITS ---
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 Measurements Intervals [place] Rate: 77 P: 62 NM: 160 QRS: 56 QRSD: 94 T: 77 QT: 373 QTc: 423 Interpretive Statements SINUS RHYTHM ST ELEVATION, PROBABLY EARLY REPOLARIZATION [ST ELEVATION WITH NORMALLY INFLECTED T-WAVE] Compared to ECG 04/20/2021 16:34:34 Early repolarization now present Sinus bradycardia no longer present First degree AV block no longer present Intraventricular conduction delay no longer present ST (T wave) deviation still present Electronically Signed On 06-22-2021 0:43:01 FOOD PRESERVATION SCIENTIST by Haseeb Kapadia M.D. [id number]
--- NOTE | 2021-06-21 21:45 | W.ED.NAVMDI ---
HPI - Nausea/Vomiting/Diarrhea General: Chief complaint: ER Hold Stated complaint: N/V/ DIAPHORETIC Time Seen by Provider: 06/21/21 21:43 Limitations: altered mental status History of Present Illness: Mr Valdovinos is a 61-year-old gentleman with complex past medical history of chronic spastic tetraplegia who presents to the emergency department for reported nausea and vomiting. History is somewhat limited by the patient's current mental state, baseline is unclear. He endorses some fevers, nausea and vomiting x3. He denies specific pain and cannot think of a specific source or change from his baseline however history appears to be significantly limited. Pertinent past history: other Onset (ago): day(s) Description of vomiting: food contents Description of diarrhea: watery Review of Systems General: Reports: ROS unobtainable due to mental status PFSH ED PFSH: Medical History Chronic indwelling Miranda catheter COVID-05 June 2020 Diabetes mellitus -NIDDM type II, A1c-7.2 (08/2019) -Accuchecks, hypoglycemia precautions, ISS -consistent carb diet Obstructive pyelonephritis Quadriplegia -strict fall precautions -frequent repositioning, q2h -WC-/bed-bound at baseline -continue pain meds, muscle relaxants -has been following up with Dr. Estrella for consideration of Botox treatments for spasticity Renal stone Spastic hemiplegia affecting left nondominant side Spastic hemiplegia, dominant side Surgical History History of appendectomy History of back surgery History of colon resection History of neck surgery History of suprapubic catheter Open placement October 2019. S/P extracorporeal shock wave therapy Family History Father , at age 49 Cancer Lung disease Mother Cancer bone Brother Cancer Lung disease Denies family history of Diabetes CAD (coronary artery disease) Clotting disorder Dementia Hyperlipidemia Psychiatric illness Chronic kidney disease (CKD) Suicide Anesthesia complication Bleeding disorder Family history of premature coronary artery disease Hypertension Stroke Social History Smoking and tobacco status: current every day smoker cigarettes Packs smoked per day: 0.5 Quit status (tobacco): not considering quitting Alcohol intake: former Former alcohol use details: quit due to medications Household members: other Details: lives with mother Marital status: Legally Number of children: 5 History of recent travel: No Physical Exam Const: GENERAL APPEARANCE: cooperative, well developed and ill appearing (Somewhat); not in distress HENMT: COMMON NORMALS: normocephalic and atraumatic HEAD & SCALP: normocephalic and atraumatic OTHER: Dry mucous membranes Eye: COMMON NORMALS: conjunctivae normal CONJUNCTIVA: Yes conjunctivae normal SCLERA: sclerae normal Neck/C-Spine: COMMON NORMALS: supple GENERAL: Yes trachea midline Resp: COMMON NORMALS: normal respiratory effort EFFORT & INSPECTION: Yes able to speak in complete sentences AUSCULTATION: rhonchi (Minimally coarse to auscultation) Cardio: COMMON NORMALS: regular rate and regular rhythm RATE: regular rate RHYTHM: regular rhythm GI: COMMON NORMALS: Soft to palpation PALPATION: Yes Soft to palpation and No Tenderness to palpation present (GI) PERCUSSION: normal to percussion Extremity: GENERAL: Yes normal exam except as noted and No edema Neuro: OTHER: Chronic spastic changes, speech not slurred, no dysarthria. Psych: OTHER: Impaired memory, mildly impaired cognition Course ED course: - Patient was seen and evaluated by me at bedside - Patient placed on cardiac monitors, IV access obtained - Initial evaluation notable for somewhat ill appearance, exam as above, mildly altered mental status with only intermittently answers to questions - Labs notable for leukocytosis. Metabolic panel with hyponatremia which is well below the patient's baseline. Creatinine also elevated well above patient's baseline. Troponin elevated with mid range delta. Urinalysis concerning for urinary tract infection. - Antibiotic ordered. Fluids given - Imaging notable for no acute finding on chest x-ray. CT head without evidence of acute pathology to explain symptoms. CT abdomen and pelvis obtained and notable for obstructing kidney stone. - Given evidence of urinary tract infection and kidney stone on CT the patient will require urology evaluation and treatment. Urology consulted, plan to put patient on antibiotics as previously ordered and keep patient n.p.o. for operative intervention - Upon serial reexamination after treatment the patient was similar to mildly improved - Based on patient history, evaluation, labs, and imaging as interpreted the most likely cause of the patient's condition is multifactorial including acute hyponatremia, urinary tract infection with infected nephrolithiasis - The results of ED evaluation were discussed with the patient including plan for admission due to requirement for level of care not available if discharged to prevent significant worsening/deterioration. - Admitting service was contacted and Dr Leong with the hospitalist service agreed to admit the patient - Patient was admitted without further deterioration or significant events. Note: Click bubbles or prepopulated davey in note writing are used for assistance with data collection and billing and are inherently more limited than narrative and other text portions of this note. Please use narrative for additional clinical history and defer to narrative/free test for any case of contradictory information. If information appears in only free text or click bubble it should be considered present or absent as reported. Please contact note senior medical writer for clarifications of clinical information or contradictory information. MDM is a brief summary, contradictory or erroneous seeming information should be clarified and full note should be reviewed. Vital Signs: Vital signs: Vital Signs Temperature 99.5 F 06/25/21 19:30 Pulse Rate 85 06/25/21 22:30 Respiratory Rate 18 06/25/21 22:33 Blood Pressure 111/65 06/25/21 22:30 Pulse Oximetry 95 06/25/21 22:33 MDM - Nausea/Vomiting/Diarrhea Medical Decision Making 61-year-old gentleman with complex past medical history including recurrent and recurrent nephrolithiasis in addition to spastic tetraplegia presented to emergency department due to generalized symptoms. Patient febrile upon arrival, leukocytosis noted on laboratory evaluation with evidence of urinary tract infection. CT imaging notable for nephrolithiasis which in combination with UTI is infected stone. Antibiotics given. Fluids given. Urology service consulted and case discussed via telephone. Patient admitted for further management. Medical Records I reviewed the patient's medical records. Lab Data I reviewed the patient's lab results. : 06/25/21 04:03 06/25/21 04:[address] 06/21/21 21:52 IMPRESSION: No acute intracranial abnormality. Abdomen/Pelvis CT 06/21/21 23:22 IMPRESSION: 1. 12 x 7 x 7 mm stone in the proximal left ureter at the ureteropelvic junction producing moderate hydronephrosis. 2. Bilateral nonobstructive nephrolithiasis. 3. Incidental findings above. COMMENTS: Consistent with the [employer]'s Incidental Findings Committee white paper (J Am Chuckie Radiol 2017): For any incidental adrenal lesion greater than 1 cm but less than 4 cm classified in this report as benign, likely benign, or containing fat (including classification as an adenoma or myelolipoma), no follow-up imaging is recommended per consensus recommendations based on imaging criteria. Further lab evaluation could be pursued if warranted based on clinical findings. C-Arm Fluoroscopy 06/22/21 05:41 IMPRESSION: Left ureteral stent placement as above. Chest/Abdomen/Pelvis CT 06/24/21 09:19 IMPRESSION: Interval development of significant diffuse bilateral lung opacities compatible with pneumonitis. Associated new moderate pleural effusions. Left ureteral stent placement with previous large UPJ calculus displaced into the left kidney. No free fluid or fluid collections within the abdomen or pelvis. Chest X-Ray 06/24/21 13:08 IMPRESSION: ET tube and nasogastric tube placement in proper position. Laboratory Results WBC 12.0 10^3/uL (4.0-10.0) H 06/21/21 22:17 RBC 3.68 10^6/uL (4.1-5.3) L 06/21/21 22:17 Hgb 11.8 g/dL (11.7-16.6) 06/21/21 22:17 Hct 33.6 % (42.0-52.0) L 06/21/21 22:17 MCV 91.3 fl (80-94) 06/21/21 22:17 MCH 32.1 pg (28.0-34.0) 06/21/21 22:17 MCHC 35.1 g/dL (30.0-36.0) 06/21/21 22:17 RDW 13.0 % (12.1-15.1) 06/21/21 22:17 Plt Count 157 10^3/cmm (130-400) 06/21/21 22:17 MPV 8.4 fL (7.4-10.4) 06/21/21 22:17 Neut % (Auto) 94.6 % 06/21/21 22:17 Lymph % (Auto) 0.8 % 06/21/21 22:17 [place] % (Auto) 3.1 % 06/21/21 22:17 Eos % (Auto) 0.0 % 06/21/21 22:17 Baso % (Auto) 0.2 % 06/21/21:17 Neut # (Auto) 11.36 10^3/uL (1.8-7.7) H 06/21/21 22:17 Lymph # (Auto) 0.1 10^3/uL (0.8-4.8) L 06/21/21 22:17 [place]ill # (Auto) 0.4 10^3/uL (0.2-0.9) 06/21/21 22:17 Eos # (Auto) 0.0 10^3/uL (0.0-0.8) 06/21/21 22:17 Baso # (Auto) 0.0 10^3/uL (0.0-0.1) 06/21/21 22:17 Nucleated RBC % (auto) 0 % 06/21/21 22:17 Nucleated RBCs # 0.0 /100WBC 06/21/21 22:17 Sodium 120 mmol/L (136-145) L 06/21/21 22:17 Potassium 4.3 mmol/L (3.5-5.1) 06/21/21 22:17 Chloride 88 mmol/L (98-107) L 06/21/21 22:17 Carbon Dioxide 20 mmol/L (22-29) L 06/21/21 22:17 Anion Gap 16.3 (5-19) 06/21/21 22:17 BUN 21 mg/dL (8-23) 06/21/21 22:17 Creatinine 1.8 mg/dL (0.7-1.2) H 06/21/21 22:17 GFR Calculation 38.4 mL/min (90-130) L 06/21/21 22:17 Glucose 131 mg/dL (65-115) H 06/21/21 22:17 Calculated Osmolality 255 mOsm/kg (285-295) L 06/21/21 22:17 Lactate 1.8 mmol/L (0.5-2.2) 06/21/21 22:17 Calcium 9.0 mg/dL (8.5-10.5) 06/21/21 22:17 Total Bilirubin 0.3 mg/dL (0.15-1.2) 06/21/21 22:17 AST 36 U/L (0-40) 06/21/21 22:17 ALT 28 U/L (0-41) 06/21/21 22:17 Alkaline Phosphatase 76 IU/L (40-130) 06/21/21 22:17 Troponin T Baseline 109 ng/L (0-15) H* 06/21/21 22:17 Troponin T 120 Minute 115.8 ng/L (0-15) H 06/21/21 23:59 Delta Troponin T 6.8 ABS# (0-10) 06/21/21 23:59 Total Protein 5.7 g/dL (6.6-8.7) L 06/21/21 22:17 Albumin 3.7 g/dL (3.5-5.2) 06/21/21 22:17 Globulin 2.0 g/dL (1.3-4.6) 06/21/21 22:17 Lipase 23 U/L (13-60) 06/21/21 22:17 Urine Color Yellow (Yellow) 06/21/21 22:45 Urine Appearance Sl cloudy (CLEAR) A 06/21/21 22:45 Urine pH 9 (5-7) H 06/21/21 22:45 Ur Specific [place] 1.010 (1.005-1.030) 06/21/21 22:45 Urine Protein 1+ (Negative) H 06/21/21 22:45 Urine Glucose (UA) Norm (Normal) 06/21/21 22:45 Urine Ketones Negative (Negative) 06/21/21 22:45 Urine Blood 3+ (Negative) H 06/21/21 22:45 Urine Nitrate Positive (Negative) H 06/21/21 22:45 Urine Bilirubin Neg (Negative) 06/21/21 22:45 Prot Sulfosalicylic Acd Positive (Negative) 06/21/21 22:45 Urine Urobilinogen Norm mg/dL (Negative) 06/21/21 22:45 Ur Leukocyte Esterase 2+ (Negative) H 06/21/21 22:45 Urine RBC >100 /hpf (0-2) H 06/21/21 22:45 Urine WBC >100 /hpf (0-5) H 06/21/21 22:45 Ur Squamous Epith Cells 5-10 /hpf (0-5) H 06/21/21 22:45 Triple Phos Crystals 0-4 /hpf H 06/21/21 22:45 Amorphous Sediment Not Reportable 06/21/21 22:45 Urine Bacteria 4+ /hpf (NONE) H 06/21/21 22:45 SARS-CoV-2 Ag (Rapid) Negative (Negative) 06/21/21 22:45 EKG Data EKG 1: Interpretation: Twelve-lead EKG shows a regular rhythm at a rate of 77. MD interval 160, QRS duration 94, QTc 405. Normal axis. Interpretation: Sinus rhythm. Critical Care Time Critical Care Time: Critical Care Time: Yes Total Critical Care Time: 45 Attestation: Due to a high probability of clinically significant, possibly life threatening deterioration, the patient required my highest level of attention and preparedness to intervene emergently and I personally spent this critical care time directly and personally managing the patient. This critical care time included obtaining a history; examining the patient; pulse oximetry; ordering and review of laboratory and imaging studies; arranging urgent treatment with development of a management plan; evaluation of patient's response to treatment; frequent reassessment; and, discussions with other providers as applicable. It was exclusive of separately billable procedures. Discharge Plan Discharge Patient Disposition: Admitted As Inpatient Admit Provider: Neal Leong Clinical Impression: Acute UTI, Acute hyponatremia, Nephrolithiasis, Sepsis, SABAS (acute kidney injury) Condition: Stable Coding Level of Care Code ED Stonecutter Apprentice Hand for Chg Fwd Exam Comprehensive
--- NOTE | 2021-06-21 21:52 | CTR_ITS ---
PROCEDURE INFORMATION: Exam: CT Head Without Contrast Exam date and time: 06/21/2021 9:52 PM Age: 61 years old Clinical indication: Malaise or fatigue; Patient HX: Ams/lethargy TECHNIQUE: Imaging protocol: Computed tomography of the head without contrast. Radiation optimization: All CT scans at this facility use at least one of these dose optimization techniques: automated exposure control; mA and/or kV adjustment per patient size (includes targeted exams where dose is matched to clinical indication); or iterative reconstruction. COMPARISON: CT head wo con* [id number] 04/20/2021 6:24 PM RADIATION DOSE METRICS: Total DLP (mGy-cm): 776.01 FINDINGS: Brain: The brain is unremarkable. There is no mass effect or significant white matter disease. There is no acute intracranial hemorrhage. Cerebral ventricles: There is no significant ventricular dilation. The basal cisterns are unremarkable. Paranasal sinuses: The paranasal sinuses are clear. Mastoid air cells: The mastoid air cells are clear. Bones/joints: The calvarium is intact. Soft tissues: The visible extracranial soft tissues are unremarkable. CT/CT head wo con* [id number] IMPRESSION: No acute intracranial abnormality.
[2021-06-21 21:55] VITALS: BP 103/68; PULSE 86; RESP 18; TEMP 39.2; O2SAT 97; BMI 23.6
[2021-06-21 22:41] LABS: Basophils % 0.2 %; Hematocrit 33.6 % (42.0-52.0); Hemoglobin 11.8 g/dL (11.7-16.6); Lymphocytes # 0.1 10^3/uL (0.8-4.8); Lymphocytes % 0.8 %; Mean Corpuscular HGB Conc 35.1 g/dL (30.0-36.0); Mean Corpuscular Hemoglobin 32.1 pg (28.0-34.0); Mean Corpuscular Volume 91.3 fl (80-94); Mean Platelet Volume 8.4 fL (7.4-10.4); Monocytes # 0.4 10^3/uL (0.2-0.9); Monocytes % 3.1 %; Neutrophils # 11.36 10^3/uL (1.8-7.7); Neutrophils % 94.6 %; Nucleated Red Blood Cells % 0 %; Platelet Count 157 10^3/cmm (130-400); Red Blood Count 3.68 10^6/uL (4.1-5.3)
[2021-06-21 22:57] LABS: Lactate (Lactic Acid level) 1.8 mmol/L (0.5-2.2)
[2021-06-21] MEDS: sodium chloride 0.9% 1,000 ML 999 ML IV (22:59)
[2021-06-21 23:11] LABS: Alanine Aminotransferase 28 U/L (0-41); Albumin Level 3.7 g/dL (3.5-5.2); Alkaline Phosphatase 76 IU/L (40-130); Anion Gap 16.3 (5-19); Aspartate Amino Transferase 36 U/L (0-40); Blood Urea Nitrogen 21 mg/dL (8-23); Carbon Dioxide 20 mmol/L (22-29); Chloride 88 mmol/L (98-107); Glomerular Filtration Rate 38.4 mL/min (90-130); Glucose 131 mg/dL (65-115); Lipase 23 U/L (13-60); Osmolality Calculated 255 mOsm/kg (285-295); Potassium 4.3 mmol/L (3.5-5.1); Sodium 120 mmol/L (136-145); Total Bilirubin 0.3 mg/dL (0.15-1.2); Total Protein 5.7 g/dL (6.6-8.7)
--- NOTE | 2021-06-21 23:22 | CTR_ITS ---
PROCEDURE INFORMATION: Exam: CT Abdomen And Pelvis Without Contrast Exam date and time: 06/21/2021 11:22 PM Age: 61 years old Clinical indication: Abnormal findings; Abnormal lab test; Elevated wbc; Nausea and vomiting; Prior surgery; Surgery date: 6+ months; Surgery type: Appy, back, colon, indwelling torres; Patient HX: N/v elev wbc w HX of stones; Additional info: Nausea and vomiting, sirs TECHNIQUE: Imaging protocol: Computed tomography of the abdomen and pelvis without contrast. Radiation optimization: All CT scans at this facility use at least one of these dose optimization techniques: automated exposure control; mA and/or kV adjustment per patient size (includes targeted exams where dose is matched to clinical indication); or iterative reconstruction. COMPARISON: CT abdomen pelvis wo con [id number] 04/20/2021 6:26 PM RADIATION DOSE METRICS: Total DLP (mGy-cm): 1094.63 FINDINGS: Tubes, catheters and devices: The suprapubic catheter is appropriately positioned with the tip in the urinary bladder. Lungs: Lung bases are clear. Liver: The liver is normal. Gallbladder and bile ducts: The gallbladder is normal. There is no biliary dilation. Pancreas: There is mild atrophy of the pancreas. Spleen: The spleen is unremarkable. Adrenal glands: 3.6 x 3.0 cm low-attenuation left adrenal mass consistent with a lipid rich adenoma. The right adrenal gland is normal. Kidneys and ureters: There is moderate atrophy of the right kidney. There are nonobstructive stones at the right lower pole. There is no hydronephrosis or ureteral dilation on the right. There is moderate left renal enlargement and perinephric edema. There are nonobstructive stones at the lower pole measuring up to 7 mm diameter. There is moderate left hydronephrosis. There is a stone in the proximal left ureter near the ureteropelvic junction measuring 12 mm in length and 7 x 7 mm axial dimension. The left ureter is decompressed beyond the stone. Stomach and bowel: The stomach is unremarkable. The small bowel is nondilated. The colon is diffusely stool distended. No sign of colitis. Appendix: The appendix is absent. Intraperitoneal space: There is no intraperitoneal free air. Retroperitoneal space: There is mesenteric and retroperitoneal edema in the left upper abdomen. Vasculature: There is severe aortic atherosclerotic disease. Lymph nodes: There is no lymphadenopathy in the retroperitoneum, mesentery, pelvis or inguinal regions. Urinary bladder: The urinary bladder is decompressed. There are at least 3 stones in the bladder measuring up to 5 mm diameter. Reproductive: Unremarkable as visualized. Bones/joints: There is mild degenerative disease in the lumbar spine. The pelvis and proximal femora are intact. Soft tissues: The abdominal wall is intact. CT/CT abdomen pelvis wo con [id number] IMPRESSION: 1. 12 x 7 x 7 mm stone in the proximal left ureter at the ureteropelvic junction producing moderate hydronephrosis. 2. Bilateral nonobstructive nephrolithiasis. 3. Incidental findings above. COMMENTS: Consistent with the [employer]'s Incidental Findings Committee white paper (J Am Chuckie Radiol 2017): For any incidental adrenal lesion greater than 1 cm but less than 4 cm classified in this report as benign, likely benign, or containing fat (including classification as an adenoma or myelolipoma), no follow-up imaging is recommended per consensus recommendations based on imaging criteria. Further lab evaluation could be pursued if warranted based on clinical findings.
[2021-06-21 23:24] LABS: Troponin(5th) Baseline 109 ng/L (0-15)
[2021-06-21 23:29] LABS: Add Urine Microscopic? YES; Bilirubin Urine Neg (Negative); Blood Urine 3+ (Negative); Glucose Urine UA Norm (Normal); Ketones Urine Negative (Negative); Leukocyte Esterase Urine 2+ (Negative); Nitrate Urine Positive (Negative); Protein Urine 1+ (Negative); Sulfosalicylic Acid Urine Positive (Negative); Urine Color Yellow (Yellow); Urobilinogen Urine Norm (Negative); pH Urine 9 (5-7)
[2021-06-21 23:31] LABS: RBC Urine >100 /hpf (0-2)
[2021-06-21 23:32] LABS: Add Urine Culture? Yes; Bacteria Urine 4+ /hpf; Triple Phosphate Crystal Urine 0-4 /hpf; WBC Urine >100 /hpf (0-5)
[2021-06-21 23:39] LABS: SARS Covid-2 Antigen Negative (Negative)
[2021-06-22] VITALS (74 sets, daily range): BP systolic 60–133; BP diastolic 40–86; PULSE 68–114; RESP 13–29; TEMP 36.7–38.7; O2SAT 83–99
--- NOTE | 2021-06-22 | SCC_ITS ---
Procedure done: 1. Cystoscopy, left ureteral stent placement 2. Suprapubic tube change 34.5 seconds of fluoroscopic guidance, for a cumulative dose of 6.39 mGy, was provided to Dr. Saucedo by the radiology department. C-arm images of the abdomen were saved for the patient's permanent record. [facility]
[2021-06-22 00:32] LABS: Troponin 5 2HR Delta 6.8 ABS# (0-10)
[2021-06-22 00:33] LABS: Troponin 5 2HR 115.8 ng/L (0-15)
--- NOTE | 2021-06-22 01:12 | P.HP_ITS ---
Providers/Chief Complaint Admitting Physician: Neal Leong MD Primary Care Provider: Puja Mohamud DO Chief Complaint: N/V/ DIAPHORETIC History of Present Illness Timur Valdovinos is a 61 year old male with a past medical history of spastic quadriplegia, chronic suprapubic catheter, chronic hyponatremia, recurrent UTI, diabetes, was brought in with chief complaint of nausea and vomiting. History taking has been difficult as the patient is not participating, he says that he is not aware that why he is in the hospital, he also says that he is not feeling sick. Patient baseline mentation is currently not clear. Upon arrival in the ER he was worked up for above-mentioned complaint. Pertinent imaging studies: CT head wo con:No acute intracranial abnormality. CT abdomen pelvis wo con:1. 12 x 7 x 7 mm stone in the proximal left ureter at t he ureteropelvic junction producing moderate hydronephrosis. Bilateral nonobstructive nephrolithiasis. XR chest?: No effusion no infiltrates no pneumothorax EKG : Sinus rhythm with early repolarization Pertinent labs: WBC 12T, H&H : 11.8 / 33.6 PLT : 157 , serum sodium 120 potassium 4.3 BUN serum creatinine 21 / 1.8 , RBS : 131 , lactic acid 1.8 Baseline troponin I 09 , 2-hour troponin I15 2-hour delta 6.8 Urinalysis: Dirty. Rapid Covid negative shortness of breath Review of Systems General: Reports: ROS unobtainable due to mental status Medications/Allergies Home Medications Medication Instructions Recorded Confirmed Last Taken Type ascorbic acid (vitamin C) 500 mg 500 mg PO DAILY@05/24/19 06/17/21 07/16/20 08:00 History capsule aspirin 81 mg tablet,delayed 81 mg PO DAILY@05/24/19 06/17/21 07/02/20 History release (Adult Aspirin Regimen) carbamazepine 200 mg tablet 200 mg PO BID@05/24/19 06/17/21 07/16/20 07:00 History escitalopram oxalate 10 mg tablet 10 mg PO DAILY@05/24/19 06/17/21 07/16/20 07:00 History gabapentin 100 mg capsule 100 mg PO TID@05/24/19 06/17/21 07/16/20 07:00 History promethazine 25 mg tablet 25 mg PO Q6H PRN 05/24/19 06/17/21 07/15/20 21:00 History vitamin E 1,000 unit capsule 1,000 unit PO DAILY@09 09/30/19 06/17/21 07/16/20 07:00 History ergocalciferol (vitamin D2) 10 mcg 50,000 unit PO Q7D 10/11/19 06/17/21 07/16/20 07:00 History (400 unit) tablet baclofen 20 mg tablet 20 mg PO QID PRN tab 12/06/19 06/17/21 07/16/20 07:00 History albuterol sulfate 90 mcg/actuation 1 inh INHALATION Q6H PRN #1 ea 05/21/20 06/17/21 06/13/20 Rx breath activated powder inhaler,sensor pantoprazole 40 mg tablet,delayed 20 mg PO DAILY tab 06/01/20 06/17/21 07/16/20 07:00 History release tizanidine 2 mg tablet 6 mg PO Q6H #360 tab 10/18/20 06/17/21 Unknown Rx citric ac 1980.6 mg-glucono 59.4 30 ml IRRIGATION TID #900 ml 12/03/20 06/17/21 Unknown Rx mg-mag carb 980.4 mg/30 mL irrig.soln (Renacidin) clobetasol 0.05 % topical ointment 1 applic TOPICAL BID 14 Days #60 g 12/27/20 06/17/21 Unknown Rx hydrocortisone 2.5 % topical 1 applic TOPICAL BID PRN #453.6 g 12/27/20 06/17/21 Unknown Rx ointment ketoconazole 2 % shampoo 1 applic TOPICAL .3 x weekly #120 12/27/20 06/17/21 Unknown Rx ml mometasone 0.1 % topical solution 1 applic TOPICAL DAILY #60 ml 12/27/20 06/17/21 Unknown Rx triamcinolone acetonide 0.1 % 1 applic TOPICAL BID #453.6 g 12/27/20 06/17/21 Unknown Rx topical ointment meloxicam 7.5 mg tablet 7.5 mg PO BID 04/21/21 06/17/21 Unknown History polyethylene glycol 3350 17 gram 17 g PO DAILY PRN 4 Days ea 04/22/21 06/17/21 Unknown Rx oral powder packet (Miralax) sennosides 8.6 mg-docusate sodium 1 tab-cap PO BID #30 tab 04/22/21 06/17/21 Unknown Rx 50 mg tablet (Senna-S) melatonin 10 mg capsule 30 mg PO BEDTIME@22 PRN cap 06/17/21 06/17/21 Unknown History Allergies Allergy/AdvReac Type Severity Reaction Status Date / Time penicillin G Allergy Mild ALGY-Rash Verified 06/17/21 14:02 amoxicillin Allergy ALGY-Anaphy Verified 06/17/21 14:02 laxis PFSH Acute PFSH: Medical History Chronic indwelling Miranda catheter COVID-05 June 2020 Diabetes mellitus -NIDDM type II, A1c-7.2 (08/2019) -Accuchecks, hypoglycemia precautions, ISS -consistent carb diet Obstructive pyelonephritis Quadriplegia -strict fall precautions -frequent repositioning, q2h -WC-/bed-bound at baseline -continue pain meds, muscle relaxants -has been following up with Dr. Estrella for consideration of Botox treatments for spasticity Renal stone Spastic hemiplegia affecting left nondominant side Spastic hemiplegia, dominant side Surgical History History of appendectomy History of back surgery History of colon resection History of neck surgery History of suprapubic catheter Open placement October 2019. S/P extracorporeal shock wave therapy Family History Father , at age 49 Cancer Lung disease Mother Cancer bone Brother Cancer Lung disease Denies family history of Diabetes CAD (coronary artery disease) Clotting disorder Dementia Hyperlipidemia Psychiatric illness Chronic kidney disease (CKD) Suicide Anesthesia complication Bleeding disorder Family history of premature coronary artery disease Hypertension Stroke Social History Smoking and tobacco status: current every day smoker cigarettes Packs smoked per day: 0.5 Quit status (tobacco): not considering quitting Alcohol intake: former Former alcohol use details: quit due to medications Household members: other Details: lives with mother Marital status: Legally Number of children: 5 History of recent travel: No Vitals/I&O/Wt Last Vital Signs Temp 102.5 F H 06/21/21 21:55 Pulse 86 06/21/21 21:55 Resp 18 06/21/21 21:55 BP 103/68 06/21/21 21:55 Pulse Ox 97 06/21/21 21:55 Weight last 48 hrs Weight 72.575 kg Physical Exam Const: OTHER: AO*1 ( Self ) HENMT: COMMON NORMALS: normocephalic and atraumatic HEAD & SCALP: normocephalic and atraumatic Eye: GENERAL EYE: appearance normal, both eyes and all related structures Chest: COMMONS NORMALS: normal inspection of the chest and normal palpation of entire chest wall CHEST: Yes Symmetrical chest wall rise Resp: COMMON NORMALS: normal respiratory effort, No retractions, No use of accessory muscles and clear to auscultation bilaterally EFFORT & INSPECTION: Yes symmetric chest movement AUSCULTATION: clear to auscultation bilaterally Cardio: COMMON NORMALS: regular rate, regular rhythm, S1 normal heart sound present, S2 normal heart sound present, No gallops present (Cardio), No murmurs present (Cardio), No rub (Cardio) and Peripheral pulses 2+ throughout RATE: regular rate RHYTHM: regular rhythm HEART SOUNDS: S1 normal heart sound present and S2 normal heart sound present PERIPHERAL PULSES: Peripheral pulses 2+ throughout GI: COMMON NORMALS: Normal to inspection, nondistended, normoactive bowel sounds present, Soft to palpation, non-tender, No hepatosplenomegaly present and no masses AUSCULTATION: Yes normoactive bowel sounds PALPATION: Yes Soft to palpation and Yes No hepatosplenomegaly present RECTAL EXAM: Yes deferred Extremity: COMMON NORMALS: no clubbing, cyanosis or edema and no pedal edema Data : 06/21/21 22:17 06/21/21 22:17 Micro: Microbiology 06/21/21 22:33 Blood Culture - Preliminary Blood SPECIMEN COLLECTED 06/21/21 22:17 Blood Culture - Preliminary Blood SPECIMEN COLLECTED A&P Assessment and plan (1) Diabetes mellitus: Status: Acute Qualifiers: Diabetes mellitus type: type 2 Diabetes mellitus intermediate frame tender insulin use: without intermediate frame tender use Diabetes mellitus complication status: without complication Qualified Code(s): E11.9 - Type 2 diabetes mellitus without complications (2) Obstructive pyelonephritis: Status: Acute (3) Acute UTI: Status: Acute (4) Acute hyponatremia: Status: Acute (5) Sepsis: Status: Acute (6) SABAS (acute kidney injury): Status: Acute (7) Neurogenic bladder: Status: Acute Plan Assessment: Septic Shock secondary to acute pyelonephritis (elevated WBC, hypotension , fluid resuscitation, fever, acute pyelonephritis ) : acute pyelonephritis Elevated Troponin likley 2/2 sepsis LT moderate hydronephrosis Bilateral nonobstructive nephrolithiasis Acute on Chronic hyponatremia (likely secondary to poor oral intake ) SABAS secondary to obstructive uropathy spastic quadriplegia, recurrent UTI diabetes #Follow blood culture , urine culture , procalcitonin Continue Primaxin Continue Levophed Continue IV hydration with normal @125 CC/HR Monitor BMP Intake And output charting Avoid nephrotoxic's Urology on board Continue to monitor Serum Sodium q12 h SSI , Monitor FSG Currently NPO Continue Telemetry monitoring #Code Status :Full code DVT PPX:On lovenox , Attestations Medical Necessity Statement*: Patient needs to be in the hospital for management of sepsis UTI elevated troponin SABAS, acute pyonephritis.Anticipated length of stay greater than 2 midnights. Time Spent in Patient Care: Greater than 35 minutes (>than 50% of time spent in counselling and/or direct pt care on unit) . Critical Care Time: Critical care time : 45 mins The high probability of a clinically significant, sudden or life threatening deterioration of the patient's [] system(s) required my full and direct attention, intervention and personal management. The critical care time is as shown. This time is in addition to time spent performing any reported procedures but includes the following: [x] Data and vital sign review and interpretation [x] Patient assessment, examination and intervention [x] Documentation [x] Medication orders and management Coding Level of Care Code Acute Cardiac Cath Technologist for Chg Fwd Exam Detailed Diagnoses Diabetes mellitus E11.9 Diabetes mellitus type: type 2 Diabetes mellitus intermediate frame tender insulin use: without penitentiary use Diabetes mellitus complication status: without complication Obstructive pyelonephritis N11.1 Acute UTI N39.0 Acute hyponatremia E87.1 Sepsis A41.9 SABAS (acute kidney injury) N17.9 Neurogenic bladder N31.9
[2021-06-22] MEDS: enoxaparin 40 mg/0.4 mL Syringe SUBCUT (02:34)
[2021-06-22] MEDS: sodium chloride 0.9% 1,000 ML 999 ML IV (02:37)
[2021-06-22] MEDS: midodrine 5 mg TABLET 10 MG PO (02:55)
--- NOTE | 2021-06-22 03:38 | P.CONIM_ITS ---
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 Multiple interventions for stones including episodes of obstructive pyelo. Was in the clinic recently and doing well/ baseline. KUB showed stable LEFT renal stones, SP tube functioning well, and no symptoms of UTI at that time. Presented tonight with nausea and vomiting in addition to confusion. One temp elevation documented at 102.5. Workup: UA: c/w UTI WBC: mildly elevated Lactate: normal Cr: 1.8; baseline of 0.5, Na: 120 CXR: No pneumonia CT abd/pelvis: Obstructing 12mm LEFT Proximal ureteral stone. Additional nonobstructing renal stones. Hemodynamically stable initially. Plan was to begin IV antibiotics, fluids, and stent. Since admission his temp has normalized, BP trending down. He received a bolus of IV fluids x2 L without significant jump in blood pressure . It appeared that his infectious condition was worsening, hospitalist, Dr. Leong was transferring to the ICU. I recommended stenting first and then ICU postop Reviewed the findings and current status with the patient. He is very familiar with these issues having gone through multiple episodes of obstructive pyelonephritis historically. 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) Musc: Reports: other Skin/Breast: Denies: jaundice Neuro: Reports: confusion and other Psych: Reports: depression Endo: Denies: flushing Lane/Lymph: Denies: easy bleeding All/Imm: Denies: acute wheezing Medications/Allergies Home Medications Medication Instructions Recorded Confirmed Last Taken Type ascorbic acid (vitamin C) 500 mg 500 mg PO DAILY@05/24/19 06/17/21 07/16/20 08:00 History capsule aspirin 81 mg tablet,delayed 81 mg PO DAILY@05/24/19 06/17/21 07/02/20 History release (Adult Aspirin Regimen) carbamazepine 200 mg tablet 200 mg PO BID@05/24/19 06/17/21 07/16/20 07:00 History escitalopram oxalate 10 mg tablet 10 mg PO DAILY@05/24/19 06/17/21 07/16/20 07:00 History gabapentin 100 mg capsule 100 mg PO TID@05/24/19 06/17/21 07/16/20 07 :00 History promethazine 25 mg tablet 25 mg PO Q6H PRN 05/24/19 06/17/21 07/15/20 21:00 History vitamin E 1,000 unit capsule 1,000 unit PO DAILY@09/30/19 06/17/21 07/16/20 07:00 History ergocalciferol (vitamin D2) 10 mcg 50,000 unit PO Q7D 10/11/19 06/17/21 07/16/20 07:00 History (400 unit) tablet baclofen 20 mg tablet 20 mg PO QID PRN tab 12/06/19 06/17/21 07/16/20 07:00 History albuterol sulfate 90 mcg/actuation 1 inh INHALATION Q6H PRN #1 ea 05/21/20 06/17/21 06/13/20 Rx breath activated powder inhaler,sensor pantoprazole 40 mg tablet,delayed 20 mg PO DAILY tab 06/01/20 06/17/21 07/16/20 07:00 History release tizanidine 2 mg tablet 6 mg PO Q6H #360 tab 10/18/20 06/17/21 Unknown Rx citric ac 1980.6 mg-glucono 59.4 30 ml IRRIGATION TID #900 ml 12/03/20 06/17/21 Unknown Rx mg-mag carb 980.4 mg/30 mL irrig.soln (Renacidin) clobetasol 0.05 % topical ointment 1 applic TOPICAL BID 14 Days #60 g 12/27/20 06/17/21 Unknown Rx hydrocortisone 2.5 % topical 1 applic TOPICAL BID PRN #453.6 g 12/27/20 06/17/21 Unknown Rx ointment ketoconazole 2 % shampoo 1 applic TOPICAL .3 x weekly #120 08/12/21 01/31/22 Unknown Rx ml mometasone 0.1 % topical solution 1 applic TOPICAL DAILY #60 ml 12/27/20 06/17/21 Unknown Rx triamcinolone acetonide 0.1 % 1 applic TOPICAL BID #453.6 g 12/27/20 06/17/21 Unknown Rx topical ointment meloxicam 7.5 mg tablet 7.5 mg PO BID 04/21/21 06/17/21 Unknown History polyethylene glycol 3350 17 gram 17 g PO DAILY PRN 4 Days ea 04/22/21 06/17/21 Unknown Rx oral powder packet (Miralax) sennosides 8.6 mg-docusate sodium 1 tab-cap PO BID #30 tab 04/22/21 06/17/21 Unknown Rx 50 mg tablet (Senna-S) melatonin 10 mg capsule 30 mg PO BEDTIME@22 PRN cap 06/17/21 06/17/21 Unknown History Allergies Allergy/AdvReac Type Severity Reaction Status Date / Time penicillin G Allergy Mild ALGY-Rash Verified 06/17/21 14:02 amoxicillin Allergy ALGY-Anaphy Verified 06/17/21 14:02 laxis Current Medications Generic Name Dose Route Start Last Admin Trade Name Freq PRN Reason Stop Dose Admin Enoxaparin Sodium 40 mg 06/22/21 01:15 06/22/21 02:34 Enoxaparin 40 Mg/0.4 Ml Syringe SUBCUT 40 mg Q24H SHANTEL Administration Imipenem/Cilastatin Sodium 500 100 mls @ 200 mls/hr 06/22/21 01:15 06/22/21 02:36 mg/ Sodium Chloride IV 200 mls/hr Q6H SHANTEL Administration Protocol Midodrine 10 mg 06/22/21 02:50 06/22/21 02:55 Midodrine 5 Mg Tablet PO 10 mg TID SHANTEL Administration Tizanidine HCl 6 mg 06/22/21 01:15 06/22/21 02:32 Tizanidine 4 Mg Tablet PO Not Given Q6H SHANTEL PFSH Acute PFSH: Medical History Chronic indwelling Miranda catheter COVID-05 June 2020 Diabetes mellitus -NIDDM type II, A1c-7.2 (08/2019) -Accuchecks, hypoglycemia precautions, ISS -consistent carb diet Obstructive pyelonephritis Quadriplegia -strict fall precautions -frequent repositioning, q2h -WC-/bed-bound at baseline -continue pain meds, muscle relaxants -has been following up with Dr. Estrella for consideration of Botox treatments for spasticity Renal stone Spastic hemiplegia affecting left nondominant side Spastic hemiplegia, dominant side Surgical History History of appendectomy History of back surgery History of colon resection History of neck surgery History of suprapubic catheter Open placement October 2019. S/P extracorporeal shock wave therapy Family History Father , at age 49 Cancer Lung disease Mother Cancer bone Brother Cancer Lung disease Denies family history of Diabetes CAD (coronary artery disease) Clotting disorder Dementia Hyperlipidemia Psychiatric illness Chronic kidney disease (CKD) Suicide Anesthesia complication Bleeding disorder Family history of premature coronary artery disease Hypertension Stroke Social History Smoking and tobacco status: current every day smoker cigarettes Packs smoked per day: 0.5 Quit status (tobacco): not considering quitting Alcohol intake: former Former alcohol use details: quit due to medications Household members: other Details: lives with mother Marital status: Legally Number of children: 5 History of recent travel: No Vitals/I&O/Wt Last Vital Signs Temp 98.4 F 06/22/21 02:05 Pulse 77 06/22/21 02:05 Resp 16 06/22/21 02:05 BP 79/40 06/22/21 02:05 Pulse Ox 97 06/22/21 02:05 06/21/21 06/21/21 06/22/21 14:59 22:59 06:59 Intake Total 1000 / 1000 Balance 1000 / 1000 Weight last 48 hrs Weight 160 lb Physical Exam Const: COMMON NORMALS: alert; negative for patient oriented x3, limitations and negative for healthy appearing HENMT: COMMON NORMALS: normocephalic, atraumatic and hearing grossly normal bilaterally HEAD & SCALP: normocephalic and atraumatic Eye: COMMON NORMALS: no scleral icterus Neck/C-Spine: GENERAL: Yes normal visual inspection Lymph: LYMPHATIC: no lymphadenopathy noted Resp: COMMON NORMALS: clear to auscultation bilaterally AUSCULTATION: clear to auscultation bilaterally OTHER: No audible wheezes Cardio: OTHER: Regular rate rhythm GI: OTHER: Suprapubic tube in lower abdomen. Functioning. No palpable mass : OTHER: Normal phallus and scrotum Extremity: OTHER: Spastic quadriplegia Neuro: COMMON NORMALS: negative for patient oriented x3 SENSORIUM/ORIENTATION: Yes alert OTHER: Spastic quadriplegia Psych: OTHER: Some confusion. He knew who I was. Was able to converse about previous stones and UTIs. Data : 06/21/21 22:17 06/21/21 22:17 Micro: Microbiology 06/21/21 22:33 Blood Culture - Preliminary Blood SPECIMEN COLLECTED 06/21/21 22:17 Blood Culture - Preliminary Blood SPECIMEN COLLECTED A&P Assessment and plan (1) Obstructive pyelonephritis: Large stone (12mm) located proximal ureter. Evidence of progression to septic picture with declining blood pressure. On admission initially was hemodynamically stable. Has not responded well to boluses. Plan: to OR for stenting EMERGENTLY with ICU immediately postop. Delayed treatment of stone after infection treated. Status: Acute (2) Left ureteral calculus: Status: Acute (3) SABAS (acute kidney injury): Baseline creatinine of 0.5 now at 1.8. Status: Acute (4) Renal stone: Bilateral nonobstructing renal calculi Status: Acute (5) Chronic spastic tetraplegia: Status: Acute (6) Diabetes mellitus: Status: Acute Qualifiers: Diabetes mellitus complication status: without complication Diabetes mellitus nursing home insulin use: without long chain beamer use Diabetes mellitus type: type 2 Qualified Code(s): E11.9 - Type 2 diabetes mellitus without complications Coding Level of Care Code Acute Ships Equipment Engineer for [facility] Fwd Exam Detailed Diagnoses SABAS (acute kidney injury) N17.9 Obstructive pyelonephritis N11.1 Left ureteral calculus N20.1 Renal stone N20.0 Chronic spastic tetraplegia G82.50 Diabetes mellitus E11.9 Diabetes mellitus complication status: without complication Diabetes mellitus long chain beamer insulin use: without long chain beamer use Diabetes mellitus type: type 2
[2021-06-22] MEDS: sodium chloride 0.9% 1,000 ML 125 ML IV ×2 (03:50→13:11)
--- NOTE | 2021-06-22 05:36 | ANES.PREANE2 ---
Pre-Anesthetic Assessment Height/Weight: Height 1.75 m Weight 56.699 kg Temp Pulse Resp BP Pulse Ox 98.8 F 75 17 80/40 95 06/22/21 04:00 06/22/21 04:00 06/22/21 04:00 06/22/21 04:00 06/22/21 04:00 Preop Diagnosis: Retained ureteral stent Operation Date: 06/22/21 05:30 Proposed Procedures p Cystoscopy(Not Applicable) - Oni Saucedo MD s Ureteral Stent Placement(Left) - Oni Saucedo MD Familial anesthetic complications: none Last intake: Intake Last Liquid Date 06/22/21 Last Liquid Time 02:55 Last Solid Date 06/21/21 Last Solid Time 17:00 Exam alert, clear to auscultation bilaterally and regular rate & rhythm unable to obtain ROS d/t mental status Metabolic Diabetes Mellitus hyponatremia, sepsis Neuropsych paresis Anesthetic Plan ASA status: 4E Anesthesia: General Other: unable to obtain consent d/t mental status and emergency status Medications/Allergies Home Medications Medication Instructions Recorded Confirmed Last Taken Type ascorbic acid (vitamin C) 500 mg 500 mg PO DAILY@05/24/19 06/17/21 07/16/20 08:00 History capsule aspirin 81 mg tablet,delayed 81 mg PO DAILY@05/24/19 06/17/21 07/02/20 History release (Adult Aspirin Regimen) carbamazepine 200 mg tablet 200 mg PO BID@05/24/19 06/17/21 07/16/20 07:00 History escitalopram oxalate 10 mg tablet 10 mg PO DAILY@05/24/19 06/17/21 07/16/20 07:00 History gabapentin 100 mg capsule 100 mg PO TID@05/24/19 06/17/21 07/16/20 07:00 History promethazine 25 mg tablet 25 mg PO Q6H PRN 05/24/19 06/17/21 07/15/20 21:00 History vitamin E 1,000 unit capsule 1,000 unit PO DAILY@09/30/19 06/17/21 07/16/20 07:00 History ergocalciferol (vitamin D2) 10 mcg 50,000 unit PO Q7D 10/11/19 06/17/21 07/16/20 07:00 History (400 unit) tablet baclofen 20 mg tablet 20 mg PO QID PRN tab 12/06/19 06/17/21 07/16/20 07:00 History albuterol sulfate 90 mcg/actuation 1 inh INHALATION Q6H PRN #1 ea 05/21/20 06/17/21 06/13/20 Rx breath activated powder inhaler,sensor pantoprazole 40 mg tablet,delayed 20 mg PO DAILY tab 06/01/20 06/17/21 07/16/20 07:00 History release tizanidine 2 mg tablet 6 mg PO Q6H #360 tab 10/18/20 06/17/21 Unknown Rx citric ac 1980.6 mg-glucono 59.4 30 ml IRRIGATION TID #900 ml 12/03/20 06/17/21 Unknown Rx mg-mag carb 980.4 mg/30 mL irrig.soln (Renacidin) clobetasol 0.05 % topical ointment 1 applic TOPICAL BID 14 Days #60 g 12/27/20 06/17/21 Unknown Rx hydrocortisone 2.5 % topical 1 applic TOPICAL BID PRN #453.6 g 12/27/20 06/17/21 Unknown Rx ointment ketoconazole 2 % shampoo 1 applic TOPICAL .3 x weekly #120 12/27/20 06/17/21 Unknown Rx ml mometasone 0.1 % topical solution 1 applic TOPICAL DAILY #60 ml 12/27/20 06/17/21 Unknown Rx triamcinolone acetonide 0.1 % 1 applic TOPICAL BID #453.6 g 12/27/20 06/17/21 Unknown Rx topical ointment meloxicam 7.5 mg tablet 7.5 mg PO BID 04/21/21 06/17/21 Unknown History polyethylene glycol 3350 17 gram 17 g PO DAILY PRN 4 Days ea 04/22/21 06/17/21 Unknown Rx oral powder packet (Miralax) sennosides 8.6 mg-docusate sodium 1 tab-cap PO BID #30 tab 04/22/21 06/17/21 Unknown Rx 50 mg tablet (Senna-S) melatonin 10 mg capsule 30 mg PO BEDTIME@22 PRN cap 06/17/21 06/17/21 Unknown History Allergies Allergy/AdvReac Type Severity Reaction Status Date / Time penicillin G Allergy Mild ALGY-Rash Verified 06/17/21 14:02 amoxicillin Allergy ALGY-Anaphy Verified 06/17/21 14:02 laxis Current Medications Generic Name Dose Route Start Last Admin Trade Name Satnam PRN Reason Stop Dose Admin Enoxaparin Sodium 40 mg 06/22/21 01:15 06/22/21 02:34 Enoxaparin 40 Mg/0.4 Ml Syringe SUBCUT 40 mg Q24H SHANTEL Administration Sodium Chloride 1,000 mls @ 125 mls/hr 06/22/21 01:15 06/22/21 03:50 Sodium Chloride 0.9% IV 125 mls/hr .Q8H SHANTEL Administration Imipenem/Cilastatin Sodium 500 100 mls @ 200 mls/hr 06/22/21 01:15 06/22/21 04:32 mg/ Sodium Chloride IV Infused Q6H SHANTEL Infusion Protocol Midodrine 10 mg 06/22/21 02:50 06/22/21 02:55 Midodrine 5 Mg Tablet PO 10 mg TID SHANTEL Administration Tizanidine HCl 6 mg 06/22/21 01:15 06/22/21 02:32 Tizanidine 4 Mg Tablet PO Not Given Q6H SHANTEL PFSH Anesthesia Medical History Chronic indwelling Miranda catheter COVID-05 June 2020 Diabetes mellitus -NIDDM type II, A1c-7.2 (08/2019) -Accuchecks, hypoglycemia precautions, ISS -consistent carb diet Obstructive pyelonephritis Quadriplegia -strict fall precautions -frequent repositioning, q2h -WC-/bed-bound at baseline -continue pain meds, muscle relaxants -has been following up with Dr. Estrella for consideration of Botox treatments for spasticity Renal stone Spastic hemiplegia affecting left nondominant side Spastic hemiplegia, dominant side Surgical History History of appendectomy History of back surgery History of colon resection History of neck surgery History of suprapubic catheter Open placement October 2019. S/P extracorporeal shock wave therapy Family History Father , at age 49 Cancer Lung disease Mother Cancer bone Brother Cancer Lung disease Denies family history of Diabetes CAD (coronary artery disease) Clotting disorder Dementia Hyperlipidemia Psychiatric illness Chronic kidney disease (CKD) Suicide Anesthesia complication Bleeding disorder Family history of premature coronary artery disease Hypertension Stroke Social History Smoking and tobacco status: current every day smoker cigarettes Packs smoked per day: 0.5 Quit status (tobacco): not considering quitting Alcohol intake: former Former alcohol use details: quit due to medications Household members: other Details: lives with mother Marital status: Legally Number of children: 5 History of recent travel: No Data Anesthesia : 06/21/21 22:17 06/21/21 22:17 Short CBC 06/21/21 Range/Units 22:17 WBC 12.0 H (4.0-10.0) 10^3/uL Hgb 11.8 (11.7-16.6) g/dL Hct 33.6 L (42.0-52.0) % MCV 91.3 (80-94) fl Plt Count 157 (130-400) 10^3/cmm Neut % (Auto) 94.6 % Neut # (Auto) 11.36 H (1.8-7.7) 10^3/uL BMP 06/21/21 22:17 Sodium 120 L Potassium 4.3 Chloride 88 L Carbon Dioxide 20 L BUN 21 Creatinine 1.8 H Glucose 131 H Calcium 9.0 Cardiac Enzymes 06/21/21 06/21/21 Range/Units 22:17 23:59 Troponin T Baseline 109 H* (0-15) ng/L Troponin T 120 Minute 115.8 H (0-15) ng/L Delta Troponin T 6.8 (0-10) ABS# Liver Function 06/21/21 Range/Units 22:17 Total Bilirubin 0.3 (0.15-1.2) mg/dL AST 36 (0-40) U/L ALT 28 (0-41) U/L Alkaline Phosphatase 76 (40-130) IU/L Albumin 3.7 (3.5-5.2) g/dL Urine 06/21/21 Range/Units 22:45 Urine Color Yellow (Yellow) Urine Appearance Sl cloudy A (CLEAR) Urine pH 9 H (5-7) Ur Specific [place] 1.010 (1.005-1.030) Urine Protein 1+ H (Negative) Urine Glucose (UA) Norm (Normal) Urine Ketones Negative (Negative) Urine Nitrate Positive H (Negative) Urine Bilirubin Neg (Negative) Ur Leukocyte Esterase 2+ H (Negative) Urine RBC >100 H (0-2) /hpf Urine WBC >100 H (0-5) /hpf COVID Results 06/21/21 22:45 SARS-CoV-2 Ag (Rapid) Negative Microbiology 06/21/21 22:33 Blood Culture - Preliminary Blood SPECIMEN COLLECTED 06/21/21 22:17 Blood Culture - Preliminary Blood SPECIMEN COLLECTED Cardiac Studies: Echocardiogram Ultrasound 05/18/20
--- NOTE | 2021-06-22 05:41 | SC_ITS ---
WS: [id number] REASON FOR EXAM: intra-op FINDINGS: Properly positioned proximal portion of the left ureteral stent. Large calculus/calculi at the level of the ureteral pelvic junction. Identified adjacent to the stent SC/[facility] IMPRESSION: Left ureteral stent placement as above.
--- NOTE | 2021-06-22 06:04 | PM.OP ---
Operative Report Date of procedure: June 22, 2021 Pre-op diagnosis: Preop Diagnosis Obstructive pyelonephritis Post-op diagnosis: Obstructive pyelonephritis Procedure done: 1. Cystoscopy, left ureteral stent placement 2. Suprapubic tube change Specimens removed/disposition: None Pathology: None Surgeon: Sheryl Estimated blood loss: Less than 5 cc Urine output: Not measured Complications: None Findings: Wire easily passed the obstructing left proximal ureteral stone. 7 [place] by 28 cm double-pigtail stent left indwelling at the completion of the procedure with position confirmed fluoroscopy cystoscopy. Brief History: Timur is a very pleasant 61-year-old white male with a history of quadriplegia, neurogenic bladder, chronic SP tube, and recurrent urinary tract infections and stones. Has had multiple episodes of obstructive pyelonephritis requiring intervention historically. He was recently seen in the office with no change in nonobstructing left renal calculi. Since that time though he dropped a stone from his left kidney into the proximal ureter and presented with nausea and vomiting. Initially he was felt to be not septic despite chronic UTI Was placed on IV antibiotics, given fluids but his pressure declined and it was recommended that he be taken to the operating room emergently for cystoscopy and left ureteral stent placement. Plan was to change his suprapubic tube as well. Procedure: After routine preoperative evaluation examination he was taken to the operating room emergently for the above procedures. Prepped and draped in usual sterile fashion in dorsolithotomy position paying careful attention to avoiding pressure points. Suprapubic tube was prepped into the field. Tube was clamped. 21 [place] cystoscope with 30 degree lens was introduced into the urethral meatus and advanced into the bladder under videoscopy. The bladder was systematically examined. Tube was in good position. No stones were seen. Flexible tip guidewire was then advanced up the left ureter under fluoroscopic guidance and easily bypassed the stone in the left proximal ureter and curled in the upper pole calyx. A 7 [place] by 28 cm double-pigtail stent was advanced over the guidewire through the cystoscope into appropriate position as confirmed via fluoroscopy and cystoscopy. Some fluid was left in the bladder. The suprapubic tube was then removed the site reprepped and a 16 [place] Miranda catheter was advanced through the suprapubic tube site into the bladder 10 cc placed in the balloon. Cystoscopic examination confirmed good position of the balloon and the procedure was completed. He remained hemodynamically stable throughout the procedure. Was awakened in the operating room and transferred to the ICU. PLANS: 1. Maintain left ureteral stent until stone completely treated. 2. Plan delayed ureteroscopic or lithotripsy procedure on the stone after recovers from infectious condition.
[2021-06-22 07:54] LABS: Glucose Point of Care 84 mg/dL (70-110)
[2021-06-22] MEDS: gabapentin 100 mg Capsule PO ×2 (08:26→13:11)
[2021-06-22] MEDS: pantoprazole DR 40 mg Tablet 20 MG PO (08:26)
[2021-06-22] MEDS: tizanidine 4 mg Tablet 6 MG PO ×2 (08:27→13:10)
[2021-06-22 12:52] LABS: Glucose Point of Care 63 mg/dL (70-110)
--- NOTE | 2021-06-22 14:40 | P.PN_ITS ---
Subjective Subjective: Interval history: Confused. Not answering any questions, repeating take this off , but does not say what this is despite asking multiple times. I assume he is referring to his IV. Discussed with him he was receiving an IV fluid infusion which he is needing currently, although do not think he had understood as he kept repeating the same thing and more aggravated tone. Does not appear to know why he is here, although does appear to know that he is in the hospital. Does not answer any other questions or follow any instructions. Vitals/I&O/Wt Last Vital Signs Temp 101.6 F H 06/22/21 08:00 Pulse 106 H 06/22/21 13:01 Resp 19 H 06/22/21 13:01 BP 80/49 06/22/21 13:01 Pulse Ox 96 06/22/21 13:01 06/21/21 06/22/21 06/22/21 22:59 06:59 14:59 Intake Total 2100 / 2100 1100 / 1100 Balance 2100 / 2100 1100 / 1100 Weight last 48 hrs Weight 56.699 kg Weight 72.575 kg Physical Exam Const: COMMON NORMALS: no acute distress GENERAL APPEARANCE: frail appearing; not cooperative NUTRITIONAL APPEARANCE: thin ORIENTATION/CONSCIOUSNESS: Yes awake and Yes confused HENMT: COMMON NORMALS: oropharynx normal Neck/C-Spine: COMMON NORMALS: no JVD Resp: COMMON NORMALS: normal respiratory effort and clear to auscultation bilaterally AUSCULTATION: clear to auscultation bilaterally Cardio: COMMON NORMALS: no JVD, regular rhythm, S1 normal heart sound present, S2 normal heart sound present and No murmurs present (Cardio) RHYTHM: regular rhythm HEART SOUNDS: S1 normal heart sound present and S2 normal heart sound present GI: COMMON NORMALS: Normal to inspection, nondistended, normoactive bowel sounds present, Soft to palpation and non-tender PALPATION: Yes Soft to palpation Extremity: COMMON NORMALS: no joint enlargement and no pedal edema NARRATIVE EXTREMITY EXAM: Severe upper and lower extremity contractures. Neuro: COMMON NORMALS: moves all extremities Urinary Catheter Management: Suprapubic: Cath Placed During This Visit: yes, but has since been removed by the nurse Reason for Continuing Indwelling Catheter: Chronic Indwelling Urinary Catheter on Admission Urinary Catheter Date of Insertion: 06/22/21 Urinary Catheter Time of Insertion: 06:02 Date Urinary Catheter Removed: 06/22/21 Time Urinary Catheter Discontinued: 06:00 Data : 06/21/21 22:17 06/21/21 22:17 Micro: Microbiology 06/21/21 22:33 Blood Culture - Preliminary Blood SPECIMEN COLLECTED 06/21/21 22:17 Blood Culture - Preliminary Blood SPECIMEN COLLECTED A&P Assessment and plan (1) Sepsis: Septic shock secondary to complicated urinary tract infection, obstructive pyelonephritis, status post stenting. Additional LR bolus. Then if still hypotensive, assess NICOM for fluid responsiveness. Maintain MAP over 65 mmHg. Broaden antibiotics with addition of vancomycin due to history of enterococcal infection. Hold carbamazepine for now due to hypotension Check random serum cortisol. Status: Acute (2) SABAS (acute kidney injury): Repeat chemistry. Additional fluid bolus. Monitor I&O. Assess fluid responsiveness. Discontinue ibuprofen. Meloxicam. Hold gabapentin, baclofen, tizanidine Status: Acute (3) Obstructive pyelonephritis: Status post stenting. After recovery from acute condition definitive treatment of left proximal ureteral stone. Status: Acute (4) Acute UTI: Follow-up cultures. Add vancomycin. Continue Primaxin. Status: Acute (5) Acute hyponatremia: Recheck chemistry. Status: Acute (6) Neurogenic bladder: Status: Acute (7) Diabetes mellitus: Status: Acute Qualifiers: Diabetes mellitus type: type 2 Diabetes mellitus adjunct faculty for medical terminology insulin use: without adjunct faculty for medical terminology use Diabetes mellitus complication status: without complication Qualified Code(s): E11.9 - Type 2 diabetes mellitus without complications (8) Acute encephalopathy: Acute encephalopathy secondary to infection, complicated UTI, possibly metabolic encephalopathy as well secondary to SABAS. Treat sepsis, septic shock as above. Status: Acute Plan Elevated Troponin likley 2/2 sepsis spastic quadriplegia, recurrent UTI Attestations Medical Necessity Statement*: Continue admission for assessment management of septic shock secondary to complicated UTI. Critical Care Time: The high probability of a clinically significant, sudden or life threatening deterioration of the patient's hemodynamic, urinary system(s) with septic shock required my full and direct attention, intervention and personal management. The critical care time is as shown. This time is in addition to time spent performing any reported procedures but includes the following: x Data and vital sign review and interpretation x Patient assessment, examination and intervention x Documentation x Medication orders and management Critical Care Time (min): 45 Coding Level of Care Code Acute Manager E Learning for Chg Fwd Diagnoses Diabetes mellitus E11.9 Diabetes mellitus type: type 2 Diabetes mellitus fpc insulin use: without adjunct faculty for medical terminology use Diabetes mellitus complication status: without complication Obstructive pyelonephritis N11.1 Acute UTI N39.0 Acute hyponatremia E87.1 Sepsis A41.9 SABAS (acute kidney injury) N17.9 Neurogenic bladder N31.9 Acute encephalopathy G93.40
[2021-06-22] MEDS: lactated ringers 500 ML 999 ML IV (16:00)
[2021-06-22 18:12] LABS: Glucose Point of Care 88 mg/dL (70-110)
[2021-06-22] MEDS: vancomycin 1,000 MG in sodium chloride 0.9% 250 ML 250 MG IV (18:34)
--- NOTE | 2021-06-22 19:22 | PC.NURSE ---
Urine this shift was bright red with multiple small clots. Manual irrigation was done multiple times throughout the shift. Patient remains confused and a&o to self only. Mother updated.
[2021-06-22] MEDS: lactated ringers 1,000 ML 999 ML IV (19:35)
[2021-06-22 19:53] LABS: Alanine Aminotransferase 57 U/L (0-41); Albumin Level 2.9 g/dL (3.5-5.2); Alkaline Phosphatase 45 IU/L (40-130); Anion Gap 18.6 (5-19); Aspartate Amino Transferase 118 U/L (0-40); Blood Urea Nitrogen 31 mg/dL (8-23); Calcium 8.2 mg/dL (8.5-10.5); Carbon Dioxide 14 mmol/L (22-29); Chloride 96 mmol/L (98-107); Creatinine Clr Calc Pharmacy 24.5696; Globulin 2.6 g/dL (1.3-4.6); Glomerular Filtration Rate 26.3 mL/min (90-130); Glucose 74 mg/dL (65-115); Osmolality Calculated 263 mOsm/kg (285-295); Potassium 4.6 mmol/L (3.5-5.1); Sodium 124 mmol/L (136-145); Total Bilirubin 0.5 mg/dL (0.15-1.2); Total Protein 5.5 g/dL (6.6-8.7)
--- NOTE | 2021-06-22 21:16 | PC.NURSE ---
Levophed Upon assessment of patient, Levophed not administering while patient's BP sustaining with a MAP >65. MAR displayed Levophed running at 10 mcg/min at this time; MAR updated to display actual administration.
--- NOTE | 2021-06-22 22:00 | PC.NURSE ---
Oxygen Patient's oxygen saturation in the 80s. Oxymask at 10 L placed on patient, oxygen saturation recovered to mid-high 90s. All other vitals stable.
--- NOTE | 2021-06-22 22:45 | PC.NURSE ---
IV/NC Upon assessment of patient, blood found on gown and top sheet due to Patient's IV being pulled out of right hand. Additionally, patient's oxymask was repetitively pulled off face. Oxymask replaced with nasal cannula running at 10 L. Oxygen saturation maintaining mid 90s on NC. New 22 gauge IV placed in the left forearm. Gown and sheet replaced.
[2021-06-22 23:14] LABS: Glucose Point of Care 87 mg/dL (70-110)
[2021-06-23] VITALS (59 sets, daily range): BP systolic 87–169; BP diastolic 54–110; PULSE 24–123; RESP 11–114; TEMP 36.9–37.3; O2SAT 80–100; BMI 19.1
[2021-06-23] MEDS: enoxaparin 40 mg/0.4 mL Syringe SUBCUT (00:56)
[2021-06-23 01:03] LABS: Cortisol Random 49.81 ug/dL (2.47-19.5)
--- NOTE | 2021-06-23 03:45 | PC.NURSE ---
HHF Patient's oxygen saturation level 86-88% sustaining on nasal cannula. RT and nurse at bedside. HF nasal cannula at 15L initiated with no change in oxygen saturation. Dr. Leong notified and at bedside. Order received for an ABG and to initiate HHF per RT. HHF started at 40L with 93% FIO2. Oxygen saturation increased to high 90s and sustaining. ABG resulted; Dr. Leong aware. Glucose resulted in the 50s, test repeated with accucheck. Accucheck resulted in a blood sugar of 62. Hypoglycemia protocol followed to raise sugar. At around 0500 blood sugar 134. All other vitals stable.
--- NOTE | 2021-06-23 04:00 | XRR_ITS ---
PROCEDURE INFORMATION: Exam: XR Chest Exam date and time: 06/23/2021 4:00 AM Age: 61 years old Clinical indication: Dyspnea; Additional info: SOB TECHNIQUE: Imaging protocol: XR of the chest. Views: 1 view. COMPARISON: CR (CHEST, ) 06/21/2021 9:36 PM FINDINGS: Lungs: There are diffuse bilateral interstitial opacities present, findings compatible with bilateral interstitial pneumonia. Pleural spaces: Unremarkable. No pleural effusion. No pneumothorax. Heart/Mediastinum: Unremarkable. No cardiomegaly. Bones/joints: Unremarkable. XR/XR chest 1V portable [id number] IMPRESSION: Diffuse increased interstitial opacities compatible with a bilateral interstitial pneumonia.
[2021-06-23] MEDS: dextrose 50% syringe 50 mL 25 ML IVP (04:05)
[2021-06-23] MEDS: dextrose 5 % 500 ML 50 ML IV (04:07)
[2021-06-23 04:12] LABS: Glucose Point of Care 62 mg/dL (70-110)
[2021-06-23 04:23] LABS: Glucose Point of Care 168 mg/dL (70-110)
[2021-06-23] MEDS: FUROsemide 10 mg/mL SDV 2mL 20 MG IVP (04:30)
[2021-06-23 04:33] LABS: ABG PCO2 26.5 mmHg (35-45); ABG PH Result 7.37 (7.35-7.45); Arterial Blood Gas Hematocrit 32.8 % (42-52); Base Excess ABG -8.6 mmol/L (-2.0-2.0); Blood Gas Allen Test Pos; Blood Gas Sample Site Radial, left; Blood Gas Sample Type Arterial; HCO3 ABG 15.3 mmol/L (22-26); Oxygen Device NC; PO2 ABG 56.1 mmHg (80.0-100.0)
[2021-06-23 04:40] LABS: Basophils # 0.1 10^3/uL (0.0-0.1); Basophils % 0.4 %; Eosinophils % 0.1 %; Hematocrit 30.4 % (42.0-52.0); Hemoglobin 10.5 g/dL (11.7-16.6); Lymphocytes # 0.2 10^3/uL (0.8-4.8); Lymphocytes % 1.1 %; Mean Corpuscular HGB Conc 34.5 g/dL (30.0-36.0); Mean Corpuscular Hemoglobin 32.5 pg (28.0-34.0); Mean Corpuscular Volume 94.1 fl (80-94); Monocytes # 0.6 10^3/uL (0.2-0.9); Monocytes % 3.8 %; Neutrophils # 13.36 10^3/uL (1.8-7.7); Neutrophils % 92.2 %; Nucleated Red Blood Cells % 0 %; Platelet Count 44 10^3/cmm (130-400); Red Blood Count 3.23 10^6/uL (4.1-5.3); White Blood Count 14.5 10^3/uL (4.0-10.0)
[2021-06-23 05:07] LABS: Alanine Aminotransferase 69 U/L (0-41); Albumin Level 2.9 g/dL (3.5-5.2); Alkaline Phosphatase 77 IU/L (40-130); Anion Gap 22.8 (5-19); Aspartate Amino Transferase 202 U/L (0-40); Blood Urea Nitrogen 38 mg/dL (8-23); Calcium 7.5 mg/dL (8.5-10.5); Carbon Dioxide 15 mmol/L (22-29); Chloride 96 mmol/L (98-107); Creatinine Clr Calc Pharmacy 24.5696; Globulin 2.5 g/dL (1.3-4.6); Glomerular Filtration Rate 26.3 mL/min (90-130); Glucose 163 mg/dL (65-115); Osmolality Calculated 281 mOsm/kg (285-295); Potassium 4.8 mmol/L (3.5-5.1); Sodium 129 mmol/L (136-145); Total Bilirubin 0.5 mg/dL (0.15-1.2); Total Protein 5.4 g/dL (6.6-8.7)
[2021-06-23 05:11] LABS: Procalcitonin 53.05 ng/mL (0-0.5)
[2021-06-23 05:22] LABS: Glucose Point of Care 134 mg/dL (70-110)
[2021-06-23 05:45] LABS: Slide Review Slide Review Perform
[2021-06-23 08:05] LABS: Glucose Point of Care 93 mg/dL (70-110)
[2021-06-23] MEDS: pantoprazole DR 40 mg Tablet 20 MG PO (09:37)
[2021-06-23 12:18] LABS: Glucose Point of Care 91 mg/dL (70-110)
[2021-06-23 12:56] LABS: Acinetobacter baumannii Not Detected (NOT DETECT); Bacteroides fragilis Not Detected (NOT DETECT); CTX-M Not Detected (NOT DETECT); Citrobacter Not Detected (NOT DETECT); Cronobacter sakazakii Not Detected (NOT DETECT); Enterobacter cloacae complex Not Detected (NOT DETECT); Enterobacter non cloacae Not Detected (NOT DETECT); Fusobacterium necrophorum Not Detected (NOT DETECT); Fusobacterium nucleatum Not Detected (NOT DETECT); Haemophilus influenzae Not Detected (NOT DETECT); IMP Resistance Gene Not Detected (NOT DETECT); KPC Resistance Gene Not Detected (NOT DETECT); Klebsiella pneumoniae group Not Detected (NOT DETECT); Morganella morganii Not Detected (NOT DETECT); NDM Resistance Gene Not Detected (NOT DETECT); Neisseria meningitidis Not Detected (NOT DETECT); OXA Resistance Gene Not Detected (NOT DETECT); Pan Candida Not Detected (NOT DETECT); Pan Gram-Positive Not Detected (NOT DETECT); Proteus mirabilis Not Detected (NOT DETECT); Pseudomonas aeruginosa Not Detected (NOT DETECT); Salmonella Not Detected (NOT DETECT); Serratia Not Detected (NOT DETECT); Serratia marcescens Not Detected (NOT DETECT); Stenotrophomonas maltophilia Not Detected (NOT DETECT); VIM Resistance Gene Not Detected (NOT DETECT)
[2021-06-23] MEDS: levETIRAcetam 750 MG in sodium chloride 0.9% (100 ml) 100 ML 430 MG IV (13:35)
[2021-06-23] MEDS: FUROsemide 10 mg/mL SDV 4mL 40 MG IVP (13:53)
[2021-06-23] MEDS: LORazepam 2 mg/mL INJ 1 mL 0.5 MG IVP (14:55)
[2021-06-23 15:54] LABS: Adenovirus Not Detected (NOT DETECT); Chlamydia Pneumoniae Not Detected (NOT DETECT); Coronavirus 229E,HKU1,NL63,OC4 Not Detected (NOT DETECT); Human Metapneumovirus Not Detected (NOT DETECT); Human Rhinovirus/Enterovirus Not Detected (NOT DETECT); Influenza A Not Detected (NOT DETECT); Influenza A H1 Not Detected (NOT DETECT); Influenza A H1-2009 Not Detected (NOT DETECT); Influenza A H3 Not Detected (NOT DETECT); Influenza B Not Detected (NOT DETECT); Mycoplasma Pneumoniae Not Detected (NOT DETECT); Parainfluenza Virus Type 1 Not Detected (NOT DETECT); Parainfluenza Virus Type 2 Not Detected (NOT DETECT); Parainfluenza Virus Type 3 Not Detected (NOT DETECT); Parainfluenza Virus Type 4 Not Detected (NOT DETECT); Respiratory Syncytial Virus A Not Detected (NOT DETECT); Respiratory Syncytial Virus B Not Detected (NOT DETECT); SARS-COV-2 Not Detected (NOT DETECT)
--- NOTE | 2021-06-23 16:50 | P.PN_ITS ---
Subjective Subjective: Interval history: This morning he denies pain, although appears more restless, and with involuntary movements, which his mother states started on Thursday. Not as bad as previously. But persistent. Lifting both arms, and dropping them down in front of him. Vitals/I&O/Wt Last Vital Signs Temp 98.4 F 06/23/21 13:30 Pulse 108 H 06/23/21 16:43 Resp 22 H 06/23/21 16:43 BP 125/77 06/23/21 16:30 Pulse Ox 92 06/23/21 16:43 06/23/21 06/23/21 06/23/21 06:59 14:59 22:59 Intake Total 116.667 / 2869.537 207.5 / 207.5 100 / 307.5 Output Total 350 / 700 750 / 750 Balance -233.333 / 2169.537 -542.5 / -542.5 100 / -442.5 Weight last 48 hrs Weight 58.695 kg Weight 56.699 kg Weight 72.575 kg Physical Exam Const: COMMON NORMALS: no acute distress GENERAL APPEARANCE: frail appearing; not cooperative NUTRITIONAL APPEARANCE: thin ORIENTATION/CONSCIOUSNESS: Yes awake and Yes confused HENMT: COMMON NORMALS: oropharynx normal Neck/C-Spine: COMMON NORMALS: no JVD Resp: COMMON NORMALS: normal respiratory effort and clear to auscultation bilaterally AUSCULTATION: clear to auscultation bilaterally Cardio: COMMON NORMALS: no JVD, regular rhythm, S1 normal heart sound present, S2 normal heart sound present and No murmurs present (Cardio) RHYTHM: regular rhythm HEART SOUNDS: S1 normal heart sound present and S2 normal heart sound present GI: COMMON NORMALS: Normal to inspection, nondistended, normoactive bowel sounds present, Soft to palpation and non-tender PALPATION: Yes Soft to palpation Extremity: COMMON NORMALS: no joint enlargement and no pedal edema NARRATIVE EXTREMITY EXAM: Severe upper and lower extremity contractures. Neuro: COMMON NORMALS: moves all extremities Urinary Catheter Management: Suprapubic: Cath Placed During This Visit: yes, but has since been removed by the nurse Reason for Continuing Indwelling Catheter: Accurate Measurement of Urinary Output in Critically Ill Patients Urinary Catheter Date of Insertion: 06/22/21 Urinary Catheter Time of Insertion: 06:02 Date Urinary Catheter Removed: 06/22/21 Time Urinary Catheter Discontinued: 06:00 Data : 06/23/21 04:15 06/23/21 04:15 Micro: Microbiology 06/21/21 22:17 Blood Culture - Preliminary Blood Escherichia coli 06/21/21 22:33 Blood Culture - Preliminary Blood Escherichia coli 06/21/21 22:45 Urine Culture - Preliminary Urine Catheterized A&P Assessment and plan (1) Sepsis: Septic shock resolved. Weaned off pressors. Sepsis persists. Today with noted thrombocytopenia also platelet count down to 44,000. DC further Lovenox for now. SCDs alone. Follow-up CBC. Low probability of HIT. Check DIC panel. Gram-negative erik bacteremia. E. coli. Pending sensitivity. Continue Primaxin. Discussed with his mother. Empirically continue vancomycin for now. Follow-up urine cultures. Requesting to continue incubation and ID&S. Septic shock secondary to complicated urinary tract infection, obstructive pyelonephritis, status post stenting. Hypotension resolved, resumed carbamazepine, but today more confused, spit out medication. Loaded with Keppra for now. Good serum cortisol. Status: Acute (2) Acute encephalopathy: Resumed baclofen today, carbamazepine, however, more confused, spit out medication. Attempt to place NGT unsuccessful due to him moving away. Not retried for now until mental status slightly better. Loaded with Keppra. Continue supportive care. Ativan as needed. Appears may be in pain, possibly due to stent. Morphine as needed. Acute encephalopathy secondary to infection, complicated UTI, possibly metabolic encephalopathy as well secondary to SABAS. Treat sepsis, septic shock as above. Producing urine, but not improved renal function. Recheck chemistries. Status: Acute (3) Hypoxia: Chest x-ray with atypical/interstitial pneumonia versus pulmonary edema. Discussed with his mother. On empiric antibiotics currently, COVID-19 PCR checked, negative. Possible edema given resuscitation yesterday with septic shock. Lasix 60 mg IV x1. Reassess volume status. Repeat chest x-ray in the morning. Hypoxia patient to be improving, FiO2 requirement is high as 90% today, currently down to 60%. Status: Acute (4) SABAS (acute kidney injury): Repeat chemistry. Monitor I&O. Assess fluid responsiveness. Discontinue ibuprofen. Meloxicam. Yesterday held gabapentin, baclofen, tizanidine Status: Acute (5) Obstructive pyelonephritis: Status post stenting. After recovery from acute condition definitive treatment of left proximal ureteral stone. Status: Acute (6) Acute UTI: Requested to continue drawing blood cultures, follow-up ID NS. Gram-negative erik bacteremia. Gram-negative erik sepsis and septic shock. Complicated UTI. Follow-up cultures. Continue Primaxin, for now empiric vancomycin, but discontinue if no Enterococcus. Status: Acute (7) Acute hyponatremia: Recheck chemistry. Status: Acute (8) Neurogenic bladder: Catheter draining. SP tube exchanged this admission. 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 Critical Care Time: The high probability of a clinically significant, sudden or life threatening deterioration of the patient's hemodynamic, renal, neurologic, urologic system(s) required my full and direct attention, intervention and personal management. The critical care time is as shown. This time is in addition to time spent performing any reported procedures but includes the following: x Data and vital sign review and interpretation x Patient assessment, examination and intervention x Documentation x Medication orders and management Critical Care Time (min): 55 Coding Level of Care Code Acute Petroleum Supply Specialist for [facility] Diagnoses Sepsis A41.9 SABAS (acute kidney injury) N17.9 Obstructive pyelonephritis N11.1 Acute UTI N39.0 Acute hyponatremia E87.1 Neurogenic bladder N31.9 Diabetes mellitus E11.9 Diabetes mellitus type: type 2 Diabetes mellitus vulcanized fiber unit operator insulin use: without jail use Diabetes mellitus complication status: without complication Acute encephalopathy G93.40 Thrombocytopenia D69.6 Transaminitis R74.01 Hypoxia R09.02
[2021-06-23] MEDS: vancomycin 1,000 MG in sodium chloride 0.9% 250 ML 250 MG IV (17:12)
[2021-06-23] MEDS: morphine 4 mg/mL SDV 1 mL 1 MG IVP (17:14)
[2021-06-23 17:34] LABS: Glucose Point of Care 84 mg/dL (70-110)
--- NOTE | 2021-06-23 18:52 | PC.NURSE ---
Shift Note Frequent safety and comfort rounds continue. Orders and/or nursing care completed as indicated. Patient monitored for response to intervention and treatment(s). Education provided includes current plan of care, interventions and outcomes, oxygen safety, and medication education upon administration. Patient and/or cash application representative(mother)verbalized understanding of teaching. 1027- bladder scan revealed 0ml. Baclofen 10mg, Tegretol 200mg unable to administer due to patient inability to swallow and spitting pills out. 1129- NG tube insert ordered per Dr. Thakur. Unable to insert tube. Dr notified and orders given to hold NG insert for now and reassess. 1335- lung sounds became course and crackles noted. Dr notified and orders to give 40mg Lasix followed.
[2021-06-23 19:20] LABS: Basophils # 0.1 10^3/uL (0.0-0.1); Basophils % 0.6 %; Hematocrit 27.9 % (42.0-52.0); Hemoglobin 9.5 g/dL (11.7-16.6); Lymphocytes # 0.2 10^3/uL (0.8-4.8); Mean Corpuscular HGB Conc 34.1 g/dL (30.0-36.0); Mean Corpuscular Hemoglobin 32.1 pg (28.0-34.0); Mean Corpuscular Volume 94.3 fl (80-94); Monocytes # 0.8 10^3/uL (0.2-0.9); Monocytes % 3.7 %; Neutrophils % 93.6 %; Nucleated Red Blood Cells % 0 %; Red Blood Count 2.96 10^6/uL (4.1-5.3); Red Cell Distribution Width 14.4 % (12.1-15.1); White Blood Count 20.8 10^3/uL (4.0-10.0)
[2021-06-23 19:59] LABS: INR 1.66 (0.8-1.2)
[2021-06-23 20:00] LABS: Fibrinogen 621 mg/dL (174-498); Partial Thromboplastin Time 43.6 SECONDS (23.9-36.7)
[2021-06-23 20:06] LABS: Slide Review Slide Review Perform
[2021-06-23 20:07] LABS: Anion Gap 26.9 (5-19); Blood Urea Nitrogen 50 mg/dL (8-23); Calcium 7.6 mg/dL (8.5-10.5); Carbon Dioxide 13 mmol/L (22-29); Chloride 99 mmol/L (98-107); Glomerular Filtration Rate 22.2 mL/min (90-130); Glucose 79 mg/dL (65-115); Osmolality Calculated 290 mOsm/kg (285-295); Potassium 4.9 mmol/L (3.5-5.1); Sodium 134 mmol/L (136-145)
[2021-06-23 20:08] LABS: Platelet Count 24 10^3/cmm (130-400)
[2021-06-23 20:09] LABS: D Dimer 19.77 ug/mIFEU (0-0.59)
--- NOTE | 2021-06-23 22:17 | PC.NURSE ---
Evening Medication Unable to administer evening PO medications. Patient is unable to swallow at this time.
--- NOTE | 2021-06-23 22:44 | PC.NURSE ---
Catheter Leaking Catheter noted to be leaking considerable amount around insertion site. Changed sheets and replaced absorbent pads.
--- NOTE | 2021-06-23 22:57 | PC.NURSE ---
Spoke with Family Spoke with patient mother Barbara Mitchell and updated her on patient condition.
[2021-06-24] VITALS (57 sets, daily range): BP systolic 83–177; BP diastolic 53–103; PULSE 72–129; RESP 14–36; TEMP 37–40; O2SAT 81–100; BMI 19.3
[2021-06-24 01:59] LABS: LAB Peripheral Smear Sent for Review
[2021-06-24] MEDS: levETIRAcetam 750 MG in sodium chloride 0.9% (100 ml) 100 ML 430 MG IV ×2 (02:45→16:24)
--- NOTE | 2021-06-24 05:03 | PC.NURSE ---
Shift Note Frequent safety and comfort rounds continue. Orders and/or nursing care completed as indicated. Patient monitored for response to intervention and treatment(s). Education provided includes medication and treatment plan. Patient needs reinforcement teaching. Patient remains on heated high flow 35L and 50% FiO2. Suprapubic catheter drained 325 mls of bright red urine overnight. Catheter noted to have large amounts of drainage around insertion site. Patient remains nonverbal and is unable to follow commands at this time. Throughout the shift he has thrown head back against pillow and stared at ceiling making spastic movements with arms. Frequently reoriented patient to surroundings throughout the shift. Turned and repositioned for comfort with help of staff. Will continue to monitor.
[2021-06-24 05:30] LABS: Hematocrit 28.9 % (42.0-52.0); Hemoglobin 9.7 g/dL (11.7-16.6); Lymphocytes # 0.3 10^3/uL (0.8-4.8); Lymphocytes % 0.9 %; Mean Corpuscular HGB Conc 33.6 g/dL (30.0-36.0); Mean Corpuscular Hemoglobin 32.7 pg (28.0-34.0); Mean Corpuscular Volume 97.3 fl (80-94); Mean Platelet Volume 12.9 fL (7.4-10.4); Monocytes # 1.5 10^3/uL (0.2-0.9); Neutrophils # 26.38 10^3/uL (1.8-7.7); Neutrophils % 90.6 %; Nucleated Red Blood Cells % 0 %; Red Blood Count 2.97 10^6/uL (4.1-5.3); Red Cell Distribution Width 14.8 % (12.1-15.1); White Blood Count 29.1 10^3/uL (4.0-10.0)
--- NOTE | 2021-06-24 05:55 | PC.NURSE ---
Temperature 0400-Patient noted to have temp of 104, applied ice packs to under arms and groin areas. 0500-Temp decreased to 101.5, informed Dr. Leong. He gave verbal orders for IV Tylenol Q6H PRN.
--- NOTE | 2021-06-24 06:00 | XRR_ITS ---
PROCEDURE INFORMATION: Exam: XR Chest Exam date and time: 06/24/2021 6:00 AM Age: 61 years old Clinical indication: Dyspnea; Additional info: Hypoxia TECHNIQUE: Imaging protocol: XR of the chest. Views: 1 view. COMPARISON: CR (CHEST, ) 06/23/2021 5:39 AM FINDINGS: Lungs: Similar diffuse interstitial opacities bilaterally. Pleural spaces: Unremarkable. No pleural effusion. No pneumothorax. Heart/Mediastinum: Unremarkable. No cardiomegaly. Bones/joints: Unremarkable. XR/XR chest 1V portable [id number] IMPRESSION: Similar diffuse interstitial opacities bilaterally, again most consistent with pneumonia.
[2021-06-24 06:15] LABS: Platelet Count 20 10^3/cmm (130-400)
[2021-06-24 06:16] LABS: Slide Review Slide Review Perform
--- NOTE | 2021-06-24 06:22 | PC.NURSE ---
Critical Lab Notified Dr. Leong about morning platelet count, gave orders to transfuse 1 bag of PRBC.
[2021-06-24 07:47] LABS: Glucose Point of Care 91 mg/dL (70-110)
[2021-06-24 08:11] LABS: Alanine Aminotransferase 62 U/L (0-41); Albumin Level 2.2 g/dL (3.5-5.2); Alkaline Phosphatase 83 IU/L (40-130); Anion Gap 28.7 (5-19); Aspartate Amino Transferase 101 U/L (0-40); Blood Urea Nitrogen 54 mg/dL (8-23); Calcium 7.6 mg/dL (8.5-10.5); Chloride 106 mmol/L (98-107); Globulin 2.5 g/dL (1.3-4.6); Glomerular Filtration Rate 21.3 mL/min (90-130); Glucose 69 mg/dL (65-115); Osmolality Calculated 301 mOsm/kg (285-295); Potassium 4.7 mmol/L (3.5-5.1); Sodium 139 mmol/L (136-145); Total Bilirubin 0.7 mg/dL (0.15-1.2); Total Protein 4.7 g/dL (6.6-8.7)
[2021-06-24 08:15] LABS: Carbon Dioxide 9 mmol/L (22-29)
[2021-06-24 08:22] LABS: INR 1.52 (0.8-1.2)
[2021-06-24 08:23] LABS: Partial Thromboplastin Time 37.6 SECONDS (23.9-36.7)
[2021-06-24 08:27] LABS: Fibrinogen 622 mg/dL (174-498)
[2021-06-24] MEDS: acetaminophen 1,000 MG/100 ML PIGGYBACK 400 MG IV (08:27)
[2021-06-24 08:38] LABS: D Dimer 14.03 ug/mIFEU (0-0.59)
--- NOTE | 2021-06-24 09:17 | PM.PN ---
Subjective Subjective: Interval history: Continues to decline clinically. This morning had 45 beats of V. tach. Temperature of 104 overnight, 101 this morning. All signs of worsening sepsis. White count up to 29. Creatinine up to 3. Blood pressure currently maintained.Heart rate ranging between 80 to 120 bpm. Vitals/I&O/Wt Last Vital Signs Temp 101.1 F H 06/24/21 04:30 Pulse 110 H 06/24/21 08:01 Resp 26 H 06/24/21 08:01 BP 101/82 06/24/21 08:01 Pulse Ox 89 L 06/24/21 08:01 06/23/21 06/24/21 06/24/21 22:59 06:59 14:59 Intake Total 450 / 657.5 207.5 / 865.0 Output Total 450 / 1200 325 / 1525 Balance 0 / -542.5 -117.5 / -660.0 Weight last 48 hrs Weight 59.194 kg Weight 58.695 kg Physical Exam Narrative: EXAM NARRATIVE: GEN: Confused, lethargic, currently saturating 89% on healted hi flow CVS: S1S2 N RS: Coarse crackles B/L Abd: Soft, nt/nd , bs+ COMMUNITY SERVICES MANAGER: no focal neuro deficits Urinary Catheter Management: Suprapubic: Cath Placed During This Visit: yes, but has since been removed by the nurse Reason for Continuing Indwelling Catheter: Accurate Measurement of Urinary Output in Critically Ill Patients Urinary Catheter Date of Insertion: 06/22/21 Urinary Catheter Time of Insertion: 06:02 Date Urinary Catheter Removed: 06/22/21 Time Urinary Catheter Discontinued: 06:00 Data : 06/24/21 04:44 06/24/21 07:04 Micro: Microbiology 06/21/21 22:45 Urine Culture - Preliminary Urine Catheterized 06/21/21 22:17 Blood Culture - Preliminary Blood Escherichia coli 06/21/21 22:33 Blood Culture - Preliminary Blood Escherichia coli A&P Assessment and plan (1) Hypoxia: Status: Acute (2) Transaminitis: Status: Acute (3) Acute encephalopathy: Status: Acute (4) Obstructive pyelonephritis: Status: Acute (5) Sepsis: Status: Acute (6) SABAS (acute kidney injury): Status: Acute Plan Severe Sepsis: Related to obstructive pyelonephritis Admitted initially with septic shock, was on pressors, status post ureteral stent placement on June 22, 2021 Continues to clinically deteriorate, Signs of severe sepsis continuing by way of temperature spikes to 104 Fahrenheit, increasing white blood cell count at 29, worsening SABAS creatinine up to 3.0 this morning, DIC panel positive, worsening thrombocytopenia related to DIC. Encephalopathy most likely related to worsening sepsis additionally. Chest x-ray with bilateral infiltrates, given clinical picture concern for ARDS clinically. Covid PCR negative checked during admission course. Stat CT chest abdomen and pelvis today to evaluate for current stent position, interval development of renal abscesses, urine leak etc. Additionally CTA chest to evaluate for ARDS. Reduce dose of imipenem to 500 mg IV every 12 hours in keeping with current kidney function less than 30. Levaquin 500 mg IV stat for double coverage, possible CRE isolate If continues to worsen then amikacin will need to be considered even though will need to use cautiously given his acute kidney injury. Susceptibilities not yet available from June 21, 2021. Stat blood culture, last positive on June 21, 2021, no interim blood culture available. Urine culture from admission reported as possible contamination with multiple gram-negatives. Repeat today, possible that multipleisolates will need to be worked up. 45 beats of V. tach this morning, started on amiodarone infusion currently, will follow closely for recurrence. Based on CT chest abdomen pelvis, further recommendations will be made. Attestations Medical Necessity Statement*: Needs ongoing ICU admission for severe sepsis, currently worsening clinical picture. Critical Care Time: The high probability of a clinically significant, sudden or life threatening deterioration of the patient's [renal, ID] system(s) required my full and direct attention, intervention and personal management. The critical care time is as shown. This time is in addition to time spent performing any reported procedures but includes the following: [x] Data and vital sign review and interpretation [x] Patient assessment, examination and intervention [x] Documentation [x] Medication orders and management Coding Level of Care Code Acute It Integration Architect for [facility] Fwd Diagnoses Hypoxia R09.02 Transaminitis R74.01 Acute encephalopathy G93.40 Obstructive pyelonephritis N11.1 Sepsis A41.9 SABAS (acute kidney injury) N17.9
--- NOTE | 2021-06-24 09:19 | CT_ITS ---
WS: [id number] CT chest abd pel wo con REASON FOR EXAM: evaluate for pneumonia, urine leak, stent displacement IV CONTRAST ADMINISTERED: Noncontrast TOTAL EXAM DLP: 1153.[address] scans at [facility] use at least one of these dose optimization techniques: automat ed exposure control; mA and/or kV adjustment per patient size (includes targeted exams where dose is matched to clinical indication); or iterative reconstruction. FINDINGS: CHEST: Mild four-chamber cardiomegaly. Calcified mildly tortuous ectatic thoracic aorta without aneurysmal dilatation. No mediastinal or hilar mass is identified. Calcified granulomatous disease is present in both hemithoraces. There are extensive reticular and patchy lung opacities with air bronchograms superimposed on chronic central lobar emphysema. This represents a new finding compared to previous examination of 06/21/2021. There are moderate bilateral pleural effusions. This represents a new finding compared to previous ex amination of 06/21/2021. ABDOMEN: There is no free air. There is no focal fluid collection or free fluid. Atrophic right kidney with multiple calculi. There is been placement of a left ureteral stent. Stent in proper position. Previously demonstrated l arge left ureteral pelvic junction calculus is now within the kidney. 2 other renal calculi remain un changed. No left perinephric fluid collection. Large amount of stool in the colon. PELVIS: No free fluid or focal fluid collection. Small calculus in the bladder not identified on the previous examination of 06/21/2021. Suprapubic Miranda catheter. CT/CT chest abd pel wo con IMPRESSION: Interval development of significant diffuse bilateral lung opacities compatible with pneumonitis. Associated new moderate pleural effusions. Left ureteral stent placement with previous large UPJ calculus displaced into t he left kidney. No free fluid or fluid collections within the abdomen or pelvis .
[2021-06-24 10:01] LABS: ABG PCO2 26.4 mmHg (35-45); Arterial Blood Gas Hematocrit 27.3 % (42-52); Base Excess ABG -17.6 mmol/L (-2.0-2.0); Blood Gas Allen Test Pos; Blood Gas Operator Identificat ED; Blood Gas Sample Site Radial, left; Blood Gas Sample Type Arterial; HCO3 ABG 9.5 mmol/L (22-26); Oxygen Device NRB; PO2 ABG 55.5 mmHg (80.0-100.0)
[2021-06-24 10:02] LABS: ABG PH Result 7.17 (7.35-7.45)
--- NOTE | 2021-06-24 10:17 | PC.CHAP ---
Pastoral Care Encounter/Spiritual Assessment Type of Contact [] Declined committee member visit [] Patient/Family/Request visit [] Outpatient visit [] Follow-up visit [] Physician referral [] Code/Alert [x] Routine visit [] Staff referral [] Actively dying [] Patient sleeping [] Family support [] [] Out of room [] Palliative care [] [] Receiving care in room [] Pre-surgical visit [] Trauma [] Long length of stay [x] ICU visit [] Other: Relational/Emotional Strength [] Patient feels connected with others/family/visitors/staff [] Distress [] Loneliness/isolation [] Abandonment Spirituality of Patient [] Person of Lillie [] Attends Temple of their Lillie [] Believes in Prayer [] Reads Bible or Yazidism materials [] There are Spiritual issues to be addressed Poured Concrete Wall Technician Interventions [x] Prayer [] Active listening [] Non-anxious presence [] Spiritual/emotional support [] Crisis/trauma care [] Spiritual counseling [] Bereavement support [] Provided bereavement packet [] Provided Bible/devotional materials [] Provided toy/stuffed animal, coloring book to patient or family member [] Provided Communion [] Anointing/[place] [] Salvation [x] Completed spiritual assessment [] Other: Impact on Illness or Injury [] Angry [] Fearful [] Anxious [] Often cries [] Exhaustion [] Unable to work [] Unable to attend anabaptist [] Unable to walk/stand [] Unable to read [] Unable to drive [] Unable to eat/drink [] Unable to sleep [] Unable to be with family [] Patient intubated [] Other: Summary Time spent with patient
[2021-06-24] MEDS: etomidate 20 ML 1 MG (10:30)
[2021-06-24 10:42] LABS: Troponin(5th) Baseline 417 ng/L (0-15)
[2021-06-24] MEDS: albumin 12.5 GM/50 ML VIAL IV (10:45)
[2021-06-24 11:04] LABS: Troponin 5 2HR 404.5 ng/L (0-15); Troponin 5 2HR Delta -12.5 ABS# (0-10)
[2021-06-24] MEDS: phenylephrine inj 25 MG in sodium chloride 0.9% 250 ML 24.24 MG IV ×2 (11:10→20:41)
--- NOTE | 2021-06-24 11:10 | ECG_ITS ---
[facility] Test Date: 2021-06-24 Pat Name: Timur Valdovinos Department: Room: [facility] Gender: Male Manager Access: : 1960 Requested By: Christiana Lopez Order Number: [id number] Matthieu MD: Ana Chaudhry M.D. Measurements Intervals [place] Rate: 107 P: 76 ME: 156 QRS: 30 QRSD: 105 T: 78 QT: 331 QTc: 443 Interpretive Statements SINUS TACHYCARDIA LOW QRS VOLTAGE IN EXTREMITY LEADS [QRS DEFLECTION < 0.5 mV IN LIMB LEADS] PROBABLE LATERAL MYOCARDIAL INFARCTION , OF INDETERMINATE AGE [35 ms Q WAVE IN I/aVL/V5/V6] Compared to ECG 06/21/2021 22:40:59 Low QRS voltage now present Myocardial infarct finding now present Sinus rhythm no longer present ST (T wave) deviation no longer present Early repolarization no longer present Electronically Signed On 06-25-2021 5:30:58 SECURITY OFFICER SUPERVISOR by Ana Chaudhry M.D. [email or web address]
[2021-06-24] MEDS: propofol 1,000 MG/100 ML INJ 3.55 MG IV (11:55)
--- NOTE | 2021-06-24 13:08 | XR_ITS ---
WS: [id number] XR chest 1V portable [id number] REASON FOR EXAM: tube placement FINDINGS: Endotracheal tube has been placed the tip is at the level of the aortic arch above the level of the c uziel. Nasogastric tube is been placed. The tip overlies the fundus of the stomach. The diffuse bilateral lung opacities have not changed significantly compared to earlier this same day . XR/XR chest 1V portable [id number] IMPRESSION: ET tube and nasogastric tube placement in proper position.
--- NOTE | 2021-06-24 13:15 | PM.CONSULT ---
Providers/Reason For Consult Consulting Physician/Specialty*: Nephrology Reason for Consult*: Eval for SABAS Attending Physician: Christiana Lopez MD Primary Care Provider: Puja Mohamud DO History of Present Illness History of Present Illness Thank you for consultation, today at the pleasure of reviewing Mr. Valdovinos for evaluation of acute kidney injury and acidosis. He originally presented in the evening of 06/21/2021 with nausea and vomiting, he has a known history of recurrent nephrolithiasis, recurrent urinary tract infections, chronic SP tube. Initial CT scan demonstrated an obstructing 12 mm left proximal ureteral stone, he was seen by urology, Dr. Saucedo, subsequently taken to the OR where a ureteric stent was placed. He was initiated on combination antibiotics (Vanco and Primaxin) and ivf. Per report, he had a nonsustained run of V. tach this morning, 45 beats. He was taken down for repeat CT scan today, he had a recurrent episode of V. tach, labile hemodynamics, acutely resuscitated including amiodarone infusion, intubation and initiation of Levophed and phenylephrine. He was fluid bolused with 2 L as well. Noted to have worsening thrombocytopenia, consistent with DIC. On admission serum creatinine 1.8, progressively increasing and now 3 mg/dL, baseline creatinine 0.6 mg/dL. Robust urine output of 1500 mL over the last 24 hours. Noted to have increasing anion gap metabolic acidosis lactate measured at 1.8 on admission. Review of Systems Narrative: Unobtainable Medications/Allergies Home Medications Medication Instructions Recorded Confirmed Last Taken Type ascorbic acid (vitamin C) 500 mg 500 mg PO DAILY@05/24/19 06/22/21 07/16/20 08:00 History capsule aspirin 81 mg tablet,delayed 81 mg PO DAILY@05/24/19 06/22/21 07/02/20 History release (Adult Aspirin Regimen) carbamazepine 200 mg tablet 200 mg PO BID@05/24/19 06/22/21 07/16/20 07:00 History escitalopram oxalate 10 mg tablet 10 mg PO DAILY@05/24/19 06/22/21 07/16/20 07:00 History gabapentin 100 mg capsule See Rx Instructions .ROUTE .COMPLEX 05/24/19 06/22/21 07/16/20 07:00 History promethazine 25 mg tablet 25 mg PO Q6H PRN 05/24/19 06/22/21 07/15/20 21:00 History vitamin E 1,000 unit capsule 1,000 unit PO DAILY@09 09/30/19 06/22/21 07/16/20 07:00 History ergocalciferol (vitamin D2) 10 mcg 50,000 unit PO Q7D 10/11/19 06/22/21 07/16/20 07:00 History (400 unit) tablet baclofen 20 mg tablet 20 mg PO QID PRN tab 12/06/19 06/22/21 07/16/20 07:00 History albuterol sulfate 90 mcg/actuation 1 inh INHALATION Q6H PRN #1 ea 05/21/20 06/22/21 06/13/20 Rx breath activated powder inhaler,sensor tizanidine 2 mg tablet 6 mg PO Q6H #360 tab 10/18/20 06/22/21 Unknown Rx citric ac 1980.6 mg-glucono 59.4 30 ml IRRIGATION TID #900 ml 12/03/20 06/22/21 Unknown Rx mg-mag carb 980.4 mg/30 mL irrig.soln (Renacidin) clobetasol 0.05 % topical ointment 1 applic TOPICAL BID 14 Days #60 g 12/27/20 06/22/21 Unknown Rx hydrocortisone 2.5 % topical 1 applic TOPICAL BID PRN #453.6 g 12/27/20 06/22/21 Unknown Rx ointment ketoconazole 2 % shampoo 1 applic TOPICAL .3 x weekly #120 12/27/20 06/22/21 Unknown Rx ml mometasone 0.1 % topical solution 1 applic TOPICAL DAILY #60 ml 12/27/20 06/22/21 Unknown Rx triamcinolone acetonide 0.1 % 1 applic TOPICAL BID #453.6 g 12/27/20 06/22/21 Unknown Rx topical ointment meloxicam 7.5 mg tablet 7.5 mg PO BID 04/21/21 06/22/21 Unknown History polyethylene glycol 3350 17 gram 17 g PO DAILY PRN 4 Days ea 04/22/21 06/22/21 Unknown Rx oral powder packet (Miralax) sennosides 8.6 mg-docusate sodium 1 tab-cap PO BID #30 tab 04/22/21 06/22/21 Unknown Rx 50 mg tablet (Senna-S) hydroxyzine HCl 10 mg tablet 10 mg PO BEDTIME PRN 06/22/21 06/22/21 Unknown History ibuprofen 200 mg tablet (Advil) 200 mg PO BEDTIME PRN 06/22/21 06/22/21 Unknown History trazodone 100 mg tablet 200 mg PO BEDTIME 06/22/21 06/22/21 Unknown History Allergies Allergy/AdvReac Type Severity Reaction Status Date / Time penicillin G Allergy Mild ALGY-Rash Verified 06/17/21 14:02 amoxicillin Allergy ALGY-Anaphy Verified 06/17/21 14:02 laxis Current Medications Generic Name Dose Route Start Last Admin Trade Name Freq PRN Reason Stop Dose Admin Baclofen 10 mg 06/23/21 10:10 06/24/21 08:25 Baclofen 10 Mg Tablet PO Not Given QID HSANTEL Carbamazepine 200 mg 06/23/21 10:10 06/24/21 08:25 Carbamazepine 200 Mg Tablet PO Not Given BID@ SHANTEL Dextrose 25 ml 06/22/21 02:01 06/23/21 04:05 Dextrose 50% Syringe 50 Ml IVP 25 ml ONCE PRN Administration hypoglycemia protocol Protocol Enoxaparin Sodium 40 mg 06/22/21 01:15 06/23/21 00:56 Enoxaparin 40 Mg/0.4 Ml Syringe SUBCUT 40 mg Q24H SHANTEL Administration Gabapentin 100 mg 06/22/21 09:00 06/22/21 13:11 Gabapentin 100 Mg Capsule PO 100 mg TID@ SHANTEL Administration Sodium Chloride 1,000 mls @ 125 mls/hr 06/22/21 01:15 06/22/21 13:11 Sodium Chloride 0.9% IV 125 mls/hr .Q8H SHANTEL Administration Dextrose 500 mls @ 100 mls/hr 06/22/21 02:01 06/23/21 21:49 D5w IV Infused ONCE PRN Infusion Adult Acute Hypoglycemia Prot Protocol Norepinephrine Bitartrate 4 mg 254 mls @ 0 mls/hr 06/22/21 04:15 06/24/21 11:14 / Dextrose IV 25 mcg/min .Q0M SHANTEL 95.25 mls/hr Titration Protocol Per Protocol Vancomycin HCl 1,000 mg/ 250 mls @ 250 mls/hr 06/22/21 17:00 06/23/21 18:12 Sodium Chloride IV Infused Q24H SHANTEL Infusion Protocol Levetiracetam 750 mg/ Sodium 107.5 mls @ 430 mls/hr 06/23/21 13:30 06/24/21 03:00 Chloride IV Infused Q12H SHANTEL Infusion Acetaminophen 1,000 mg in 100 mls @ 400 mls/hr 06/24/21 06:00 06/24/21 11:52 Acetaminophen IV Infused Q8H PRN Infusion FEVER Amiodarone HCl 900 mg/ 518 mls @ 0 mls/hr 06/24/21 09:15 06/24/21 10:50 Dextrose/ IV Miscellaneous IV 1 mg/min Supplies .Q0M SHANTEL 34.53 mls/hr Administration Protocol Per Protocol Phenylephrine HCl 25 mg/ 252.5 mls @ 0 mls/hr 06/24/21 10:30 06/24/21 11:10 Sodium Chloride IV 40 mcg/min .Q0M SHANTEL 24.24 mls/hr Administration Protocol Per Protocol Fentanyl 2,500 mcg/ Sodium 250 mls @ 0 mls/hr 06/24/21 10:30 06/24/21 11:25 Chloride IV 50 mcg/hr .Q0M SHANTEL 5 mls/hr Administration Protocol Per Protocol Propofol 1,000 mg in 100 mls @ 0 mls/hr 06/24/21 10:30 06/24/21 11:55 Diprivan IV 10 mcg/kg/min .Q0M SHANTEL 3.55 mls/hr Administration Protocol Per Protocol Insulin Human Lispro 0 unit 06/22/21 08:00 06/24/21 08:21 Insulin Lispro 100 Unit/1 Ml SUBCUT Not Given TIDWM [facility] Protocol Lorazepam 0.5 mg 06/23/21 14:40 06/23/21 14:55 Lorazepam 2 Mg/Ml Inj 1 Ml IVP 0.5 mg Q4H PRN Administration ANXIETY Morphine Sulfate 1 mg 06/23/21 16:43 06/23/21 17:14 Morphine 4 Mg/Ml Sdv 1 Ml IVP 1 mg Q4H PRN Administration SEVERE PAIN Pantoprazole Sodium 20 mg 06/22/21 09:00 06/24/21 08:[address] 40 Mg Tablet PO Not Given DAILY [facility] Tizanidine HCl 6 mg 06/22/21 01:15 06/22/21 13:10 Tizanidine 4 Mg Tablet PO 6 mg Q6H SHANTEL Administration PFSH Acute PFSH: Medical History Chronic indwelling Miranda catheter COVID-05 June 2020 Diabetes mellitus -NIDDM type II, A1c-7.2 (08/2019) -Accuchecks, hypoglycemia precautions, ISS -consistent carb diet Obstructive pyelonephritis Quadriplegia -strict fall precautions -frequent repositioning, q2h -WC-/bed-bound at baseline -continue pain meds, muscle relaxants -has been following up with Dr. Estrella for consideration of Botox treatments for spasticity Renal stone Spastic hemiplegia affecting left nondominant side Spastic hemiplegia, dominant side Surgical History History of appendectomy History of back surgery History of colon resection History of neck surgery History of suprapubic catheter Open placement October 2019. S/P extracorporeal shock wave therapy Family History Father , at age 49 Cancer Lung disease Mother Cancer bone Brother Cancer Lung disease Denies family history of Diabetes CAD (coronary artery disease) Clotting disorder Dementia Hyperlipidemia Psychiatric illness Chronic kidney disease (CKD) Suicide Anesthesia complication Bleeding disorder Family history of premature coronary artery disease Hypertension Stroke Social History Smoking and tobacco status: current every day smoker cigarettes Packs smoked per day: 0.5 Quit status (tobacco): not considering quitting Alcohol intake: former Former alcohol use details: quit due to medications Household members: other Details: lives with mother Marital status: Legally Number of children: 5 History of recent travel: No Vitals/I&O/Wt Last Vital Signs Temp 101.1 F H 06/24/21 04:30 Pulse 110 H 06/24/21 08:01 Resp 18 06/24/21 10:27 BP 101/82 06/24/21 08:01 Pulse Ox 93 06/24/21 10:27 06/23/21 06/24/21 06/24/21 22:59 06:59 14:59 Intake Total 450 / 657.5 207.5 / 865.0 183.82 / 183.82 Output Total 450 / 1200 325 / 1525 Balance 0 / -542.5 -117.5 / -660.0 183.82 / 183.82 Weight last 48 hrs Weight 59.194 kg Weight 58.695 kg Physical Exam Narrative: EXAM NARRATIVE: Constitutional: Intubated and vented HEENT: Wet mucosa, no jvp, non icteric Lungs Scattered rales and diminished bases CVS: S1 S2, no murmurs Abdo: Soft, BS ok Ext 4: Minimal edema, peripheral perfusion with no cyanosis Urinary Catheter Management: Suprapubic: Cath Placed During This Visit: yes, but has since been removed by the nurse Reason for Continuing Indwelling Catheter: Accurate Measurement of Urinary Output in Critically Ill Patients Urinary Catheter Date of Insertion: 06/22/21 Urinary Catheter Time of Insertion: 06:02 Date Urinary Catheter Removed: 06/22/21 Time Urinary Catheter Discontinued: 06:00 Data : 06/24/21 04:44 06/24/21 07:04 Micro: Microbiology 06/24/21 09:32 Blood Culture - Preliminary Blood SPECIMEN COLLECTED 06/21/21 22:45 Urine Culture - Preliminary Urine Catheterized 06/21/21 22:17 Blood Culture - Preliminary Blood Escherichia coli 06/21/21 22:33 Blood Culture - Preliminary Blood Escherichia coli A&P Assessment and plan (1) SABAS (acute kidney injury): Status: Acute Plan 1. Nonoliguric acute kidney injury Picture consistent with sepsis mediated ATN Urine sodium 88 on 04/21 consistent with intrarenal etiology Worsening acidosis over the last few days, however, last pH noted to be 7.5 on blood gas. We will recheck labs this afternoon. High risk of requiring hemodialysis over the next 24-48 hours. No further imaging required. Work-up to include repeat urinalysis with culture, fractional excretion of sodium, CPK, uric acid, TSH Daily renal panel, strict ins and outs Dose medication for GFR less than 15 Avoid usual nephrotoxic agents 2. Sepsis E. coli seen on blood culture, currently on combination antibiotics including vancomycin and Primaxin Management per general medicine Vasopressor agents as needed, taper per ICU protocol Currently on IV hydration. 3. Chemistry This morning had quite a profound AGMA Will recheck lactate levels Uremia likely contributing Possible ketosis. 4. Nephrolithiasis Dr. Saucedo's input is appreciated, status post left ureteric stent placement.+ 5. NSVT On Amio infusion Mgmt per medicine. May need Cardiology input, defer to Gen med team. 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
[2021-06-24 13:49] LABS: ABG PCO2 33.9 mmHg (35-45); Arterial Blood Gas Hematocrit 26.1 % (42-52); Base Excess ABG -18.1 mmol/L (-2.0-2.0); Blood Gas Allen Test Pos; Blood Gas Sample Type Arterial; Carboxyhemoglobin 0.8 %THgb (0.4-20.1); HCO3 ABG 10.4 mmol/L (22-26); HGB O2 Sat 98.8 % (95-100); Methemoglobin 0.3 % (0.4-1.5); Oxygen Saturation ABG 99.9; Potassium Level - ABG 4.7 mmol/L (3.5-5.0); Total Hemoglobin 8.5 g/dL (14-18)
[2021-06-24 13:50] LABS: Alveolar-Arterial Oxygen Gradi 54.8 mmHg (5-10); Blood Gas Operator Identificat ED; Blood Gas Sample Site Radial, left; Blood Gas Tidal Volume 0.45; Oxygen Device VENT
[2021-06-24 14:18] LABS: NT Pro B Type Natriuretic Pept > 70000 pg/mL (0-125)
[2021-06-24 14:18] LABS: Specific Gravity, Urine 1.015 (1.005-1.030); Urine Appearance Hazy (CLEAR); Urine Color Amber (Yellow); pH Urine 5 (5-7)
[2021-06-24 14:19] LABS: Add Urine Microscopic? YES; Bilirubin Urine Neg (Negative); Blood Urine 3+ (Negative); Glucose Urine UA Norm (Normal); Ketones Urine 1+ (Negative); Leukocyte Esterase Urine 2+ (Negative); Nitrate Urine Negative (Negative); Protein Urine 2+ (Negative); RBC Urine TOO NUMEROUS TO CNT /hpf (0-2); Urobilinogen Urine 1 mg/dL (Negative); WBC Urine 15-25 /hpf (0-5)
[2021-06-24 14:20] LABS: Add Urine Culture? No; Bacteria Urine 1+ /hpf
[2021-06-24 14:23] LABS: Creatinine Urine, Random 18 mg/dL (39-259)
[2021-06-24 14:24] LABS: Urine Random Sodium 89 mmol/L
--- NOTE | 2021-06-24 15:10 | ECG_ITS ---
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 Measurements Intervals [place] Rate: 77 P: 54 VT: 187 QRS: 30 QRSD: 95 T: 71 QT: 374 QTc: 424 Interpretive Statements SINUS RHYTHM MODERATE T-WAVE ABNORMALITY, CONSIDER ANTERIOR ISCHEMIA [-0.1+ mV T-WAVE IN V3/V4] Compared to ECG 06/24/2021 11:20:04 T-wave abnormality now present Possible ischemia now present Sinus tachycardia no longer present Myocardial infarct finding no longer present Electronically Signed On 06-25-2021 5:22:46 [employer] COACH by Ana Chaudhry M.D. [email or web address]
[2021-06-24] MEDS: baclofen 10 mg Tablet PO ×4 (15:13→20:39)
[2021-06-24 15:18] LABS: Blood Urea Nitrogen 65 mg/dL (8-23); Calcium 7.2 mg/dL (8.5-10.5); Carbon Dioxide 11 mmol/L (22-29); Chloride 99 mmol/L (98-107); Glomerular Filtration Rate 20.5 mL/min (90-130); Glucose 181 mg/dL (65-115); Osmolality Calculated 303 mOsm/kg (285-295); Sodium 135 mmol/L (136-145); Thyroid Stimulating Hormone 0.55 uIU/mL (0.27-4.20); Uric Acid 7.6 mg/dL (3.4-7.0)
[2021-06-24 15:38] LABS: Creatine Phosphokinase 2266 U/L (39-308)
[2021-06-24] MEDS: sodium bicarbonate 150 MEQ in dextrose 5% 1,000 ML 100 MEQ IV (16:20)
[2021-06-24 16:58] LABS: Vancomycin Trough 20.3 ug/mL (10-15)
--- NOTE | 2021-06-24 17:06 | PC.NURSE ---
Levofloxain dose for [address] Lopez approved not administering late.
[2021-06-24 17:07] LABS: Troponin 5 6HR 359.4 ng/L (0-15)
[2021-06-24] MEDS: vancomycin 1,000 MG in sodium chloride 0.9% 250 ML 250 MG IV (17:13)
[2021-06-24] MEDS: succinylcholine 20 mg/mL SDV 10mL 200 MG (17:18)
[2021-06-24] MEDS: sodium chloride 0.9% (100 ml) 100 ML (17:18)
--- NOTE | 2021-06-24 18:50 | PC.NURSE ---
Patient change in condition At about 0900 patient had less than 60 second run of v-tack Dr. lucas notified. no intervention needed at time. New orders received from including CT, blood gas, EKG... At approximately 0930 patient placed on transport monitor and taken to CT scan. At approximately 0950 CT scan completed. when moving patent back to bed, his heart rate increased to the upper 200's. Nursing staff notified Dr. Loja and ER nursing staff. Staff initiated rapid response. 0953 Patent placed on Zoll, request for blood gas 0957 HR 197 Adenosine 6mg IV given. 0958 HR 193 150mg amiodarone IVP 1001 HR 175 12 mg Adenosine IVP 1002 HR 130 1mg atropine given 1004 HR 171 RSI requested by ER 1 amp bicarb given. 1007 30 Etomidate, 100 Succ. give nIVP with flush. 1013 patient stable enough to transfer bautista to ICU bed 1 Amio drip started, sedation medications ordered and started.
[2021-06-24 19:15] LABS: Glucose Point of Care 264 mg/dL (70-110)
--- NOTE | 2021-06-24 19:46 | PM.CCNAC ---
Critical Care Event Note 61 year old male with a past medical history of spastic quadriplegia, chronic suprapubic catheter, chronic hyponatremia, recurrent UTI, diabetes, was brought in with chief complaint of nausea and vomiting admitted for the management of septic shock 2/2 obstructive pyelonephritis hospital course complicated by the development of severe Thrombocytopenia,anemia,with progressive worsening of overall clinical status.In view of Need for Significant transfusion,and in absence of good peripheral I.V access Triple lumen Central line was placed in rt femoral.Patient tolerated the procedure well without any complications.His other Vitals and labs were reviewed, 1 Bag of Platelet transfusion was ordered. The high probability of a clinically significant, sudden or life threatening deterioration of the patient's [] system(s) required my full and direct attention, intervention and personal management. The critical care time is as shown. This time is in addition to time spent performing any reported procedures but includes the following: [x] Data and vital sign review and interpretation [x] Patient assessment, examination and intervention [x] Documentation [x] Medication orders and management Critical Care Time Code activated: No Critical Care Time (min): 45 Procedures Central Line Placement^ Right Femoral: Time out performed: Yes Patient placed on monitor/pulse ox: Yes MD prep: mask, gown and gloves Central line prep: Chlorhexidine scrub Local anesthesia used: lidocaine 1% Ultrasound used for placement: Yes Central line lumen inserted: triple Post procedure: sutured in place, good blood return, all ports aspirated, flushed, capped and sterile dressing applied Patient tolerated procedure: well Complications: none Coding Level of 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
--- NOTE | 2021-06-24 19:48 | PM.ACPR ---
Acute Procedures Central Line Placement: Right Femoral: Time out performed: Yes Patient placed on monitor/pulse ox: Yes MD prep: mask, gown and gloves Central line prep: Chlorhexidine scrub Local anesthesia used: lidocaine 1% Central line lumen inserted: triple Post procedure: sutured in place, good blood return, all ports aspirated, flushed, capped and sterile dressing applied Patient tolerated procedure: well and no complications Complications: none
[2021-06-24 20:26] LABS: Glucose Point of Care 271 mg/dL (70-110)
[2021-06-24 20:26] LABS: Glucose Point of Care 297 mg/dL (70-110)
[2021-06-24] MEDS: insulin lispro 100 unit/1 mL SUBCUT (20:39)
--- NOTE | 2021-06-24 20:53 | USCV_ITS ---
Timur Valdovinos Age: 61 Gender: M : 1960 Exam Date: 06/24/2021 05:45 Ordering Phys: Neal Leong MD Technologist: Briseyda Yanez [place] [facility] [place] Indication: SEPSIS BP: 93 / 70 HR: 108 Rhythm: Other Technical Quality: Adequate MEASUREMENTS (Male / Female) Normal Values 2D ECHO LV Diastolic Diameter PLAX 3.0 cm 4.2 - 5.9 / 3.9 - 5.3 cm LV Systolic Diameter PLAX 2.3 cm LV Chamber Size 3.3 cm IVS Diastolic Thickness 1.1 cm 0.6 - 1.0 / 0.6 - 0.9 cm IVS Systolic Thickness 1.1 cm LVPW Diastolic Thickness 1.1 cm 0.6 - 1.0 / 0.6 - 0.9 cm LVPW Systolic Thickness 1.3 cm RV Chamber Size 2.9 cm LVOT Diameter 2.0 cm LV Ejection Fraction 2D Teich 48.6 % LV Ejection Fraction MOD 2C 65.1 % LV Ejection Fraction 2C AL 68.3 % LA Diameter 2.6 cm LA Width 2.9 cm LA Height 3.3 cm RA Width 3.5 cm RA Height 3.3 cm Aorta at Sinotubular Diameter 3.2 cm M-MODE Aortic Annulus Diameter 3.2 cm LA Ao Ratio MM 0.9 MV E Point Septal Separation 0.1 cm DOPPLER AV Peak Velocity 153.0 cm/s LVOT Peak Velocity 102.0 cm/s AV Area Cont Eq vti 2.2 cm squared AV Area Cont Eq pk 2.2 cm squared MV Area PHT 3.4 cm squared Mitral E to A Ratio 1.2 MV E' Velocity 51.0 cm/s Mitral E to MV E' Ratio 17.9 Mitral E to LV E' Lateral Ratio 29.9 Mitral E to LV E' Septal Ratio 13.0 TR Peak Velocity 277.3 cm/s TR Peak Gradient 30.8 mmHg TR Mean Velocity 193.3 cm/s TR Mean Gradient 17.5 mmHg TR Velocity Time Integral 74.7 cm TV Peak E Velocity 76.0 cm/s Right Atrial Pressure 8.0 mmHg Pulmonary Artery Systolic Pressu 38.8 mmHg PV Peak Velocity 52.0 cm/s RV Acceleration Time 0.1 s RV Ejection Time 0.3 s RV AcT/ET 0.4 FINDINGS Left Ventricle Normal left ventricular size. LV systolic function is normal with EF of 55-60%. No regional wall motion abnormalities. Diastolic function is indeterminate because of tachycardia. Right Ventricle The right ventricle is dilated, has normal function Right Atrium The right atrium is normal in size. Left Atrium The left atrium is normal in size. Mitral Valve Structurally normal mitral valve without significant stenosis or prolapse. There is no mitral regurgitation. Aortic Valve Grossly normal without significant sclerosis or stenosis. There is no aortic regurgitation. Tricuspid Valve Structurally normal tricuspid valve without significant stenois. No significant tricuspid regurgitation. Pulmonary artery systolic pressure is normal. Pulmonic Valve Not well-visualized Pericardium Trivial pericardial effusion is seen. Pleural effusion is noted as well. Aorta Normal ascending aorta dimension. CONCLUSIONS LV function is normal with EF 55 to 60%. RV is mildly dilated but has normal function. No significant valvular heart disease noted. Trivial pericardial effusion seen. Pleural effusion noted as well Compared to prior echocardiogram from 05/18/2020, LV systolic function appears to have improved slightly. Trivial pericardial and pleural effusions are noted as well. Haseeb Kapadia MD (Electronically Signed) Final Date: 24 June 2021 09:08 S
[2021-06-24] MEDS: carBAMazepine 200 mg Tablet PO (21:00)
[2021-06-25] VITALS (60 sets, daily range): BP systolic 95–170; BP diastolic 58–92; PULSE 69–88; RESP 18; TEMP 36.6–37.8; O2SAT 89–100; BMI 19.2
[2021-06-25] MEDS: levETIRAcetam 750 MG in sodium chloride 0.9% (100 ml) 100 ML 430 MG IV ×2 (02:30→14:20)
[2021-06-25] MEDS: norepinephrine 8 MG in dextrose 5 % 500 ML 53.34 MG IV (03:00)
[2021-06-25] MEDS: propofol 1,000 MG/100 ML INJ 3.55 MG IV ×2 (03:03→13:56)
[2021-06-25] MEDS: sodium bicarbonate 150 MEQ in dextrose 5% 1,000 ML 100 MEQ IV (03:50)
--- NOTE | 2021-06-25 04:15 | PC.NURSE ---
Amiodarone Drip Informed shift supervisor rn hospitalist that patient had converted into sinus rhythm, received orders to turn off Amiodarone drip.
[2021-06-25 04:42] LABS: Basophils # 0.1 10^3/uL (0.0-0.1); Basophils % 0.6 %; Eosinophils % 0.2 %; Hemoglobin 7.4 g/dL (11.7-16.6); Lymphocytes # 0.7 10^3/uL (0.8-4.8); Lymphocytes % 5.2 %; Mean Corpuscular HGB Conc 36.1 g/dL (30.0-36.0); Mean Corpuscular Hemoglobin 32.3 pg (28.0-34.0); Mean Corpuscular Volume 89.5 fl (80-94); Mean Platelet Volume 10.3 fL (7.4-10.4); Monocytes # 0.6 10^3/uL (0.2-0.9); Monocytes % 4.3 %; Neutrophils # 10.82 10^3/uL (1.8-7.7); Neutrophils % 82.1 %; Nucleated Red Blood Cells % 0 %; Red Blood Count 2.29 10^6/uL (4.1-5.3); Red Cell Distribution Width 14.2 % (12.1-15.1); White Blood Count 13.2 10^3/uL (4.0-10.0)
[2021-06-25 05:14] LABS: Alanine Aminotransferase 153 U/L (0-41); Albumin Level 2.6 g/dL (3.5-5.2); Alkaline Phosphatase 131 IU/L (40-130); Anion Gap 19.7 (5-19); Aspartate Amino Transferase 263 U/L (0-40); Blood Urea Nitrogen 68 mg/dL (8-23); Calcium 7.2 mg/dL (8.5-10.5); Carbon Dioxide 21 mmol/L (22-29); Chloride 96 mmol/L (98-107); Globulin 1.9 g/dL (1.3-4.6); Glomerular Filtration Rate 21.3 mL/min (90-130); Glucose 176 mg/dL (65-115); Osmolality Calculated 300 mOsm/kg (285-295); Potassium 3.7 mmol/L (3.5-5.1); Sodium 133 mmol/L (136-145); Total Protein 4.5 g/dL (6.6-8.7)
[2021-06-25 05:25] LABS: INR 1.36 (0.8-1.2)
[2021-06-25 05:26] LABS: Fibrinogen 495 mg/dL (174-498); Partial Thromboplastin Time 31.8 SECONDS (23.9-36.7)
[2021-06-25 05:37] LABS: Hematocrit 20.5 % (42.0-52.0); Platelet Count 19 10^3/cmm (130-400)
[2021-06-25 05:38] LABS: Slide Review Slide Review Perform
[2021-06-25 05:40] LABS: D Dimer 8.08 ug/mIFEU (0-0.59)
--- NOTE | 2021-06-25 07:23 | PC.NURSE ---
Shift Note Frequent safety and comfort rounds continue. Orders and/or nursing care completed as indicated. Patient monitored for response to intervention and treatment(s). Education provided includes sedation medications. Patient needs reinforcement teaching. Patient had an uneventful shift. He remains on the ventilator settings are as follows; mode-VC-AC, FiO2-30%, VT-450, Peep-6, rate-18. Fentanyl, Propofol, Versed, Levophed, Lance, Sodium Bicarb are all infusing, please see MAR for infusion rates. Suprapubuic catheter drained 850 mls of urine overnight. Turned and repositioned patient for comfort frequently throughout shift with help from staff. Sacrum area noted to be red, covered with optifiam dressing. OG tube is currently clamped. Will continue to monitor.
[2021-06-25] MEDS: pantoprazole DR 40 mg Tablet 20 MG PO (08:13)
[2021-06-25] MEDS: carBAMazepine 200 mg Tablet PO ×2 (08:14→21:29)
[2021-06-25] MEDS: baclofen 10 mg Tablet PO ×4 (08:14→21:29)
--- NOTE | 2021-06-25 08:46 | P.PN_ITS ---
Subjective Subjective: Continues to be intubated sedated this morning. Minimal vent settings. FiO2 30%, PEEP of 6, VT 450. Currently on Levophed 10, down from 30 yesterday, phenylephrine at 20. Maintaining maps today. Will attempt to wean down on pressors. WBC count improving from 29-13. Received 1 dose of amikacin yesterday in addition to continuation of Primaxin. Creatinine stable at 3.0. Urine output 850 cc over last 24 hours. Hemoglobin at platelet count at 19. No overt signs of bleeding at any site. Echocardiogram performed yesterday with LVEF 55 to 60%, mildly dilated RV but with normal function. Trivial pericardial effusion. Vitals/I&O/Wt Last Vital Signs Temp 97.9 F 06/25/21 04:00 Pulse 74 06/25/21 06:31 Resp 18 06/25/21 07:52 BP 167/90 06/25/21 06:31 Pulse Ox 99 06/25/21 07:52 06/24/21 06/25/21 06/25/21 22:59 06:59 14:59 Intake Total 2077.536 / 2581.536 1633.973 / 4215.509 254 / 254 Output Total 850 / 850 Balance 2077.536 / 2581.536 783.973 / 3365.509 254 / 254 Weight last 48 hrs Weight 59.137 kg Weight 59.194 kg Physical Exam Narrative: GEN: intubated, sedated CVS: S1S2 N RS: b/L coarse crackles to auscultation B/L Abd: Soft, nt/nd , bs+ EXT: blue purple discoloration of both toes, likely related to septic shock ENVIRONMENTAL RESEARCH SCIENTIST: unable to assess Urinary Catheter Management: Suprapubic: Cath Placed During This Visit: yes, but has since been removed by the nurse Reason for Continuing Indwelling Catheter: Accurate Measurement of Urinary Output in Critically Ill Patients Urinary Catheter Date of Insertion: 06/22/21 Urinary Catheter Time of Insertion: 06:02 Date Urinary Catheter Removed: 06/22/21 Time Urinary Catheter Discontinued: 06:00 Data : 06/25/21 04:03 06/25/21 04:03 Micro: Microbiology 06/21/21 22:45 Urine Culture - Preliminary Urine Catheterized Escherichia coli Escherichia coli#2 Gram Negative Rods Gram Negative Rods#2 06/24/21 09:32 Blood Culture - Preliminary Blood SPECIMEN COLLECTED A&P Assessment and plan (1) Septic shock: Status: Acute (2) Sepsis with acute hypoxic respiratory failure: Status: Acute (3) DIC (disseminated intravascular coagulation): Status: Acute (4) SABAS (acute kidney injury): Status: Acute (5) Transaminitis: Status: Acute (6) Acute encephalopathy: Status: Acute (7) Obstructive pyelonephritis: Status: Acute (8) NSTEMI (non-ST elevated myocardial infarction): Status: Acute (9) Anemia: Status: Acute (10) Ventricular arrhythmia: Status: Acute Plan Admitted sib 06/21 after presenting with sepsis related to obstructive pyelonephritis. status post ureteral stent placement on June 22, 2021. Continued to clinically deteriorate, by June 24 patient developed acute hypoxic respiratory failure, worsening thrombocytopenia related to DIC, worsening SABAS, type II KS, likely related to sepsis unable to be anticoagulated due to thrombocytopenia at 19 current urine output approximately 800 cc, requiring pressor support with 2 pressors. All signs consistent with fulminant shock. Chest x-ray with bilateral infiltrates, given clinical picture concern for ARDS clinically. Alternately may be insurance service representative of pulmonary edema, however continuing hydration for now given fulminant sepsis. Covid PCR negative checked during admission course. CT chest abdomen and pelvis 06/24 shows stent in position, no renal abscesses, urine leak or other compliactions. CT chest with B/L infiltrates continue imipenem to 500 mg IV every 12 hours in keeping with current kidney function less than 30. received amikacin 7.5 gm iv x 1 on 06/24 at 6:30pm. Will likey repeat dose today. Afberile since last 24 hrs. WBC improving at 13. pressor requirement down. last positive on June 21, 2021, with e.coli, awaiting susceptibility. no interim blood culture available. Urine culture from admission with multiple gram-negatives, 2 of which are E.coli, not CRE. Awaiting identification of other GNRs. NSTEMI, likely type 2 KS with V tach, likely precipitated by sepsis. Echo as above. Not anticoagulating currently due to plt 19K continue amiodarone infusion @0.5mg/hr for today SABAS, appreciate nephrology recommendations Attestations Medical Necessity Statement*: critically ill with gram negative septic shock as above Time Spent in Patient Care: The high probability of a clinically significant, sudden or life threatening deterioration of the patient's [renal, ID, circulatory] system(s) required my full and direct attention, intervention and personal management. The critical care time is as shown. This time is in addition to time spent performing any reported procedures but includes the following: [x] Data and vital sign review and interpretation [x] Patient assessment, examination and intervention [x] Documentation [x] Medication orders and management Critical Care Time: 60 Coding Level of Care Code Acute Label Tacker for [facility] Fwd Diagnoses Transaminitis R74.01 Acute encephalopathy G93.40 Obstructive pyelonephritis N11.1 SABAS (acute kidney injury) N17.9 DIC (disseminated intravascular coagulation) D65 NSTEMI (non-ST elevated myocardial infarction) I21.4 Sepsis with acute hypoxic respiratory failure A41.9; R65.20; J96.01 Septic shock A41.9; R65.21 Anemia D64.9 Ventricular arrhythmia I49.9
[2021-06-25 08:49] LABS: Glucose Point of Care 229 mg/dL (70-110)
[2021-06-25] MEDS: insulin lispro 100 unit/1 mL SUBCUT (09:08)
--- NOTE | 2021-06-25 09:54 | P.PN_ITS ---
Subjective Subjective: Timur looks a little more stable this morning. A little more comfortable. Urine output improved, 850 mL. Remains on combination vasopressor agents including Levophed at 10, lucho at 20 and also a sodium bicarb infusion 100 mL/h. Vent settings appreciated. Overall much more stable. Vitals/I&O/Wt Last Vital Signs Temp 98.8 F 06/25/21 07:30 Pulse 75 06/25/21 09:00 Resp 18 06/25/21 07:52 BP 137/70 06/25/21 09:00 Pulse Ox 94 06/25/21 09:00 06/24/21 06/25/21 06/25/21 22:59 06:59 14:59 Intake Total 2077.536 / 2581.536 1633.973 / 4215.509 254 / 254 Output Total 850 / 850 Balance 2077.536 / 2581.536 783.973 / 3365.509 254 / 254 Weight last 48 hrs Weight 59.137 kg Weight 59.194 kg Physical Exam Narrative: Constitutional: Intubated and vented HEENT: Wet mucosa, no jvp, non icteric Lungs Scattered rales and diminished bases CVS: S1 S2, no murmurs Abdo: Soft, BS ok Ext 4: Minimal edema, peripheral perfusion with no cyanosis Urinary Catheter Management: Suprapubic: Cath Placed During This Visit: yes, but has since been removed by the nurse Reason for Continuing Indwelling Catheter: Accurate Measurement of Urinary Output in Critically Ill Patients Urinary Catheter Date of Insertion: 06/22/21 Urinary Catheter Time of Insertion: 06:02 Date Urinary Catheter Removed: 06/22/21 Time Urinary Catheter Discontinued: 06:00 Data : 06/25/21 04:03 06/25/21 04:03 Micro: Microbiology 06/21/21 22:45 Urine Culture - Preliminary Urine Catheterized Escherichia coli Escherichia coli#2 Gram Negative Rods Gram Negative Rods#2 06/24/21 09:32 Blood Culture - Preliminary Blood SPECIMEN COLLECTED A&P Assessment and plan (1) SABAS (acute kidney injury): Status: Acute Plan 1. Nonoliguric acute kidney injury Picture consistent with sepsis mediated ATN Urine sodium 88 on 04/21 consistent with intrarenal etiology Creatinine remains stable UO picking up No indication for dialysis Close monitoring DC ivf (receiving a considerable amount of ivf with riders Dose medication for GFR less than 15 Avoid usual nephrotoxic agents 2. Sepsis E. coli seen on blood culture, currently on combination antibiotics including vancomycin and Primaxin Management per general medicine Vasopressor agents as needed, taper per ICU protocol Currently on IV hydration. 3. Chemistry Improving; will dc bicarb gtt, close monitoring 4. Nephrolithiasis Dr. Saucedo's input is appreciated, status post left ureteric stent placement. 5. NSVT Mgmt per medicine. May need Cardiology input, defer to Gen med team. Abhinav Rodriguez MD Nephrology [phone] Patient seen and examined via telemedicine, with the assistance of the bedside RN > 25 min spent in evaluation and mgmt of patient Attestations 2 Medical Necessity Statement*: Eval for SABAS Coding Level of Care Code Acute Sales Vice President for [facility] Fwd Diagnoses SABAS (acute kidney injury) N17.9
[2021-06-25] MEDS: phenylephrine inj 25 MG in sodium chloride 0.9% 250 ML 18.18 MG IV (10:45)
[2021-06-25] MEDS: sodium chloride 0.9% (100 ml) 100 ML (11:56)
[2021-06-25 12:50] LABS: Glucose Point of Care 97 mg/dL (70-110)
[2021-06-25] MEDS: norepinephrine 8 MG in dextrose 5 % 500 ML 38.1 MG IV (15:40)
[2021-06-25 17:12] LABS: Glucose Point of Care 114 mg/dL (70-110)
[2021-06-25 21:48] LABS: Glucose Point of Care 144 mg/dL (70-110)
[2021-06-26] VITALS (75 sets, daily range): BP systolic 71–137; BP diastolic 50–77; PULSE 69–92; RESP 18–21; TEMP 36.6–38.9; O2SAT 93–100
[2021-06-26] MEDS: levETIRAcetam 750 MG in sodium chloride 0.9% (100 ml) 100 ML 430 MG IV ×2 (01:03→16:00)
[2021-06-26 02:54] LABS: Bacillus cereus group Not Detected (NOT DETECT); Bacillus subtillis group Not Detected (NOT DETECT); Corynebacterium Not Detected (NOT DETECT); Cutibacterium acnes (P.acnes) Not Detected (NOT DETECT); Enterococcus Not Detected (NOT DETECT); Enterococcus faecalis Not Detected (NOT DETECT); Enterococcus faecium Not Detected (NOT DETECT); Lactobacillus species Not Detected (NOT DETECT); Listeria Not Detected (NOT DETECT); Listeria monocytogenes Not Detected (NOT DETECT); Micrococcus Not Detected (NOT DETECT); Pan Candida Not Detected (NOT DETECT); Pan Gram-Negative Detected (NOT DETECT); Staphylococcus epidermidis Not Detected (NOT DETECT); Staphylococcus lugdunensis Not Detected (NOT DETECT); Staphylococcus species Not Detected (NOT DETECT); Streptococcus agalactiae Not Detected (NOT DETECT); Streptococcus anginosus group Not Detected (NOT DETECT); Streptococcus pneumoniae Not Detected (NOT DETECT); Streptococcus pyogenes Not Detected (NOT DETECT); Streptococcus species Not Detected (NOT DETECT)
[2021-06-26 03:55] LABS: Basophils # 0.1 10^3/uL (0.0-0.1); Basophils % 0.6 %; Eosinophils # 0.1 10^3/uL (0.0-0.8); Hematocrit 23.2 % (42.0-52.0); Hemoglobin 8.5 g/dL (11.7-16.6); Lymphocytes # 0.5 10^3/uL (0.8-4.8); Lymphocytes % 4.9 %; Mean Corpuscular HGB Conc 36.6 g/dL (30.0-36.0); Mean Corpuscular Hemoglobin 32.4 pg (28.0-34.0); Mean Corpuscular Volume 88.5 fl (80-94); Monocytes # 0.5 10^3/uL (0.2-0.9); Monocytes % 4.9 %; Neutrophils # 9.53 10^3/uL (1.8-7.7); Neutrophils % 87.7 %; Nucleated Red Blood Cells % 0.2 %; Red Blood Count 2.62 10^6/uL (4.1-5.3); White Blood Count 10.9 10^3/uL (4.0-10.0)
[2021-06-26 04:00] LABS: INR 1.18 (0.8-1.2)
--- NOTE | 2021-06-26 04:00 | XR_ITS ---
WS: [id number] XR chest 1V portable [id number] REASON FOR EXAM: follow up lung infiltrates FINDINGS: Endotracheal tube remains in proper position. Nasogastric tube is beyond the gastroesophageal junction. Tip not visualized. No significant interval change in the diffuse bilateral lung opacities. No new findings. XR/XR chest 1V portable [id number] IMPRESSION: Stable abnormal chest.
[2021-06-26 04:01] LABS: Fibrinogen 415 mg/dL (174-498); Partial Thromboplastin Time 28.3 SECONDS (23.9-36.7)
[2021-06-26 04:11] LABS: Alanine Aminotransferase 67 U/L (0-41); Albumin Level 2.3 g/dL (3.5-5.2); Alkaline Phosphatase 365 IU/L (40-130); Anion Gap 18.7 (5-19); Aspartate Amino Transferase 98 U/L (0-40); Calcium 8.4 mg/dL (8.5-10.5); Carbon Dioxide 19 mmol/L (22-29); Chloride 97 mmol/L (98-107); D Dimer 11.13 ug/mIFEU (0-0.59); Globulin 2.2 g/dL (1.3-4.6); Glomerular Filtration Rate 19.8 mL/min (90-130); Glucose 125 mg/dL (65-115); Osmolality Calculated 298 mOsm/kg (285-295); Potassium 3.7 mmol/L (3.5-5.1); Sodium 131 mmol/L (136-145); Total Protein 4.5 g/dL (6.6-8.7)
[2021-06-26 04:36] LABS: Blood Urea Nitrogen 81 mg/dL (8-23); Platelet Count 11 10^3/cmm (130-400)
--- NOTE | 2021-06-26 04:49 | PC.NURSE ---
Got a call from lab at 0435 of a critical BUN and platelet level. Reported to Dr. Hyde at 0441. Orders received to transfuse 1 unit of platelets. Called lab to follow up on the order, lab informed us at 0447 that they do not have any ready in house and that they have to come from [place]. Probably will not be able to transfuse until after day shift gets here, will share this information with the day shift RN among bedside report handoff when they arrive.
[2021-06-26] MEDS: propofol 1,000 MG/100 ML INJ 7.1 MG IV (04:54)
[2021-06-26 04:59] LABS: Slide Review Slide Review Perform
--- NOTE | 2021-06-26 07:00 | PC.NURSE ---
Intubated, Sedated, Resting in bed.
--- NOTE | 2021-06-26 07:38 | PC.NURSE ---
Dr. Lopez came to bedside to round. Plan for the day is to switch over to precedex and utilize fentanyl to assess patient's response. Notified physician of patients temp of 101.3 and leaking of suprapubic catheter noted.
--- NOTE | 2021-06-26 08:01 | PC.NURSE ---
Spoke with Dr. Lopez about FFP. Physician states she wants three units of FFP total at this time. Still waiting on FFP to be available from lab for night time order that was placed. When received infusion will be started.
--- NOTE | 2021-06-26 08:05 | PC.NURSE ---
Call placed to pharmacy to ensure PO meds can be given via Gtube route. Pharmacist confirms that morning PO meds can be crushed and given.
[2021-06-26] MEDS: baclofen 10 mg Tablet PO ×3 (08:29→21:09)
[2021-06-26] MEDS: amiodarone 200 mg Tablet 400 MG PO ×2 (08:29→18:22)
[2021-06-26] MEDS: carBAMazepine 200 mg Tablet PO ×2 (08:30→21:09)
[2021-06-26] MEDS: insulin lispro 100 unit/1 mL SUBCUT (08:30)
--- NOTE | 2021-06-26 08:34 | PM.PN ---
Subjective Subjective: T-max 100.6 Fahrenheit today. Platelets at 11. Renal function 3.2. Urine output at 650 cc. White blood cell count trending down to 10.9. Could not get the dose of amikacin yesterday is currently out of stock at the pharmacy. Persistent DIC this morning. T bili at 3.0. Vent settings this morning at 30% FiO2, PEEP of 6. Pressor requirement down to Levophed 8 mics. Off phenylephrine since overnight. No further episodes of ventricular arrhythmia. Vitals/I&O/Wt Last Vital Signs Temp 98.9 F 06/26/21 05:39 Pulse 80 06/26/21 05:45 Resp 18 06/26/21 07:49 BP 99/59 06/26/21 04:01 Pulse Ox 94 06/26/21 07:49 06/25/21 06/26/21 06/26/21 22:59 06:59 14:59 Intake Total 1817.014 / 3168.522 471.020 / 3639.542 Output Total 700 / 1350 Balance 1817.014 / 2518.522 -228.980 / 2289.542 Weight last 48 hrs Weight 61.87 kg Weight 59.137 kg Physical Exam Narrative: GEN: intubated, sedated CVS: S1S2 N RS: b/L coarse crackles to auscultation B/L Abd: Soft, nt/nd , bs+ EXT: blue purple discoloration of both feet, likely related to septic shock SUPERVISOR ROLLER 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: unable to assess Urinary Catheter Management: Suprapubic: Cath Placed During This Visit: yes, but has since been removed by the nurse Reason for Continuing Indwelling Catheter: Accurate Measurement of Urinary Output in Critically Ill Patients Urinary Catheter Date of Insertion: 06/22/21 Urinary Catheter Time of Insertion: 06:02 Date Urinary Catheter Removed: 06/22/21 Time Urinary Catheter Discontinued: 06:00 Data : 06/26/21 03:13 06/26/21 03:13 Micro: Microbiology 06/21/21 22:45 Urine Culture - Final Urine Catheterized Escherichia coli Escherichia coli#2 Pseudomonas aeruginosa Proteus mirabilis 06/21/21 22:17 Blood Culture - Final Blood Escherichia coli 06/21/21 22:33 Blood Culture - Final Blood Escherichia coli 06/24/21 09:32 Blood Culture - Preliminary Blood NEGATIVE TO DATE A&P Assessment and plan (1) Septic shock: Status: Acute (2) Sepsis with acute hypoxic respiratory failure: Status: Acute (3) DIC (disseminated intravascular coagulation): Status: Acute (4) SABAS (acute kidney injury): Status: Acute (5) Transaminitis: Status: Acute (6) Acute encephalopathy: Status: Acute (7) Obstructive pyelonephritis: Status: Acute (8) NSTEMI (non-ST elevated myocardial infarction): Status: Acute (9) Anemia: Status: Acute (10) Ventricular arrhythmia: Status: Acute Plan Admitted since 06/21 after presenting with sepsis related to obstructive pyelonephritis. status post ureteral stent placement on June 22, 2021. Continued to clinically deteriorate, by June 24 patient developed acute hypoxic respiratory failure, worsening thrombocytopenia related to DIC, worsening SABAS, type II KS, likely related to sepsis unable to be anticoagulated due to thrombocytopenia , pulmonary shock. Currently patient with some improvement in clinical parameters. Down from 2 pressors to Levophed alone at 8 mics. No further episodes of ventricular arrhythmia. White blood cell count trending down from 29-10. Continues to have intermittent fever, however fever curve is improving from 104 Fahrenheit to 100.6 today. May take longer to respond and pyelonephritis. Active issue remains persistent DIC. Platelet count today at 11. 3 units of FFP and 1 unit of platelet ordered. Currently on empiric antibiotic coverage with imipenem, per susceptibility from the E. coli isolate it is Carbapenem susceptible. Additionally for gram-negative in urine culture including E. coli, Proteus mirabilis and Pseudomonas. We will change imipenem to meropenem for better Proteus coverage., Though uncertain if this is likely contaminant at this time in urine from suprapubic catheter versus contributing to the current clinical picture. Fibrinogen within normal range, holding off on cryoprecipitate. Chest x-ray with bilateral infiltrates, given clinical picture concern for ARDS clinically. Covid PCR negative on 06 23. Currently on minimal vent settings. Plan to wean down sedation with discontinuation of propofol and Versed today. Change to Precedex. Continue fentanyl and monitor for neurological response. CT chest abdomen and pelvis 06/24 shows stent in position, no renal abscesses, urine leak or other compliactions. CT chest with B/L infiltrates as noted above. Check MRSA PCR screen. last positive blood culture on June 21, 2021, with e.coli, Carbapenem susceptible isolate. Thus far blood culture from Jun 24 remains negative. NSTEMI, likely type 2 KS with V tach, likely precipitated by sepsis. Unable to anticoagulate with heparin drip right now due to persistent DIC, platelet counts at 11. Echo cardiogram without any gross wall motion abnormalities. Discontinue amiodarone infusion today, transition to 400 mg p.o. twice daily via PEG tube. SABAS, appreciate nephrology recommendations, urine output at 650 cc today. Critical care consult due to persisting DIC. Attestations Medical Necessity Statement*: Patient continues to be critically ill with gram-negative sepsis in the ICU. Persistent DIC. Intubated and mechanically ventilated. Plan to wean down sedation today, monitor for neurological response, platelet and FFP transfusion Time Spent in Patient Care: The high probability of a clinically significant, sudden or life threatening deterioration of the patient's [respiratory, cardiovascular, renal, ID system(s) required my full and direct attention, intervention and personal management. The critical care time is as shown. This time is in addition to time spent performing any reported procedures but includes the following: [x] Data and vital sign review and interpretation [x] Patient assessment, examination and intervention [x] Documentation [x] Medication orders and management Critical Care Time: 60 Coding Level of Care Code Acute Abnormal Psychology Teacher for [facility] Fwd Diagnoses Septic shock A41.9; R65.21 Sepsis with acute hypoxic respiratory failure A41.9; R65.20; J96.01 DIC (disseminated intravascular coagulation) D65 SABAS (acute kidney injury) N17.9 Transaminitis R74.01 Acute encephalopathy G93.40 Obstructive pyelonephritis N11.1 NSTEMI (non-ST elevated myocardial infarction) I21.4 Anemia D64.9 Ventricular arrhythmia I49.9
[2021-06-26 08:39] LABS: Glucose Point of Care 178 mg/dL (70-110)
[2021-06-26 08:55] LABS: ABG PCO2 31.7 mmHg (35-45); ABG PH Result 7.47 (7.35-7.45); Arterial Blood Gas Hematocrit 25.8 % (42-52); Base Excess ABG -0.5 mmol/L (-2.0-2.0); Blood Gas Allen Test Pos; Blood Gas Operator Identificat BD; Blood Gas Sample Site Radial, left; Blood Gas Sample Type Arterial; Blood Gas Tidal Volume 0.45; HCO3 ABG 22.9 mmol/L (22-26); Oxygen Device VENT; PO2 ABG 65.7 mmHg (80.0-100.0)
--- NOTE | 2021-06-26 09:06 | PC.NURSE ---
Instructions from Dr. Rodriguez to give 250ml/hr times [address] Rodriguez at bedside rounding via telehealth. Update given.
[2021-06-26 09:14] LABS: Acinetobacter baumannii Not Detected (NOT DETECT); Bacteroides fragilis Not Detected (NOT DETECT); CTX-M Not Detected (NOT DETECT); Citrobacter Not Detected (NOT DETECT); Cronobacter sakazakii Not Detected (NOT DETECT); Enterobacter cloacae complex Not Detected (NOT DETECT); Enterobacter non cloacae Not Detected (NOT DETECT); Fusobacterium necrophorum Not Detected (NOT DETECT); Fusobacterium nucleatum Not Detected (NOT DETECT); Haemophilus influenzae Not Detected (NOT DETECT); IMP Resistance Gene Not Detected (NOT DETECT); KPC Resistance Gene Not Detected (NOT DETECT); Klebsiella pneumoniae group Not Detected (NOT DETECT); Morganella morganii Not Detected (NOT DETECT); NDM Resistance Gene Not Detected (NOT DETECT); Neisseria meningitidis Not Detected (NOT DETECT); OXA Resistance Gene Not Detected (NOT DETECT); Pan Candida Not Detected (NOT DETECT); Pan Gram-Positive Not Detected (NOT DETECT); Proteus mirabilis Not Detected (NOT DETECT); Pseudomonas aeruginosa Not Detected (NOT DETECT); Salmonella Not Detected (NOT DETECT); Serratia Not Detected (NOT DETECT); Serratia marcescens Not Detected (NOT DETECT); Stenotrophomonas maltophilia Not Detected (NOT DETECT); VIM Resistance Gene Not Detected (NOT DETECT)
[2021-06-26 09:23] LABS: Total Bilirubin 3.6 mg/dL (0.15-1.2)
[2021-06-26] MEDS: MEROPENEM IV ×2 (09:35→21:19)
[2021-06-26] MEDS: DEXTROSE 5% IV ×2 (09:35→21:19)
[2021-06-26] MEDS: lactated ringers 1,000 ML 250 ML IV (09:41)
[2021-06-26 09:42] LABS: Lactate Dehydrogenase 391 U/L (135-225)
[2021-06-26] MEDS: dexmedeTOMIDine 0.9 % NaCL 400 MCG/100 ML PREMIX IV (09:43)
--- NOTE | 2021-06-26 09:54 | PC.CHAP ---
Pastoral Care Encounter/Spiritual Assessment Type of Contact [] Declined automatic seamer visit [] Patient/Family/Request visit [] Outpatient visit [] Follow-up visit [] Physician referral [] Code/Alert [x] Routine visit [] Staff referral [] Actively dying [] Patient sleeping [] Family support [] [] Out of room [] Palliative care [] [] Receiving care in room [] Pre-surgical visit [] Trauma [] Long length of stay [x] ICU visit [x] Other: vent Relational/Emotional Strength [] Patient feels connected with others/family/visitors/staff [] Distress [] Loneliness/isolation [] Abandonment Spirituality of Patient [] Person of Lillie [] Attends Tenriism of their Lillie [] Believes in Prayer [] Reads Bible or Muslim materials [] There are Spiritual issues to be addressed Medical Observer Interventions [x] Prayer [] Active listening [] Non-anxious presence [] Spiritual/emotional support [] Crisis/trauma care [] Spiritual counseling [] Bereavement support [] Provided bereavement packet [] Provided Bible/devotional materials [] Provided toy/stuffed animal, coloring book to patient or family member [] Provided Communion [] Anointing/[place] [] Salvation [x] Completed spiritual assessment [] Other: Impact on Illness or Injury [] Angry [] Fearful [] Anxious [] Often cries [] Exhaustion [] Unable to work [] Unable to attend yarsani [] Unable to walk/stand [] Unable to read [] Unable to drive [] Unable to eat/drink [] Unable to sleep [] Unable to be with family [] Patient intubated [] Other: Summary Time spent with patient
--- NOTE | 2021-06-26 09:56 | P.PN_ITS ---
Subjective Subjective: Mr. Valdovinos remains critically sick in the intensive care unit. Vasopressor need is noted, Lance-Synephrine was discontinued, currently on Levophed but this will increase in dose. Urine output remains robust 1350 mL. Remains intubated and mechanically ventilated with FiO2 30%. Poor cognitive status when sedation is decreased. Vitals/I&O/Wt Last Vital Signs Temp 98.9 F 06/26/21 05:39 Pulse 80 06/26/21 05:45 Resp 18 06/26/21 07:49 BP 99/59 06/26/21 04:01 Pulse Ox 94 06/26/21 07:49 06/25/21 06/26/21 06/26/21 22:59 06:59 14:59 Intake Total 1817.014 / 3168.522 471.020 / 3639.542 Output Total 700 / 1350 Balance 1817.014 / 2518.522 -228.980 / 2289.542 Weight last 48 hrs Weight 61.87 kg Weight 59.137 kg Physical Exam 2 Narrative: Constitutional: Intubated and vented HEENT: Wet mucosa, no jvp, non icteric Lungs Scattered rales and diminished bases CVS: S1 S2, no murmurs Abdo: Soft, BS ok Ext 4: Minimal edema, peripheral perfusion with no cyanosis Urinary Catheter Management: Suprapubic: Cath Placed During This Visit: yes, but has since been removed by the nurse Reason for Continuing Indwelling Catheter: Accurate Measurement of Urinary Output in Critically Ill Patients Urinary Catheter Date of Insertion: 06/22/21 Urinary Catheter Time of Insertion: 06:02 Date Urinary Catheter Removed: 06/22/21 Time Urinary Catheter Discontinued: 06:00 Data : 06/26/21 03:13 06/26/21 03:13 Micro: Microbiology 06/24/21 09:32 Blood Culture - Preliminary Blood NEGATIVE TO DATE 06/24/21 Unknown Urine Culture - Final Urine Suprapubic 06/21/21 22:45 Urine Culture - Final Urine Catheterized Escherichia coli Escherichia coli#2 Pseudomonas aeruginosa Proteus mirabilis 06/21/21 22:17 Blood Culture - Final Blood Escherichia coli 06/21/21 22:33 Blood Culture - Final Blood Escherichia coli A&P Assessment and plan (1) SABAS (acute kidney injury): Status: Acute Plan 1. Nonoliguric acute kidney injury Picture consistent with sepsis mediated ATN Urine sodium 88 on 04/21 consistent with intrarenal etiology Creatinine remains roughly stable with minor flux UO picking up No indication for dialysis Close monitoring Fluid bolus today Dose medication for GFR less than 15 Avoid usual nephrotoxic agents 2. Sepsis E. coli seen on blood culture, currently on combination antibiotics including vancomycin and Primaxin Management per general medicine Vasopressor agents as needed, taper per ICU protocol fluid bolus today LR x 1 L 3. Chemistry Non-critical aberration, close monitoring 4. Nephrolithiasis Dr. Saucedo's input is appreciated, status post left ureteric stent placement. 5. 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
[2021-06-26] MEDS: norepinephrine 8 MG in dextrose 5 % 500 ML 15.24 MG IV (10:01)
--- NOTE | 2021-06-26 11:34 | PC.NURSE ---
at bedside to visit. requests patient's feet to be elevated. Pillows placed to increase elevation of feet. wants a note placed so that the care team knows that patient's feet are sensitive and he sometimes has foot pain. FFP currently running. Tolerating well so far.
[2021-06-26 11:35] LABS: Glucose Point of Care 116 mg/dL (70-110)
--- NOTE | 2021-06-26 13:17 | PC.NURSE ---
Patient tolerate first unit of FFP well.
--- NOTE | 2021-06-26 13:18 | PC.NURSE ---
First unit of platelets transfusing now.
--- NOTE | 2021-06-26 15:35 | PM.CONSULT ---
Providers/Reason For Consult Consulting Physician/Specialty*: Crow King MD/pulmonary critical care Reason for Consult*: Septic shock secondary to gram-negative septicemia due to obstructive uropathy Requesting Physician: Christiana Lopez MD Attending Physician: Christiana Lopez MD Primary Care Provider: Puja Mohamud DO History of Present Illness History of Present Illness Timur Valdovinos is a 61 year old male With PMH spastic quadriplegia, chronic suprapubic catheter, chronic hyponatremia, recurrent UTI, diabetes admitted on 06/22/2021 with nausea and vomiting. Initial imaging showed 12 x 7 x 7 mm stone in the proximal left ureter at the ureteropelvic junction producing moderate hydronephrosis. Patient was started on Primaxin, Levophed and urology placed left ureteral stent and plan was to do delayed ureteroscopic or lithotripsy procedure on the stone after recover from infectious condition. During the course of hospital stay patient went into fulminant sepsis and had V. tach delta troponin about 400 suspected demand ischemia type II MA, developed DIC with thrombocytopenia platelet counts [address] abdomen pelvis repeated which showed patent left ureteral stent. He was intubated for airway protection and placed on Levophed and phenylephrine. Urine cultures grew E. coli, Pseudomonas, Proteus mirabilis and blood cultures grew MDR E. coli. Renal function started deteriorating and so imipenem dose was adjusted, Levaquin was added for double coverage, and given 1 dose of amikacin. Plan was to review goals of care if patient does not improve. Renal team were consulted for worsening renal functions. However over the course of next 2 days-patient responded well to the antibiotics-started making urine, off phenylephrine and currently low-dose Levophed, on minimal vent settings and sedation improving leukocytosis,No further episodes of ventricular arrhythmia,, still in DIC with platelets 11 K. Today patient was seen at bedside he is on 30% FiO2, PEEP of 6, Levophed 2 mics -Received 4 units FFP and 4 units of platelets -Overall seems to be clinically improving-sepsis doty -We will taper off sedation and do awakening trial Review of Systems General: Reports: ROS unobtainable due to endotracheal tube, ROS unobtainable due to medical condition and ROS unobtainable due to mental status Medications/Allergies Home Medications Medication Instructions Recorded Confirmed Last Taken Type ascorbic acid (vitamin C) 500 mg 500 mg PO DAILY@05/24/19 06/22/21 07/16/20 08:00 History capsule aspirin 81 mg tablet,delayed 81 mg PO DAILY@05/24/19 06/22/21 07/02/20 History release (Adult Aspirin Regimen) carbamazepine 200 mg tablet 200 mg PO BID@05/24/19 06/22/21 07/16/20 07:00 History escitalopram oxalate 10 mg tablet 10 mg PO DAILY@05/24/19 06/22/21 07/16/20 07:00 History gabapentin 100 mg capsule See Rx Instructions .ROUTE .COMPLEX 05/24/19 06/22/21 07/16/20 07:00 History promethazine 25 mg tablet 25 mg PO Q6H PRN 05/24/19 06/22/21 07/15/20 21:00 History vitamin E 1,000 unit capsule 1,000 unit PO DAILY@09/30/19 06/22/21 07/16/20 07:00 History ergocalciferol (vitamin D2) 10 mcg 50,000 unit PO Q7D 10/11/19 06/22/21 07/16/20 07:00 History (400 unit) tablet baclofen 20 mg tablet 20 mg PO QID PRN tab 12/06/19 06/22/21 07/16/20 07:00 History albuterol sulfate 90 mcg/actuation 1 inh INHALATION Q6H PRN #1 ea 05/21/20 06/22/21 06/13/20 Rx breath activated powder inhaler,sensor tizanidine 2 mg tablet 6 mg PO Q6H #360 tab 10/18/20 06/22/21 Unknown Rx citric ac 1980.6 mg-glucono 59.4 30 ml IRRIGATION TID #900 ml 12/03/20 06/22/21 Unknown Rx mg-mag carb 980.4 mg/30 mL irrig.soln (Renacidin) clobetasol 0.05 % topical ointment 1 applic TOPICAL BID 14 Days #60 g 12/27/20 06/22/21 Unknown Rx hydrocortisone 2.5 % topical 1 applic TOPICAL BID PRN #453.6 g 12/27/20 06/22/21 Unknown Rx ointment ketoconazole 2 % shampoo 1 applic TOPICAL .3 x weekly #120 12/27/20 06/22/21 Unknown Rx ml mometasone 0.1 % topical solution 1 applic TOPICAL DAILY #60 ml 12/27/20 06/22/21 Unknown Rx triamcinolone acetonide 0.1 % 1 applic TOPICAL BID #453.6 g 12/27/20 06/22/21 Unknown Rx topical ointment meloxicam 7.5 mg tablet 7.5 mg PO BID 04/21/21 06/22/21 Unknown History polyethylene glycol 3350 17 gram 17 g PO DAILY PRN 4 Days ea 04/22/21 06/22/21 Unknown Rx oral powder packet (Miralax) sennosides 8.6 mg-docusate sodium 1 tab-cap PO BID #30 tab 04/22/21 06/22/21 Unknown Rx 50 mg tablet (Senna-S) hydroxyzine HCl 10 mg tablet 10 mg PO BEDTIME PRN 06/22/21 06/22/21 Unknown History ibuprofen 200 mg tablet (Advil) 200 mg PO BEDTIME PRN 06/22/21 06/22/21 Unknown History trazodone 100 mg tablet 200 mg PO BEDTIME 06/22/21 06/22/21 Unknown History Allergies Allergy/AdvReac Type Severity Reaction Status Date / Time penicillin G Allergy Mild ALGY-Rash Verified 06/17/21 14:02 amoxicillin Allergy ALGY-Anaphy Verified 06/17/21 14:02 laxis Current Medications Generic Name Dose Route Start Last Admin Trade Name Freq PRN Reason Stop Dose Admin Amiodarone HCl 400 mg 06/26/21 09:00 06/26/21 08:29 Amiodarone 200 Mg Tablet PO 400 mg BID SHANTEL Administration Baclofen 10 mg 06/23/21 10:10 06/26/21 08:29 Baclofen 10 Mg Tablet PO 10 mg QID SHANTEL Administration Carbamazepine 200 mg 06/23/21 10:10 06/26/21 08:30 Carbamazepine 200 Mg Tablet PO 200 mg BID@ SHANTEL Administration Dextrose 25 ml 06/22/21 02:01 06/23/21 04:05 Dextrose 50% Syringe 50 Ml IVP 25 ml ONCE PRN Administration hypoglycemia protocol Protocol Enoxaparin Sodium 40 mg 06/22/21 01:15 06/23/21 00:56 Enoxaparin 40 Mg/0.4 Ml Syringe SUBCUT 40 mg Q24H SHANTEL Administration Gabapentin 100 mg 06/22/21 09:00 06/22/21 13:11 Gabapentin 100 Mg Capsule PO 100 mg TID@ SHANTEL Administration Sodium Chloride 1,000 mls @ 125 mls/hr 06/22/21 01:15 06/22/21 13:11 Sodium Chloride 0.9% IV 125 mls/hr .Q8H SHANTEL Administration Dextrose 500 mls @ 100 mls/hr 06/22/21 02:01 06/23/21 21:49 D5w IV Infused ONCE PRN Infusion Adult Acute Hypoglycemia Prot Protocol Levetiracetam 750 mg/ Sodium 107.5 mls @ 430 mls/hr 06/23/21 13:30 06/26/21 01:18 Chloride IV Infused Q12H SHANTEL Infusion Acetaminophen 1,000 mg in 100 mls @ 400 mls/hr 06/24/21 06:00 06/24/21 11:52 Acetaminophen IV Infused Q8H PRN Infusion FEVER Fentanyl 2,500 mcg/ Sodium 250 mls @ 0 mls/hr 06/24/21 10:30 06/24/21 11:25 Chloride IV 50 mcg/hr .Q0M SHANTEL 5 mls/hr Administration Protocol Per Protocol Norepinephrine Bitartrate 8 mg 508 mls @ 0 mls/hr 06/25/21 01:00 06/26/21 05:42 / Dextrose IV 8 mcg/min .Q0M SHANTEL 30.48 mls/hr Titration Protocol Per Protocol dexmedeTOMIDine 0.9 % NaCL 400 mcg in 100 mls @ 0 mls/hr 06/26/21 08:15 06/26/21 09:43 Precedex IV 0.1 mcg/kg/hr .Q0M SHANTEL 1.55 mls/hr Administration Protocol Per Protocol Meropenem 1,000 mg/ Dextrose 50 mls @ 100 mls/hr 06/26/21 09:30 06/26/21 09:35 IV 100 mls/hr Q12H SHANTEL Administration Insulin Human Lispro 0 unit 06/22/21 08:00 06/26/21 08:30 Insulin Lispro 100 Unit/1 Ml SUBCUT 2 unit TIDWM SHANTEL Administration Protocol Lorazepam 0.5 mg 06/23/21 14:40 06/23/21 14:55 Lorazepam 2 Mg/Ml Inj 1 Ml IVP 0.5 mg Q4H PRN Administration ANXIETY Morphine Sulfate 1 mg 06/23/21 16:43 06/23/21 17:14 Morphine 4 Mg/Ml Sdv 1 Ml IVP 1 mg Q4H PRN Administration SEVERE PAIN Tizanidine HCl 6 mg 06/22/21 01:15 06/22/21 13:10 Tizanidine 4 Mg Tablet PO 6 mg Q6H SHANTEL Administration PFSH Acute PFSH: Medical History Chronic indwelling Miranda catheter COVID-05 June 2020 Diabetes mellitus -NIDDM type II, A1c-7.2 (08/2019) -Accuchecks, hypoglycemia precautions, ISS -consistent carb diet Obstructive pyelonephritis Quadriplegia -strict fall precautions -frequent repositioning, q2h -WC-/bed-bound at baseline -continue pain meds, muscle relaxants -has been following up with Dr. Estrella for consideration of Botox treatments for spasticity Renal stone Spastic hemiplegia affecting left nondominant side Spastic hemiplegia, dominant side Surgical History History of appendectomy History of back surgery History of colon resection History of neck surgery History of suprapubic catheter Open placement October 2019. S/P extracorporeal shock wave therapy Family History Father , at age 49 Cancer Lung disease Mother Cancer bone Brother Cancer Lung disease Denies family history of Diabetes CAD (coronary artery disease) Clotting disorder Dementia Hyperlipidemia Psychiatric illness Chronic kidney disease (CKD) Suicide Anesthesia complication Bleeding disorder Family history of premature coronary artery disease Hypertension Stroke Social History Smoking and tobacco status: current every day smoker cigarettes Packs smoked per day: 0.5 Quit status (tobacco): not considering quitting Alcohol intake: former Former alcohol use details: quit due to medications Household members: other Details: lives with mother Marital status: Legally Number of children: 5 History of recent travel: No Vitals/I&O/Wt Last Vital Signs Temp 99.9 F H 06/26/21 15:23 Pulse 76 06/26/21 15:23 Resp 20 H 06/26/21 15:23 BP 109/62 06/26/21 15:23 Pulse Ox 97 06/26/21 15:23 06/26/21 06/26/21 06/26/21 06:59 14:59 22:59 Intake Total 471.020 / 3639.542 548 / 548 210 / 758 Output Total 700 / 1350 Balance -228.980 / 2289.542 548 / 548 210 / 758 Weight last 48 hrs Weight 136 lb 6.4 oz Weight 130 lb 6 oz Physical Exam Narrative: PHYSICAL EXAM: General: lying in bed, sedated and intubated. HEENT:NCAT, PERRLA, EOMI Neck: Supple Lungs: Bilateral coarse crackles Heart: s1/s2, RRR Abd: soft, NT, ND, BS + Normoactive, he has suprapubic catheter Extremities: No edema, PLATFORM ATTENDANT: sedated and limited PLATFORM ATTENDANT exam possible. 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 SKIN: Had bluish-purple discoloration previously as per team-today appears red with good papillary return LDA: # CVC: Right femoral line 06/24/2021 Urinary Catheter Management: Suprapubic: Cath Placed During This Visit: yes, but has since been removed by the nurse Reason for Continuing Indwelling Catheter: Accurate Measurement of Urinary Output in Critically Ill Patients Urinary Catheter Date of Insertion: 06/22/21 Urinary Catheter Time of Insertion: 06:02 Date Urinary Catheter Removed: 06/22/21 Time Urinary Catheter Discontinued: 06:00 Data : 06/26/21 03:13 06/26/21 03:13 Other Labs: Radiology Impressions Head CT 06/21/21 21:52 IMPRESSION: No acute intracranial abnormality. Abdomen/Pelvis CT 06/21/21 23:22 IMPRESSION: 1. 12 x 7 x 7 mm stone in the proximal left ureter at the ureteropelvic junction producing moderate hydronephrosis. 2. Bilateral nonobstructive nephrolithiasis. 3. Incidental findings above. COMMENTS: Consistent with the [employer]'s Incidental Findings Committee white paper (J Am Chuckie Radiol 2017): For any incidental adrenal lesion greater than 1 cm but less than 4 cm classified in this report as benign, likely benign, or containing fat (including classification as an adenoma or myelolipoma), no follow-up imaging is recommended per consensus recommendations based on imaging criteria. Further lab evaluation could be pursued if warranted based on clinical findings. C-Arm Fluoroscopy 06/22/21 05:41 IMPRESSION: Left ureteral stent placement as above. Chest/Abdomen/Pelvis CT 06/24/21 09:19 IMPRESSION: Interval development of significant diffuse bilateral lung opacities compatible with pneumonitis. Associated new moderate pleural effusions. Left ureteral stent placement with previous large UPJ calculus displaced into the left kidney. No free fluid or fluid collections within the abdomen or pelvis. Chest X-Ray 06/26/21 04:00 IMPRESSION: Stable abnormal chest. Laboratory Results WBC 10.9 10^3/uL (4.0-10.0) H 06/26/21 03:13 RBC 2.62 10^6/uL (4.1-5.3) L 06/26/21 03:13 Hgb 8.5 g/dL (11.7-16.6) L 06/26/21 03:13 Hct 23.2 % (42.0-52.0) L 06/26/21 03:13 MCV 88.5 fl (80-94) 06/26/21 03:13 MCH 32.4 pg (28.0-34.0) 06/26/21 03:13 MCHC 36.6 g/dL (30.0-36.0) H 06/26/21 03:13 RDW 14.0 % (12.1-15.1) 06/26/21 03:13 Plt Count 11 10^3/cmm (130-400) L* D 06/26/21 03:13 MPV Surgery Manager 06/26/21 03:13 Neut % (Auto) 87.7 % 06/26/21 03:13 Lymph % (Auto) 4.9 % 06/26/21 03:13 [place] % (Auto) 4.9 % 06/26/21 03:13 Eos % (Auto) 1.0 % 06/26/21 03:13 Baso % (Auto) 0.6 % 06/26/21 03:13 Neut # (Auto) 9.53 10^3/uL (1.8-7.7) H 06/26/21 03:13 Lymph # (Auto) 0.5 10^3/uL (0.8-4.8) L 06/26/21 03:13 [place] # (Auto) 0.5 10^3/uL (0.2-0.9) 06/26/21 03:13 Eos # (Auto) 0.1 10^3/uL (0.0-0.8) 06/26/21 03:13 Baso # (Auto) 0.1 10^3/uL (0.0-0.1) 06/26/21 03:13 Nucleated RBC % (auto) 0.2 % 06/26/21 03:13 Nucleated RBCs # 0.0 /100WBC 06/26/21 03:13 Haptoglobin 184.0 mg/L (30-200) 06/26/21 08:30 PT 15.40 SECONDS (12.1-14.9) H 06/26/21 03:13 INR 1.18 (0.8-1.2) 06/26/21 03:13 APTT 28.3 SECONDS (23.9-36.7) 06/26/21 03:13 Fibrinogen 415 mg/dL (174-498) 06/26/21 03:13 Fibrin Degrad Products Pos, >=40 ug/mL (NEG) H 06/26/21 03:13 D-Dimer 11.13 ug/mIFEU (0-0.59) H 06/26/21 03:13 Specimen Type Arterial 06/26/21 08:43 Sample Site Radial, left 06/26/21 08:43 O2 Sat Pulse Oximetry Cancelled 06/24/21 12:09 ABG pH 7.47 (7.35-7.45) H 06/26/21 08:43 ABG pCO2 31.7 mmHg (35-45) L 06/26/21 08:43 ABG pO2 65.7 mmHg (80.0-100.0) L 06/26/21 08:43 ABG HCO3 22.9 mmol/L (22-26) 06/26/21 08:43 ABG O2 Saturation 99.9 06/24/21 13:39 ABG Base Excess -0.5 mmol/L (-2.0-2.0) 06/26/21 08:43 Arthur Test Pos 06/26/21 08:43 A-a O2 Gradient 54.8 mmHg (5-10) H 06/24/21 13:39 Hematocrit 25.8 % (42-52) L 06/26/21 08:43 Hgb O2 Saturation 98.8 % (95-100) 06/24/21 13:39 Carboxyhemoglobin 0.8 %THgb (0.4-20.1) 06/24/21 13:39 Methemoglobin 0.3 % (0.4-1.5) L 06/24/21 13:39 Total Hemoglobin 8.5 g/dL (14-18) L 06/24/21 13:39 Sodium 136.0 mmol/L (131-143) 06/24/21 13:39 Potassium 4.7 mmol/L (3.5-5.0) 06/24/21 13:39 Glucose 182.0 mg/dL (70-115) H 06/24/21 13:39 Respiration Rate Cancelled 06/24/21 12:09 O2 Delivery Device Vent 06/26/21 08:43 O2 Liters/Min Cancelled 06/24/21 12:09 SIMV Cancelled 06/24/21 12:09 Vent Mode Cancelled 06/24/21 12:09 Mechanical Rate Cancelled 06/24/21 12:09 Spontaneous Rate Cancelled 06/24/21 12:09 FiO2 30.0 % 06/26/21 08:43 Tidal Volume 0.45 06/26/21 08:43 PEEP 6.0 cmH20 06/26/21 08:43 Pressure Support Cancelled 06/24/21 12:09 Pressure Control Cancelled 06/24/21 12:09 CPAP Cancelled 06/24/21 12:09 Mode BiPAP Cancelled 06/24/21 12:09 Specimen Drawn By Cancelled 06/24/21 12:09 Inside Barrel Lathe Operator ID Bd 06/26/21 08:43 Crit Value Read Back Cancelled 06/24/21 12:09 Blood Gas Notified Time Cancelled 06/24/21 12:09 Sodium 131 mmol/L (136-145) L 06/26/21 03:13 Potassium 3.7 mmol/L (3.5-5.1) 06/26/21 03:13 Chloride 97 mmol/L (98-107) L 06/26/21 03:13 Carbon Dioxide 19 mmol/L (22-29) L 06/26/21 03:13 Anion Gap 18.7 (5-19) 06/26/21 03:13 BUN 81 mg/dL (8-23) H 06/26/21 03:13 Creatinine 3.2 mg/dL (0.7-1.2) H 06/26/21 03:13 GFR Calculation 19.8 mL/min (90-130) L 06/26/21 03:13 Glucose 125 mg/dL (65-115) H 06/26/21 03:13 POC Glucose 123 mg/dL (70-110) H 06/26/21 16:53 Calculated Osmolality 298 mOsm/kg (285-295) H 06/26/21 03:13 Lactate 1.8 mmol/L (0.5-2.2) 06/21/21 22:17 Uric Acid 7.6 mg/dL (3.4-7.0) H 06/24/21 14:00 Calcium 8.4 mg/dL (8.5-10.5) L 06/26/21 03:13 Total Bilirubin 3.6 mg/dL (0.15-1.2) H 06/26/21 08:30 Direct Bilirubin 3.90 mg/dL (0.00-0.30) H 06/26/21 08:30 Indirect Bilirubin -0.30 06/26/21 08:30 AST 98 U/L (0-40) H 06/26/21 03:13 ALT 67 U/L (0-41) H 06/26/21 03:13 Alkaline Phosphatase 365 IU/L (40-130) H 06/26/21 03:13 Lactate Dehydrogenase 391 U/L (135-225) H 06/26/21 08:30 Creatine Kinase 2266 U/L (39-308) H* 06/24/21 14:00 Troponin T Baseline 417 ng/L (0-15) H* 06/24/21 07:04 Troponin T 120 Minute 404.5 ng/L (0-15) H 06/24/21 09:32 Delta Troponin T -12.5 ABS# (0-10) L 06/24/21 09:32 Troponin T Hi Sens 6Hr 359.4 ng/L (0-15) H 06/24/21 16:20 Troponin T Hi Sens 6Hr Delta -57.6 ng/L (0-12) L 06/24/21 16:20 NT-Pro-B Natriuret Pep > 83363 pg/mL (0-125) H 06/24/21 07:04 Total Protein 4.5 g/dL (6.6-8.7) L 06/26/21 03:13 Albumin 2.3 g/dL (3.5-5.2) L 06/26/21 03:13 Globulin 2.2 g/dL (1.3-4.6) 06/26/21 03:13 Lipase 23 U/L (13-60) 06/21/21 22:17 Procalcitonin 53.05 ng/mL (0-0.5) H 06/23/21 04:15 TSH 0.55 uIU/mL (0.27-4.20) 06/24/21 14:00 Random Cortisol 49.81 ug/dL (2.47-19.5) H 06/22/21 19:08 Urine Color Zee (Yellow) 06/24/21 Unknown Urine Appearance Hazy (CLEAR) A 06/24/21 Unknown Urine pH 5 (5-7) 06/24/21 Unknown Ur Specific [place] 1.015 (1.005-1.030) 06/24/21 Unknown Urine Protein 2+ (Negative) H 06/24/21 Unknown Urine Glucose (UA) Norm (Normal) 06/24/21 Unknown Urine Ketones 1+ (Negative) H 06/24/21 Unknown Urine Blood 3+ (Negative) H 06/24/21 Unknown Urine Nitrate Negative (Negative) 06/24/21 Unknown Urine Bilirubin Neg (Negative) 06/24/21 Unknown Prot Sulfosalicylic Acd Positive (Negative) 06/21/21 22:45 Urine Urobilinogen 1 mg/dL (Negative) H 06/24/21 Unknown Ur Leukocyte Esterase 2+ (Negative) H 06/24/21 Unknown Urine RBC Too numerous to cnt /hpf (0-2) H 06/24/21 Unknown Urine WBC 15-25 /hpf (0-5) H 06/24/21 Unknown Ur Squamous Epith Cells None /hpf (0-5) 06/24/21 Unknown Triple Phos Crystals 0-4 /hpf H 06/21/21 22:45 Amorphous Sediment Not Reportable 06/24/21 Unknown Urine Bacteria 1+ /hpf (NONE) H 06/24/21 Unknown Ur Random Sodium 89 mmol/L 06/24/21 Unknown Urine Creatinine 18 mg/dL (39-259) L 06/24/21 Unknown Vancomycin Trough 20.3 ug/mL (10-15) H 06/24/21 16:20 Coronavirus 229E (PCR) Not detected (NOT DETECT) 06/23/21 13:50 SARS-CoV-2 (PCR) Not detected (NOT DETECT) 06/23/21 13:50 SARS-CoV-2 Ag (Rapid) Negative (Negative) 06/21/21 22:45 Blood Type A Positive 06/24/21 07:04 Rho(D) Type Positive 06/24/21 07:04 Antibody Screen Negative 06/24/21 07:04 Crossmatch See Detail 06/24/21 07:04 Micro: Microbiology 06/24/21 09:32 Blood Culture - Preliminary Blood Escherichia coli 06/25/21 10:45 Gram Stain - Final Sputum - Endotracheal Tube Aspirate Sputum Culture - Preliminary 06/24/21 Unknown Urine Culture - Final Urine Suprapubic 06/21/21 22:45 Urine Culture - Final Urine Catheterized Escherichia coli Escherichia coli#2 Pseudomonas aeruginosa Proteus mirabilis 06/21/21 22:17 Blood Culture - Final Blood Escherichia coli 06/21/21 22:33 Blood Culture - Final Blood Escherichia coli A&P Assessment and plan (1) Septic shock: Status: Acute (2) Sepsis with acute hypoxic respiratory failure: Status: Acute (3) NSTEMI (non-ST elevated myocardial infarction): Status: Acute (4) DIC (disseminated intravascular coagulation): Status: Acute (5) Thrombocytopenia: Status: Acute (6) Diabetes mellitus: Status: Acute Qualifiers: Diabetes mellitus type: type 2 Diabetes mellitus raw material planner insulin use: without fdc use Diabetes mellitus complication status: without complication Qualified Code(s): E11.9 - Type 2 diabetes mellitus without complications (7) Obstructive pyelonephritis: Status: Acute (8) E. coli septicemia: Status: Acute Plan #E. coli septicemia-secondary to obstructive uropathy s/p left ureteral stent 06/22/2021 #Septic shock secondary to E. coli septicemia -Urine and blood cultures, E. coli -Received 1 dose of amikacin, currently on imipenem-switch to meropenem for better Proteus coverage-clinically improving -improving shock currently down to Levophed 2 mics only from being on 2 pressors 2 days back #DIC vs sepsis induced thrombocytopenia secondary to E. coli sepsis-receiving FFP's and platelets -His underlying sepsis is improving-I expect platelets to improve as well -Peripheral smear no schistocytes reported -Fibrinogen within normal range-no need for cryoprecipitate at this point of time -Plasmapheresis may help in early stages of sepsis DIC - does not require at this point of time #Type II NSTEMI-secondary to demand ischemia due to septic shock -No need to anticoagulate at this point of time especially with low platelets -Echo 06/24/2021: LV function normal with EF 55 to 60%, RV mildly dilated but normal function. Compared to prior echo 05/18/2020 LV systolic function appears to have improved slightly #Episode of V. tach-possibly precipitated by sepsis -Currently on amiodarone infusion-transition to p.o. 400 mg twice daily via PEG tube #Hypoxic respiratory failure requiring mechanical ventilation -Currently on minimal settings with ABG 7.4 12/15// on CMV 450/6/30 percent -As his underlying sepsis is improving, we will taper off sedation for awakening trial and proceed with breathing trial #SABAS likely secondary to sepsis mediated ATN -Urine sodium 88 consistent with intrarenal etiology -Urine output improving, electrolytes acceptable, creatinine remained stable between 3-3.5 -Renal recommended fluid bolus -No immediate need for hemodialysis -Closely monitor renal functions, input output #Diabetes-sugars well controlled -Currently on scale coverage Recommendations conveyed to hospitalist, RN, RT taking care of the patient Consult Attestations Medical Necessity Statement: Septic shock, acute hypoxic respiratory failure, SABAS-secondary to E. coli septicemia secondary to obstructive uropathy s/p ureteral stent-needs close ICU monitoring as patient is on ventilator, on low-dose pressors, improving renal functions Time Spent in Patient Care: Greater than 35 minutes (>than 50% of time spent in counselling and/or direct pt care on unit). Critical Care Time: The high probability of a clinically significant, sudden or life threatening deterioration of the patient's [neuro, pulmonary, renal, cardiac, infectious system(s) required my full and direct attention, intervention and personal management. The critical care time is as shown. This time is in addition to time spent performing any reported procedures but includes the following: [x] Data and vital sign review and interpretation [x] Patient assessment, examination and intervention [x] Documentation [x] Medication orders and management Critical Care Time (min): 60 Coding Level of Care Code New Pt Acute Dulite Machine Bluer for Chg Fwd Patient Type New History Comprehensive Exam Comprehensive Medical Decision Making High Complexity Diagnoses Septic shock A41.9; R65.21 Sepsis with acute hypoxic respiratory failure A41.9; R65.20; J96.01 NSTEMI (non-ST elevated myocardial infarction) I21.4 DIC (disseminated intravascular coagulation) D65 Thrombocytopenia D69.6 Diabetes mellitus E11.9 Diabetes mellitus type: type 2 Diabetes mellitus fdc insulin use: without fdc use Diabetes mellitus complication status: without complication Obstructive pyelonephritis N11.1 E. coli septicemia A41.51 Time Spent (min) 60
--- NOTE | 2021-06-26 16:39 | PHA.FALL ---
A Pharmacy Consult Was Conducted For Timur Valdovinos Due To: Hammer Fall Scale Risk Level: High Fall Risk On 06/26/21 08:00 And A Medication Fall Risk Score Greater Than 10. The Recommendations Are As Follows: The patient cannot fall due to him being ventilated and sedated with fentanyl, versed and other agents. SHould he be walking and talking despite all these measures, we will address the anomaly when it occurs.
--- NOTE | 2021-06-26 16:52 | PC.NURSE ---
UNIT NUMBER [id number] was ended at 16:30. Times of administration are as follows: Started: 15:55 14 min: 16:10 End: 16:30. Documentation in [facility] shows end at 16:10. This is NOT correct. Completion time= 16:30.
[2021-06-26 16:57] LABS: Glucose Point of Care 123 mg/dL (70-110)
--- NOTE | 2021-06-26 18:16 | NUR.SHIFT ---
Shift Note Frequent safety and comfort rounds continue. Orders and/or nursing care completed as indicated. Patient monitored for response to intervention and treatment(s). Education provided includes med teaching, fall risk, care plan. Patient unable to comprehend. Family verbalized understanding. Will continue to monitor. Report given to nurse Justen. Nurse Justen assumes care of patient at this time.
[2021-06-26 21:44] LABS: Hepatitis A Antibody IgM Non-Reactive (Nonreactive); Hepatitis B Core AB, Total Reactive (Nonreactive); Hepatitis B Surface Antigen Non-Reactive (Nonreactive); Hepatitis C Virus Antibody Non-Reactive (Nonreactive)
[2021-06-26 22:03] LABS: Glucose Point of Care 146 mg/dL (70-110)
[2021-06-26 22:16] LABS: Hepatitis B Surface AB > 1000.0 (11.5-1000)
[2021-06-27] VITALS (68 sets, daily range): BP systolic 93–191; BP diastolic 54–112; PULSE 58–99; RESP 16–20; TEMP 36.2–37; O2SAT 88–100; BMI 20.4
[2021-06-27] MEDS: levETIRAcetam 750 MG in sodium chloride 0.9% (100 ml) 100 ML 430 MG IV ×2 (01:11→18:47)
[2021-06-27 04:18] LABS: Basophils % 0.4 %; Eosinophils # 0.1 10^3/uL (0.0-0.8); Eosinophils % 0.9 %; Lymphocytes # 0.3 10^3/uL (0.8-4.8); Lymphocytes % 3.7 %; Mean Corpuscular HGB Conc 35.9 g/dL (30.0-36.0); Mean Corpuscular Hemoglobin 32.1 pg (28.0-34.0); Mean Corpuscular Volume 89.4 fl (80-94); Monocytes # 0.6 10^3/uL (0.2-0.9); Monocytes % 6.5 %; Neutrophils # 7.88 10^3/uL (1.8-7.7); Neutrophils % 86.7 %; Nucleated Red Blood Cells % 0 %; Platelet Count 66 10^3/cmm (130-400); Red Blood Count 2.18 10^6/uL (4.1-5.3); White Blood Count 9.1 10^3/uL (4.0-10.0)
[2021-06-27 04:24] LABS: INR 1.22 (0.8-1.2)
[2021-06-27 04:25] LABS: Partial Thromboplastin Time 29.9 SECONDS (23.9-36.7)
[2021-06-27 04:26] LABS: Fibrinogen 376 mg/dL (174-498)
[2021-06-27 04:34] LABS: Hematocrit 19.5 % (42.0-52.0)
[2021-06-27 04:38] LABS: Alanine Aminotransferase 32 U/L (0-41); Albumin Level 2.5 g/dL (3.5-5.2); Alkaline Phosphatase 104 IU/L (40-130); Anion Gap 18.3 (5-19); Aspartate Amino Transferase 73 U/L (0-40); Blood Urea Nitrogen 76 mg/dL (8-23); Calcium 7.8 mg/dL (8.5-10.5); Carbon Dioxide 22 mmol/L (22-29); Chloride 97 mmol/L (98-107); Globulin 2.4 g/dL (1.3-4.6); Glomerular Filtration Rate 23.1 mL/min (90-130); Glucose 116 mg/dL (65-115); Osmolality Calculated 302 mOsm/kg (285-295); Potassium 3.3 mmol/L (3.5-5.1); Sodium 134 mmol/L (136-145); Total Protein 4.9 g/dL (6.6-8.7)
[2021-06-27] MEDS: sodium chloride 0.9% (100 ml) 100 ML ×3 (05:15→05:18)
[2021-06-27] MEDS: sodium chloride 0.9% (100 ml) 100 ML 20 ML ×2 (05:17)
[2021-06-27 07:19] LABS: Glucose Point of Care 135 mg/dL (70-110)
[2021-06-27] MEDS: amiodarone 200 mg Tablet 400 MG PO (09:12)
[2021-06-27] MEDS: lactated ringers 1,000 ML 250 ML IV (09:13)
[2021-06-27] MEDS: carBAMazepine 200 mg Tablet PO ×2 (09:13→21:39)
[2021-06-27] MEDS: DEXTROSE 5% IV ×2 (09:13→21:39)
[2021-06-27] MEDS: folic acid 1 mg Tablet PEG-TUBE (09:13)
[2021-06-27] MEDS: MEROPENEM IV ×2 (09:13→21:39)
[2021-06-27] MEDS: baclofen 10 mg Tablet PO ×4 (09:13→21:39)
--- NOTE | 2021-06-27 10:00 | CT_ITS ---
WS: [id number] CT HEAD NONCONTRAST HISTORY: evaluate for bleed/CVA TECHNIQUE: Contiguous axial imaging performed through the brain in 2.5 mm imaging. Bone and soft tiss ue windows. Sagittal and coronal reformats reviewed. All CT scans at [facility] use at least one of these dose optimization techniques: automated exposure control; mA and/or kV adjustment per pa tient size (includes targeted exams where dose is matched to clinical indication); or iterative recon struction. DLP: 1002.26 mGy.cm COMPARISON: 06/21/2021 There is a new acute RIGHT subdural hematoma which extends from the vertex over the parietal, frontal and temporal lobes. The largest diameter of the subdural blood is 8 mm adjacent to the RIGHT tempora l lobe. Acute blood extends anteriorly from the frontal lobe over the parietal lobe and also extends along the interhemispheric falx and tentorial. There is very mild mass effect. Less than 2 mm midline shift. Very minimal effacement of the RIGHT lateral ventricle. Mild loss of the estrada-white matter di fferentiation in the RIGHT brain. There is a new area of low attenuation adjacent to the midline RIGH T occipital lobe. This was not present on the prior exam and probably represents a subacute infarct. Tiny lacunar infarcts in the thalami bilaterally. Ventricles: There is a very small amount of intraventricular blood layering in the posterior horns. Blood is best seen in the LEFT occipital horn. Suspect there is probably also a small amount of blood on the RIGHT. No inferior displacement of cerebellar tonsils. No uncal herniation. Paranasal sinuses: As visualized are clear. Mastoid air cells: Fluid in the mastoid air cells bilaterally. Calvarium and scalp: Skull is intact with no soft tissue edema or swelling. CT/CT head wo con* [id number] IMPRESSION: 1. New acute subdural hemorrhage over a large portion of the RIGHT cerebrum wi th subdural blood extending along the tentorium and interhemispheric falx. 2. Largest diameter of the subdural hematoma is 8 mm adjacent to the RIGHT tem poral lobe. 3. 2 mm midline shift to the LEFT with loss of the estrada-white matter different iation and mild effacement of the RIGHT lateral ventricle. 4. Small amount of intraventricular blood on the LEFT, probably on the RIGHT also but less certain. 5. New posterior RIGHT occipital lobe subacute infarct since 06/21/2021. Notified Christiana MD Jessica at 06/27/2021 3:01 PM.
--- NOTE | 2021-06-27 11:44 | P.PN_ITS ---
Subjective Subjective: No new issues today. Remains critically sick but relatively stable over the last 24 hours. Received a bolus of lactated Ringer's yesterday, vasopressor needs reduced. Remains on low ventilator settings. Not waking at this time for extubation. Vitals/I&O/Wt Last Vital Signs Temp 98.6 F 06/27/21 08:01 Pulse 61 06/27/21 09:30 Resp 16 06/27/21 11:30 BP 157/77 06/27/21 09:30 Pulse Ox 94 06/27/21 11:30 06/26/21 06/27/21 06/27/21 22:59 06:59 14:59 Intake Total 1662.443 / 2351.375 639.327 / 2990.702 410 / 410 Output Total 550 / 550 75 / 625 Balance 1112.443 / 1801.375 564.327 / 2365.702 410 / 410 Weight last 48 hrs Weight 62.777 kg Weight 61.87 kg Physical Exam Narrative: Constitutional: Intubated and vented HEENT: Wet mucosa, no jvp, non icteric Lungs Scattered rales and diminished bases CVS: S1 S2, no murmurs Abdo: Soft, BS ok Ext 4: Minimal edema, peripheral perfusion with no cyanosis Urinary Catheter Management: Suprapubic: Cath Placed During This Visit: yes, but has since been removed by the nurse Reason for Continuing Indwelling Catheter: Accurate Measurement of Urinary Output in Critically Ill Patients Urinary Catheter Date of Insertion: 06/22/21 Urinary Catheter Time of Insertion: 06:02 Date Urinary Catheter Removed: 06/22/21 Time Urinary Catheter Discontinued: 06:00 Data : 06/27/21 03:35 06/27/21 03:35 Micro: Microbiology 06/25/21 10:45 Gram Stain - Final Sputum - Endotracheal Tube Aspirate Sputum Culture - Final 06/24/21 09:32 Blood Culture - Preliminary Blood Escherichia coli 06/27/21 03:35 Blood Culture - Preliminary Blood SPECIMEN COLLECTED 06/27/21 03:35 Blood Culture - Preliminary Blood SPECIMEN COLLECTED 06/24/21 Unknown Urine Culture - Final Urine Suprapubic A&P Assessment and plan (1) SABAS (acute kidney injury): Status: Acute Plan 1. Nonoliguric acute kidney injury Picture consistent with sepsis mediated ATN Creatinine remains roughly stable with minor flux UO picking up No indication for dialysis Close monitoring Rpt Fluid bolus today Dose medication for GFR less than 15 Avoid usual nephrotoxic agents 2. Sepsis E. coli seen on blood culture, currently on combination antibiotics including vancomycin and Primaxin Management per general medicine Vasopressors off fluid bolus today LR x 1 L 3. Chemistry Non-critical aberration, close monitoring, K replacement 4. Nephrolithiasis Dr. Saucedo's input is appreciated, status post left ureteric stent placement. 5. 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
[2021-06-27 12:37] LABS: Glucose Point of Care 156 mg/dL (70-110)
[2021-06-27] MEDS: insulin lispro 100 unit/1 mL SUBCUT (12:38)
[2021-06-27] MEDS: potassium chloride premix 100 ML 50 MEQ IV (12:39)
--- NOTE | 2021-06-27 15:21 | PC.NURSE ---
All sedation shut off this shift. Patient is still non responsive to pain. Taken to CT at 1400 without incident.
[2021-06-27] MEDS: labetalol 5 mg/mL SDV 20mL 10 MG IVP (16:25)
[2021-06-27 17:40] LABS: Glucose Point of Care 137 mg/dL (70-110)
--- NOTE | 2021-06-27 18:40 | PM.TDS ---
Transfer Summary Providers Date of Admission: 06/22/21 00:14 Date of Discharge/Transfer: 06/27/21 Attending Provider at Admission: Neal Leong MD Attending Provider at Transfer: Christiana Lopez MD Consults: Urology, critical care , telenephrology Primary Care Provider: Puja Mohamud DO Transfer Plans: Anticipated date of transfer: 06/27/21. Receiving Facility: [facility] . Receiving Provider: Dr. Randall. Diagnoses at Discharge Discharge Diagnosis (1) SABAS (acute kidney injury): Status: Acute (2) E. coli septicemia: Status: Acute (3) Ventricular arrhythmia: Status: Acute (4) Anemia: Status: Acute (5) Septic shock: Status: Acute (6) Sepsis with acute hypoxic respiratory failure: Status: Acute (7) NSTEMI (non-ST elevated myocardial infarction): Status: Acute (8) DIC (disseminated intravascular coagulation): Status: Acute (9) Transaminitis: Status: Acute (10) Acute encephalopathy: Status: Acute (11) Obstructive pyelonephritis: Status: Acute (12) Left spastic hemiparesis: Status: Acute (13) Neurogenic bladder: Status: Acute (14) Subdural hematoma: Status: Acute Reason for Visit Reason for Visit N/V/ DIAPHORETIC Brief History: Timur Valdovinos is a 61 year old male with a past medical history of spastic quadriplegia for many years, chronic suprapubic catheter, chronic hyponatremia, recurrent UTI, diabetes, was brought in with chief complaint of nausea and vomiting, acute encephalopathy . Hospital Course Hospital Course Admitted since 06/21 after presenting with sepsis related to obstructive pyelonephritis.Initial imaging showed 12 x 7 x 7 mm stone in the proximal left ureter at the ureteropelvic junction producing moderate hydronephrosis Status post ureteral stent placement on June 22, 2021. Continued to clinically deteriorate, by June 24 patient developed acute hypoxic respiratory failure, worsening thrombocytopenia related to DIC, worsening SABAS, peak cr at 3.6, type II SD/NSTEMI with trop range 400, negative 2 and 6 hr delatas, persistent ventricular arrhythmia, likely related to sepsis unable to be anticoagulated due to thrombocytopenia with lowest plt count at 11K and fulminant shock, on 2 pressors on 06/24. Blood cx + E.coli 06/21 and 06/24. He has been on treatment with Carbapenems (imipenem--->meropenem) since admission, and received additionally 2 doses of Amikacin (7.5mg/kg) prior to susceptibilities being available. Per susceptibility from the blood E. coli isolate it is Carbapenem susceptible. Additionally multiple gram-negative in urine culture including E. coli, Proteus mirabilis and Pseudomonas (carbapenem-S), though drawn from chronic suprapubic catheter. Currently patient with improvement sepsis and in clinical parameters. He has Down from 2 pressors to none. WBC 29---> 9. No further episodes of ventricular arrhythmia (treated with amiodarone infusion x 48 hrs---> now transitioned to po). In sinus rhythm, rate controlled. Echo cardiogram without any gross wall motion abnormalities on 06/24. Afberile over last 24 hrs. Improving DIC, plt 11K--> 66K s/p tranfusion with FFP and platelets. Fibrinogen within normal range, holding off on cryoprecipitate. Chest x-ray and ct chest 06/24 with bilateral infiltrates, given clinical picture concern for ARDS from severe sepsis. ? Covid PCR negative on 06/23. ?CT chest abdomen and pelvis 06/24 shows ureteric stent in position, no renal abscesses, urine leak or other compliactions. CT chest with B/L infiltrates as noted above. Currently on minimal vent settings. fi02 30%, PEEP 6, TV 450. (intubated 06/24) Sedation weaned down with discontinuation of propofol and Versed on 06/26---> changed to fentanyl 50 + precedex on 06/27 which were additionally turned off during the night of 06/26-06/27 in anticipation of extubation. Since trending down sedation patient has had no meaningful neurological response. Last noted to be moving all 4 extremities and responding to painful stimulus, moving eyes on June 24 after intubation. Additionally had plan to start patient on heparin drip for the NSTEMI that was detected on June 24 now the platelet count was improving at 66K. However given poor neurological status a CT of the head was performed prior to starting anticoagulation which showed New acute subdural hemorrhage over a large portion of the RIGHT cerebrum with subdural blood extending along the tentorium and interhemispheric falx. Largest diameter of the subdural hematoma is 8 mm adjacent to the RIGHT temporal lobe.2 mm midline shift to the LEFT with loss of the estrada-white matter differentiation and mild effacement of the RIGHT lateral ventricle. Small amount of intraventricular blood on the LEFT,? probably on the RIGHT also but less certain. New posterior RIGHT occipital lobe subacute infarct since 06/21/2021. overall thoughh patient septic shock is improving, patient now has a new intracranial hemorrhage which presents challenges in his care and will need neurosurgery consultation and close neurological monitoring, which we are unable to provide currently at [facility] due to non availability of neurosurgery specialists at our hospital. All updates discussed with patient's mother Barbara who is agreebale for transfer. Full code DVT ppx: SCDs only. Physical Exam Narrative: GEN:Intubated, off sedation, does not open eyes or wake up to calling name, no spontaneous movements noted in extremities, does not gag with suction of ETT. CVS: S1S2 N RS: CTA B/L all areas Abd: Soft, nt/nd , bs+, suprapubic catheter in place with mild leaking around site EXt: Bluish discolaration over B/L feet, likely related to sepsis hypoperfusion and recent pressors. No signs of gangrene at this time. Urinary Catheter Management: Suprapubic: Cath Placed During This Visit: yes, but has since been removed by the nurse Reason for Continuing Indwelling Catheter: Accurate Measurement of Urinary Output in Critically Ill Patients Urinary Catheter Date of Insertion: 06/22/21 Urinary Catheter Time of Insertion: 06:02 Date Urinary Catheter Removed: 06/22/21 Time Urinary Catheter Discontinued: 06:00 TS Data Studies Completed and Pending Pending at discharge Category Date Time Status ABG FULL [Arterial Blood Gas Full] Stat Lab 06/24/21 13:39 Results ABG ONLY [Arterial Blood Gas W/O Coox] AM LABS Lab 06/24/21 04:00 Ordered ABG ONLY [Arterial Blood Gas W/O Coox] Routine Lab 06/25/21 03:35 Received Blood Culture AM LABS Lab 06/27/21 03:35 Results Blood Culture Stat Lab 06/24/21 09:32 Results Labs from last 24 hours 06/27/21 06/27/21 06/27/21 17:37 12:32 07:17 WBC RBC Hgb Hct MCV MCH MCHC RDW Plt Count MPV Neut % (Auto) Lymph % (Auto) [place] % (Auto) Eos % (Auto) Baso % (Auto) Neut # (Auto) Lymph # (Auto) [place] # (Auto) Eos # (Auto) Baso # (Auto) Nucleated RBC % (auto) Nucleated RBCs # PT INR APTT Fibrinogen Fibrin Degrad Products D-Dimer Sodium Potassium Chloride Carbon Dioxide Anion Gap BUN Creatinine GFR Calculation Glucose POC Glucose 137 H 156 H 135 H Calculated Osmolality Calcium Total Bilirubin AST ALT Alkaline Phosphatase Total Protein Albumin Globulin Hepatitis A IgM Ab Hep Bs Antigen Hep Bs Antibody Hep B Core Total Ab Hepatitis C Antibody Blood Type Rho(D) Type Antibody Screen Crossmatch 06/27/21 06/27/21 06/27/21 05:10 03:35 03:35 WBC RBC Hgb Hct MCV MCH MCHC RDW Plt Count MPV Neut % (Auto) Lymph % (Auto) [place] % (Auto) Eos % (Auto) Baso % (Auto) Neut # (Auto) Lymph # (Auto) [place] # (Auto) Eos # (Auto) Baso # (Auto) Nucleated RBC % (auto) Nucleated RBCs # PT 15.80 H INR 1.22 H APTT 29.9 Fibrinogen 376 Fibrin Degrad Products Pos, >=40 H D-Dimer 17.00 H Sodium 134 L Potassium 3.3 L Chloride 97 L Carbon Dioxide 22 Anion Gap 18.3 BUN 76 H Creatinine 2.8 H GFR Calculation 23.1 L Glucose 116 H POC Glucose Calculated Osmolality 302 H Calcium 7.8 L Total Bilirubin 6.0 H AST 73 H ALT 32 Alkaline Phosphatase 104 Total Protein 4.9 L Albumin 2.5 L Globulin 2.4 Hepatitis A IgM Ab Hep Bs Antigen Hep Bs Antibody Hep B Core Total Ab Hepatitis C Antibody Blood Type A Positive Rho(D) Type Positive Antibody Screen Negative Crossmatch See Detail 06/27/21 06/26/21 06/26/21 03:35 21:57 08:30 WBC 9.1 RBC 2.18 L Hgb 7.0 L Hct 19.5 L* MCV 89.4 MCH 32.1 MCHC 35.9 RDW 14.0 Plt Count 66 L D MPV 11.0 H Neut % (Auto) 86.7 Lymph % (Auto) 3.7 [place] % (Auto) 6.5 Eos % (Auto) 0.9 Baso % (Auto) 0.4 Neut # (Auto) 7.88 H Lymph # (Auto) 0.3 L [place] # (Auto) 0.6 Eos # (Auto) 0.1 Baso # (Auto) 0.0 Nucleated RBC % (auto) 0 Nucleated RBCs # 0.0 PT INR APTT Fibrinogen Fibrin Degrad Products D-Dimer Sodium Potassium Chloride Carbon Dioxide Anion Gap BUN Creatinine GFR Calculation Glucose POC Glucose 146 H Calculated Osmolality Calcium Total Bilirubin AST ALT Alkaline Phosphatase Total Protein Albumin Globulin Hepatitis A IgM Ab Non-reactive Hep Bs Antigen Non-reactive Hep Bs Antibody > 1000.0 H Hep B Core Total Ab Reactive H Hepatitis C Antibody Non-reactive Blood Type Rho(D) Type Antibody Screen Crossmatch 06/24/21 07:04 WBC RBC Hgb Hct MCV MCH MCHC RDW Plt Count MPV Neut % (Auto) Lymph % (Auto) [place] % (Auto) Eos % (Auto) Baso % (Auto) Neut # (Auto) Lymph # (Auto) [place] # (Auto) Eos # (Auto) Baso # (Auto) Nucleated RBC % (auto) Nucleated RBCs # PT INR APTT Fibrinogen Fibrin Degrad Products D-Dimer Sodium Potassium Chloride Carbon Dioxide Anion Gap BUN Creatinine GFR Calculation Glucose POC Glucose Calculated Osmolality Calcium Total Bilirubin AST ALT Alkaline Phosphatase Total Protein Albumin Globulin Hepatitis A IgM Ab Hep Bs Antigen Hep Bs Antibody Hep B Core Total Ab Hepatitis C Antibody Blood Type A Positive Rho(D) Type Positive Antibody Screen Negative Crossmatch See Detail Completed Studies During Hospitalization Category Date Time Status CT abdomen pelvis wo con [id number] Urgent Cat Scan 06/21/21 23:[address] chest abd pel wo con Stat Cat Scan 06/24/21 09:[address] head wo con* [id number] Routine Cat Scan 06/27/21 10:[address] head wo con* [id number] Urgent Cat Scan 06/21/21 21:52 Completed CXRP [XR chest 1V portable [id number]] AM LABS Exams 06/26/21 04:00 Completed XR chest 1V portable [id number] Routine Exams 06/23/21 04:00 Completed XR chest 1V portable [id number] Routine Exams 06/24/21 06:00 Completed XR chest 1V portable [id number] Stat Exams 06/21/21 21:16 Completed XR chest 1V portable [id number] Stat Exams 06/24/21 13:08 Completed CV. echo complete* [id number] Routine Ultrasound 06/24/21 20:53 Completed Laboratory Last Values WBC 9.1 10^3/uL (4.0-10.0) 06/27/21 03:35 RBC 2.18 10^6/uL (4.1-5.3) L 06/27/21 03:35 Hgb 7.0 g/dL (11.7-16.6) L 06/27/21 03:35 Hct 19.5 % (42.0-52.0) L* 06/27/21 03:35 MCV 89.4 fl (80-94) 06/27/21 03:35 MCH 32.1 pg (28.0-34.0) 06/27/21 03:35 MCHC 35.9 g/dL (30.0-36.0) 06/27/21 03:35 RDW 14.0 % (12.1-15.1) 06/27/21 03:35 Plt Count 66 10^3/cmm (130-400) L D 06/27/21 03:35 MPV 11.0 fL (7.4-10.4) H 06/27/21 03:35 Neut % (Auto) 86.7 % 06/27/21 03:35 Lymph % (Auto) 3.7 % 06/27/21 03:35 [place] % (Auto) 6.5 % 06/27/21 03:35 Eos % (Auto) 0.9 % 06/27/21 03:35 Baso % (Auto) 0.4 % 06/27/21 03:35 Neut # (Auto) 7.88 10^3/uL (1.8-7.7) H 06/27/21 03:35 Lymph # (Auto) 0.3 10^3/uL (0.8-4.8) L 06/27/21 03:35 [place] # (Auto) 0.6 10^3/uL (0.2-0.9) 06/27/21 03:35 Eos # (Auto) 0.1 10^3/uL (0.0-0.8) 06/27/21 03:35 Baso # (Auto) 0.0 10^3/uL (0.0-0.1) 06/27/21 03:35 Nucleated RBC % (auto) 0 % 06/27/21 03:35 Nucleated RBCs # 0.0 /100WBC 06/27/21 03:35 Haptoglobin 184.0 mg/L (30-200) 06/26/21 08:30 PT 15.80 SECONDS (12.1-14.9) H 06/27/21 03:35 INR 1.22 (0.8-1.2) H 06/27/21 03:35 APTT 29.9 SECONDS (23.9-36.7) 06/27/21 03:35 Fibrinogen 376 mg/dL (174-498) 06/27/21 03:35 Fibrin Degrad Products Pos, >=40 ug/mL (NEG) H 06/27/21 03:35 D-Dimer 17.00 ug/mIFEU (0-0.59) H 06/27/21 03:35 Specimen Type Arterial 06/26/21 08:43 Sample Site Radial, left 06/26/21 08:43 O2 Sat Pulse Oximetry Cancelled 06/24/21 12:09 ABG pH 7.47 (7.35-7.45) H 06/26/21 08:43 ABG pCO2 31.7 mmHg (35-45) L 06/26/21 08:43 ABG pO2 65.7 mmHg (80.0-100.0) L 06/26/21 08:43 ABG HCO3 22.9 mmol/L (22-26) 06/26/21 08:43 ABG O2 Saturation 99.9 06/24/21 13:39 ABG Base Excess -0.5 mmol/L (-2.0-2.0) 06/26/21 08:43 Arthur Test Pos 06/26/21 08:43 A-a O2 Gradient 54.8 mmHg (5-10) H 06/24/21 13:39 Hematocrit 25.8 % (42-52) L 06/26/21 08:43 Hgb O2 Saturation 98.8 % (95-100) 06/24/21 13:39 Carboxyhemoglobin 0.8 %THgb (0.4-20.1) 06/24/21 13:39 Methemoglobin 0.3 % (0.4-1.5) L 06/24/21 13:39 Total Hemoglobin 8.5 g/dL (14-18) L 06/24/21 13:39 Sodium 136.0 mmol/L (131-143) 06/24/21 13:39 Potassium 4.7 mmol/L (3.5-5.0) 06/24/21 13:39 Glucose 182.0 mg/dL (70-115) H 06/24/21 13:39 Respiration Rate Cancelled 06/24/21 12:09 O2 Delivery Device Vent 06/26/21 08:43 O2 Liters/Min Cancelled 06/24/21 12:09 SIMV Cancelled 06/24/21 12:09 Vent Mode Cancelled 06/24/21 12:09 Mechanical Rate Cancelled 06/24/21 12:09 Spontaneous Rate Cancelled 06/24/21 12:09 FiO2 30.0 % 06/26/21 08:43 Tidal Volume 0.45 06/26/21 08:43 PEEP 6.0 cmH20 06/26/21 08:43 Pressure Support Cancelled 06/24/21 12:09 Pressure Control Cancelled 06/24/21 12:09 CPAP Cancelled 06/24/21 12:09 Mode BiPAP Cancelled 06/24/21 12:09 Specimen Drawn By Cancelled 06/24/21 12:09 Behavior Clinician ID Bd 06/26/21 08:43 Crit Value Read Back Cancelled 06/24/21 12:09 Blood Gas Notified Time Cancelled 06/24/21 12:09 Sodium 134 mmol/L (136-145) L 06/27/21 03:35 Potassium 3.3 mmol/L (3.5-5.1) L 06/27/21 03:35 Chloride 97 mmol/L (98-107) L 06/27/21 03:35 Carbon Dioxide 22 mmol/L (22-29) 06/27/21 03:35 Anion Gap 18.3 (5-19) 06/27/21 03:35 BUN 76 mg/dL (8-23) H 06/27/21 03:35 Creatinine 2.8 mg/dL (0.7-1.2) H 06/27/21 03:35 GFR Calculation 23.1 mL/min (90-130) L 06/27/21 03:35 Glucose 116 mg/dL (65-115) H 06/27/21 03:35 POC Glucose 137 mg/dL (70-110) H 06/27/21 17:37 Calculated Osmolality 302 mOsm/kg (285-295) H 06/27/21 03:35 Lactate 1.8 mmol/L (0.5-2.2) 06/21/21 22:17 Uric Acid 7.6 mg/dL (3.4-7.0) H 06/24/21 14:00 Calcium 7.8 mg/dL (8.5-10.5) L 06/27/21 03:35 Total Bilirubin 6.0 mg/dL (0.15-1.2) H 06/27/21 03:35 Direct Bilirubin 3.90 mg/dL (0.00-0.30) H 06/26/21 08:30 Indirect Bilirubin -0.30 06/26/21 08:30 AST 73 U/L (0-40) H 06/27/21 03:35 ALT 32 U/L (0-41) 06/27/21 03:35 Alkaline Phosphatase 104 IU/L (40-130) 06/27/21 03:35 Lactate Dehydrogenase 391 U/L (135-225) H 06/26/21 08:30 Creatine Kinase 2266 U/L (39-308) H* 06/24/21 14:00 Troponin T Baseline 417 ng/L (0-15) H* 06/24/21 07:04 Troponin T 120 Minute 404.5 ng/L (0-15) H 06/24/21 09:32 Delta Troponin T -12.5 ABS# (0-10) L 06/24/21 09:32 Troponin T Hi Sens 6Hr 359.4 ng/L (0-15) H 06/24/21 16:20 Troponin T Hi Sens 6Hr Delta -57.6 ng/L (0-12) L 06/24/21 16:20 NT-Pro-B Natriuret Pep > 52494 pg/mL (0-125) H 06/24/21 07:04 Total Protein 4.9 g/dL (6.6-8.7) L 06/27/21 03:35 Albumin 2.5 g/dL (3.5-5.2) L 06/27/21 03:35 Globulin 2.4 g/dL (1.3-4.6) 06/27/21 03:35 Lipase 23 U/L (13-60) 06/21/21 22:17 Procalcitonin 53.05 ng/mL (0-0.5) H 06/23/21 04:15 TSH 0.55 uIU/mL (0.27-4.20) 06/24/21 14:00 Random Cortisol 49.81 ug/dL (2.47-19.5) H 06/22/21 19:08 Urine Color Zee (Yellow) 06/24/21 Unknown Urine Appearance Hazy (CLEAR) A 06/24/21 Unknown Urine pH 5 (5-7) 06/24/21 Unknown Ur Specific [place] 1.015 (1.005-1.030) 06/24/21 Unknown Urine Protein 2+ (Negative) H 06/24/21 Unknown Urine Glucose (UA) Norm (Normal) 06/24/21 Unknown Urine Ketones 1+ (Negative) H 06/24/21 Unknown Urine Blood 3+ (Negative) H 06/24/21 Unknown Urine Nitrate Negative (Negative) 06/24/21 Unknown Urine Bilirubin Neg (Negative) 06/24/21 Unknown Prot Sulfosalicylic Acd Positive (Negative) 06/21/21 22:45 Urine Urobilinogen 1 mg/dL (Negative) H 06/24/21 Unknown Ur Leukocyte Esterase 2+ (Negative) H 06/24/21 Unknown Urine RBC Too numerous to cnt /hpf (0-2) H 06/24/21 Unknown Urine WBC 15-25 /hpf (0-5) H 06/24/21 Unknown Ur Squamous Epith Cells None /hpf (0-5) 06/24/21 Unknown Triple Phos Crystals 0-4 /hpf H 06/21/21 22:45 Amorphous Sediment Not Reportable 06/24/21 Unknown Urine Bacteria 1+ /hpf (NONE) H 06/24/21 Unknown Ur Random Sodium 89 mmol/L 06/24/21 Unknown Urine Creatinine 18 mg/dL (39-259) L 06/24/21 Unknown Vancomycin Trough 20.3 ug/mL (10-15) H 06/24/21 16:20 Coronavirus 229E (PCR) Not detected (NOT DETECT) 06/23/21 13:50 Hepatitis A IgM Ab Non-reactive (Nonreactive) 06/26/21 08:30 Hep Bs Antigen Non-reactive (Nonreactive) 06/26/21 08:30 Hep Bs Antibody > 1000.0 (11.5-1000) H 06/26/21 08:30 Hep B Core Total Ab Reactive (Nonreactive) H 06/26/21 08:30 Hepatitis C Antibody Non-reactive (Nonreactive) 06/26/21 08:30 SARS-CoV-2 (PCR) Not detected (NOT DETECT) 06/23/21 13:50 SARS-CoV-2 Ag (Rapid) Negative (Negative) 06/21/21 22:45 Blood Type A Positive 06/27/21 05:10 Rho(D) Type Positive 06/27/21 05:10 Antibody Screen Negative 06/27/21 05:10 Crossmatch See Detail 06/27/21 05:10 Radiology Impressions Abdomen/Pelvis CT 06/21/21 23:22 IMPRESSION: 1. 12 x 7 x 7 mm stone in the proximal left ureter at the ureteropelvic junction producing moderate hydronephrosis. 2. Bilateral nonobstructive nephrolithiasis. 3. Incidental findings above. Chest/Abdomen/Pelvis CT 06/24/21 09:19 IMPRESSION: Interval development of significant diffuse bilateral lung opacities compatible with pneumonitis. Associated new moderate pleural effusions. Left ureteral stent placement with previous large UPJ calculus displaced into the left kidney. No free fluid or fluid collections within the abdomen or pelvis. Chest X-Ray 06/26/21 04:00 IMPRESSION: Stable abnormal chest. Head CT 06/27/21 10:00 IMPRESSION: 1. New acute subdural hemorrhage over a large portion of the RIGHT cerebrum with subdural blood extending along the tentorium and interhemispheric falx. 2. Largest diameter of the subdural hematoma is 8 mm adjacent to the RIGHT temporal lobe. 3. 2 mm midline shift to the LEFT with loss of the estr[place]-white matter differentiation and mild effacement of the RIGHT lateral ventricle. 4. Small amount of intraventricular blood on the LEFT, probably on the RIGHT also but less certain. 5. New posterior RIGHT occipital lobe subacute infarct since 06/21/2021. Notified Christiana MD Jessica at 06/27/2021 3:[address] head 06/21/21 IMPRESSION: No acute intracranial abnormality. Recent Clincial Data Last Vital Signs Temp 98.6 F 06/27/21 08:01 Pulse 65 06/27/21 18:00 Resp 16 06/27/21 18:11 BP 117/67 06/27/21 18:00 Pulse Ox 95 06/27/21 18:11 Vital Signs Temp Pulse Resp BP Pulse Ox 06/27/21 18:11 16 95 06/27/21 18:00 65 117/67 95 06/27/21 17:30 64 108/67 94 06/27/21 17:00 63 98/69 93 06/27/21 16:30 58 L 128/70 88 L 06/27/21 16:13 16 92 06/27/21 16:00 99 184/112 91 06/27/21 15:31 99 191/108 93 06/27/21 15:01 89 180/102 93 06/27/21 14:31 178/102 06/27/21 14:01 89 175/101 94 06/27/21 14:00 62 06/27/21 13:30 81 172/93 95 06/27/21 13:06 20 H 91 06/27/21 13:00 87 177/92 94 06/27/21 12:30 87 185/100 94 06/27/21 12:00 81 173/87 94 06/27/21 11:30 79 16 173/92 94 06/27/21 11:00 72 175/91 94 06/27/21 10:30 66 172/91 95 06/27/21 10:00 70 168/84 06/27/21 09:30 61 157/77 06/27/21 09:00 63 147/71 100 06/27/21 08:53 16 99 06/27/21 08:31 65 157/78 100 06/27/21 08:01 98.6 F 64 149/74 100 06/27/21 07:57 63 18 157/77 100 06/27/21 07:31 66 112/61 100 06/27/21 07:01 61 118/62 97 06/27/21 06:57 98.6 F 61 16 118/62 06/27/21 06:42 98.2 F 62 18 123/63 Intake & Output/Weight 06/25/21 06/26/21 06/27/21 06/28/21 06:59 06:59 06:59 06:59 Intake Total 4215.509 / 4215.509 3639.542 / 3639.542 2990.702 / 2990.702 410 / 410 Output Total 850 / 850 1350 / 1350 625 / 625 500 / 500 Balance 3365.509 / 3365.509 2289.542 / 2289.542 2365.702 / 2365.702 -90 / -90 Weight 59.137 kg 61.87 kg 62.777 kg Additional Data from Hospital Stay Bloood cx: 06/27: pending Blood cx : 06/24 : E.coli, pending susceptibility Blood cx : 06/21: E.coli E coli M.I.C. RX --------- ------ * Amikacin <=16 S * Amoxicillin/Clavulanate 16/8 I * Ampicillin >16 R * Ampicillin/Sulbactam >16/8 R * Aztreonam <=4 S * Cefepime <=8 S * Ceftriaxone <=1 S * Cefuroxime 8 S * Ciprofloxacin >2 R * Gentamicin <=2 S * Imipenem <=1 S * Levofloxacin >4 R * Tetracycline <=4 S * Trimethoprim/Sulfamethoxazole > R * Piperacillin/Tazobactam <=16 S Urine cx: 06/21: (from [facility] [place]) E coli E coli#2 P aerugino M.I.C. RX M.I.C. RX M.I.C. RX --------- ------ --------- ------ --------- ------ * Amikacin <=16 S <=16 S <=16 S * Amoxicillin/Clavulanate <=8/4 S <=8/4 S * Ampicillin >16 R >16 R * Ampicillin/Sulbactam >16/8 R >16/8 R * Aztreonam <=4 S <=4 S <=4 S * Cefepime <=8 S <=8 S <=8 S * Ceftriaxone <=1 S <=1 S * Cefuroxime <=4 S 8 S * Ciprofloxacin >2 R >2 R <=1 S * Gentamicin <=2 S <=2 S <=2 S * Imipenem <=1 S <=1 S <=1 S * Levofloxacin >4 R >4 R <=2 S * Nitrofurantoin <=32 S <=32 S * Tetracycline <=4 S <=4 S * Tobramycin * Trimethoprim/Sulfamethoxazole >2/38 R >2/38 R * Piperacillin/Tazobactam <=16 S <=16 S <=16 S P mirabili M.I.C. RX --------- ------ * Amikacin <=16 S * Amoxicillin/Clavulanate <=8/4 S * Ampicillin >16 R * Ampicillin/Sulbactam 16/8 I * Aztreonam <=4 S * Cefepime <=8 S * Ceftriaxone <=1 S * Cefuroxime <=4 S * Ciprofloxacin >2 R * Gentamicin >8 R * Imipenem * Levofloxacin >4 R * Nitrofurantoin >64 R * Tetracycline <=4 R * Tobramycin >8 R * Trimethoprim/Sulfamethoxazole > R * Piperacillin/Tazobactam <=16 S Vitals Last Vital Signs Temp 98.6 F 06/27/21 08:01 Pulse 65 06/27/21 18:00 Resp 16 06/27/21 18:11 BP 117/67 06/27/21 18:00 Pulse Ox 95 06/27/21 18:11 TS Medications Medications Acetaminophen (Acetaminophen 325 Mg Tablet) 650 mg PO Q6H PRN PRN Reason: Mild/Mod Pain Or Temp >/= 101 Amiodarone HCl (Amiodarone 200 Mg Tablet) 400 mg PO BID [facility] Last Admin: 06/27/21 18:10 Dose: Not Given Documented by: Baclofen (Baclofen 10 Mg Tablet) 10 mg PO QID [facility] Last Admin: 06/27/21 16:25 Dose: 10 mg Documented by: Bisacodyl (Bisacodyl 5 Mg Tablet) 10 mg PO DAILY PRN; Protocol PRN Reason: Constipation (see protocol) Carbamazepine (Carbamazepine 200 Mg Tablet) 200 mg PO BID@ [facility] Last Admin: 06/27/21 09:13 Dose: 200 mg Documented by: Dextrose (Dextrose 50% Syringe 50 Ml) 25 ml IVP ONCE PRN; Protocol PRN Reason: hypoglycemia protocol Last Admin: 06/23/21 04:05 Dose: 25 ml Documented by: Dextrose (Dextrose 50% Syringe 50 Ml) 50 ml IVP PRN PRN; Protocol PRN Reason: hypoglycemia protocol Enoxaparin Sodium (Enoxaparin 40 Mg/0.4 Ml Syringe) 40 mg SUBCUT Q24H [facility] Last Admin: 06/23/21 00:56 Dose: 40 mg Documented by: Folic Acid (Folic Acid 1 Mg Tablet) 1 mg PEG-TUBE DAILY [facility] Last Admin: 06/27/21 09:13 Dose: 1 mg Documented by: Gabapentin (Gabapentin 100 Mg Capsule) 100 mg PO TID@, [facility] Last Admin: 06/22/21 13:11 Dose: 100 mg Documented by: Glucagon (Glucagon 1 Mg/Ml Inj 1 Ml) 1 mg IM ONCE PRN; Protocol PRN Reason: Adult Acute Hypoglycemia Prot. Sodium Chloride (Sodium Chloride 0.9%) 1,000 mls @ 125 mls/hr IV .Q8H [facility] Last Admin: 06/22/21 13:11 Dose: 125 mls/hr Documented by: Dextrose (D5w) 500 mls @ 100 mls/hr IV ONCE PRN; Protocol PRN Reason: Adult Acute Hypoglycemia Prot Last Infusion: 06/23/21 21:49 Dose: Infused Documented by: Levetiracetam 750 mg/ Sodium (Chloride) 107.5 mls @ 430 mls/hr IV Q12H [facility] Last Infusion: 06/27/21 01:30 Dose: Infused Documented by: Acetaminophen (Acetaminophen) 1,000 mg in 100 mls @ 400 mls/hr IV Q8H PRN PRN Reason: FEVER Last Infusion: 06/24/21 11:52 Dose: Infused Documented by: Fentanyl 2,500 mcg/ Sodium (Chloride) 250 mls @ 0 mls/hr IV .Q0M [facility]; Protocol Last Admin: 06/26/21 16:57 Dose: 25 mcg/hr, 2.5 mls/hr Documented by: Norepinephrine Bitartrate 8 mg (/ Dextrose) 508 mls @ 0 mls/hr IV .Q0M [facility]; Protocol Last Titration: 06/26/21 22:01 Dose: 0 mcg/min, 0 mls/hr Documented by: dexmedeTOMIDine 0.9 % NaCL (Precedex) 400 mcg in 100 mls @ 0 mls/hr IV .Q0M [facility]; Protocol Last Titration: 06/27/21 06:15 Dose: 0 mcg/kg/hr, 0 mls/hr Documented by: Meropenem 1,000 mg/ Dextrose 50 mls @ 100 mls/hr IV Q12H [facility] Last Admin: 06/27/21 09:13 Dose: 100 mls/hr Documented by: Insulin Human Lispro (Insulin Lispro 100 Unit/1 Ml) 0 unit SUBCUT TIDWM [facility]; Protocol Last Admin: 06/27/21 17:47 Dose: Not Given Documented by: Morphine Sulfate (Morphine 4 Mg/Ml Sdv 1 Ml) 1 mg IVP Q4H PRN PRN Reason: SEVERE PAIN Last Admin: 06/23/21 17:14 Dose: 1 mg Documented by: Ondansetron HCl (Ondansetron 2 Mg/Ml Sdv 2 Ml) 4 mg IVP Q8H PRN PRN Reason: vomiting, or N/V if npo Polyethylene Glycol (Polyethylene Glycol 3350 Pkt 17 Gm) 17 gm PO DAILY PRN PRN Reason: constipation Tizanidine HCl (Tizanidine 4 Mg Tablet) 6 mg PO Q6H [facility] Last Admin: 06/22/21 13:10 Dose: 6 mg Documented by: Discontinued Medications Furosemide (Furosemide 10 Mg/Ml Sdv 2ml) 20 mg IVP ONCE ONE Stop: 06/23/21 04:02 Last Admin: 06/23/21 04:30 Dose: 20 mg Documented by: Furosemide (Furosemide 10 Mg/Ml Sdv 4ml) 40 mg IVP ONCE ONE Stop: 06/23/21 14:01 Last Admin: 06/23/21 13:53 Dose: 40 mg Documented by: Sodium Chloride (Sodium Chloride 0.9%) 1,000 mls @ 999 mls/hr IV .Q1H1M ONE Stop: 06/21/21 22:16 Last Infusion: 06/22/21 02:31 Dose: Infused Documented by: Ceftriaxone Sodium 1,000 mg/ (Sodium Chloride) 50 mls @ 100 mls/hr IV ONCE ONE; Protocol Stop: 06/22/21 00:00 Last Admin: 06/22/21 02:28 Dose: Not Given Documented by: Imipenem/Cilastatin Sodium 500 (mg/ Sodium Chloride) 100 mls @ 200 mls/hr IV Q6H [facility]; Protocol Last Infusion: 06/24/21 08:57 Dose: Infused Documented by: Sodium Chloride (Sodium Chloride 0.9%) 1,000 mls @ 999 mls/hr IV .Q1H1M ONE Stop: 06/22/21 03:31 Last Infusion: 06/22/21 03:48 Dose: Infused Documented by: Norepinephrine Bitartrate 4 mg (/ Dextrose) 254 mls @ 0 mls/hr IV .Q0M [facility]; Protocol Last Titration: 06/25/21 07:23 Dose: Infused Documented by: Etomidate (Amidate) Confirm Administered Dose 10 mls @ as directed .ROUTE .STK-MED ONE Stop: 06/22/21 05:55 Lactated Ringer's (Lactated Ringers) 500 mls @ 999 mls/hr IV .Q31M ONE Stop: 06/22/21 15:05 Last Admin: 06/22/21 16:00 Dose: 999 mls/hr Documented by: Vancomycin HCl 1,000 mg/ (Sodium Chloride) 250 mls @ 250 mls/hr IV Q24H [facility]; Protocol Last Infusion: 06/24/21 18:13 Dose: Infused Documented by: Lactated Ringer's (Lactated Ringers) 1,000 mls @ 999 mls/hr IV .Q1H1M ONE Stop: 06/22/21 19:45 Last Infusion: 06/22/21 20:40 Dose: Infused Documented by: Imipenem/Cilastatin Sodium 500 (mg/ Sodium Chloride) 100 mls @ 200 mls/hr IV Q12H [facility]; Protocol Last Infusion: 06/25/21 22:01 Dose: Infused Documented by: Levofloxacin/Dextrose (Levaquin-D5w) 500 mg in 100 mls @ 100 mls/hr IV ONCE ONE; Protocol Stop: 06/24/21 09:35 Last Admin: 06/24/21 17:06 Dose: Not Given Documented by: Sodium Chloride (Sodium Chloride 0.9% (100 Ml)) Confirm Administered Dose 100 mls @ as directed .ROUTE .STK-MED ONE Stop: 06/24/21 09:08 Last Infusion: 06/24/21 18:18 Dose: Infused Documented by: Amiodarone HCl 900 mg/Dextrose/ IV Miscellaneous Supplies 518 mls @ 0 mls/hr IV .Q0M [facility]; Protocol Last Admin: 06/25/21 10:40 Dose: 0.5 mg/min, 17.27 mls/hr Documented by: Etomidate (Amidate) Confirm Administered Dose 20 mls @ as directed .ROUTE .STK-MED ONE Stop: 06/24/21 10:06 Last Admin: 06/24/21 10:30 Dose: 1 mls/hr Documented by: Phenylephrine HCl 25 mg/ (Sodium Chloride) 252.5 mls @ 0 mls/hr IV .Q0M [facility]; Protocol Last Titration: 06/25/21 14:03 Dose: 0 mcg/min, 0 mls/hr Documented by: Propofol (Diprivan) 1,000 mg in 100 mls @ 0 mls/hr IV .Q0M [facility]; Protocol Last Admin: 06/26/21 04:54 Dose: 20 mcg/kg/min, 7.1 mls/hr Documented by: Albumin Human (Albumin) 12.5 gm in 50 mls @ 60 mls/hr IV ONCE ONE Stop: 06/24/21 11:30 Last Infusion: 06/24/21 11:35 Dose: Infused Documented by: Sodium Bicarbonate 150 meq/ (Dextrose) 1,150 mls @ 100 mls/hr IV .[id number] [facility] Last Infusion: 06/25/21 15:20 Dose: Infused Documented by: Amikacin Sulfate 440 mg/ (Sodium Chloride) 101.76 mls @ 100 mls/hr IV ONCE ONE Stop: 06/24/21 16:31 Last Infusion: 06/24/21 18:14 Dose: Infused Documented by: Vancomycin HCl 750 mg/ Sodium (Chloride) 250 mls @ 250 mls/hr IV Q24H [facility]; Protocol Midazolam HCl 100 mg/ Sodium (Chloride) 100 mls @ 0 mls/hr IV .Q0M [facility]; Protocol Last Admin: 06/24/21 20:43 Dose: 1 mg/hr, 1 mls/hr Documented by: Sodium Chloride (Sodium Chloride 0.9% (100 Ml)) Confirm Administered Dose 100 mls @ as directed .ROUTE .STK-MED ONE Stop: 06/25/21 10:35 Last Admin: 06/25/21 11:56 Dose: 1 mls/hr Documented by: Meropenem 1,000 mg/ Sodium (Chloride) 50 mls @ 100 mls/hr IV Q12H [facility] Lactated Ringer's (Lactated Ringers) 1,000 mls @ 250 mls/hr IV .Q4H ONE Stop: 06/26/21 13:04 Last Admin: 06/26/21 09:41 Dose: 250 mls/hr Documented by: Sodium Chloride (Sodium Chloride 0.9% (100 Ml)) Confirm Administered Dose 100 mls @ as directed .ROUTE .[facility] ONE Stop: 06/26/21 19:51 Last Infusion: 06/27/21 05:15 Dose: Infused Documented by: Sodium Chloride (Sodium Chloride 0.9% (100 Ml)) Confirm Administered Dose 100 mls @ as directed .ROUTE .[facility] ONE Stop: 06/26/21 19:56 Last Infusion: 06/27/21 05:17 Dose: Infused Documented by: Sodium Chloride (Sodium Chloride 0.9% (100 Ml)) Confirm Administered Dose 100 mls @ as directed .ROUTE .[facility] ONE Stop: 06/26/21 20:40 Last Infusion: 06/27/21 05:17 Dose: Infused Documented by: Sodium Chloride (Sodium Chloride 0.9% (100 Ml)) Confirm Administered Dose 100 mls @ as directed .ROUTE .[facility] ONE Stop: 06/27/21 04:48 Last Infusion: 06/27/21 06:30 Dose: Infused Documented by: Sodium Chloride (Sodium Chloride 0.9% (100 Ml)) Confirm Administered Dose 100 mls @ as directed .ROUTE .[facility] ONE Stop: 06/27/21 04:49 Last Infusion: 06/27/21 06:30 Dose: Infused Documented by: Lactated Ringer's (Lactated Ringers) 1,000 mls @ 250 mls/hr IV .Q4H ONE Stop: 06/27/21 12:48 Last Admin: 06/27/21 09:13 Dose: 250 mls/hr Documented by: Potassium Chloride (K-Goran Premix) 100 mls @ 50 mls/hr IV ONCE ONE Stop: 06/27/21 13:59 Last Admin: 06/27/21 12:39 Dose: 50 mls/hr Documented by: Labetalol HCl (Labetalol 5 Mg/Ml Sdv 20ml) 10 mg IVP ONCE ONE Stop: 06/27/21 16:01 Last Admin: 06/27/21 16:25 Dose: 10 mg Documented by: Lidocaine HCl (Lidocaine 2% Inj 20 Ml) Confirm Administered Dose 20 ml .ROUTE .[facility] ONE Stop: 06/22/21 05:55 Lorazepam (Lorazepam 2 Mg/Ml Inj 1 Ml) 0.5 mg IVP Q4H PRN PRN Reason: ANXIETY Last Admin: 06/23/21 14:55 Dose: 0.5 mg Documented by: Midodrine (Midodrine 5 Mg Tablet) 10 mg PO TID [facility] Last Admin: 06/22/21 02:55 Dose: 10 mg Documented by: Ondansetron HCl (Ondansetron 2 Mg/Ml Sdv 2 Ml) Confirm Administered Dose 4 mg .ROUTE .STK-MED ONE Stop: 06/22/21 06:04 Pantoprazole Sodium (Pantoprazole Dr 40 Mg Tablet) 20 mg PO DAILY [facility] Last Admin: 06/25/21 08:13 Dose: 20 mg Documented by: Phenylephrine HCl (Phenylephrine 10 Mg/Ml Sdv 1 Ml) Confirm Administered Dose 10 mg .ROUTE .STK-MED ONE Stop: 06/24/21 10:12 Last Admin: 06/25/21 08:04 Dose: Not Given Documented by: Rocuronium Addison (Rocuronium 10 Mg/Ml Inj 5ml) Confirm Administered Dose 50 mg .ROUTE .STK-MED ONE Stop: 06/22/21 05:55 Succinylcholine Chloride (Succinylcholine 20 Mg/Ml Sdv 10ml) Confirm Administered Dose 200 mg .ROUTE .STK-MED ONE Stop: 06/24/21 10:07 Last Admin: 06/24/21 17:18 Dose: 200 mg Documented by: Sugammadex Sodium (Sugammadex 200 Mg/2 Ml Sdv) Confirm Administered Dose 200 mg .ROUTE .STK-MED ONE Stop: 06/22/21 05:59 Allergies penicillin G Allergy (Mild, Verified 06/17/21 14:02) ALGY-Rash amoxicillin Allergy (Verified 06/17/21 14:02) ALGY-Anaphylaxis Home Medications ascorbic acid (vitamin C) 500 mg capsule 500 mg PO DAILY@05/24/19 [History Confirmed 06/22/21] aspirin 81 mg tablet,delayed release (Adult Aspirin Regimen) 81 mg PO DAILY@05/24/19 [History Confirmed 06/22/21] carbamazepine 200 mg tablet 200 mg PO BID@,05/24/19 [History Confirmed 06/22/21] escitalopram oxalate 10 mg tablet 10 mg PO DAILY@22 01/07/20 [History Confirmed 06/22/21] gabapentin 100 mg capsule See Rx Instructions .ROUTE .COMPLEX 05/24/19 [History Confirmed 06/22/21] promethazine 25 mg tablet 25 mg PO Q6H PRN 05/24/19 [History Confirmed 06/22/21] vitamin E 1,000 unit capsule 1,000 unit PO DAILY@09 09/30/19 [History Confirmed 06/22/21] ergocalciferol (vitamin D2) 10 mcg (400 unit) tablet 50,000 unit PO Q7D 10/11/19 [History Confirmed 06/22/21] baclofen 20 mg tablet 20 mg PO QID PRN tab 12/06/19 [History Confirmed 06/22/21] albuterol sulfate 90 mcg/actuation breath activated powder inhaler,sensor 1 inh INHALATION Q6H PRN #1 ea 05/21/20 [Rx Confirmed 06/22/21] tizanidine 2 mg tablet 6 mg PO Q6H #360 tab 10/18/20 [Rx Confirmed 06/22/21] citric ac 1980.6 mg-glucono 59.4 mg-mag carb 980.4 mg/30 mL irrig.soln (Renacidin) 30 ml IRRIGATION TID #900 ml 12/03/20 [Rx Confirmed 06/22/21] clobetasol 0.05 % topical ointment 1 applic TOPICAL BID 14 Days #60 g 12/27/20 [Rx Confirmed 06/22/21] hydrocortisone 2.5 % topical ointment 1 applic TOPICAL BID PRN #453.6 g 12/27/20 [Rx Confirmed 06/22/21] ketoconazole 2 % shampoo 1 applic TOPICAL .3 x weekly #120 ml 12/27/20 [Rx Confirmed 06/22/21] mometasone 0.1 % topical solution 1 applic TOPICAL DAILY #60 ml 12/27/20 [Rx Confirmed 06/22/21] triamcinolone acetonide 0.1 % topical ointment 1 applic TOPICAL BID #453.6 g 12/27/20 [Rx Confirmed 06/22/21] meloxicam 7.5 mg tablet 7.5 mg PO BID 04/21/21 [History Confirmed 06/22/21] polyethylene glycol 3350 17 gram oral powder packet (Miralax) 17 g PO DAILY PRN 4 Days ea 04/22/21 [Rx Confirmed 06/22/21] sennosides 8.6 mg-docusate sodium 50 mg tablet (Senna-S) 1 tab-cap PO BID #30 tab 04/22/21 [Rx Confirmed 06/22/21] hydroxyzine HCl 10 mg tablet 10 mg PO BEDTIME PRN 06/22/21 [History Confirmed 06/22/21] ibuprofen 200 mg tablet (Advil) 200 mg PO BEDTIME PRN 06/22/21 [History Confirmed 06/22/21] trazodone 100 mg tablet 200 mg PO BEDTIME 06/22/21 [History Confirmed 06/22/21] Discharge Plan Discharge Patient Disposition: Xfer Other Condition: Critical Prescriptions: No Action aspirin [Adult Aspirin Regimen] 81 mg tablet,delayed release (DR/EC) 81 mg PO DAILY@09 0RF Hold Instructions: Resume on 06/18/20. carbamazepine 200 mg tablet 200 mg PO BID@09, 0RF escitalopram oxalate 10 mg tablet 10 mg PO DAILY@22 0RF Hold Instructions: see pcp before resuming gabapentin 100 mg capsule See Rx Instructions .ROUTE .COMPLEX 0RF Rx Instructions: 100 mg orally in the morning / 100 mg orally at noon / and 600 mg orally promethazine 25 mg tablet 25 mg PO Q6H PRN (Reason: Nausea) 0RF ascorbic acid (vitamin C) 500 mg capsule 500 mg PO DAILY@09 0RF ergocalciferol (vitamin D2) 10 mcg (400 unit) tablet 50,000 unit PO Q7D 0RF Rx Instructions: ON WEDNESDAYS baclofen 20 mg tablet 20 mg PO QID PRN (Reason: Pain) 0RF tizanidine 2 mg tablet 6 mg PO Q6H Qty: 360 5RF Rx Instructions: 6 mg PO every 6 hours; ketoconazole 2 % shampoo 1 applic topical .3 x weekly Qty: 120 3RF Rx Instructions: Lather into scalp and face 3 times weekly. Allow to sit on scalp for 5 minutes before rinsing. triamcinolone acetonide 0.1 % ointment 1 applic topical BID Qty: 453.6 1RF Rx Instructions: to arms x 2 weeks alternating with clobetasol. May use on face x 2 weeks then switch to hydrocortisone clobetasol 0.05 % ointment 1 applic topical BID 14 Days Qty: 60 3RF Rx Instructions: start- to arms x 2weeks alternating with triamcinolone hydrocortisone 2.5 % ointment 1 applic topical BID PRN (Reason: skin irritation) Qty: 453.6 0RF Rx Instructions: To face following 2 weeks of Triamcinolone for no more than 2 weeks/month mometasone 0.1 % solution 1 applic topical DAILY Qty: 60 3RF Rx Instructions: to scalp Renacidin 1,980.6 mg-59.4 mg-980.4mg/30mL solution 30 ml irrigation TID Qty: 900 12RF vitamin E 1,000 unit Capsule 1,000 unit PO DAILY@09 0RF albuterol sulfate 90 mcg/actuation aero powdr breath act w/sensor 1 inh inhalation Q6H PRN (Reason: shortness of breath or wheezing) Qty: 1 0RF meloxicam 7.5 mg tablet 7.5 mg PO BID 0RF sennosides-docusate sodium [Senna-S] 8.6-50 mg tablet 1 tab-cap PO BID Qty: 30 2RF polyethylene glycol 3350 [Miralax] 17 gram powder in packet 17 g PO DAILY PRN (Reason: constipation) 4 Days 1RF trazodone 100 mg Tablet 200 mg PO BEDTIME 0RF Advil 200 mg Tablet 200 mg PO BEDTIME PRN (Reason: Pain) 0RF hydroxyzine HCl 10 mg Tablet 10 mg PO BEDTIME PRN (Reason: Sleep) 0RF Discharge Orders: Transfer Out of Facility (Order); Ordered 06/27/21 Ordered By: Christiana Lopez Referrals: Puja Mohamud DO [Primary Care Provider] - Patient Instructions: Opioid Safety Transfer Attestations Time Spent in Transfer Care: critical care time Critical Care Time (min): 90 Status at Transfer: Cognitive status at transfer: cognitively intact; Behavioral status at transfer: dependent in ADL's; Quality Metrics Clinical Quality Measures [ Acute Myocardial Infaction { Clinical Trial Participant: No; Contraindication to aspirin: Medical contraindication; Contraindication to statin: Other; Contraindication to PCI: Intervention not indicated; Contraindication to Fibrinolytics: Medical contraindication}] Coding Level of Care Code Acute Tube Turner for [facility] Fwd Diagnoses SABAS (acute kidney injury) N17.9 E. coli septicemia A41.51 Ventricular arrhythmia I49.9 Anemia D64.9 Septic shock A41.9; R65.21 Sepsis with acute hypoxic respiratory failure A41.9; R65.20; J96.01 NSTEMI (non-ST elevated myocardial infarction) I21.4 DIC (disseminated intravascular coagulation) D65 Transaminitis R74.01 Acute encephalopathy G93.40 Obstructive pyelonephritis N11.1 Left spastic hemiparesis G81.14 Neurogenic bladder N31.9 Subdural hematoma [id number]
--- NOTE | 2021-06-27 20:55 | P.PN_ITS ---
Subjective Subjective: -Patient seen at bedside today -No overnight events -Off pressors completely, on minimal vent settings, platelets increased up to 66, H&H 12/03-S/P1 PRBC transfusion -Patient was on fentanyl 25 MCG/hour-today's plan was to taper off sedation completely and do awakening trial -But as patient did not wake up-later in the afternoon patient underwent CT head which unfortunately showed new acute subdural hemorrhage over a large portion of right cerebrum with subdural blood extending along the tentorium and interhemispheric falx with 2 mm midline shift to the left with loss of estrada- white matter differentiation and mild effacement of right lateral ventricle wall. Also noted small amount of intraventricular blood on the left and new posterior right occipital lobe subacute infarct since 06/21/2021 -Attempts are being made to seek neurosurgery consult and possible transfer to higher facility if accepted -Although patient recovered from septic shock-overall prognosis is poor considering patient is baseline quadriplegic and with this new onset intracranial bleed with midline shift. -Other labs and imaging reviewed Medications: Reviewed: Yes Vitals/I&O/Wt Last Vital Signs Temp 98.6 F 06/27/21 08:01 Pulse 65 06/27/21 18:00 Resp 16 06/27/21 19:50 BP 117/67 06/27/21 18:00 Pulse Ox 97 06/27/21 19:50 06/27/21 06/27/21 06/27/21 06:59 14:59 22:59 Intake Total 639.327 / 2990.702 410 / 410 Output Total 75 / 625 500 / 500 Balance 564.327 / 2365.702 410 / 410 -500 / -90 Weight last 48 hrs Weight 138 lb 6.4 oz Weight 136 lb 6.4 oz Physical Exam Narrative: General: lying in bed, sedated and intubated. 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 cannot assess extremity movements SKIN: Normal LDA: # CVC: Right femoral line 06/24/2021 Urinary Catheter Management: Suprapubic: Cath Placed During This Visit: yes, but has since been removed by the nurse Reason for Continuing Indwelling Catheter: Accurate Measurement of Urinary O utput in Critically Ill Patients Urinary Catheter Date of Insertion: 06/22/21 Urinary Catheter Time of Insertion: 06:02 Date Urinary Catheter Removed: 06/22/21 Time Urinary Catheter Discontinued: 06:00 Data : 06/27/21 03:35 06/27/21 03:35 Other Labs: Radiology Impressions Abdomen/Pelvis CT 06/21/21 23:22 IMPRESSION: 1. 12 x 7 x 7 mm stone in the proximal left ureter at the ureteropelvic junction producing moderate hydronephrosis. 2. Bilateral nonobstructive nephrolithiasis. 3. Incidental findings above. COMMENTS: Consistent with the [employer]'s Incidental Findings Committee white paper (J Am Chuckie Radiol 2017): For any incidental adrenal lesion greater than 1 cm but less than 4 cm classified in this report as benign, likely benign, or containing fat (including classification as an adenoma or myelolipoma), no follow-up imaging is recommended per consensus recommendations based on imaging criteria. Further lab evaluation could be pursued if warranted based on clinical findings. C-Arm Fluoroscopy 06/22/21 05:41 IMPRESSION: Left ureteral stent placement as above. Chest/Abdomen/Pelvis CT 06/24/21 09:19 IMPRESSION: Interval development of significant diffuse bilateral lung opacities compatible with pneumonitis. Associated new moderate pleural effusions. Left ureteral stent placement with previous large UPJ calculus displaced into the left kidney. No free fluid or fluid collections within the abdomen or pelvis. Chest X-Ray 06/26/21 04:00 IMPRESSION: Stable abnormal chest. Head CT 06/27/21 10:00 IMPRESSION: 1. New acute subdural hemorrhage over a large portion of the RIGHT cerebrum with subdural blood extending along the tentorium and interhemispheric falx. 2. Largest diameter of the subdural hematoma is 8 mm adjacent to the RIGHT temporal lobe. 3. 2 mm midline shift to the LEFT with loss of the estrada-white matter differe ntiation and mild effacement of the RIGHT lateral ventricle. 4. Small amount of intraventricular blood on the LEFT, probably on the RIGHT also but less certain. 5. New posterior RIGHT occipital lobe subacute infarct since 06/21/2021. Notified Christiana Lopez MD at 06/27/2021 3:01 PM. Laboratory Results WBC 9.1 10^3/uL (4.0-10.0) 06/27/21 03:35 RBC 2.18 10^6/uL (4.1-5.3) L 06/27/21 03:35 Hgb 7.0 g/dL (11.7-16.6) L 06/27/21 03:35 Hct 19.5 % (42.0-52.0) L* 06/27/21 03:35 MCV 89.4 fl (80-94) 06/27/21 03:35 MCH 32.1 pg (28.0-34.0) 06/27/21 03:35 MCHC 35.9 g/dL (30.0-36.0) 06/27/21 03:35 RDW 14.0 % (12.1-15.1) 06/27/21 03:35 Plt Count 66 10^3/cmm (130-400) L D 06/27/21 03:35 MPV 11.0 fL (7.4-10.4) H 06/27/21 03:35 Neut % (Auto) 86.7 % 06/27/21 03:35 Lymph % (Auto) 3.7 % 06/27/21 03:35 [place] % (Auto) 6.5 % 06/27/21 03:35 Eos % (Auto) 0.9 % 06/27/21 03:35 Baso % (Auto) 0.4 % 06/27/21 03:35 Neut # (Auto) 7.88 10^3/uL (1.8-7.7) H 06/27/21 03:35 Lymph # (Auto) 0.3 10^3/uL (0.8-4.8) L 06/27/21 03:35 [place] # (Auto) 0.6 10^3/uL (0.2-0.9) 06/27/21 03:35 Eos # (Auto) 0.1 10^3/uL (0.0-0.8) 06/27/21 03:35 Baso # (Auto) 0.0 10^3/uL (0.0-0.1) 06/27/21 03:35 Nucleated RBC % (auto) 0 % 06/27/21 03:35 Nucleated RBCs # 0.0 /100WBC 06/27/21 03:35 Haptoglobin 184.0 mg/L (30-200) 06/26/21 08:30 PT 15.80 SECONDS (12.1-14.9) H 06/27/21 03:35 INR 1.22 (0.8-1.2) H 06/27/21 03:35 APTT 29.9 SECONDS (23.9-36.7) 06/27/21 03:35 Fibrinogen 376 mg/dL (174-498) 06/27/21 03:35 Fibrin Degrad Products Pos, >=40 ug/mL (NEG) H 06/27/21 03:35 D-Dimer 17.00 ug/mIFEU (0-0.59) H 06/27/21 03:35 Specimen Type Arterial 06/26/21 08:43 Sample Site Radial, left 06/26/21 08:43 O2 Sat Pulse Oximetry Cancelled 06/24/21 12:09 ABG pH 7.47 (7.35-7.45) H 06/26/21 08:43 ABG pCO2 31.7 mmHg (35-45) L 06/26/21 08:43 ABG pO2 65.7 mmHg (80.0-100.0) L 06/26/21 08:43 ABG HCO3 22.9 mmol/L (22-26) 06/26/21 08:43 ABG O2 Saturation 99.9 06/24/21 13:39 ABG Base Excess -0.5 mmol/L (-2.0-2.0) 06/26/21 08:43 Arthur Test Pos 06/26/21 08:43 A-a O2 Gradient 54.8 mmHg (5-10) H 06/24/21 13:39 Hematocrit 25.8 % (42-52) L 06/26/21 08:43 Hgb O2 Saturation 98.8 % (95-100) 06/24/21 13:39 Carboxyhemoglobin 0.8 %THgb (0.4-20.1) 06/24/21 13:39 Methemoglobin 0.3 % (0.4-1.5) L 06/24/21 13:39 Total Hemoglobin 8.5 g/dL (14-18) L 06/24/21 13:39 Sodium 136.0 mmol/L (131-143) 06/24/21 13:39 Potassium 4.7 mmol/L (3.5-5.0) 06/24/21 13:39 Glucose 182.0 mg/dL (70-115) H 06/24/21 13:39 Respiration Rate Cancelled 06/24/21 12:09 O2 Delivery Device Vent 06/26/21 08:43 O2 Liters/Min Cancelled 06/24/21 12:09 SIMV Cancelled 06/24/21 12:09 Vent Mode Cancelled 06/24/21 12:09 Mechanical Rate Cancelled 06/24/21 12:09 Spontaneous Rate Cancelled 06/24/21 12:09 FiO2 30.0 % 06/26/21 08:43 Tidal Volume 0.45 06/26/21 08:43 PEEP 6.0 cmH20 06/26/21 08:43 Pressure Support Cancelled 06/24/21 12:09 Pressure Control Cancelled 06/24/21 12:09 CPAP Cancelled 06/24/21 12:09 Mode BiPAP Cancelled 06/24/21 12:09 Specimen Drawn By Cancelled 06/24/21 12:09 Tipping Machine Operator ID Bd 06/26/21 08:43 Crit Value Read Back Cancelled 06/24/21 12:09 Blood Gas Notified Time Cancelled 06/24/21 12:09 Sodium 134 mmol/L (136-145) L 06/27/21 03:35 Potassium 3.3 mmol/L (3.5-5.1) L 06/27/21 03:35 Chloride 97 mmol/L (98-107) L 06/27/21 03:35 Carbon Dioxide 22 mmol/L (22-29) 06/27/21 03:35 Anion Gap 18.3 (5-19) 06/27/21 03:35 BUN 76 mg/dL (8-23) H 06/27/21 03:35 Creatinine 2.8 mg/dL (0.7-1.2) H 06/27/21 03:35 GFR Calculation 23.1 mL/min (90-130) L 06/27/21 03:35 Glucose 116 mg/dL (65-115) H 06/27/21 03:35 POC Glucose 137 mg/dL (70-110) H 06/27/21 17:37 Calculated Osmolality 302 mOsm/kg (285-295) H 06/27/21 03:35 Lactate 1.8 mmol/L (0.5-2.2) 06/21/21 22:17 Uric Acid 7.6 mg/dL (3.4-7.0) H 06/24/21 14:00 Calcium 7.8 mg/dL (8.5-10.5) L 06/27/21 03:35 Total Bilirubin 6.0 mg/dL (0.15-1.2) H 06/27/21 03:35 Direct Bilirubin 3.90 mg/dL (0.00-0.30) H 06/26/21 08:30 Indirect Bilirubin -0.30 06/26/21 08:30 AST 73 U/L (0-40) H 06/27/21 03:35 ALT 32 U/L (0-41) 06/27/21 03:35 Alkaline Phosphatase 104 IU/L (40-130) 06/27/21 03:35 Lactate Dehydrogenase 391 U/L (135-225) H 06/26/21 08:30 Creatine Kinase 2266 U/L (39-308) H* 06/24/21 14:00 Troponin T Baseline 417 ng/L (0-15) H* 06/24/21 07:04 Troponin T 120 Minute 404.5 ng/L (0-15) H 06/24/21 09:32 Delta Troponin T -12.5 ABS# (0-10) L 06/24/21 09:32 Troponin T Hi Sens 6Hr 359.4 ng/L (0-15) H 06/24/21 16:20 Troponin T Hi Sens 6Hr Delta -57.6 ng/L (0-12) L 06/24/21 16:20 NT-Pro-B Natriuret Pep > 01198 pg/mL (0-125) H 06/24/21 07:04 Total Protein 4.9 g/dL (6.6-8.7) L 06/27/21 03:35 Albumin 2.5 g/dL (3.5-5.2) L 06/27/21 03:35 Globulin 2.4 g/dL (1.3-4.6) 06/27/21 03:35 Lipase 23 U/L (13-60) 06/21/21 22:17 Procalcitonin 53.05 ng/mL (0-0.5) H 06/23/21 04:15 TSH 0.55 uIU/mL (0.27-4.20) 06/24/21 14:00 Random Cortisol 49.81 ug/dL (2.47-19.5) H 06/22/21 19:08 Urine Color Zee (Yellow) 06/24/21 Unknown Urine Appearance Hazy (CLEAR) A 06/24/21 Unknown Urine pH 5 (5-7) 06/24/21 Unknown Ur Specific [place] 1.015 (1.005-1.030) 06/24/21 Unknown Urine Protein 2+ (Negative) H 06/24/21 Unknown Urine Glucose (UA) Norm (Normal) 06/24/21 Unknown Urine Ketones 1+ (Negative) H 06/24/21 Unknown Urine Blood 3+ (Negative) H 06/24/21 Unknown Urine Nitrate Negative (Negative) 06/24/21 Unknown Urine Bilirubin Neg (Negative) 06/24/21 Unknown Prot Sulfosalicylic Acd Positive (Negative) 06/21/21 22:45 Urine Urobilinogen 1 mg/dL (Negative) H 06/24/21 Unknown Ur Leukocyte Esterase 2+ (Negative) H 06/24/21 Unknown Urine RBC Too numerous to cnt /hpf (0-2) H 06/24/21 Unknown Urine WBC 15-25 /hpf (0-5) H 06/24/21 Unknown Ur Squamous Epith Cells None /hpf (0-5) 06/24/21 Unknown Triple Phos Crystals 0-4 /hpf H 06/21/21 22:45 Amorphous Sediment Not Reportable 06/24/21 Unknown Urine Bacteria 1+ /hpf (NONE) H 06/24/21 Unknown Ur Random Sodium 89 mmol/L 06/24/21 Unknown Urine Creatinine 18 mg/dL (39-259) L 06/24/21 Unknown Vancomycin Trough 20.3 ug/mL (10-15) H 06/24/21 16:20 Coronavirus 229E (PCR) Not detected (NOT DETECT) 06/23/21 13:50 Hepatitis A IgM Ab Non-reactive (Nonreactive) 06/26/21 08:30 Hep Bs Antigen Non-reactive (Nonreactive) 06/26/21 08:30 Hep Bs Antibody > 1000.0 (11.5-1000) H 06/26/21 08:30 Hep B Core Total Ab Reactive (Nonreactive) H 06/26/21 08:30 Hepatitis C Antibody Non-reactive (Nonreactive) 06/26/21 08:30 SARS-CoV-2 (PCR) Not detected (NOT DETECT) 06/23/21 13:50 SARS-CoV-2 Ag (Rapid) Negative (Negative) 06/21/21 22:45 Blood Type A Positive 06/27/21 05:10 Rho(D) Type Positive 06/27/21 05:10 Antibody Screen Negative 06/27/21 05:10 Crossmatch See Detail 06/27/21 05:10 Micro: Microbiology 06/26/21 16:50 MRSA Culture - Final Nose 06/25/21 10:45 Gram Stain - Final Sputum - Endotracheal Tube Aspirate Sputum Culture - Final 06/24/21 09:32 Blood Culture - Preliminary Blood Escherichia coli 06/27/21 03:35 Blood Culture - Preliminary Blood SPECIMEN COLLECTED 06/27/21 03:35 Blood Culture - Preliminary Blood SPECIMEN COLLECTED A&P Assessment and plan (1) Septic shock: Status: Acute (2) Sepsis with acute hypoxic respiratory failure: Status: Acute (3) NSTEMI (non-ST elevated myocardial infarction): Status: Acute (4) DIC (disseminated intravascular coagulation): Status: Acute (5) Thrombocytopenia: Status: Acute (6) Diabetes mellitus: Status: Acute Qualifiers: Diabetes mellitus type: type 2 Diabetes mellitus equipment operator intermodal 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 coli septicemia: Status: Acute (9) Subdural hematoma: Status: Acute (10) Midline shift of brain due to hematoma: Status: Acute Plan #New acute subdural hemorrhage over large portion of right cerebrum with 2 mm midline shift to the left with loss of estrada-white matter differentiation #Patient has history of spastic quadriplegia -Most likely due to low platelets secondary to sepsis induced thrombocytopenia -Today platelets increased to 66K after transfusion and sepsis resolved -Plan is to revise goals of care with family and will proceed with neurosurgical consultation at an outside facility for possible transfer -Overall prognosis seems to be poor #E. coli septicemia-secondary to obstructive uropathy s/p left ureteral stent 06/22/2021 #Septic shock secondary to E. coli septicemia-resolved -Urine and blood cultures, E. coli -Received 1 dose of amikacin, currently on imipenem-switch to meropenem for better Proteus coverage-clinically improving -off pressors #DIC vs sepsis induced thrombocytopenia secondary to E. coli sepsis-receiving FFP's and platelets -Platelets 66K today', fibrinogen 376 -Peripheral smear no schistocytes reported #Type II NSTEMI-secondary to demand ischemia due to septic shock -No need to anticoagulate at this point of time especially with low platelets count with intracranial bleeding -Echo 06/24/2021: LV function normal with EF 55 to 60%, RV mildly dilated but normal function. Compared to prior echo 05/18/2020 LV systolic function appears to have improved slightly #Episode of V. tach-possibly precipitated by sepsis -Currently on amiodarone 400 mg twice daily via PEG tube #Hypoxic respiratory failure requiring mechanical ventilation -Currently on minimal settings with ABG 7.4 12/15// on CMV 450/6/30 percent -No plan to extubate as patient currently needs it for airway protection due to subdural hematoma #SABAS likely secondary to sepsis mediated ATN -Urine sodium 88 consistent with intrarenal etiology -Urine output improving, electrolytes acceptable, creatinine remained stable between 3-3.5 -Renal recommended fluid bolus -No immediate need for hemodialysis -Closely monitor renal functions, input output #Diabetes-sugars well controlled -Currently on scale coverage Recommendations conveyed to hospitalist, RN, RT taking care of the patient Attestations Medical Necessity Statement*: For possible transfer for neurosurgery services Time Spent in Patient Care: Greater than 35 minutes (>than 50% of time spent in counselling and/or direct pt care on unit) . 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 coli septicemia A41.51 Subdural hematoma S06.5X9A Midline shift of brain due to hematoma G93.89; S06.2X0S Time Spent (min) 45
--- NOTE | 2021-06-27 21:00 | CTR_ITS ---
PROCEDURE INFORMATION: Exam: CT Head Without Contrast Exam date and time: 06/27/2021 9:00 PM Age: 61 years old Clinical indication: Condition or disease; Other: Intracranial bleed TECHNIQUE: Imaging protocol: Computed tomography of the head without contrast. Radiation optimization: All CT scans at this facility use at least one of these dose optimization techniques: automated exposure control; mA and/or kV adjustment per patient size (includes targeted exams where dose is matched to clinical indication); or iterative reconstruction. COMPARISON: CT head wo con* [id number] 06/27/2021 2:27 PM RADIATION DOSE METRICS: Total DLP (mGy-cm): 866.04 FINDINGS: Brain: since the recent prior study a right frontoparietal temporal occipital subdural hematoma overall is unchanged in size. The hematoma is largest near the temporal lobe measuring up to 9 mm, previously measuring 8 mm. However most of the hematoma is thinner averaging 4 mm. A portion of the subdural extends along the right tentorium but is very thin. No measurable midline shift. There is mild mass effect on the right lateral ventricle which is unchanged. No brain parenchymal edema. There is a likely nonacute infarct in the right occipital lobe. An additional infarct in the posterior right temporal lobe has less distinct margins and could be subacute but is unchanged since the earlier scan. Cerebral ventricles: No ventriculomegaly. Paranasal sinuses: Visualized sinuses are unremarkable. No fluid levels. Mastoid air cells: Scattered fluid is noted in the right mastoid sinus. The middle ear spaces are clear. Bones/joints: Unremarkable. No acute fracture. Soft tissues: Unremarkable. CT/CT head wo con* [id number] IMPRESSION: 1. No significant change in the right hemisphere acute subdural hematoma. 2. No midline shift or parenchymal edema. 3. Right occipital nonacute infarct. A right posterior temporal lobe infarct could be subacute.
--- NOTE | 2021-06-27 21:54 | PC.NURSE ---
Addendum entered by Amy Clarke RN 06/28/21 02:43: This nurse witnessed fentanyl waste of 200 ml. Original Note: Pt no longer requiring sedation. Fentanyl gtt wasted with Amy MANZANARES as witness. 200 mL for a total of 2000 mcg was properly disposed of
[2021-06-28] VITALS (33 sets, daily range): BP systolic 117–170; BP diastolic 66–102; PULSE 62–98; RESP 15–30; TEMP 36.1–36.6; O2SAT 67–98
[2021-06-28] MEDS: morphine 4 mg/mL SDV 1 mL 1 MG IVP (01:08)
[2021-06-28] MEDS: levETIRAcetam 750 MG in sodium chloride 0.9% (100 ml) 100 ML 430 MG IV (01:38)
--- NOTE | 2021-06-28 03:35 | PC.NURSE ---
Barbara Kathrine, patient's mother, called 06/28/21 at 0335 to state she no longer wishes the patient to be transported to [facility] and to have the patient become a full DNR. Dr. Hyde was contacted and informed of the mother's wishes.
[2021-06-28 07:35] LABS: Glucose Point of Care 147 mg/dL (70-110)
--- NOTE | 2021-06-28 10:15 | PM.PN ---
Subjective Subjective: Last 24 hours noted. I appreciate the CT scan was performed which demonstrated intracranial hemorrhage. He is now transitioning to comfort. Medications: Reviewed: Yes Vitals/I&O/Wt Last Vital Signs Temp 97.9 F 06/28/21 06:00 Pulse 84 06/28/21 09:00 Resp 15 06/28/21 09:31 BP 156/93 06/28/21 09:00 Pulse Ox 96 06/28/21 09:00 06/27/21 06/28/21 06/28/21 22:59 06:59 14:59 Intake Total 107.5 / 567.5 107.5 / 675.0 Output Total 600 / 600 200 / 800 Balance -492.5 / -32.5 -92.5 / -125.0 Weight last 48 hrs Weight 71.985 kg Weight 62.777 kg Physical Exam Narrative: Constitutional: Intubated and vented HEENT: Wet mucosa, no jvp, non icteric Lungs Scattered rales and diminished bases CVS: S1 S2, no murmurs Abdo: Soft, BS ok Ext 4: Minimal edema, peripheral perfusion with no cyanosis Urinary Catheter Management: Suprapubic: Cath Placed During This Visit: yes, but has since been removed by the nurse Reason for Continuing Indwelling Catheter: Accurate Measurement of Urinary Output in Critically Ill Patients Urinary Catheter Date of Insertion: 06/22/21 Urinary Catheter Time of Insertion: 06:02 Date Urinary Catheter Removed: 06/22/21 Time Urinary Catheter Discontinued: 06:00 Data : 06/27/21 03:35 06/27/21 03:35 Micro: Microbiology 06/27/21 03:35 Blood Culture - Preliminary Blood NEGATIVE TO DATE 06/27/21 03:35 Blood Culture - Preliminary Blood NEGATIVE TO DATE 06/26/21 16:50 MRSA Culture - Final Nose 06/25/21 10:45 Gram Stain - Final Sputum - Endotracheal Tube Aspirate Sputum Culture - Final 06/24/21 09:32 Blood Culture - Preliminary Blood Escherichia coli A&P Assessment and plan (1) SABAS (acute kidney injury): Status: Acute Plan Catastrophic intracranial event noted in an already very sick gentleman. Now being transitioned to comfort care. I will sign off his case at this time; as always, I will team appreciates our involvement. Abhinav Rodriguez MD Nephrology [phone] Patient seen and examined via telemedicine, with the assistance of the bedside RN > 5 min spent in evaluation and mgmt of patient Attestations Medical Necessity Statement*: eval for SABAS Coding Level of Care Code Acute Shirring Machine Operator Automatic for cynthia Webster Diagnoses SABAS (acute kidney injury) N17.9
--- NOTE | 2021-06-28 10:31 | PC.NURSE ---
Pt was extubated to comfort care this AM. Mother at bedside with patient now.
--- NOTE | 2021-06-28 16:01 | PM.PN ---
Subjective Subjective: Patient was accepted for transfer to [facility] in [place] [facility], however overnight ICU received a callf\ rom mother that she had changed her mind. This morning mother is at bedside, states that she has had a lot to think about, but in keeping with Timur's last known wishes, she wants to pursue comfort measures and opt for terminal extubation. States that Mr. Valdovinos would not have wanted to be on ventilator or have CPR. Vitals/I&O/Wt Last Vital Signs Temp 97.9 F 06/28/21 06:00 Pulse 98 06/28/21 14:30 Resp 30 H 06/28/21 14:30 BP 121/67 06/28/21 14:30 Pulse Ox 67 L 06/28/21 14:30 06/28/21 06/28/21 06/28/21 06:59 14:59 22:59 Intake Total 107.5 / 675.0 0 / 0 Output Total 200 / 800 Balance -92.5 / -125.0 0 / 0 Weight last 48 hrs Weight 71.985 kg Weight 62.777 kg Physical Exam Urinary Catheter Management: Suprapubic: Cath Placed During This Visit: yes, but has since been removed by the nurse Reason for Continuing Indwelling Catheter: Accurate Measurement of Urinary Output in Critically Ill Patients Urinary Catheter Date of Insertion: 06/22/21 Urinary Catheter Time of Insertion: 06:02 Date Urinary Catheter Removed: 06/22/21 Time Urinary Catheter Discontinued: 06:00 Data : 06/27/21 03:35 06/27/21 03:35 Micro: Microbiology 06/24/21 09:32 Blood Culture - Preliminary Blood Escherichia coli 06/27/21 03:35 Blood Culture - Preliminary Blood NEGATIVE TO DATE 06/27/21 03:35 Blood Culture - Preliminary Blood NEGATIVE TO DATE 06/26/21 16:50 MRSA Culture - Final Nose 06/25/21 10:45 Gram Stain - Final Sputum - Endotracheal Tube Aspirate Sputum Culture - Final A&P Assessment and plan (1) Need for comfort care: Status: Acute Plan Transfer to higher facility cancelled. Per discussion with mother, she states that Timur would not have wanted to live like a vegetable , would not have wanted any CPR or remain on the ventilator. She wishes to honor his wishes and proceed with extubation and comfort measures only, letting nature take its course post extubation. 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 Though sepsis is resolving, without a meaningful mental status, Timur is unlikley to have the quality of life that he would have wanted for himself. In accordance with mother's and Mr. Valdovinos's last known wishes, decision was made to extubate and transition to comfort measures only. No further labs indicated. Prn morphine and ativan added for comfort Attestations Medical Necessity Statement*: transition to comfort care management Coding Level of Care Code Acute Rivet Hole Puncher for Chg Fwd Diagnoses Need for comfort care
--- NOTE | 2021-06-28 17:11 | PC.NURSE ---
Pt at 1558 and informed. All lines removed and bed bath given. [facility] called and informed this nurse to call [facility] at the [facility] for body donation. The institution was called and they told this nurse we would receive a call back about whether the body was accepted or not. Call back number for institution is [phone].
--- NOTE | 2021-06-28 17:29 | PC.NURSE ---
Not able to donate body to medical institution. Being sent to [facility].
--- NOTE | 2021-06-28 18:43 | P.DES_ITS ---
Discharge Providers DDS Date of Admission: 06/22/21 00:14 Date Summary Completed: 06/28/21 Attending Provider at Admission: Neal Leong MD Time of : 15:58 Attending Provider at Discharge: Christiana Lopez MD Primary Care Provider: DO MARY Lakhani Diagnoses Hospital Diagnoses (1) Need for comfort care: (2) Midline shift of brain due to hematoma: (3) Subdural hematoma: (4) E. coli septicemia: (5) Ventricular arrhythmia: (6) Anemia: (7) Septic shock: (8) Sepsis with acute hypoxic respiratory failure: (9) NSTEMI (non-ST elevated myocardial infarction): (10) DIC (disseminated intravascular coagulation): (11) Obstructive pyelonephritis: Reason for Visit Reason for Visit N/V/ DIAPHORETIC Summary Date and Time of Date of : 06/28/21 Time of : 15:58 Summary Summary: Admitted since 06/21 after presenting with sepsis related to obstructive pyelonephritis.Initial imaging showed 12 x 7 x 7 mm stone in the proximal left ureter at the ureteropelvic junction producing moderate hydronephrosis Status post ureteral stent placement on June 22, 2021. Continued to clinically deteriorate, by June 24 patient developed acute hypoxic respiratory failure, worsening thrombocytopenia related to DIC, worsening SABAS, peak cr at 3.6, type II NM/NSTEMI with trop range 400, negative 2 and 6 hr delatas, persistent ventricular arrhythmia, likely related to sepsis unable to be anticoagulated due to thrombocytopenia with lowest plt count at 11K and fulminant shock, on 2 pressors on 06/24. Blood cx + E.coli 06/21 and 06/24. Started to improve from sepsis standpoint however on 06/27 was noted to have no menaingful neurological responses once off sedation for which CT head was obtained and showed New acute subdural hemorrhage over a large portion of the RIGHT cerebrum with subdural blood extending along the tentorium and interhemispheric falx with.2 mm midline shift to the LEFT with loss of the estrada-white matter differentiation and mild effacement of the RIGHT lateral ventricle. Small amount of intraventricular blood on the LEFT. New posterior RIGHT occipital lobe subacute infarct since 06/21/2021. His mother Barbara elected to proceed with comfort care measures on 2/11/22 in keeping with Mr. Valdovinos's last known wishes and he was terminally extubated on the morning of 06/28/21. He on 06/28/21 at 15:58. Additional Data Advance directives?: No (unknown) Discharge Plan Discharge Patient Disposition: At Medical Facility Condition: Critical Prescriptions: No Action aspirin [Adult Aspirin Regimen] 81 mg tablet,delayed release (DR/EC) 81 mg PO DAILY@09 0RF Hold Instructions: Resume on 06/18/20. carbamazepine 200 mg tablet 200 mg PO BID@, 0RF escitalopram oxalate 10 mg tablet 10 mg PO DAILY@22 0RF Hold Instructions: see pcp before resuming gabapentin 100 mg capsule See Rx Instructions .ROUTE .COMPLEX 0RF Rx Instructions: 100 mg orally in the morning / 100 mg orally at noon / and 600 mg orally promethazine 25 mg tablet 25 mg PO Q6H PRN (Reason: Nausea) 0RF ascorbic acid (vitamin C) 500 mg capsule 500 mg PO DAILY@09 0RF ergocalciferol (vitamin D2) 10 mcg (400 unit) tablet 50,000 unit PO Q7D 0RF Rx Instructions: ON WEDNESDAYS baclofen 20 mg tablet 20 mg PO QID PRN (Reason: Pain) 0RF tizanidine 2 mg tablet 6 mg PO Q6H Qty: 360 5RF Rx Instructions: 6 mg PO every 6 hours; ketoconazole 2 % shampoo 1 applic topical .3 x weekly Qty: 120 3RF Rx Instructions: Lather into scalp and face 3 times weekly. Allow to sit on scalp for 5 minutes before rinsing. triamcinolone acetonide 0.1 % ointment 1 applic topical BID Qty: 453.6 1RF Rx Instructions: to arms x 2 weeks alternating with clobetasol. May use on face x 2 weeks then switch to hydrocortisone clobetasol 0.05 % ointment 1 applic topical BID 14 Days Qty: 60 3RF Rx Instructions: start- to arms x 2weeks alternating with triamcinolone hydrocortisone 2.5 % ointment 1 applic topical BID PRN (Reason: skin irritation) Qty: 453.6 0RF Rx Instructions: To face following 2 weeks of Triamcinolone for no more than 2 weeks/month mometasone 0.1 % solution 1 applic topical DAILY Qty: 60 3RF Rx Instructions: to scalp Renacidin 1,980.6 mg-59.4 mg-980.4mg/30mL solution 30 ml irrigation TID Qty: 900 12RF vitamin E 1,000 unit Capsule 1,000 unit PO DAILY@09 0RF albuterol sulfate 90 mcg/actuation aero powdr breath act w/sensor 1 inh inhalation Q6H PRN (Reason: shortness of breath or wheezing) Qty: 1 0RF meloxicam 7.5 mg tablet 7.5 mg PO BID 0RF sennosides-docusate sodium [Senna-S] 8.6-50 mg tablet 1 tab-cap PO BID Qty: 30 2RF polyethylene glycol 3350 [Miralax] 17 gram powder in packet 17 g PO DAILY PRN (Reason: constipation) 4 Days 1RF trazodone 100 mg Tablet 200 mg PO BEDTIME 0RF Advil 200 mg Tablet 200 mg PO BEDTIME PRN (Reason: Pain) 0RF hydroxyzine HCl 10 mg Tablet 10 mg PO BEDTIME PRN (Reason: Sleep) 0RF Discharge Orders: Transfer Out of Facility (Order); Ordered 06/27/21 Ordered By: Christiana Lopez Referrals: Puja Mohamud DO [Primary Care Provider] - Patient Instructions: Opioid Safety Probable Cause of Probable cause of : Cardiac arrest DS Attestations Time Spent in /Discharge Care*: greater than 30 min Quality - AMI: AMI present?: Yes Clinical Trial Participant: No Quality - Stroke: CVA present?: Yes Symptom Onset Unknown: No Quality - VTE: VTE present?: No Deep Vein Thrombosis/Pulmonary Embolism Present on Admission: No Coding Level of Care Code Acute Laboratory Geneticist for g Fwd Diagnoses Need for comfort care Midline shift of brain due to hematoma G93.89; S06.2X0S Subdural hematoma S06.5X9A E. coli septicemia A41.51 Ventricular arrhythmia I49.9 Anemia D64.9 Septic shock A41.9; R65.21 Sepsis with acute hypoxic respiratory failure A41.9; R65.20; J96.01 NSTEMI (non-ST elevated myocardial infarction) I21.4 DIC (disseminated intravascular coagulation) D65 Obstructive pyelonephritis N11.1
[2021-07-02 09:04] LABS: ABG PCO2 29.6 mmHg (35-45); ABG PH Result 7.45 (7.35-7.45); Arterial Blood Gas Hematocrit 14.5 % (42-52); Base Excess ABG -3.3 mmol/L (-2.0-2.0); Blood Gas Allen Test Pos; Blood Gas Sample Site Radial, right; Blood Gas Sample Type Arterial; Blood Gas Tidal Volume 0.45; HCO3 ABG 20.5 mmol/L (22-26); Oxygen Device VENT; PO2 ABG 63.7 mmHg (80.0-100.0)
[2021-07-02 11:04] LABS: ABG PH Result 7.09 (7.35-7.45)
== END 2021-06-28 15:58 | disposition expired | DRG 659 ==
LOC: ER 06-22 00:38 → MEDSURG 06-22 01:11 → ICU 06-22 06:08
PROVIDERS: Emergency Medicine; Internal Medicine; Internal Medicine Nephrology; Urology; Admitting Provider Internal Medicine; Emergency Provider Emergency Medicine; PCP Family Medicine; Visit Provider Student in an Organized Health Care Education/Training Program
PROC: 0TJB8ZZ Inspection of Bladder, Via Natural or Artificial Opening Endoscopic (ICD-10-PCS; CPT 52000; principal; 2021-06-22 05:30)
PROC: 0T778DZ Dilation of Left Ureter with Intraluminal Device, Via Natural or Artificial Opening Endoscopic (ICD-10-PCS; CPT 50605; 2021-06-22 05:30)
PROC: 0T778DZ Dilation of Left Ureter with Intraluminal Device, Via Natural or Artificial Opening Endoscopic (ICD-10-PCS; 2021-06-22 05:30)
DX: T83.518A Infection and inflammatory reaction due to other urinary catheter, initial encounter (principal); A41.9 Sepsis, unspecified organism; R65.21 Severe sepsis with septic shock; G82.50 Quadriplegia, unspecified; N17.0 Acute kidney failure with tubular necrosis; I62.01 Nontraumatic acute subdural hemorrhage; J96.01 Acute respiratory failure with hypoxia; D65 Disseminated intravascular coagulation [defibrination syndrome]; I21.A1 Myocardial infarction type 2; G93.41 Metabolic encephalopathy; E87.1 Hypo-osmolality and hyponatremia; N13.2 Hydronephrosis with renal and ureteral calculous obstruction; I47.1 Supraventricular tachycardia; Z86.16 Personal history of COVID-19; Z96.0 Presence of urogenital implants; Y73.8 Miscellaneous gastroenterology and urology devices associated with adverse incidents, not elsewhere classified; E11.9 Type 2 diabetes mellitus without complications; Z87.442 Personal history of urinary calculi; F17.210 Nicotine dependence, cigarettes, uncomplicated; Z87.440 Personal history of urinary (tract) infections; Z51.5 Encounter for palliative care; B96.4 Proteus (mirabilis) (morganii) as the cause of diseases classified elsewhere; B96.5 Pseudomonas (aeruginosa) (mallei) (pseudomallei) as the cause of diseases classified elsewhere; B96.20 Unspecified Escherichia coli [E. coli] as the cause of diseases classified elsewhere; D64.9 Anemia, unspecified; I95.9 Hypotension, unspecified; N31.9 Neuromuscular dysfunction of bladder, unspecified
CPT/HCPCS: 36415; 36416; 36430; 36592; 36600; 70450; 71045; 71250; 74176; 76000; 80048; 80051; 80053; 80202; 80500; 81001; 82247; 82248; 82330; 82533; 82550; 82575; 82803; 82805; 82962; 83010; 83605; 83615; 83690; 83880; 84145; 84300; 84443; 84484; 84550; 85025; 85362; 85378; 85384; 85610; 85730; 86705; 86706; 86709; 86803; 86850; 86900; 86920; 86927; 87040; 87070; 87077; 87086; 87150; 87186; 87205; 87340; 87426; 87635; 87641; 93005; 93306; 94002; 94003; 94799; 96365; 96367; 96372; 99285; C2625; J0278; J0282; J0330; J0743; J1650; J1815; J1940; J1953; J2060; J2185; J2250; J2270; J2370; J2405; J2704; J3010; J3370; J3480; J3490; J7030; J7050; J7060; P9016; P9017; P9035; P9047; P9055; Q3014